=== PATIENT | female | born 1980 | race Caucasian/White ===

== ENCOUNTER 2016-06-30 13:53 | Emergency (ER) | payer OTHER ==
[~2016-06-30] VITALS: Ht 160 cm; Wt 168.9 kg
[~2016-06-30 13:53] MED LIST: ABL15 PO; ALBU0.08 INH; DOXY-300 PO; HYDR-3124 PO; MOME100A INH; OMEP20TA PO; ONDA4TAB46 PO; PRAZ5CAP2 PO; TOPI50TA24 PO; TPRSR/25 PO
[2016-06-30 13:57] VITALS: Ht 160 cm; Wt 168.9 kg
[2016-06-30] MEDS ORDERED: FLUO0.0121 TOP (14:33)
[2016-06-30] MEDS ORDERED: FURO-85 PO (14:33)
[2016-06-30] MEDS ORDERED: POTA10CA28 PO (14:37)
[2016-06-30] MEDS ORDERED: HYDROmorphone INJ 0.5 MG/0.5 ML SYR IV STA (15:26)
[2016-06-30] MEDS ORDERED: ALBUT/IPRATROP 3MG/0.5MG NEB 3 ML VIAL INH STA (15:26)
[2016-06-30] MEDS ORDERED: ACETAMINOPHEN 500 MG TAB PO STA (15:26)
[2016-06-30] MEDS ORDERED: ONDANSETRON INJ 2 MG/ML 2 ML VIAL IV STA (15:26)
[2016-06-30] MEDS ORDERED: ONDA4TAB9 PO (15:43)
[2016-06-30] MEDS ORDERED: KLN5X PO (15:43)
[2016-06-30] MEDS ORDERED: TPM/50 PO (15:43)
[2016-06-30] MEDS ORDERED: ARIP1TAB16 PO (15:43)
[2016-06-30] MEDS ORDERED: ALBINS/ INH (15:47)
[2016-06-30] MEDS ORDERED: TPRSR25 PO (15:47)
[2016-06-30] MEDS ORDERED: ALBU18002 INH (15:47)
--- NOTE | 2016-06-30 15:50 | DIAGNOSTIC IMAGING REPORT ---
CHEST ONE VIEW PORTABLE CLINICAL HISTORY: Chest pain. COMPARISON STUDY: Chest radiograph April 04, 2016. FINDINGS: Lung volumes are normal. No consolidation is identified. There is no pneumothorax or pleural effusion. There is no evidence of pulmonary edema. Cardiomediastinal silhouette is normal. IMPRESSION: No acute cardiopulmonary findings. Electronically signed by: Kody Choudhary M.D. 06/30/2016 3:49 PM Dictated Date/Time: 06/30/2016 3:48 PM
[2016-06-30 15:55] VITALS: TEMP 36.8
[2016-06-30 16:17] LABS: BASO % 0.3 %; BASO ABS # 0.04 K/uL (0-0.2); COMPLETE YES; HEMATOCRIT 37.4 % (37-47); IG% 0.4 %; LYMPH % 20.7 %; LYMPH ABS # 2.61 K/uL (1.2-3.4); MEAN CELL VOLUME 85.2 fL (80-100); MEAN CORPUSCULAR HEMOGLOBIN 28.9 pg (25-34); MEAN PLATELET VOLUME 9.4 fL (7.4-10.4); MONO % 6.3 %; NEUT % 69.3 %; PLATELET COUNT 282 K/uL (130-400); RED BLOOD COUNT 4.39 M/uL (4.2-5.4); WHITE BLOOD COUNT 12.61 K/uL (4.8-10.8)
[2016-06-30 16:39] LABS: ALT/SGPT 24 U/L (12-78); BLOOD UREA NITROGEN 20 mg/dl (7-18); BUN/CREATININE RATIO 22.7 (10-20); CALCIUM 9.3 mg/dl (8.5-10.1); CARBON DIOXIDE 23 mmol/L (21-32); CHLORIDE 105 mmol/L (98-107); GLUCOSE 130 mg/dl (70-99); POTASSIUM 3.7 mmol/L (3.5-5.1); SODIUM 140 mmol/L (136-145)
[2016-06-30 16:41] LABS: PREG INTERNAL NEGATIVE QC NEG CLEAR BACKGROUND; PREG INTERNAL POSITIVE QC POS CONTROL LINE
[2016-06-30 16:44] LABS: ALKALINE PHOSPHATASE 138 U/L (45-117); AST/SGOT 15 U/L (15-37)
--- NOTE | 2016-06-30 17:20 | DIAGNOSTIC IMAGING REPORT ---
CHEST CTA for PULMONARY ARTERIES CT DOSE: 746.53 mGy.cm HISTORY: Chest pain dyspnea TECHNIQUE: Multiaxial CT images of the chest were performed following the intravenous administration of contrast to evaluate the pulmonary arteries. Maximal intensity projection images were also obtained. COMPARISON STUDY: 11/04/2015 FINDINGS: There is a normal caliber thoracic aorta with no evidence for dissection. There is no evidence for pulmonary embolus. No pleural effusions. No pneumothorax. The liver and spleen are unremarkable. No mediastinal or hilar lymphadenopathy. The central airways are patent. The lungs are clear. IMPRESSION: No evidence for pulmonary embolus. The lungs are clear. Electronically signed by: José Luna M.D. 06/30/2016 5:18 PM Dictated Date/Time: 06/30/2016 5:17 PM
[2016-06-30 17:22] VITALS: O2SAT 99
[2016-06-30] MEDS ORDERED: AZITHROMYCIN 250 MG TAB PO STA (17:40)
[2016-06-30] MEDS ORDERED: PRED20TA PO (17:52)
[2016-06-30] MEDS ORDERED: AZIT250T5 PO (17:52)
[2016-06-30 18:08] VITALS: BP 134/75; PULSE 86; O2SAT 96
--- NOTE | 2016-06-30 18:34 | EMERGENCY ROOM VISIT NOTE ---
History Report prepared by Aimee: Tabatha Herrera Under the Supervision of: Dr. Sathya Niño M.D. First contact with patient: 15:16 Chief Complaint: CHEST PAIN Stated Complaint: PAIN FROM CHEST TO RIB, NECK PAIN ON THE RT SIDE Nursing Triage Summary: Patient reports left rib/chest pain for two weeks. Patient just finished prescription for bronchitis states she was on Bactrim History of Present Illness The patient is a 35 year old female who presents to the Emergency Room with complaints of worsening pain in the left side of her rib and chest for the past 2 weeks. She states that the pain is "beyond 10" out of 10 in severity. She reports that she saw her doctor for this, but says that he "didn't do anything" . She states that the pain is made worse by breathing, walking, eating, and coughing. She is also experiencing some nausea and a fever. She is having difficulty breathing. She reports she has a history of asthma for which she has been using an inhaler. She also mentions that she has been urinating more often. Upon arrival to the emergency room, the patient had a fever but was unaware of the fever RN OR LVN. Pt denies LOC, headache, chills, diaphoresis, visual changes, neck pain, chest pain, vomiting, abdominal pain, back pain, melena, hematochezia, numbness, weakness, lymphadenopathy, rash, or other complaints. Source of History: patient Onset: past 2 weeks Position: other (left ribs and chest) Symptom Intensity: beyond 10/10 Timing: worsening Modifying Factors (Worsening): eating, breathing, other (coughing, walking) Associated Symptoms: + fevers, + nausea, + urinary symptoms (increased frequency) Note: Pt is also having difficulty breathing. Review of Systems See HPI for pertinent positives and negatives. A total of ten systems were reviewed and were otherwise negative. Past Medical & Surgical Medical Problems: (1) Anxiety (2) Asthma (3) Bipolar II disorder with severity, psychotic, or remission specifiers (4) Gastroesophageal reflux disease (5) Gastroparesis (6) History of palpitations (7) Psoriasis (8) Type II diabetes mellitus, uncontrolled Family History FH: gallbladder disease FH: heart disease FHx: lung disease Hypertension Kidney disease Kidney stones Social History Smoking Status: Never Smoker Alcohol Use: none Drug Use: none Marital Status: in relationship Housing Status: lives with friends Occupation Status: unemployed Current/Historical Medications Scheduled Aripiprazole (Aripiprazole), 15 MG PO HS Atorvastatin (Atorvastatin Calcium), 20 MG PO HS Azithromycin (Zithromax), 250 MG PO DAILY Clonazepam (Clonazepam), 0.5 MG PO UD Fluocinolone Acetonide ([place]/Fs Scalp), 1 APPL TOP UD Furosemide (Lasix), 20 MG PO QAM Metoprolol Succinate (Metoprolol Succinate ER), 25 MG PO QAM Mometasone Furoate-Formoterol (Dulera 100/5 Mcg), 2 PUFFS INH BID Omeprazole (Omeprazole), 20 MG PO BID Potassium Chloride (Micro-K Ext Rel), 10 MEQ PO DAILY Prazosin Hcl (Prazosin), 5 MG PO HS Prednisone (Prednisone), 20 MG PO DAILY Topiramate (Topamax), 50 MG PO BID Scheduled PRN Albuterol Sulf (Proventil 0.083% 2.5MG/3ML), 2.5 MG INH QID PRN for Wheezing Albuterol Sulfate (Proair Respiclick), 2 PUFFS INH UD PRN for SOB/Wheezing Ondansetron (Ondansetron HCl), 4 MG PO Q8 PRN for Nausea Allergies Coded Allergies: Aspirin (Verified Allergy, Intermediate, hives, 04/04/16) Penicillins (Verified Allergy, Intermediate, hives, 04/04/16) Nickel (Verified Allergy, Mild, RASH, 04/04/16) Clindamycin (Unverified Allergy, Unknown, RASH, 04/04/16) Diazepam (Verified Allergy, Unknown, PALPITATIONS, VOMITING, 04/04/16) Fluconazole (Verified Allergy, Unknown, HIVES, 04/04/16) Metoclopramide (Unverified Allergy, Unknown, UNKNOWN, 04/04/16) Metronidazole (Verified Allergy, Unknown, ., 04/04/16) Sumatriptan (Verified Allergy, Unknown, "swelling up", 04/04/16) Tramadol (Verified Allergy, Unknown, HIVES, 04/04/16) Yeast (Verified Allergy, Unknown, unknown, 04/04/16) Doxycycline (Unverified Adverse Reaction, Severe, VOMITING, 04/04/16) Prednisone (Unverified Adverse Reaction, Severe, SUICIDAL, 04/04/16) Oxycodone (Unverified Adverse Reaction, Unknown, GI SYMPTOMS, 04/04/16) Physical Exam Vital Signs Date Time Temp Pulse Resp B/P Pulse Ox O2 Delivery O2 Flow Rate FiO2 06/30/16 18:08 86 18 134/75 96 Room Air 06/30/16 17:22 99 Nasal Cannula 1.0 06/30/16 17:21 89 16 153/73 99 Nasal Cannula 1.0 06/30/16 16:18 92 06/30/16 15:55 36.8 92 18 132/75 96 Room Air 06/30/16 15:50 94 Room Air 06/30/16 13:57 38.1 97 28 185/103 97 Room Air Physical Exam GENERAL: Awake, alert, uncomfortable-appearing, in no acute distress HENT: Normocephalic, atraumatic. Oropharynx unremarkable. EYES: Normal conjunctiva. Sclera non-icteric. NECK: Supple. No nuchal rigidity. FROM. No JVD. RESPIRATORY: Expiratory wheezing on left side to auscultation. Breath sounds equal. CARDIAC: Regular rate, normal rhythm. Extremities warm and well perfused. Pulses equal. ABDOMEN: Soft, non-distended. No tenderness to palpation. No rebound or guarding. No masses. RECTAL: Deferred. MUSCULOSKELETAL: Left posterior, lateral, and anterior rib tenderness. The back is symmetrical on inspection without obvious abnormality. There is no CVA tenderness to palpation. No joint edema. LOWER EXTREMITIES: Calves are equal size bilaterally and non-tender. No edema. No discoloration. NEURO: Normal sensorium. No sensory or motor deficits noted. SKIN: No rash or jaundice noted. Medical Decision & Procedures ER Provider Diagnostic Interpretation: Radiology results as stated below per my review and radiologist interpretation. CHEST ONE VIEW PORTABLE CLINICAL HISTORY: Chest pain. COMPARISON STUDY: Chest radiograph April 04, 2016. FINDINGS: Lung volumes are normal. No consolidation is identified. There is no pneumothorax or pleural effusion. There is no evidence of pulmonary edema. Cardiomediastinal silhouette is normal. IMPRESSION: No acute cardiopulmonary findings. Electronically signed by: Kody Choudhayr M.D. 06/30/2016 3:49 PM CHEST CTA for PULMONARY ARTERIES CT DOSE: 746.53 mGy.cm HISTORY: Chest pain dyspnea TECHNIQUE: Multiaxial CT images of the chest were performed following the intravenous administration of contrast to evaluate the pulmonary arteries. Maximal intensity projection images were also obtained. COMPARISON STUDY: 11/04/2015 FINDINGS: There is a normal caliber thoracic aorta with no evidence for dissection. There is no evidence for pulmonary embolus. No pleural effusions. No pneumothorax. The liver and spleen are unremarkable. No mediastinal or hilar lymphadenopathy. The central airways are patent. The lungs are clear. IMPRESSION: No evidence for pulmonary embolus. The lungs are clear. Electronically signed by: José Luna M.D. 06/30/2016 5:18 PM Laboratory Results 06/30/16 15:54 Red Blood Count 4.39, Mean Corpuscular Volume 85.2, Mean Corpuscular Hemoglobin 28.9, Mean Corpuscular Hemoglobin Concent 34.0, Mean Platelet Volume 9.4, Neutrophils (%) (Auto) 69.3, Lymphocytes (%) (Auto) 20.7, Monocytes (%) (Auto) 6.3, Eosinophils (%) (Auto) 3.0, Basophils (%) (Auto) 0.3, Neutrophils # (Auto) 8.73, Lymphocytes # (Auto) 2.61, Monocytes # (Auto) 0.80, Eosinophils # (Auto) 0.38, Basophils # (Auto) 0.04 06/30/16 15:54 Test 06/30/16 15:50 06/30/16 15:54 06/30/16 15:55 Influenza Type A Antigen Neg for Influ A (NEG) Influenza Type B Antigen Neg for Influ B (NEG) White Blood Count 12.61 K/uL (4.8-10.8) Red Blood Count 4.39 M/uL (4.2-5.4) Hemoglobin 12.7 g/dL (12.0-16.0) Hematocrit 37.4 % (37-47) Mean Corpuscular Volume 85.2 fL (80-100) Mean Corpuscular Hemoglobin 28.9 pg (25-34) Mean Corpuscular Hemoglobin Concent 34.0 g/dl (32-36) Platelet Count 282 K/uL (130-400) Mean Platelet Volume 9.4 fL (7.4-10.4) Neutrophils (%) (Auto) 69.3 % Lymphocytes (%) (Auto) 20.7 % Monocytes (%) (Auto) 6.3 % Eosinophils (%) (Auto) 3.0 % Basophils (%) (Auto) 0.3 % Neutrophils # (Auto) 8.73 K/uL (1.4-6.5) Lymphocytes # (Auto) 2.61 K/uL (1.2-3.4) Monocytes # (Auto) 0.80 K/uL (0.11-0.59) Eosinophils # (Auto) 0.38 K/uL (0-0.5) Basophils # (Auto) 0.04 K/uL (0-0.2) RDW Standard Deviation 43.8 fL (36.4-46.3) RDW Coefficient of Variation 14.0 % (11.5-14.5) Immature Granulocyte % (Auto) 0.4 % Immature Granulocyte # (Auto) 0.05 K/uL (0.00-0.02) Anion Gap 12.0 mmol/L (3-11) Est Creatinine Clear Calc Drug Dose 138.9 ml/min Estimated GFR () 97.4 Estimated GFR (Non- 84.0 BUN/Creatinine Ratio 22.7 (10-20) Calcium Level 9.3 mg/dl (8.5-10.1) Total Bilirubin 0.2 mg/dl (0.2-1) Direct Bilirubin < 0.1 mg/dl (0-0.2) Aspartate Amino Transf (AST/SGOT) 15 U/L (15-37) Alanine Aminotransferase (ALT/SGPT) 24 U/L (12-78) Alkaline Phosphatase 138 U/L (45-117) Total Creatine Kinase 49 U/L (26-192) Creatine Kinase MB < 0.5 ng/ml (0.5-3.6) Creatine Kinase MB Ratio (0-3.0) Total Protein 8.4 gm/dl (6.4-8.2) Albumin 3.5 gm/dl (3.4-5.0) Lipase 306 U/L (73-393) Human Chorionic Gonadotropin, Qual NEG (NEG) Bedside D-Dimer > 450 ng/mlFEU (0-450) Bedside Troponin I 0.000 ng/ml (0-0.045) Laboratory results reviewed by me Medications Administered Medications (Trade) Dose Ordered Sig/[place] Route Start Time Stop Time Status Last Admin Dose Admin Acetaminophen (Tylenol Tab) 1,000 mg NOW STAT PO 06/30/16 15:26 06/30/16 15:28 DC 06/30/16 15:43 1,000 MG Albuterol/ Ipratropium (Duoneb) 3 ml NOW STAT INH 06/30/16 15:26 06/30/16 15:28 DC 06/30/16 15:43 3 ML Hydromorphone HCl (Dilaudid Inj) 0.5 mg NOW STAT IV 06/30/16 15:26 06/30/16 15:28 DC 06/30/16 15:52 0.5 MG Ondansetron HCl (Zofran Inj) 4 mg NOW STAT IV 06/30/16 15:26 06/30/16 15:28 DC 06/30/16 15:51 4 MG Azithromycin (Zithromax Tab) 500 mg NOW STAT PO 06/30/16 17:40 06/30/16 17:46 DC 06/30/16 17:40 500 MG ECG Indication: chest pain Rate (beats per minute): 87 Rhythm: normal sinus Findings: no acute ischemic change, no ectopy ED Course 1525: The patient was evaluated in room B10. A complete history and physical exam was performed. 1526: Zofran Inj 4 mg IV, Dilaudid Inj 0.5 mg IV, DuoNeb 3 ml INH, acetaminophen 1000 mg PO. 1638: I reevaluated the patient. She is feeling better. 1728: I reevaluated the patient. Discussed results and discharge instructions: She verbalized understanding and agreement. The patient is ready for discharge. 1740: Ordered Azithromycin 500 mg PO. 1748: I reassessed the patient. She is feeling better. She says that she can take ibuprofen without problems and low doses of prednisone. Discussed results and discharge instructions: She verbalized understanding and agreement. The patient is ready for discharge. Medical Decision Triage Nursing notes reviewed. The patient's presentation and history were concerning for chest pain and respirations. Etiologies such as pneumonia, COPD, reactive airway disease, CHF, cardiac ischemia, pulmonary embolism, pneumothorax, musculoskeletal, infections, gastrointestinal, as well as others were entertained. The patient was evaluated. Blood work was obtained. She had a slight leukocytosis. She is febrile. She was treated with Tylenol, Zofran, and a small dose of IV Dilaudid. She did feel much better with this. The patient underwent imaging as above. This was negative. The patient has had chest pain for 2 weeks. Her chemistry panel, cardiac markers and test are negative. I suspect That she has a component of costochondritis but she was wheezing and has asthma. The patient was treated with a low dose prednisone which she states she can't tolerate just fine and Zithromax. She will use ibuprofen which she can take at home despite having a sensitivity to aspirin and also will use Tylenol. I asked for the patient follow-up closely as an outpatient. She will use her inhaler and nebulizer that she has at home. Incidentally flu testing was negative. If the patient worsens in any way she will come back to the Emergency Room for reevaluation. I gave my usual and customary discussion regarding this issue. By the evaluation outlined above other emergent etiologies such as those listed in the differential, as well as others, were deemed relatively unlikely. The patient and significant other were informed about the findings as listed above. All questions were answered and they were pleased with the treatment. Return instructions were outlined and the patient was discharged in stable condition. The patient was referred to her PCP for follow-up for a recheck of the current condition. The chart was completed utilizing [email or web address] Speech voice recognition software. Grammatical errors, random word insertions, pronoun errors, and incomplete sentences are an occasional consequence of this system due to software limitations, ambient noise, and hardware issues. Any formal questions or concerns about the content, text, or information contained within the body of this dictation should be directly addressed to the physician for clarification. Impression Primary Impression: Left sided chest pain Additional Impressions: Cough Wheezing Scribe Attestation The scribe's documentation has been prepared under my direction and personally reviewed by me in its entirety. I confirm that the note above accurately reflects all work, treatment, procedures, and medical decision making performed by me. Departure Information Dispostion Home / Self-Care Prescriptions Azithromycin (ZITHROMAX) 250 Mg Tab 250 MG PO DAILY, #4 TAB Prov: Sathya Niño MD 06/30/16 Prednisone (Prednisone) 20 Mg Tab 20 MG PO DAILY for 4 Days, #4 TAB Prov: Sathya Niño MD 06/30/16 Referrals Jude Crouch D.O. (PCP) Patient Instructions My [facility] Additional Instructions Albuterol Inhaler: Take 2 puffs four times daily for five days, then as needed. Prednisone 50mg: Once daily until the prescription is finished. It is best to take this earlier in the day as some patients note occasional difficulty falling asleep when taken in the late evening. Azithromycin(Zithromax) 250mg: Take one a day for 4 additional days. All antibiotics can cause diarrhea. If this occurs and you feel worse or it does not resolve in 1-2 days follow up with your doctor or return to the Emergency Department as this could be signs of serious underlying problems. Any medication can cause an allergic reaction, stop the pills immediately and return to the ER for rash, hives, breathing difficulties, or swelling. Acetaminophen(Tylenol) may be used for fever or pain. Use 1000mg every six hours as needed. Avoid using more than 4000mg in a 24 hour period. (AND/OR) Ibuprofen(Motrin, Advil) may be used for fever or pain. Use 600mg every six hours as needed. Take with food. Avoid using more than 2400mg in a 24 hour period. Do not use 2400mg per day for more than three consecutive days without physician direction. Prolonged inappropriate use can lead to stomach upset or ulcers. Rest and drink plenty of fluids. Avoid smoke/smoking, fumes, dust, or any triggers in the past that may have affected your breathing. Warm compresses for 20 minutes at a time four times daily for 2-3 days to help with the sore chest. Continue current medications. Return to the ER for chest pain, difficulty breathing, fevers, vomiting, worsening of your condition, or as needed. Follow up with your primary physician this week for a recheck of your current condition. Problem Qualifiers
[2016-06-30] MEDS ORDERED: LPT/20 PO (19:47)
== END 2016-06-30 18:11 | disposition home or self-care (01) ==
LOC: C.EDB 13:54
DX: R07.9 Chest pain, unspecified (principal); R05 Cough; R06.2 Wheezing; F41.9 Anxiety disorder, unspecified; J45.909 Unspecified asthma, uncomplicated; K21.9 Gastro-esophageal reflux disease without esophagitis; K31.84 Gastroparesis; E11.9 Type 2 diabetes mellitus without complications; L40.9 Psoriasis, unspecified; F31.9 Bipolar disorder, unspecified; Z82.49 Family history of ischemic heart disease and other diseases of the circulatory system; Z84.1 Family history of disorders of kidney and ureter; Z83.79 Family history of other diseases of the digestive system; Z79.899 Other long term (current) drug therapy

== ENCOUNTER 2016-09-09 01:00 | Emergency (ER) | payer OTHER ==
[~2016-09-09] VITALS: Ht 160 cm; Wt 161.0 kg
[~2016-09-09 01:00] MED LIST changes: -ABL15 PO; +ALBINS/ INH; -ALBU0.08 INH; +ALBU18002 INH; +ARIP1TAB16 PO; -DOXY-300 PO; +FLUO0.0121 TOP; +FURO-85 PO; -HYDR-3124 PO; +KLN5X PO; +LPT/20 PO; -ONDA4TAB46 PO; +ONDA4TAB9 PO; +POTA10CA28 PO; -TOPI50TA24 PO; +TPM/50 PO; -TPRSR/25 PO; +TPRSR25 PO
[2016-09-09 01:03] VITALS: TEMP 37; Ht 160 cm; Wt 161.0 kg
[2016-09-09] MEDS ORDERED: KETOROLAC TROMETHAMINE 60 MG/2 ML VIAL IM STA (01:37)
[2016-09-09] MEDS ORDERED: HYDROmorphone INJ 1 MG/ML SYR IM STA (01:37)
[2016-09-09] MEDS ORDERED: ABL/15 PO (01:47)
[2016-09-09] MEDS ORDERED: PREG1CAP36 PO (01:51)
[2016-09-09] MEDS ORDERED: PRLSR20 PO (01:51)
[2016-09-09] MEDS ORDERED: DICL-201 PO (01:54)
[2016-09-09] MEDS ORDERED: PROM25TA9 PO (01:56)
--- NOTE | 2016-09-09 02:29 | EMERGENCY ROOM VISIT NOTE ---
ED Visit Note First contact with patient: 01:06 CHIEF COMPLAINT: Low back pain HISTORY OF PRESENT ILLNESS: This 36-year-old female patient presents to the emergency department ambulatory complaining of pain in the low back which began over one month ago. The pain has been gradually been worsening. She has seen her primary care provider and had x-rays which were negative. She has been taking Voltaren and Lyrica prescribed by her primary care provider. She states that she was seen in the [place] emergency department yesterday and given Dilaudid and Toradol with some relief. She saw her primary care provider today and was given a prescription for physical therapy for the next 6 weeks. She states that she is having difficulty sleeping due to the pain. It radiates down her left leg. She rates the discomfort a 10/10. The patient denies any loss of control of their bowel or bladder functions. There has been no leg numbness or weakness, and no change in sensation. No nausea or vomiting or abdominal pain. No chest pain or shortness of breath. No dysuria or increased urinary frequency. REVIEW OF SYSTEMS: A review of systems was performed with positives and pertinent negatives listed in the history of present illness. All other systems were reviewed and are negative. ALLERGIES: See EMR MEDICATIONS: See med list PMH: See problem list SOCIAL HISTORY: The patient lives locally with family. PHYSICAL EXAM: VITALS: Vitals are noted on the nurse's note and reviewed by myself. Vital signs stable. GENERAL: This is a 36-year-old female, in no acute distress, nondiaphoretic, well-developed well-nourished. SKIN: The skin was without rashes, erythema, edema, or bruising. Capillary refill less than 2 seconds. NECK: Supple without nuchal rigidity. No cervical spine tenderness. No paraspinous muscle tenderness. HEART: Regular rate and rhythm without murmurs gallops or rubs. LUNGS: Clear to auscultation bilaterally without wheezes, rales or rhonchi. ABDOMEN: Positive bowel sounds x 4. Soft, nontender, without masses or organomegaly. Munoz sign negative. MUSCULOSKELETAL: No muscle atrophy, erythema, or edema noted of the back. There is no tenderness over the lumbar spinous processes. There is vague tenderness over the paraspinous muscles bilaterally. There is no tenderness over the thoracic spine or paraspinous muscles. There are no muscle spasms present. The patient is slow to move around with maximum tenderness with flexion. Negative straight leg raise test. NEURO: Patient was alert and oriented to person place and time. Normal sensation to light and sharp touch. Deep tendon reflexes 2+ in the lower extremities. Dorsalis pedis pulse 2+ bilaterally. Strength 5/5 and equal in the bilateral lower extremities. EMERGENCY DEPARTMENT COURSE: The patient was evaluated as above. She has already been evaluated by her primary care provider for this back pain. There are no signs or symptoms concerning for epidural abscess or cauda equina syndrome. She was given 1 mg Dilaudid IM and 60 mg Toradol IM with relief of her pain. She was instructed to follow-up with her primary care provider this morning for further evaluation of her ongoing back pain. She verbalized understanding of my assessment and treatment plan and was discharged home in good condition. DIAGNOSIS: Lumbar radiculopathy Problem List Medical Problems: (1) Anxiety Status: Chronic (2) Asthma Status: Chronic (3) Bipolar II disorder with severity, psychotic, or remission specifiers Status: Chronic (4) Gastroesophageal reflux disease Status: Chronic (5) Gastroparesis Status: Chronic (6) History of palpitations Status: Chronic (7) Psoriasis Status: Chronic (8) Type II diabetes mellitus, uncontrolled Status: Chronic Current/Historical Medications Scheduled Aripiprazole (Abilify), 15 MG PO DAILY Atorvastatin (Atorvastatin Calcium), 20 MG PO HS Clonazepam (Clonazepam), 0.5 MG PO UD Diclofenac (Voltaren), 75 MG PO DIRECTED Furosemide (Lasix), 20 MG PO QAM Metoprolol Succinate (Metoprolol Succinate ER), 25 MG PO QAM Mometasone Furoate-Formoterol (Dulera 100/5 Mcg), 2 PUFFS INH BID Omeprazole (Omeprazole), 20 MG PO BID Potassium Chloride (Micro-K Ext Rel), 10 MEQ PO DAILY Prazosin Hcl (Prazosin), 5 MG PO HS Pregabalin (Lyrica), Unknown Dose PO DIRECTED Topiramate (Topamax), 50 MG PO BID Scheduled PRN Albuterol Sulf (Proventil 0.083% 2.5MG/3ML), 2.5 MG INH QID PRN for Wheezing Albuterol Sulfate (Proair Respiclick), 2 PUFFS INH UD PRN for SOB/Wheezing Ondansetron (Ondansetron HCl), 4 MG PO Q8 PRN for Nausea Promethazine Hcl (Phenergan), 12.5-25 MG PO Q6H PRN for Nausea Allergies Coded Allergies: Aspirin (Verified Allergy, Intermediate, hives, 09/09/16) Penicillins (Verified Allergy, Intermediate, hives, 09/09/16) Nickel (Verified Allergy, Mild, RASH, 09/09/16) Clindamycin (Unverified Allergy, Unknown, RASH, 09/09/16) Diazepam (Verified Allergy, Unknown, PALPITATIONS, VOMITING, 09/09/16) Fluconazole (Verified Allergy, Unknown, HIVES, 09/09/16) Metoclopramide (Unverified Allergy, Unknown, UNKNOWN, 09/09/16) Metronidazole (Verified Allergy, Unknown, ., 09/09/16) Sumatriptan (Verified Allergy, Unknown, "swelling up", 09/09/16) Tramadol (Verified Allergy, Unknown, HIVES, 09/09/16) Yeast (Verified Allergy, Unknown, unknown, 09/09/16) Doxycycline (Unverified Adverse Reaction, Severe, VOMITING, 09/09/16) Prednisone (Unverified Adverse Reaction, Severe, SUICIDAL, 09/09/16) Oxycodone (Unverified Adverse Reaction, Unknown, GI SYMPTOMS, 09/09/16) Vital Signs Date Time Temp Pulse Resp B/P Pulse Ox O2 Delivery O2 Flow Rate FiO2 09/09/16 02:35 62 18 119/67 96 09/09/16 01:03 37.0 75 20 147/94 97 Room Air Medications Administered Medications (Trade) Dose Ordered Sig/[place] Route Start Time Stop Time Status Last Admin Dose Admin Hydromorphone HCl (Dilaudid Inj) 1 mg NOW STAT IM 09/09/16 01:37 09/09/16 01:38 DC 09/09/16 01:45 1 MG Ketorolac Tromethamine (Toradol Inj) 60 mg NOW STAT IM 09/09/16 01:37 09/09/16 01:38 DC 09/09/16 01:45 60 MG Departure Information Impression Primary Impression: Lumbar radiculopathy Dispostion Home / Self-Care Condition GOOD Referrals Jude Crouch D.O. (PCP) Patient Instructions My [facility] Additional Instructions You have been treated in the Emergency Department for Back Pain. You have received pain medicine in the emergency department which impairs your ability to operate a vehicle. It is illegal for you to drive after receiving these medicines. For pain control, you can use the following [id number] medicines (if >12 yo): - Regular strength (325mg/tab) Tylenol (acetaminophen) 2 tabs every 4-6 hours as needed. Do not exceed 12 tablets in a 24 hour period. Avoid taking more than 4 grams (4000 mg) of Tylenol per day. This includes any other sources of acetaminophen you may take on a regular basis. - Regular strength (200 mg/tab) Advil (ibuprofen) 1-2 tabs every 4-6 hours as needed. Do not exceed a dose of 3200 mg per day. Follow-up with your primary care provider tomorrow. Return to the Emergency Department if your current symptoms worsen despite treatment course outlined above, or if you develop any of the following symptoms : intractable pain despite aforementioned treatment course, loss of control of your bowel or bladder, numbness or tingling in your groin, or development of a fever.
[2016-09-09 02:35] VITALS: BP 119/67; PULSE 62; O2SAT 96
[2017-03-18] MEDS ORDERED: ASCO1CAP3 PO (13:33)
== END 2016-09-09 02:37 | disposition home or self-care (01) ==
LOC: C.EDB 01:02 → C.EDA 02:37
DX: M54.16 Radiculopathy, lumbar region (principal); E11.9 Type 2 diabetes mellitus without complications; K21.9 Gastro-esophageal reflux disease without esophagitis; F41.9 Anxiety disorder, unspecified; F31.81 Bipolar II disorder; J45.909 Unspecified asthma, uncomplicated; Z79.899 Other long term (current) drug therapy

== ENCOUNTER 2017-02-03 17:55 | Emergency (ER) | payer OTHER ==
[~2017-02-03] VITALS: Ht 162.6 cm; Wt 160.0 kg
[~2017-02-03 17:55] MED LIST changes: +ABL/15 PO; -ARIP1TAB16 PO; +DICL-201 PO; -FLUO0.0121 TOP; +PREG1CAP36 PO; +PROM25TA9 PO
[2017-02-03 18:14] VITALS: TEMP 37.5; O2SAT 98; Ht 162.6 cm; Wt 160.0 kg
--- NOTE | 2017-02-03 18:19 | EMERGENCY ROOM VISIT NOTE ---
History Report prepared by Aimee: Peggy Burns Under the Supervision of: Dr. Gagan Luna M.D. First contact with patient: 17:58 Chief Complaint: VAGINAL BLEEDING Stated Complaint: DIZZY History of Present Illness The patient is a 36 year old female with a past medical history of anemia and diabetic who presents to the ED with a cc of an episodes of vaginal bleeding beginning six months ago. She notes her last episode was from beginning of December to mid January. The patient states that she had a pelvic exam done at [facility] yesterday. She reports that she had an ultra sound and blood work done today. She notes she has had these symptoms since then. She describes her pain as a cramping. Positive shaking, dizziness, chills, and lightheadedness. Negative use of blood thinners, tobacco products, alcohol, drugs, and any recent trauma. Source of History: patient Onset: six months ago Position: other (vagina) Quality: cramping Timing: other (episode) Associated Symptoms: + chills Note: The patient complains of shaking, dizziness, and lightheadedness. The patient denies the use of blood thinners, tobacco products, alcohol, drugs, and recent trauma. Review of Systems See HPI for pertinent positives and negatives. A total of ten systems were reviewed and were otherwise negative. Past Medical & Surgical Medical Problems: (1) Anxiety (2) Asthma (3) Bipolar II disorder with severity, psychotic, or remission specifiers (4) Gastroesophageal reflux disease (5) Gastroparesis (6) History of palpitations (7) Hx of migraines (8) Psoriasis (9) Type II diabetes mellitus, uncontrolled Family History FH: gallbladder disease FH: heart disease FHx: lung disease Hypertension Kidney disease Kidney stones Social History Smoking Status: Current Every Day Smoker Alcohol Use: none Drug Use: none Marital Status: in relationship Housing Status: lives with friends Occupation Status: unemployed Current/Historical Medications Scheduled Aripiprazole (Abilify), 15 MG PO DAILY Atorvastatin (Atorvastatin Calcium), 20 MG PO HS Cephalexin Monohydrate (Keflex), 500 MG PO BID Cholecalciferol (Vitamin D3), 5,000 TAB PO DIRECTED Clonazepam (Clonazepam), 0.5 MG PO UD Ferrous Sulfate (Kp Ferrous Sulfate), 325 MG PO TID Furosemide (Lasix), 20 MG PO QAM Melatonin (Melatonin Maximum Strengt), 5 MG PO HS Metoprolol Succinate (Metoprolol Succinate ER), 25 MG PO QAM Mometasone Furoate-Formoterol (Dulera 100/5 Mcg), 2 PUFFS INH BID Omeprazole (Omeprazole), 20 MG PO BID Prazosin Hcl (Prazosin), 5 MG PO HS Topiramate (Topamax), 50 MG PO BID Scheduled PRN Albuterol Sulf (Proventil 0.083% 2.5MG/3ML), 2.5 MG INH QID PRN for Wheezing Albuterol Sulfate (Proair Respiclick), 2 PUFFS INH UD PRN for SOB/Wheezing Ondansetron (Ondansetron HCl), 4 MG PO Q8 PRN for Nausea Allergies Coded Allergies: Aspirin (Verified Allergy, Intermediate, hives, 02/03/17) Penicillins (Verified Allergy, Intermediate, hives, 02/03/17) Nickel (Verified Allergy, Mild, RASH, 02/03/17) Clindamycin (Unverified Allergy, Unknown, RASH, 02/03/17) Diazepam (Verified Allergy, Unknown, PALPITATIONS, VOMITING, 02/03/17) Fluconazole (Verified Allergy, Unknown, HIVES, 02/03/17) Metoclopramide (Unverified Allergy, Unknown, UNKNOWN, 02/03/17) Metronidazole (Verified Allergy, Unknown, ., 02/03/17) Sumatriptan (Verified Allergy, Unknown, "swelling up", 02/03/17) Tramadol (Verified Allergy, Unknown, HIVES, 02/03/17) Yeast (Verified Allergy, Unknown, unknown, 02/03/17) Doxycycline (Unverified Adverse Reaction, Severe, VOMITING, 02/03/17) Prednisone (Unverified Adverse Reaction, Severe, SUICIDAL, 02/03/17) Oxycodone (Unverified Adverse Reaction, Unknown, GI SYMPTOMS, 02/03/17) Physical Exam Vital Signs Date Time Temp Pulse Resp B/P (MAP) Pulse Ox O2 Delivery O2 Flow Rate FiO2 02/03/17 19:29 80 02/03/17 18:14 37.5 61 20 153/98 98 Room Air 02/03/17 18:14 98 T-piece Physical Exam GENERAL: Awake, alert, well-appearing, NAD HENT: Normocephalic, atraumatic. Scaliness to scalp. EYES: Normal conjunctiva. Sclera non-icteric. NECK: Supple. No nuchal rigidity. FROM. RESPIRATORY: CTAB, no rhonchi, wheezing, crackles, distant lung sounds secondary to body habitus. CARDIAC: RRR, no MRG, distant heart sounds secondary to body habitus. ABDOMEN: Soft, NTND, BS+ MSK: No chest wall TTP, no LE edema NEURO: GCS 15, CN 2-12 intact, moves all 4s on command SKIN: No rash or jaundice noted. Medical Decision & Procedures Laboratory Results 02/03/17 18:29 Red Blood Count 3.69, Mean Corpuscular Volume 80.8, Mean Corpuscular Hemoglobin 24.9, Mean Corpuscular Hemoglobin Concent 30.9, Mean Platelet Volume 8.7, Neutrophils (%) (Auto) 67.6, Lymphocytes (%) (Auto) 24.0, Monocytes (%) (Auto) 6.0, Eosinophils (%) (Auto) 2.1, Basophils (%) (Auto) 0.1, Neutrophils # (Auto) 7.04, Lymphocytes # (Auto) 2.50, Monocytes # (Auto) 0.62, Eosinophils # (Auto) 0.22, Basophils # (Auto) 0.01 02/03/17 18:29 Test 02/03/17 18:29 02/03/17 18:55 White Blood Count 10.41 K/uL (4.8-10.8) Red Blood Count 3.69 M/uL (4.2-5.4) Hemoglobin 9.2 g/dL (12.0-16.0) Hematocrit 29.8 % (37-47) Mean Corpuscular Volume 80.8 fL (80-100) Mean Corpuscular Hemoglobin 24.9 pg (25-34) Mean Corpuscular Hemoglobin Concent 30.9 g/dl (32-36) Platelet Count 341 K/uL (130-400) Mean Platelet Volume 8.7 fL (7.4-10.4) Neutrophils (%) (Auto) 67.6 % Lymphocytes (%) (Auto) 24.0 % Monocytes (%) (Auto) 6.0 % Eosinophils (%) (Auto) 2.1 % Basophils (%) (Auto) 0.1 % Neutrophils # (Auto) 7.04 K/uL (1.4-6.5) Lymphocytes # (Auto) 2.50 K/uL (1.2-3.4) Monocytes # (Auto) 0.62 K/uL (0.11-0.59) Eosinophils # (Auto) 0.22 K/uL (0-0.5) Basophils # (Auto) 0.01 K/uL (0-0.2) RDW Standard Deviation 46.1 fL (36.4-46.3) RDW Coefficient of Variation 15.5 % (11.5-14.5) Immature Granulocyte % (Auto) 0.2 % Immature Granulocyte # (Auto) 0.02 K/uL (0.00-0.02) Prothrombin Time 11.2 SECONDS (9.0-12.0) Prothromb Time International Ratio 1.0 (0.9-1.1) Activated Partial Thromboplast Time 27.7 SECONDS (21.0-31.0) Partial Thromboplastin Ratio 1.1 Anion Gap 10.0 mmol/L (3-11) Est Creatinine Clear Calc Drug Dose 128.9 ml/min Estimated GFR () 91.7 Estimated GFR (Non- 79.2 BUN/Creatinine Ratio 11.4 (10-20) Calcium Level 9.4 mg/dl (8.5-10.1) Total Bilirubin 0.4 mg/dl (0.2-1) Aspartate Amino Transf (AST/SGOT) 26 U/L (15-37) Alanine Aminotransferase (ALT/SGPT) 37 U/L (12-78) Alkaline Phosphatase 135 U/L (45-117) Total Protein 8.2 gm/dl (6.4-8.2) Albumin 3.3 gm/dl (3.4-5.0) Globulin 4.9 gm/dl (2.5-4.0) Albumin/Globulin Ratio 0.7 (0.9-2) Urine Color YELLOW Urine Appearance CLEAR (CLEAR) Urine pH 6.5 (4.5-7.5) Urine Specific [place] 1.004 (1.000-1.030) Urine Protein NEG (NEG) Urine Glucose (UA) NEG (NEG) Urine Ketones NEG (NEG) Urine Occult Blood NEG (NEG) Urine Nitrite NEG (NEG) Urine Bilirubin NEG (NEG) Urine Urobilinogen NEG (NEG) Urine Leukocyte Esterase TRACE (NEG) Urine WBC (Auto) 1-5 /hpf (0-5) Urine RBC (Auto) 0-4 /hpf (0-4) Urine Hyaline Casts (Auto) 0 /lpf (0-5) Urine Epithelial Cells (Auto) 5-10 /lpf (0-5) Urine Bacteria (Auto) NEG (NEG) Urine Test NEG (NEG) Laboratory results reviewed by me Medications Administered Medications (Trade) Dose Ordered Sig/[place] Route Start Time Stop Time Status Last Admin Dose Admin Ondansetron HCl (Zofran Inj) 4 mg NOW STAT IV 02/03/17 18:01 02/03/17 18:02 DC 02/03/17 19:29 4 MG Procedure Vaginal Exam: Slightly retroverted cervix. Physiological mucus, but no blood seen in vaginal vault. No masses. No tenderness to palpation. No CMT. ED Course 1803: The patient was evaluated in room B5. A complete history and physical exam was performed. 1945: I reevaluated the patient. Discussed results and discharge instructions: she verbalized understanding and agreement. The patient is ready for discharge. Medical Decision Differential diagnosis: Etiologies such as ectopic , dysfunction uterine bleeding, bleeding dyscrasia, trauma, infection, as well as others were entertained. Patient was seen and evaluated at the bedside. Per patient she has had prolonged heavy menstrual bleeding. Patient denies any current menstrual bleeding but has having some spotting after she had a pelvic exam yesterday as well as a transvaginal ultrasound was completed today. Patient was told that her hemoglobin was approximately between 9 and 10. Patient states she's been discussing the need for a possible total hysterectomy versus a D&C. Patient does not take any blood thinning medications and denies any trauma. Patient states that her last menstrual period that was prolonged began sometime in December and then ended about a week to 10 days prior. Patient has not been taking anything to help avoid any menstrual bleeding. Patient does state that she was mildly lightheaded but has not had any bleeding in the last several hours. Patient denies any syncope. Patient did check her blood sugar which is 90. Patient is a type II diabetic but does not take any medications. Patient had labs UA and UPT completed. Patient's hemoglobin was greater than 9. Patient's platelet count normal. Coags normal. Patient had a negative UA. UPT negative. Given the patient's recent ultrasound amount obtain at this time. Patient is feeling improved. Patient has a normal blood sugar and normal anion gap. Patient was informed of findings was feeling improved in 20 follow-up with her [employer]. Patient given strict follow-up, discharge, return precautions. Patient care patient was safely discharged home. Impression Primary Impression: Menometrorrhagia Additional Impression: Chronic disease anemia Scribe Attestation The scribe's documentation has been prepared under my direction and personally reviewed by me in its entirety. I confirm that the note above accurately reflects all work, treatment, procedures, and medical decision making performed by me. Departure Information Dispostion Home / Self-Care Referrals Jude Crouch D.O. (PCP) Forms HOME CARE DOCUMENTATION FORM, IMPORTANT VISIT INFORMATION, WORK / SCHOOL INSTRUCTIONS Patient Instructions ED Bleeding Menstrual Heavy, ED Cramping Menstrual, My [facility] Guided Interventions Additional Instructions Please return to the emergency department if you have worsening or recurrent symptoms not amenable to at-home treatment. Please call for a follow-up appointment with her primary care physician. Please take your medications as prescribed. If you have other concerns and/or complaints please feel free to also call your primary care physician's office or return the ED for further evaluation, management, and treatment. You may take 600 mg Ibuprofen every 6 hours as needed for pain with food for no more than 2 consecutive days. You may take tylenol 1000mg every 6 hours as needed for pain. You may take motrin and tylenol separately or at the same time. Please follow up w/ your change control specialist physician. You have been examined and treated today on an emergency basis only. This is not a substitute for, or an effort to provide, complete comprehensive medical care. It is impossible to recognize and treat all injuries or illnesses in a single emergency department visit. It is therefore important that you follow up closely with [facility]. Call as soon as possible for an appointment. Thank you for your time and consideration. I look forward to speaking with you again soon. Please don't hesitate to call us if you have any questions. Problem Qualifiers
[2017-02-03 18:38] LABS: BASO % 0.1 %; BASO ABS # 0.01 K/uL (0-0.2); COMPLETE YES; EOS % 2.1 %; HEMATOCRIT 29.8 % (37-47); IG% 0.2 %; MEAN CELL VOLUME 80.8 fL (80-100); MEAN CORPUSCULAR HEMOGLOBIN 24.9 pg (25-34); MEAN CORPUSCULAR HGB CONC 30.9 g/dl (32-36); MEAN PLATELET VOLUME 8.7 fL (7.4-10.4); NEUT % 67.6 %; PLATELET COUNT 341 K/uL (130-400); RED BLOOD COUNT 3.69 M/uL (4.2-5.4); WHITE BLOOD COUNT 10.41 K/uL (4.8-10.8)
[2017-02-03] MEDS ORDERED: CEPH500C PO (18:42)
[2017-02-03] MEDS ORDERED: FERR1TAB13 PO (18:42)
[2017-02-03] MEDS ORDERED: MELATAB2 PO (18:42)
[2017-02-03] MEDS ORDERED: CHOL1000 PO (18:42)
[2017-02-03 18:57] LABS: BUN/CREATININE RATIO 11.4 (10-20); CALCIUM 9.4 mg/dl (8.5-10.1); CREATININE 0.94 mg/dl (0.60-1.20); POTASSIUM 3.8 mmol/L (3.5-5.1)
[2017-02-03 18:59] LABS: PARTIAL THROMBOPLASTIN RATIO 1.1; PROTHROMBIN TIME (PATIENT) 11.2 SECONDS (9.0-12.0)
[2017-02-03 19:00] LABS: ALB/GLOB RATIO 0.7 (0.9-2)
[2017-02-03 19:07] LABS: URINE APPEARANCE CLEAR (CLEAR); URINE BILIRUBIN NEG (NEG); URINE COLOR YELLOW; URINE NITRITE NEG (NEG); URINE PH 6.5 (4.5-7.5); URINE SPECIFIC GRAVITY 1.004 (1.000-1.030); UROBILINOGEN NEG (NEG)
[2017-02-03 19:09] LABS: MANUAL MICROSCOPIC REQUIRED? NO; REVIEW REQ? NO
[2017-02-03 19:14] LABS: PREG INTERNAL NEGATIVE QC NEG CLEAR BACKGROUND; PREG INTERNAL POSITIVE QC POS CONTROL LINE
[2017-02-03] MEDS: ONDANSETRON INJ 2 MG/ML 2 ML VIAL IV STA (19:29)
[2017-02-03 19:57] VITALS: BP 146/84; PULSE 87; O2SAT 94
== END 2017-02-03 20:12 | disposition home or self-care (01) ==
LOC: EDBD 17:55 → C.EDB 17:56
DX: N92.1 Excessive and frequent menstruation with irregular cycle (principal); D64.9 Anemia, unspecified; E11.9 Type 2 diabetes mellitus without complications; K21.9 Gastro-esophageal reflux disease without esophagitis; F31.9 Bipolar disorder, unspecified; F41.9 Anxiety disorder, unspecified; K31.84 Gastroparesis; J45.909 Unspecified asthma, uncomplicated; F17.200 Nicotine dependence, unspecified, uncomplicated; Z79.899 Other long term (current) drug therapy; Z88.0 Allergy status to penicillin; Z88.3 Allergy status to other anti-infective agents; Z88.5 Allergy status to narcotic agent; Z88.8 Allergy status to other drugs, medicaments and biological substances; Z91.018 Allergy to other foods

== ENCOUNTER 2017-05-28 18:16 | Emergency (ER) | payer OTHER ==
[~2017-05-28] VITALS: Ht 160 cm; Wt 149.0 kg
[~2017-05-28 18:16] MED LIST changes: +ASCO1CAP3 PO; -DICL-201 PO; -LPT/20 PO; +MELATAB2 PO; -POTA10CA28 PO; -PREG1CAP36 PO; -PROM25TA9 PO
[2017-05-28 18:22] VITALS: Ht 160 cm; Wt 149.0 kg
[2017-05-28] MEDS ORDERED: FERR1TAB13 PO (18:42)
[2017-05-28] MEDS ORDERED: CHOL1000 PO (18:42)
[2017-05-28] MEDS ORDERED: LPT20 PO (19:47)
[2017-05-28] MEDS ORDERED: CLON1TAB3 PO (21:09)
[2017-05-28] MEDS ORDERED: DICY10CA55 PO (21:09)
[2017-05-28] MEDS ORDERED: KETOROLAC TROMETHAMINE 30 MG/ML VIAL IV STA (21:12)
[2017-05-28] MEDS ORDERED: ACETAMINOPHEN 500 MG TAB PO STA (21:12)
--- NOTE | 2017-05-28 21:15 | EMERGENCY ROOM VISIT NOTE ---
History Report prepared by Aimee: Kameron Felix Under the Supervision of: Dr. Gagan Luna M.D. First contact with patient: 20:56 Chief Complaint: PAIN (GENERALIZED) Stated Complaint: PAIN ALL OVER BODY History of Present Illness The patent is a 36 year old white female with a past medical history of chronic bronchitis, anxiety, bipolar II disorder, and diabetes who presents to the ED with a cc of persistent generalized body pain beginning 4 months ago. Positive nausea, vomiting, cough with green mucous, left rib pain, left knee pain. Negative rashes, recent trauma. She says that she was at rehab today, and she tried to walk to the bathroom and her left knee almost "gave out". She adds that she has been taking Motrin for her pain. The patient is an ex-smoker. Source of History: patient Onset: 4 months Position: other (global - generalized body pain) Timing: other (persistent) Associated Symptoms: + cough, + nausea, + vomiting, No rash Note: Positive left rib pain. Left knee pain. Negative recent trauma. Review of Systems See HPI for pertinent positives and negatives. A total of ten systems were reviewed and were otherwise negative. Past Medical & Surgical Medical Problems: (1) Anxiety (2) Asthma (3) Bipolar II disorder with severity, psychotic, or remission specifiers (4) Gastroesophageal reflux disease (5) Gastroparesis (6) History of palpitations (7) Hx of migraines (8) Psoriasis (9) Type II diabetes mellitus, uncontrolled Family History FH: gallbladder disease FH: heart disease FHx: lung disease Hypertension Kidney disease Kidney stones Social History Smoking Status: Former Smoker Alcohol Use: none Drug Use: none Marital Status: in relationship Housing Status: lives with friends Occupation Status: unemployed Current/Historical Medications Scheduled Aripiprazole (Abilify), 15 MG PO DAILY Ascorbic Acid (Vitamin C), 500 MG PO DAILY Atorvastatin (Lipitor), 20 MG PO HS Cholecalciferol (Vitamin D3), 5,000 TAB PO DIRECTED Ferrous Sulfate (Kp Ferrous Sulfate), 325 MG PO TID Furosemide (Lasix), 20 MG PO QAM Metoprolol Succinate (Metoprolol Succinate ER), 25 MG PO QAM Mometasone Furoate-Formoterol (Dulera 100/5 Mcg), 2 PUFFS INH BID Omeprazole (Omeprazole), 20 MG PO BID Prazosin Hcl (Prazosin), 5 MG PO HS Scheduled PRN Albuterol Sulf (Proventil 0.083% 2.5MG/3ML), 2.5 MG INH QID PRN for Wheezing Albuterol Sulfate (Proair Respiclick), 2 PUFFS INH UD PRN for SOB/Wheezing Clonazepam (Klonopin), 1 MG PO BID PRN for Anxiety Dicyclomine Hcl (Bentyl), 10 MG PO QID PRN for ABD PAIN Ondansetron (Ondansetron HCl), 4 MG PO Q8 PRN for Nausea Allergies Coded Allergies: Aspirin (Verified Allergy, Intermediate, hives, 03/18/17) Penicillins (Verified Allergy, Intermediate, hives, 03/18/17) Nickel (Verified Allergy, Mild, RASH, 03/18/17) Clindamycin (Unverified Allergy, Unknown, RASH, 03/18/17) Diazepam (Verified Allergy, Unknown, PALPITATIONS, VOMITING, 03/18/17) Fluconazole (Verified Allergy, Unknown, HIVES, 03/18/17) Metoclopramide (Unverified Allergy, Unknown, UNKNOWN, 03/18/17) Metronidazole (Verified Allergy, Unknown, ., 03/18/17) Sumatriptan (Verified Allergy, Unknown, "swelling up", 03/18/17) Tramadol (Verified Allergy, Unknown, HIVES, 03/18/17) Yeast (Verified Allergy, Unknown, unknown, 03/18/17) Doxycycline (Unverified Adverse Reaction, Severe, VOMITING, 03/18/17) Prednisone (Unverified Adverse Reaction, Severe, SUICIDAL, 03/18/17) Oxycodone (Unverified Adverse Reaction, Unknown, GI SYMPTOMS, 03/18/17) Physical Exam Vital Signs Date Time Temp Pulse Resp B/P (MAP) Pulse Ox O2 Delivery O2 Flow Rate FiO2 05/28/17 22:28 37.3 82 18 122/67 95 Room Air 05/28/17 20:34 85 05/28/17 20:28 36.9 87 18 148/94 97 Room Air 05/28/17 18:22 37.0 90 20 138/88 98 Room Air Physical Exam GENERAL: Awake, alert, well-appearing, NAD, obese HENT: Normocephalic, atraumatic. EYES: Normal conjunctiva. Sclera non-icteric. NECK: Supple. No nuchal rigidity. FROM. RESPIRATORY: CTAB, no rhonchi, wheezing, crackles CARDIAC: RRR, no MRG ABDOMEN: Soft, NTND, BS+ MSK: Mild reproducible costal margin pain, no crepitus. Mild left anterior knee pain, no redness or swelling. Compartments are soft distally, NVI. NEURO: GCS 15, CN 2-12 intact, moves all 4s on command SKIN: Scaly rash to face. No jaundice noted. Medical Decision & Procedures ER Provider Diagnostic Interpretation: X-ray: Per my interpretation, radiologist review. LEFT KNEE 3 VIEWS CLINICAL HISTORY: Left knee pain. FINDINGS: AP, crosstable lateral, and sunrise views of the left knee are obtained. No prior studies are available for comparison at the time of dictation. The skeletal structures are well mineralized. No fracture is seen. There are tiny patellar enthesophytes. The joint spaces are preserved. There is no joint effusion. The overlying soft tissues are within normal limits. IMPRESSION: Unremarkable radiographic assessment of the left knee. Electronically signed by: Jose Luis Rollins M.D. 05/28/2017 9:52 PM Dictated Date/Time: 05/28/2017 9:51 PM SINGLE VIEW CHEST CLINICAL HISTORY: Generalized abdominal pain. FINDINGS: An AP, portable, upright chest radiograph is compared to chest x-ray and chest CT dated to. The examination is degraded by portable technique, large body habitus, and patient rotation. The cardiomediastinal silhouette is unremarkable. The lungs and pleural spaces are clear. No pneumothorax is seen. The bony thorax is grossly intact. IMPRESSION: No active disease in the chest. Electronically signed by: Jose Luis Rollins M.D. 05/28/2017 9:51 PM Dictated Date/Time: 05/28/2017 9:50 PM Laboratory Results 05/28/17 21:30 Red Blood Count 4.07, Mean Corpuscular Volume 78.1, Mean Corpuscular Hemoglobin 24.3, Mean Corpuscular Hemoglobin Concent 31.1, Mean Platelet Volume 8.9, Neutrophils (%) (Auto) 68.4, Lymphocytes (%) (Auto) 23.9, Monocytes (%) (Auto) 6.0, Eosinophils (%) (Auto) 1.3, Basophils (%) (Auto) 0.1, Neutrophils # (Auto) 8.20, Lymphocytes # (Auto) 2.87, Monocytes # (Auto) 0.72, Eosinophils # (Auto) 0.16, Basophils # (Auto) 0.01 05/28/17 21:30 Test 05/28/17 21:30 White Blood Count 12.00 K/uL (4.8-10.8) Red Blood Count 4.07 M/uL (4.2-5.4) Hemoglobin 9.9 g/dL (12.0-16.0) Hematocrit 31.8 % (37-47) Mean Corpuscular Volume 78.1 fL (80-100) Mean Corpuscular Hemoglobin 24.3 pg (25-34) Mean Corpuscular Hemoglobin Concent 31.1 g/dl (32-36) Platelet Count 384 K/uL (130-400) Mean Platelet Volume 8.9 fL (7.4-10.4) Neutrophils (%) (Auto) 68.4 % Lymphocytes (%) (Auto) 23.9 % Monocytes (%) (Auto) 6.0 % Eosinophils (%) (Auto) 1.3 % Basophils (%) (Auto) 0.1 % Neutrophils # (Auto) 8.20 K/uL (1.4-6.5) Lymphocytes # (Auto) 2.87 K/uL (1.2-3.4) Monocytes # (Auto) 0.72 K/uL (0.11-0.59) Eosinophils # (Auto) 0.16 K/uL (0-0.5) Basophils # (Auto) 0.01 K/uL (0-0.2) RDW Standard Deviation 45.0 fL (36.4-46.3) RDW Coefficient of Variation 15.6 % (11.5-14.5) Immature Granulocyte % (Auto) 0.3 % Immature Granulocyte # (Auto) 0.04 K/uL (0.00-0.02) Anion Gap 9.0 mmol/L (3-11) Est Creatinine Clear Calc Drug Dose 207.1 ml/min Estimated GFR () 141.8 Estimated GFR (Non- 122.4 BUN/Creatinine Ratio 27.5 (10-20) Calcium Level 9.5 mg/dl (8.5-10.1) Laboratory results reviewed by me Medications Administered Medications (Trade) Dose Ordered Sig/[place] Route Start Time Stop Time Status Last Admin Dose Admin Acetaminophen (Tylenol Tab) 1,000 mg NOW STAT PO 05/28/17 21:12 05/28/17 21:14 DC 05/28/17 21:48 1,000 MG Ketorolac Tromethamine (Toradol Inj) 30 mg NOW STAT IV 05/28/17 21:12 05/28/17 21:14 DC 05/28/17 21:48 30 MG ED Course 2107: The patient was evaluated in room A4B. A complete history and physical exam was performed. 2230: I reevaluated the patient and she is resting. Discussed results and discharge instructions: she verbalized understanding and agreement. The patient is ready for discharge. Medical Decision The patent is a 36 year old white female with a past medical history of chronic bronchitis, anxiety, bipolar II disorder, and diabetes who presents to the ED with a cc of persistent generalized body pain beginning 4 months ago. Positive nausea, vomiting, cough with green mucous, left rib pain, left knee pain. Negative rashes, recent trauma. Differential diagnosis: Etiologies such as fracture, dislocation, neurovascular compromise, compartment syndrome, soft tissue injury, as well as others were entertained. Patient was seen and evaluated at the bedside. Patient triage complaint was all over body pain however the patient more localizes to the left ribs as well as the left knee. Patient states that she recently had some issue with her right foot mouth have been favoring her left leg. Patient does have some nonreproducible left chest wall pain as well as some left knee pain. There is no noted effusion or erythema. I do not believe that she has any sort of septic arthritis or hemarthrosis. Patient is able to move the extremity without much issue although does have some mild pain. Patient did have blood work completed along with a chest x-ray and left knee film. Patient did have mild white blood cell count of 12,000 however in the past she has been 10 and 12 ,000 during her prior two visits. Patient denies any fevers or chills and does not have any other infectious symptoms. Patient had a negative chest x-ray and left knee film. Patient was advised to continue [id number] treatment of her reproducible pains. I do not believe that the patient has a PE or ACS given the patient's history and physical exam. This and the fact the patient's EKG does not show any acute ischemia. Patient was deemed suitable for outpatient follow-up and treatment at this time.Patient was given strict follow- up, discharge, and return precautions. All questions were answered. Patient was deemed suitable for outpatient follow-up at this time. Patient agreed with the plan of care and was safely discharged home. The chart was completed utilizing [employer] Speech voice recognition software. Grammatical errors, random word insertions, pronoun errors, and incomplete sentences are an occasional consequence of this system due to software limitations, ambient noise, and hardware issues. Any formal questions or concerns about the content, text, or information contained within the body of this dictation should be directly addressed to the physician for clarification. Medication Reconcilliation Current Medication List: was personally reviewed by me Blood Pressure Screening Patient's blood pressure: Elevated blood pressure Blood pressure disposition: Elevated BP felt to be situational Impression Primary Impression: Knee pain, left Additional Impression: Rib pain on left side Scribe Attestation The scribe's documentation has been prepared under my direction and personally reviewed by me in its entirety. I confirm that the note above accurately reflects all work, treatment, procedures, and medical decision making performed by me. Departure Information Dispostion Home / Self-Care Referrals Severiano Watkins M.D. (PCP) Patient Instructions ED Flory PR[facility] Additional Instructions Please return to the emergency department if you have worsening or recurrent symptoms not amenable to at-home treatment. Please call for a follow-up appointment with her primary care physician. Please take your medications as prescribed. If you have other concerns and/or complaints please feel free to also call your primary care physician's office or return the ED for further evaluation, management, and treatment. You may take 600 mg Ibuprofen every 6 hours as needed for pain with food for no more than 2 consecutive days. You may take tylenol 1000 mg every 6 hours as needed for pain. You may take motrin and tylenol separately or at the same time. Take your medications as prescribed. You have been examined and treated today on an emergency basis only. This is not a substitute for, or an effort to provide, complete comprehensive medical care. It is impossible to recognize and treat all injuries or illnesses in a single emergency department visit. It is therefore important that you follow up closely with [facility], your PCP, and/or your specialist(s). Call as soon as possible for an appointment. Thank you for your time and consideration. I look forward to speaking with you again soon. Please don't hesitate to call us if you have any questions. Problem Qualifiers Primary Impression: Knee pain, left Chronicity: acute Qualified Codes: M25.562 - Pain in left knee
[2017-05-28 21:45] LABS: BASO % 0.1 %; BASO ABS # 0.01 K/uL (0-0.2); EOS % 1.3 %; EOS ABS # 0.16 K/uL (0-0.5); HEMATOCRIT 31.8 % (37-47); HEMOGLOBIN 9.9 g/dL (12.0-16.0); IG# 0.04 K/uL (0.00-0.02); LYMPH % 23.9 %; LYMPH ABS # 2.87 K/uL (1.2-3.4); MEAN CELL VOLUME 78.1 fL (80-100); MEAN CORPUSCULAR HEMOGLOBIN 24.3 pg (25-34); MEAN CORPUSCULAR HGB CONC 31.1 g/dl (32-36); MEAN PLATELET VOLUME 8.9 fL (7.4-10.4); MONO ABS # 0.72 K/uL (0.11-0.59); NEUT % 68.4 %; PLATELET COUNT 384 K/uL (130-400); RED CELL DISTRIBUTION WIDTH CV 15.6 % (11.5-14.5)
--- NOTE | 2017-05-28 21:52 | DIAGNOSTIC IMAGING REPORT ---
SINGLE VIEW CHEST CLINICAL HISTORY: Generalized abdominal pain. FINDINGS: An AP, portable, upright chest radiograph is compared to chest x-ray and chest CT dated to. The examination is degraded by portable technique, large body habitus, and patient rotation. The cardiomediastinal silhouette is unremarkable. The lungs and pleural spaces are clear. No pneumothorax is seen. The bony thorax is grossly intact. IMPRESSION: No active disease in the chest. Electronically signed by: Jose Luis Rollins M.D. 05/28/2017 9:51 PM Dictated Date/Time: 05/28/2017 9:50 PM
--- NOTE | 2017-05-28 21:53 | DIAGNOSTIC IMAGING REPORT ---
LEFT KNEE 3 VIEWS CLINICAL HISTORY: Left knee pain. FINDINGS: AP, crosstable lateral, and sunrise views of the left knee are obtained. No prior studies are available for comparison at the time of dictation. The skeletal structures are well mineralized. No fracture is seen. There are tiny patellar enthesophytes. The joint spaces are preserved. There is no joint effusion. The overlying soft tissues are within normal limits. IMPRESSION: Unremarkable radiographic assessment of the left knee. Electronically signed by: Jose Luis Rollins M.D. 05/28/2017 9:52 PM Dictated Date/Time: 05/28/2017 9:51 PM
[2017-05-28 22:04] LABS: CALCIUM 9.5 mg/dl (8.5-10.1); CREATININE 0.55 mg/dl (0.60-1.20); POTASSIUM 3.6 mmol/L (3.5-5.1)
[2017-05-28 22:28] VITALS: BP 122/67; PULSE 82; TEMP 37.3; O2SAT 95
== END 2017-05-28 22:48 | disposition home or self-care (01) ==
LOC: C.EDB 18:18 → C.EDA 22:48
DX: M25.562 Pain in left knee (principal); R07.81 Pleurodynia; F41.9 Anxiety disorder, unspecified; F31.81 Bipolar II disorder; E11.9 Type 2 diabetes mellitus without complications; E66.9 Obesity, unspecified; Z68.43 Body mass index [BMI] 50.0-59.9, adult; Z87.891 Personal history of nicotine dependence; K21.9 Gastro-esophageal reflux disease without esophagitis; E11.43 Type 2 diabetes mellitus with diabetic autonomic (poly)neuropathy; Z79.899 Other long term (current) drug therapy; Z82.49 Family history of ischemic heart disease and other diseases of the circulatory system; Z84.1 Family history of disorders of kidney and ureter

== ENCOUNTER 2017-08-28 15:57 | Emergency (ER) | payer OTHER ==
[~2017-08-28] VITALS: Ht 162.6 cm; Wt 142.0 kg
[~2017-08-28 15:57] MED LIST changes: +CHOL1000 PO; +CLON1TAB3 PO; +DICY10CA55 PO; +FERR1TAB13 PO; -KLN5X PO; +LPT20 PO; -MELATAB2 PO; -TPM/50 PO
[2017-08-28 16:07] VITALS: TEMP 36.7; Ht 162.6 cm; Wt 142.0 kg
[2017-08-28] MEDS ORDERED: METF-384 PO (16:47)
[2017-08-28] MEDS ORDERED: ACET-1256 PO (16:47)
[2017-08-28] MEDS ORDERED: IBUP-1050 PO (16:47)
[2017-08-28] MEDS ORDERED: PRAZ2CAP3 PO (16:47)
--- NOTE | 2017-08-28 17:05 | DIAGNOSTIC IMAGING REPORT ---
L KNEE 3 VIEWS HISTORY: 37 years-old Female left knee pain, left ankle pain acute left knee pain without reported trauma COMPARISON: Left knee radiographs 05/28/2017 TECHNIQUE: 3 views of the left knee FINDINGS: Minimal tricompartmental marginal spurring without significant joint space narrowing. There is no acute fracture or dislocation. Soft tissue prominence about the left lower extremity. No large joint effusion. IMPRESSION: No acute fracture or subluxation. The above report was generated using voice recognition software. It may contain grammatical, syntax or spelling errors. Electronically signed by: Cisco Garcia M.D. 08/28/2017 5:04 PM Dictated Date/Time: 08/28/2017 5:03 PM
--- NOTE | 2017-08-28 17:07 | DIAGNOSTIC IMAGING REPORT ---
L ANKLE MIN 3 VIEWS ROUTINE CLINICAL HISTORY: left knee pain, left ankle pain COMPARISON: None. DISCUSSION: Nondisplaced incomplete cortical fracture lateral margin lateral malleolus. All remaining osseous structures are unremarkable. Generalized soft tissue edematous change. Subtalar joint is intact. Small heel spur. Potential partial subtalar coalition IMPRESSION: 1. Small incomplete cortical fracture lateral malleolus.. 2. Generalized soft tissue edema. 3. Partial subtalar coalition 4. Small heel spur. The above report was generated using voice recognition software. It may contain grammatical, syntax or spelling errors. Electronically signed by: José Luna M.D. 08/28/2017 5:06 PM Dictated Date/Time: 08/28/2017 5:03 PM
--- NOTE | 2017-08-28 18:00 | DIAGNOSTIC IMAGING REPORT ---
L VENOUS DOPP LOWER EXT UNILAT CLINICAL HISTORY: left leg pain, swelling pain. Edema. TECHNIQUE: Venous Doppler COMPARISON STUDY: 11/05/2015 FINDINGS: Normal study IMPRESSION: Normal study The above report was generated using voice recognition software. It may contain grammatical, syntax or spelling errors. Electronically signed by: José Luna M.D. 08/28/2017 5:59 PM Dictated Date/Time: 08/28/2017 5:58 PM
--- NOTE | 2017-08-28 18:44 | EMERGENCY ROOM VISIT NOTE ---
History First contact with patient: 16:14 Chief Complaint: LEG PAIN,LEG INJURY Stated Complaint: L LEG PAIN History of Present Illness The patient is a 37 year old female who presents to the Emergency Room with complaints of pain in her left leg. The patient reports that she has had left leg pain and swelling for the past 2 months. The patient has been seeing Dr. Hopkins for tendon injuries in her right ankle. She states that she has been favoring her left leg and feels this has caused injury to her left leg. She reports pain in her kneecap which is worse when she is bending or straightening her leg. The pain has been ongoing for the past 2 months. She was seen at [place] emergency department last week and was told that nothing was wrong. She states she had an ultrasound of x-ray at that time. Her primary care provider recommended physical therapy, although the patient is not sure she will be able to perform this. She states she does have home nursing coming next week to help perform physical therapy. She rates her discomfort a 9/10. Review of Systems A complete 10 point review of systems was reviewed with the patient with pertinent positives and negatives as per history of present illness. All else were negative. Past Medical/Surgical History Medical Problems: (1) Anxiety (2) Asthma (3) Bipolar II disorder with severity, psychotic, or remission specifiers (4) Gastroesophageal reflux disease (5) Gastroparesis (6) History of palpitations (7) Hx of migraines (8) Psoriasis (9) Type II diabetes mellitus, uncontrolled Family History FH: gallbladder disease FH: heart disease FHx: lung disease Hypertension Kidney disease Kidney stones Social History Smoking Status: Former Smoker Alcohol Use: none Drug Use: none Marital Status: in relationship Housing Status: lives with friends Occupation Status: unemployed Current/Historical Medications Scheduled Acetaminophen (Tylenol), 1,000 MG PO UD Ascorbic Acid (Vitamin C), 500 MG PO QAM Atorvastatin (Lipitor), 20 MG PO HS Cholecalciferol (Vitamin D3), 5,000 TAB PO QAM Ferrous Sulfate (Kp Ferrous Sulfate), 325 MG PO TID Furosemide (Lasix), 20 MG PO QAM Ibuprofen (Advil), 400 MG PO UD Metformin Hcl (Glucophage), 1,000 MG PO BID Metoprolol Succinate (Metoprolol Succinate ER), 25 MG PO QAM Mometasone Furoate-Formoterol (Dulera 100/5 Mcg), 2 PUFFS INH BID Omeprazole (Omeprazole), 20 MG PO BID Prazosin Hcl (Prazosin), 2 MG PO HS Scheduled PRN Albuterol Sulf (Proventil 0.083% 2.5MG/3ML), 2.5 MG INH QID PRN for Wheezing Albuterol Sulfate (Proair Respiclick), 2 PUFFS INH UD PRN for SOB/Wheezing Clonazepam (Klonopin), 1 MG PO BID PRN for Anxiety Dicyclomine Hcl (Bentyl), 10 MG PO QID PRN for ABD PAIN Ondansetron (Ondansetron HCl), 4 MG PO Q8 PRN for Nausea Physical Exam Vital Signs Date Time Temp Pulse Resp B/P (MAP) Pulse Ox O2 Delivery O2 Flow Rate FiO2 08/28/17 19:14 66 18 157/77 99 Room Air 08/28/17 16:07 36.7 78 22 152/80 98 Room Air Physical Exam VITALS: Vitals are noted on the nurse's note and reviewed by myself. Vital signs stable. GENERAL: This is a 37-year-old female, in no acute distress, sitting up in bed, well-developed well-nourished. SKIN: Generalized eczema noted. HEART: Regular rate and rhythm without murmurs gallops or rubs. LUNGS: Clear to auscultation bilaterally without wheezes, rales or rhonchi. MUSCULOSKELETAL: There is a postoperative shoe in place on the left foot. There is no deformity noted of the left lower extremity. There is tenderness to palpation to the medial aspect of the left knee as well as the lateral aspect of the left ankle. Full range of motion of all joints. Patellar reflexes 2+ bilaterally. NEURO: Patient was alert and oriented to person place and time. Normal sensation of her bilateral lower extremities. Medical Decision & Procedures ER Provider Diagnostic Interpretation: L VENOUS DOPP LOWER EXT UNILAT FINDINGS: Normal study IMPRESSION: Normal study L KNEE 3 VIEWS FINDINGS: Minimal tricompartmental marginal spurring without significant joint space narrowing. There is no acute fracture or dislocation. Soft tissue prominence about the left lower extremity. No large joint effusion. IMPRESSION: No acute fracture or subluxation. L ANKLE MIN 3 VIEWS ROUTINE DISCUSSION: Nondisplaced incomplete cortical fracture lateral margin lateral malleolus. All remaining osseous structures are unremarkable. Generalized soft tissue edematous change. Subtalar joint is intact. Small heel spur. Potential partial subtalar coalition IMPRESSION: 1. Small incomplete cortical fracture lateral malleolus.. 2. Generalized soft tissue edema. 3. Partial subtalar coalition 4. Small heel spur. Medical Decision Differential diagnosis includes fracture, dislocation, sprain, DVT, superficial thrombosis, among others. The patient is a 37-year-old female who presents today complaining of persistent left leg pain. Patient has had leg pain ongoing for 2 months. She mostly complains of pain in the knee, however on exam does have some tenderness in the ankle. Ultrasound was negative for DVT. X-rays were obtained and patient does have a very small fracture of the distal fibula. Patient was placed in a fracture boot. She is already seeing Dr. Hopkins of orthopedics. She was advised to follow-up closely with him for further evaluation of this pain. Based on the patient's presentation and work up, I feel the patient is stable for outpatient treatment. The patient was educated to return to the emergency department for any worsening of their current condition or new/concerning symptoms. She will follow up with orthopedics. Medication Reconcilliation Current Medication List: was personally reviewed by me Blood Pressure Screening Patient's blood pressure: Elevated blood pressure Blood pressure disposition: Elevated BP felt to be situational Impression Primary Impression: Fracture of distal fibula Additional Impression: Leg pain, left Departure Information Dispostion Home / Self-Care Condition GOOD Referrals Severiano Watkins M.D. (PCP) Patient Instructions My [facility] [employer] Additional Instructions Where the fracture boot and use the walker to terrazzo helper with walking. Follow-up with your orthopedist as soon as possible for further evaluation. Return to the emergency department with worsening pain/swelling, numbness, weakness, or any other new/concerning symptoms. Problem Qualifiers Primary Impression: Fracture of distal fibula Encounter type: initial encounter Fracture type: closed Fracture morphology : other fracture Laterality: left Qualified Codes: S82.832A - Other fracture of upper and lower end of left fibula, initial encounter for closed fracture
[2017-08-28 19:14] VITALS: BP 157/77; PULSE 66; O2SAT 99
[2017-08-31] MEDS ORDERED: ZIPR20CA PO (11:12)
== END 2017-08-28 19:24 | disposition home or self-care (01) ==
LOC: EDBD 15:57 → C.EDB 15:58
DX: S82.832A Other fracture of upper and lower end of left fibula, initial encounter for closed fracture (principal); M79.605 Pain in left leg; X58.XXXA Exposure to other specified factors, initial encounter; J45.909 Unspecified asthma, uncomplicated; F31.9 Bipolar disorder, unspecified; K21.9 Gastro-esophageal reflux disease without esophagitis; E11.9 Type 2 diabetes mellitus without complications; Z87.891 Personal history of nicotine dependence; Z79.899 Other long term (current) drug therapy

== ENCOUNTER 2019-09-24 07:01 | Observation (INO) ==
[2019-09-24] MEDS ORDERED: ONDANSETRON INJ 2 MG/ML 2 ML VIAL IV STA (07:41)
[2019-09-24] MEDS ORDERED: MoRPHine SULFATE 4 MG/ML 1 ML CARP\\VIAL IV STA (07:41)
[2019-09-24 07:55] LABS: Basophils # (auto) 0.01 K/uL (0-0.2); Basophils % (auto) 0.1 %; Eosinophils # (auto) 0.18 K/uL (0-0.5); Eosinophils % (auto) 1.8 %; Hematocrit (blood only) 36.9 % (37-47); Hemoglobin 11.4 g/dL (12.0-16.0); Immature Granulocytes # (auto) 0.02 K/uL (0.00-0.02); Immature Granulocytes % (auto) 0.2 %; Lymphocytes # (auto) 2.15 K/uL (1.2-3.4); Mean Corpuscular Hemoglobin 26.3 pg (25-34); Mean Corpuscular Hgb Conc 30.9 g/dL (32-36); Mean Corpuscular Volume 85.2 fL (80-100); Mean Platelet Volume 9.6 fL (7.4-10.4); Monocytes % (auto) 10.2 %; Neutrophils # (auto) 6.43 K/uL (1.4-6.5); Neutrophils % (auto) 65.7 %; Platelet Count 297 K/uL (130-400); RDW Coefficient of Variation 15.9 % (11.5-14.5); RDW Standard Deviation 49.6 fL (36.4-46.3); Red Blood Count 4.33 M/uL (4.2-5.4); White Blood Count 9.79 K/uL (4.8-10.8)
--- NOTE | 2019-09-24 08:00 | Emergency Department Note ---
History of Present Illness General Chief complaint: Flank Pain Time Seen by Provider: 09/24/19 07:19 History of Present Illness Maximum Pain Intensity: 3 Patient is a 39-year-old female with extensive past medical history including psoriatic arthritis, sleep apnea, depression/anxiety/bipolar disorder/PTSD, morbid obesity, dyslipidemia, asthma, diabetes, among other chronic medical problems who presents to the emergency department for evaluation of bilateral flank pain x2 days. She notes that she was diagnosed with a kidney stone on the right side here in the emergency department several months ago. She does also report a history of frequent urinary tract infections, however she she states that she has not been on any antibiotics recently. She notes bilateral flank pain that started 2 days ago with associated nausea, decreased urinary output with dark, foul-smelling urine. She did vomit prior to ambulance arrival this morning. She denies dysuria or gross hematuria. She tried taking Naprosyn and Phenergan for her flank pain. She currently rates her discomfort a 5/10. She notes chronic diarrhea and is on medications for this. She denies any vaginal discharge. Secondly, patient notes that she has had pain and swelling in the right lower leg for the last 2 days as well. She states that she has chronic lower extremity swelling and takes Lasix for this. She notes however that due to a social situation she was without her Lasix for over 10 days. She states that her right foot is swollen, painful, numb and tingly. She reports that she is primarily wheelchair-bound, she can transfer with a walker. She notes that due to her social situation she was in [facility] for about a week. She notes that she had a fall while she was out of town, she does not know if she may have injured the leg at that time. She states that she will often wrap her leg with David wraps but has not been doing this. She has been without her home physical therapy services for over a week as well. She has been evaluated for a DVT in the past but has never had one. Patient has a very sedentary lifestyle, and did travel to and from [facility] in the last 10 days. Patient also has a history of psoriatic arthritis. She was recently started on Humira in mid August, but has only had 1 dose, she is supposed to be taking this every 2 weeks. She denies any chest pain, palpitations or shortness of breath. She has no symptoms in the left leg. Home Medications Home Medications Medication Instructions Recorded Confirmed Type albuterol sulfate 2.5 mg INHALATION QID PRN 01/31/18 09/24/19 History ascorbic acid (vitamin C) [Vitamin 500 mg PO BID 01/31/18 09/24/19 History C] atorvastatin [Lipitor] 20 mg PO HS 01/31/18 09/24/19 History dicyclomine 10 mg PO QID PRN 01/31/18 09/24/19 History ferrous sulfate 325 mg PO BID 01/31/18 09/24/19 History furosemide 20 mg PO BID 01/31/18 09/24/19 History metformin 1,000 mg PO BIDM 01/31/18 09/24/19 History omeprazole 20 mg PO BID 01/31/18 09/24/19 History prazosin 2 mg PO HS 01/31/18 09/24/19 History buspirone 10 mg PO TID 12/26/18 09/24/19 History duloxetine [Cymbalta] 20 mg PO QAM 12/26/18 09/24/19 History naproxen 500 mg PO BID PRN 12/26/18 09/24/19 History albuterol sulfate [ProAir HFA] 2 puff INHALATION Q4H PRN 01/19/19 09/24/19 History clobetasol 1 applic TOPICAL DIRECTED PRN 01/19/19 09/24/19 History cyclobenzaprine 10 mg PO TID PRN 01/19/19 09/24/19 History docusate sodium 100 mg PO BID 01/19/19 09/24/19 History metoprolol succinate 50 mg PO QAM 01/19/19 09/24/19 History mupirocin 1 applic TOPICAL DAILY PRN 01/19/19 09/24/19 History potassium chloride 10 meq PO QAM 01/19/19 09/24/19 History triamcinolone acetonide 1 applic TOPICAL BID PRN 01/19/19 09/24/19 History aripiprazole [Abilify] 15 mg PO QAM 03/04/19 09/24/19 History fluticasone propion-salmeterol 1 inh INHALATION Q12H 03/04/19 09/24/19 History [Advair Diskus] ondansetron HCl [Zofran] 8 mg PO Q8 PRN 03/04/19 09/24/19 History adalimumab [Humira Pen] 0 mg SUBCUT UD 09/24/19 09/24/19 History doxepin 50 mg PO HS 09/24/19 09/24/19 History hydroxyzine pamoate [Vistaril] 25 mg PO TID PRN 09/24/19 09/24/19 History Allergies Allergy/AdvReac Type Severity Reaction Status Date / Time aspirin Allergy Intermediate hives Verified 09/24/19 10:34 diazepam Allergy Intermediate PALPITATIONS, Verified 09/24/19 10:34 VOMITING fluconazole Allergy Intermediate HIVES Verified 09/24/19 10:34 Penicillins Allergy Intermediate hives Verified 09/24/19 10:34 sumatriptan Allergy Intermediate "swelling Verified 09/24/19 10:34 up" tramadol Allergy Intermediate HIVES Verified 09/24/19 10:34 Yeast Allergy Intermediate Hives Verified 09/24/19 10:34 clindamycin Allergy Mild RASH Verified 09/24/19 10:34 metoclopramide Allergy Mild suicidal Verified 09/24/19 10:34 thoughts metronidazole Allergy Mild Rash Verified 09/24/19 10:34 nickel Allergy Mild RASH Verified 09/24/19 10:34 doxycycline AdvReac Severe VOMITING Verified 09/24/19 10:34 prednisone AdvReac Severe SUICIDAL Verified 09/24/19 10:34 oxycodone AdvReac Intermediate GI SYMPTOMS Verified 09/24/19 10:34 Past Med/Surg History Medical History Anemia (Chronic) Anxiety (Chronic) Asthma (Chronic) inhaler daily/prn and nebulizer prn Bipolar disorder (Chronic) Degenerative disc disease (Chronic) Depression (Chronic) Fracture of distal fibula (Resolved) per pt did not heal correctly and uses a walker or wheelchair History of palpitations (Chronic) reason for metoprolol Hyperlipidemia (Chronic) Kidney stone (Chronic) Lumbar radiculopathy (Resolved) Migraine Morbid obesity with BMI of 50.0-59.9, adult (Chronic) Nausea and vomiting after administration of anesthetic agent Osteoarthritis (Chronic) Post traumatic stress disorder (Chronic) Precancerous changes of the cervix (Chronic) scheduled for a D&C 03/18/19 Psoriatic arthritis (Chronic) Sleep apnea (Chronic) cpap Type II diabetes mellitus, uncontrolled (Chronic) Surgical History History of bilateral tubal ligation History of cholecystectomy History of dilatation and curettage x2 History of endoscopic sinus surgery x2 History of esophagogastroduodenoscopy (EGD) History of surgical removal of ganglion cyst x3 on right hand History of tonsillectomy and adenoidectomy Hx of meniscectomy of right knee Status post myringotomy with tube placement of both ears multiple Social History Preferred Language: Malaysian Communication Ability: Effective Floor Cashier Required: No Beliefs That Will Affect Care: None Current Living Situation: Significant Other Current Living Situation Comment: Lives with Sathya bull Feels Safe at Home: Yes Smoking Status: Never smoker Second Hand Exposure: Yes (jorgito smokes) ; Hx Alcohol Use: No Hx Substance Use: No Review of Systems A total of 10 systems reviewed and were otherwise negative Physical Exam Vital Signs Vital Signs - 24 hr 09/24/19 07:09 09/24/19 07:12 09/24/19 07:13 Temperature 37 C Temperature Source Oral Pulse Rate 101 H 107 H 99 H Pulse Rate [Left] Pulse Rate from SpO2 Sensor 104 H 103 H Pulse Rhythm Regular Pulse Strength Normal Respiratory Rate 26 H 20 Respiratory Effort / Characteristics Non-Labored Spontaneous Respiratory Depth Normal Blood Pressure 148/112 H 148/112 H Blood Pressure [Left Arm] Blood Pressure Mean 115 124 Blood Pressure Mean [Left Arm] Blood Pressure Position [Left Arm] Pulse Oximetry 95 97 98 Oxygen Delivery Method Room Air Room Air Room Air Sepsis Recent Fever Within 48 Hours No Sepsis Action Taken by Nursing No Action Required 09/24/19 07:30 09/24/19 08:00 09/24/19 08:09 Temperature Temperature Source Pulse Rate 115 H 87 95 H Pulse Rate [Left] Pulse Rate from SpO2 Sensor 114 H 89 93 H Pulse Rhythm Pulse Strength Respiratory Rate 20 24 22 Respiratory Effort / Characteristics Respiratory Depth Blood Pressure 124/87 Blood Pressure [Left Arm] Blood Pressure Mean 92 Blood Pressure Mean [Left Arm] Blood Pressure Position [Left Arm] Pulse Oximetry 93 95 Oxygen Delivery Method Room Air Room Air Room Air Sepsis Recent Fever Within 48 Hours Sepsis Action Taken by Nursing 09/24/19 08:30 09/24/19 09:34 09/24/19 09:35 Temperature Temperature Source Pulse Rate 100 H 98 H Pulse Rate [Left] 100 H Pulse Rate from SpO2 Sensor 100 H 110 H 99 H Pulse Rhythm Pulse Strength Respiratory Rate 19 Respiratory Effort / Characteristics Non-Labored Spontaneous Respiratory Depth Blood Pressure 117/87 126/74 Blood Pressure [Left Arm] 126/74 Blood Pressure Mean 91 88 Blood Pressure Mean [Left Arm] 91 Blood Pressure Position [Left Arm] Lying Pulse Oximetry 96 96 93 Oxygen Delivery Method Room Air Room Air Room Air Sepsis Recent Fever Within 48 Hours Sepsis Action Taken by Nursing 09/24/19 10:00 09/24/19 10:30 09/24/19 11:00 Temperature Temperature Source Pulse Rate 103 H 85 97 H Pulse Rate [Left] Pulse Rate from SpO2 Sensor 106 H 85 96 H Pulse Rhythm Pulse Strength Respiratory Rate 24 14 18 Respiratory Effort / Characteristics Respiratory Depth Blood Pressure 138/79 126/75 122/75 Blood Pressure [Left Arm] Blood Pressure Mean 98 92 85 Blood Pressure Mean [Left Arm] Blood Pressure Position [Left Arm] Pulse Oximetry 97 95 94 Oxygen Delivery Method Room Air Sepsis Recent Fever Within 48 Hours Sepsis Action Taken by Nursing 09/24/19 11:30 Temperature Temperature Source Pulse Rate 115 H Pulse Rate [Left] Pulse Rate from SpO2 Sensor 114 H Pulse Rhythm Pulse Strength Respiratory Rate 17 Respiratory Effort / Characteristics Respiratory Depth Blood Pressure 124/83 Blood Pressure [Left Arm] Blood Pressure Mean 97 Blood Pressure Mean [Left Arm] Blood Pressure Position [Left Arm] Pulse Oximetry 97 Oxygen Delivery Method Sepsis Recent Fever Within 48 Hours Sepsis Action Taken by Nursing CONSTITUTIONAL: Patient is an obese 39-year-old female who is awake and alert and sitting upright on the gurney in no acute distress. Vital signs are stable. EYES: Pupils equal, round, reactive to light and accommodation. EOMs intact without nystagmus. Sclera are anicteric. ENT: Tympanic membranes intact, with normal landmarks. External canals are cl ear. Oral and nasopharynx are clear. Mucous membranes are moist, no lesions, tongue and gums appear normal. CARDIOVASCULAR: Regular rate and rhythm, with normal S1 and S2, no murmur or gallop or rub is heard. No carotid bruits auscultated. No JVD. Peripheral pulses easy to palpable. RESPIRATORY: Breath sounds equal and clear to auscultation without wheezes, rales, or rhonchi heard. Full and equal chest expansion without accessory muscle use or retractions. GI: Bowel sounds are present. Abdomen is soft, obese, nondistended, diffusely tender to palpation, primarily in the right mid and left mid abdomen, no guarding or rebound. MUSCULOSKELETAL: Examination of the right lower leg note superficial excoriations over the anterior [place] region patient reports he is "razor burn." There is mild soft tissue swelling noted. Trace pitting edema in the pretibial region. The entire right foot and ankle are tender to palpation, she has tenderness over the dorsum of the foot in the metatarsal distribution and over the medial on the lateral malleolus. She does have a petechial rash noted over the right lateral malleolus. No ankle joint effusion is palpable. She has some soreness in the right posterior calf. There is no erythema, increased warmth or induration. No cellulitic changes. No palpable cords. No lymphangitic streaking. Left calf is soft and nontender. INTEGUMENTARY: Petechial rash noted on the right lateral malleolus. Razor burn on the right anterior lower leg. NEUROLOGICAL: Alert, oriented, and cooperative. Cranial nerves, sensation and strength grossly intact. Pupils round, equal, and react to light, EOMs are full. LYMPH: No lymphadenopathy. Course Course The patient was seen and assessed as above. Old records were reviewed. She presents to the emergency department for evaluation of 2 complaints, first is bilateral flank pain with associated nausea, vomiting and urinary symptoms x2 days, second is right lower leg pain and swelling x2 days. IV lock was initiated and laboratory studies were collected. Patient was placed on a cloth edge singer and EKG was performed. Laboratory studies were collected. The patient was medicated with morphine and Zofran IV for pain and nausea. X-rays of the right lower leg and a Doppler of the right lower extremity were performed. Retroperitoneal ultrasound was also obtained. The patient was straight cathed for a urine. Laboratory studies noted a normal white count at 9700, no left shift or bandemia. Patient electrolytes noted patient to be hypokalemic with a potassium of 2.5, remainder of her electrolytes are within normal limits. Renal functions are normal. Transaminases are not elevated. Lipase is normal. Urine microscopy is positive for nitrates, leukocyte esterase, WBCs, RBCs, and plus bacteria. test is negative. Urine culture is pending. Ultrasound of the right lower extremity is negative for DVT. X-rays of the right foot and right tibia/fibula note degenerative changes, but no acute fractu re. Renal ultrasound noted a nonobstructing right renal stone, no hydronephrosis. The patient was reassessed when she returned from her imaging studies. All laboratory and diagnostic imaging studies were reviewed with her. She did report that her pain was improved with the IV medications. The patient was ordered 10 mEq potassium chloride IV. She has been vomiting and is not able to tolerate oral potassium at this time. She was given 2 g ceftriaxone IV for UTI, possible early pyelonephritis. CT of the abdomen pelvis was ordered. Patient reports that the last time she had a CT with IV contrast, she had trouble with shortness of breath afterwards, and preferred to do the CT scan without contrast today. All laboratory and diagnostic imaging studies were reviewed with attending physician who concurred with the ED work-up. CT scan of the abdomen and pelvis without contrast noted multiple nonobstructing right renal calculi the largest measuring 8 mm. No left nephrolithiasis. No hyd ronephrosis. Ureters nondistended. No CT evidence of obstructive uropathy or suspicious findings of upper tract infection allowing for noncontrast technique. Other chronic findings also noted. Given the patient's suspected UTI/possible early pyelonephrosis in addition to the hypokalemia, and nausea and vomiting with inability to replete potassium orally, further care as an inpatient was discussed. Patient was reviewed with the loss prevention and safety manager, and discussed with the [facility] Hospitalist for further care and management. Dr. Lundberg did request that I give the patient 40 mEq of potassium chloride, which she was able to tolerate. Please refer to admission orders for further information. Cardiac monitoring: An order was placed for continuous cardiac monitoring. The monitor shows a rate of 90s-100s with normal sinus rhythm. Administered Medications Discontinued Medications Potassium Chloride ([place] / Wtr) 10 meq in 100 mls @ 100 mls/hr IV ONE ONE Stop: 09/24/19 09:36 Last Infusion: 09/24/19 10:11 Dose: 0 mls/hr Documented by: [id number] Admin: 09/24/19 08:49 Dose: 100 mls/hr Documented by: [id number] Ceftriaxone Sodium (Rocephin) 2,000 mg in 70 mls @ 140 mls/hr IV NOW STA Stop: 09/24/19 10:07 Last Infusion: 09/24/19 12:10 Dose: 0 mls/hr Documented by: [id number] Admin: 09/24/19 10:03 Dose: 140 mls/hr Documented by: [id number] Morphine Sulfate (Morphine Sulfate) 4 mg IV NOW STA Stop: 09/24/19 07:42 Last Admin: 09/24/19 08:06 Dose: 4 mg Documented by: [id number] Ondansetron HCl (Zofran) 4 mg IV NOW STA Stop: 09/24/19 07:42 Last Admin: 09/24/19 08:06 Dose: 4 mg Documented by: [id number] Potassium Chloride (Klor-Con M20) 40 meq PO NOW STA Stop: 09/24/19 10:39 Last Admin: 09/24/19 11:18 Dose: 40 meq Documented by: [id number] Medical Decision Making Differential Diagnosis Differential diagnoses entertained included UTI, pyelonephritis, renal colic, shingles, musculoskeletal pain, bowel obstruction, perforation, abscess, mass or malignancy, DVT, cellulitis, superficial thrombophlebitis, psoriatic arthritis exacerbation among others. Medical Records Attestation: I reviewed the patient's medical records. Home Medications Current Medication List: was personally reviewed by me Laboratory Data Attestation: I reviewed the patient's lab results. Result diagrams: 09/24/19 07:28 09/24/19 13:06 Lab Results 09/24/19 09/24/19 09/24/19 Range/Units 07:28 07:28 08:33 WBC 9.79 (4.8-10.8) K/uL RBC 4.33 (4.2-5.4) M/uL Hgb 11.4 L (12.0-16.0) g/dL Hct 36.9 L (37-47) % MCV 85.2 (80-100) fL MCH 26.3 (25-34) pg MCHC 30.9 L (32-36) g/dL RDW Std Deviation 49.6 H (36.4-46.3) fL RDW Coeff of [place] 15.9 H (11.5-14.5) % Plt Count 297 (130-400) K/uL MPV 9.6 (7.4-10.4) fL Immature Gran % (Auto) 0.2 % Neut % (Auto) 65.7 % Lymph % (Auto) 22.0 % [place] % (Auto) 10.2 % Eos % (Auto) 1.8 % Baso % (Auto) 0.1 % Immature Gran # (Auto) 0.02 (0.00-0.02) K/uL Neut # (Auto) 6.43 (1.4-6.5) K/uL Lymph # (Auto) 2.15 (1.2-3.4) K/uL [place] # (Auto) 1.00 H (0.11-0.59) K/uL Eos # (Auto) 0.18 (0-0.5) K/uL Baso # (Auto) 0.01 (0-0.2) K/uL Sodium 138 (136-145) mmol/L Potassium 2.5 L* (3.5-5.1) mmol/L Chloride 99 (98-107) mmol/L Carbon Dioxide 29 (21-32) mmol/L Anion Gap 9.0 (3-11) BUN 11 (7-18) mg/dl Creatinine 0.82 (0.6-1.2) mg/dl Est Cr Clr Drug Dosing 137.8 ml/min Est GFR ( Amer) 106.0 Est GFR (Non-Af Amer) 91.4 BUN/Creatinine Ratio 12.8 (10-20) Glucose 140 H (70-99) mg/dl Calcium 7.1 L (8.5-10.1) mg/dl Total Bilirubin 0.6 (0.2-1) mg/dl AST 22 (15-37) U/L ALT 29 (12-78) U/L Alkaline Phosphatase 137 H (45-117) U/L Total Protein 8.0 (6.4-8.2) gm/dl Albumin 3.0 L (3.4-5.0) gm/dl Globulin 5.0 H (2.5-4.0) gm/dl Albumin/Globulin Ratio 0.6 L (0.9-2) Lipase 270 (73-393) U/L Urine Color Dark Yellow Urine Appearance Turbid A (Clear) Urine pH 5.5 (4.5-7.5) Ur Specific [place] 1.027 (1.000-1.030) Urine Protein 2+ H (Negative) Urine Glucose (UA) Trace H (Negative) Urine Ketones Trace H (Negative) Urine Blood Negative (Negative) Urine Nitrite Positive A (Negative) Urine Bilirubin Negative (Negative) Urine Urobilinogen Positive H (Negative) Ur Leukocyte Esterase Trace H (Negative) Urine WBC (Auto) 5-10 H (0-5) /hpf Urine RBC (Auto) 5-10 H (0-4) /hpf U Hyaline Cast (Auto) 1-5 (0-5) /lpf U Epithel Cells (Auto) 5-10 H (0-5) /lpf Urine Bacteria (Auto) 1+ H (Negative) Ur Renal Epithelial Cell Not Reportable Urine Crystals Not Reportable Urine Test (Negative) 09/24/19 Range/Units 08:33 WBC (4.8-10.8) K/uL RBC (4.2-5.4) M/uL Hgb (12.0-16.0) g/dL Hct (37-47) % MCV (80-100) fL MCH (25-34) pg MCHC (32-36) g/dL RDW Std Deviation (36.4-46.3) fL RDW Coeff of [place] (11.5-14.5) % Plt Count (130-400) K/uL MPV (7.4-10.4) fL Immature Gran % (Auto) % Neut % (Auto) % Lymph % (Auto) % [place] % (Auto) % Eos % (Auto) % Baso % (Auto) % Immature Gran # (Auto) (0.00-0.02) K/uL Neut # (Auto) (1.4-6.5) K/uL Lymph # (Auto) (1.2-3.4) K/uL [place] # (Auto) (0.11-0.59) K/uL Eos # (Auto) (0-0.5) K/uL Baso # (Auto) (0-0.2) K/uL Sodium (136-145) mmol/L Potassium (3.5-5.1) mmol/L Chloride (98-107) mmol/L Carbon Dioxide (21-32) mmol/L Anion Gap (3-11) BUN (7-18) mg/dl Creatinine (0.6-1.2) mg/dl Est Cr Clr Drug Dosing ml/min Est GFR ( Amer) Est GFR (Non-Af Amer) BUN/Creatinine Ratio (10-20) Glucose (70-99) mg/dl Calcium (8.5-10.1) mg/dl Total Bilirubin (0.2-1) mg/dl AST (15-37) U/L ALT (12-78) U/L Alkaline Phosphatase (45-117) U/L Total Protein (6.4-8.2) gm/dl Albumin (3.4-5.0) gm/dl Globulin (2.5-4.0) gm/dl Albumin/Globulin Ratio (0.9-2) Lipase (73-393) U/L Urine Color Urine Appearance (Clear) Urine pH (4.5-7.5) Ur Specific [place] (1.000-1.030) Urine Protein (Negative) Urine Glucose (UA) (Negative) Urine Ketones (Negative) Urine Blood (Negative) Urine Nitrite (Negative) Urine Bilirubin (Negative) Urine Urobilinogen (Negative) Ur Leukocyte Esterase (Negative) Urine WBC (Auto) (0-5) /hpf Urine RBC (Auto) (0-4) /hpf U Hyaline Cast (Auto) (0-5) /lpf U Epithel Cells (Auto) (0-5) /lpf Urine Bacteria (Auto) (Negative) Ur Renal Epithelial Cell Urine Crystals Urine Test Negative (Negative) Imaging Data Attestation: I personally reviewed and interpreted this imaging study as follows: Radiologist's Impression: XR tibia fibula RT 2V CLINICAL HISTORY: 39 years-old Female presenting with EVAL FX. TECHNIQUE: Frontal and lateral views of the right leg were obtained. COMPARISON: None. FINDINGS: Right knee joint and ankle mortise congruent. Subtle cortical defect of the fibular head may be present. No malalignment. Degenerative changes of the ankle mortise. No radiographic soft tissue abnormality. IMPRESSION: 1. Subtle cortical defect at the fibular head. Correlate for point tenderness in this region as a nondisplaced fracture is difficult to exclude. Alternatively, this may represent a physeal scar. Dedicated knee radiographs may better characterize this region. No additional evidence of fracture. 2. Degenerative changes of the ankle mortise. XR foot RT min 3V routine CLINICAL HISTORY: 39 years-old Female presenting with fall on 09/14/2019, right lower extremity pain, limited range of motion. TECHNIQUE: Frontal, oblique, and lateral views of the right foot were obtained. COMPARISON: 08/05/2015. FINDINGS: Osteopenia suspected. Accessory navicular noted. Os peroneum noted. No acute fracture or malalignment. Mild degenerative changes at the first metatarsophalangeal joint and interphalangeal joint of the first toe. Bony spurring also noted at the talonavicular articulation. Diffuse soft tissue swelling may in part be due to adipose tissue. IMPRESSION: No acute osseous injury. US renal/blad retro comp CLINICAL HISTORY: 39 years-old Female presenting with BILAT FLANK PAIN, UTI SYMPTOMS. TECHNIQUE: Real-time grayscale and limited color Doppler ultrasound imaging of the kidneys and bladder was performed. COMPARISON: CT from 02/16/2019. FINDINGS: Right kidney: Normal echogenicity with preserved corticomedullary differentiation. Normal cortical thickness. Right kidney measures 13.4 cm. No hydronephrosis. 7 mm hyperechogenic interpolar region focus with twinkling artifact and posterior shadowing consistent with calculus, which correlates with the calculus on CT in this region. Left kidney: Normal echogenicity with preserved corticomedullary dif ferentiation. Normal cortical thickness. Left kidney measures 12.8 cm. No hydronephrosis. No convincing evidence of calculus or mass. Bladder: Completely decompressed due to recent voiding preventing evaluation. Bilateral ureteral jets not visualized. Other: Increased echogenicity of hepatic parenchyma. IMPRESSION: 1. No hydronephrosis. 2. Nonobstructing right nephrolithiasis. 3. Limited evaluation of the bladder. 4. Hepatic steatosis. US venous doppler LE RT CLINICAL HISTORY: 39 years-old Female presenting with RIGHT LOWER LEG PAIN AND SWELLING. TECHNIQUE: Real-time grayscale and color and spectral Doppler ultrasound imaging of the veins of the right lower extremity was performed. Compression and augmentation were also utilized. COMPARISON: 07/10/2019. FINDINGS: RIGHT: Common femoral vein: Patent. Greater saphenous vein (superficial): Patent. Deep femoral vein: Patent. Femoral vein: Patent. Popliteal vein: Patent. Calf veins: Patent. Other: None. IMPRESSION: No evidence of deep venous thrombosis. CT abd pelvis wo con CLINICAL HISTORY: 39 years-old Female presenting with BILAT FLANK PAIN, UTI. TECHNIQUE: Multidetector CT of the abdomen and pelvis was performed without the use of intravenous contrast. IV contrast: None. One or more dose lowering techniques were used consistent with the principles of ALARA (as low as reasonably achievable), including automatic exposure control, mA or kV adjustment to individual patient size, and/or use of iterative reconstruction. COMPARISON: 02/16/2019. CT DOSE (mGy.cm): The estimated cumulative dose is 1941.10 mGy.cm. FINDINGS: [employer] topogram: Cholecystectomy clips. Lung bases: Normal heart size. No pericardial or pleural effusion. No focal infiltrate or nodule at the lung bases. Liver: Mildly enlarged measuring 19.3 cm in maximal sagittal dimension. Density consistent with hepatic steatosis. Biliary: Mild biliary ductal prominence likely a reservoir effect in the post cholecystectomy state. Gallbladder surgically absent. Pancreas: Normal noncontrast appearance. Spleen: Normal noncontrast appearance. Adrenal glands: Normal noncontrast appearance. Kidneys and ureters: Multiple nonobstructing right renal calculi the largest measuring 8 mm. No left nephrolithiasis. No hydronephrosis. Ureters nondistended. Bladder: Incompletely evaluated secondary to underdistention. Pelvic organs: Intrauterine device within the uterus in expected position. Normal noncontrast appearance of the ovaries. Bowel: Normal appendix. No bowel obstruction. Peritoneal cavity: No free fluid or intraperitoneal gas. Lymph nodes: No gross lymphadenopathy allowing for noncontrast technique. Vasculature: Normal noncontrast appearance. Abdominal wall: Diastasis of the rectus abdominis. Musculoskeletal: Degenerative changes of the spine. IMPRESSION: 1. No CT evidence of obstructive uropathy or suspicious findings of upper tract infection allowing for noncontrast technique. 2. Nonobstructing right nephrolithiasis. 3. IUD in place. 4. Hepatic steatosis and mild hepatomegaly. 5. Status post cholecystectomy. ECG Data Attestation: I personally reviewed and interpreted this ECG as follows: Indication: + back/shoulder pain and + other (electrolyte imbalance) Rate (beats per minute): 104 Rhythm: + sinus tachycardia ECG Rover: + Left axis deviation ECG ST segments: + Normal ST segments and + T-wave inversions (v2 and v3, new fr om prior); no ST elevation ECG Findings: no Peaked T waves Comparison ECG Date: from (06/30/2016) Change: the following changes noted (see above) Blood Pressure Blood Pressure Findings: Elevated blood pressure Blood Pressure Disposition: elevated BP felt to be situational MDM Narrative See ED Course. Impression & Plan Hypokalemia, Vomiting, UTI (urinary tract infection), Bilateral flank pain, Right leg pain Discharge Plan Visit Data *Final* Discharge Date/Time: 09/24/19 13:14 Chief Complaint: Flank Pain ED Provider: Gagan Luna ED Midlevel Provider: Fabby Valadez Discharge Problem: Hypokalemia, Vomiting, UTI (urinary tract infection), Bilateral flank pain, Right leg pain Patient Disposition: Admitted As Inpatient Discharge Instructions Interventions: ED Discharge Assessment Last Done: 09/24/19 13:14 Discharge Problem: Vomiting Qualifiers: Vomiting type: unspecified Vomiting Intractability: non-intractable Nausea presence: with nausea Qualified Code(s): R11.2 - Nausea with vomiting, unspecified
[2019-09-24 08:10] LABS: Albumin Globulin Ratio 0.6 (0.9-2); BUN Creatinine Ratio 12.8 (10-20); Bilirubin,Total 0.6 mg/dl (0.2-1); Calcium 7.1 mg/dl (8.5-10.1); Creatinine Clr Calc Pharmacy 137.8 ml/min; Est GFR (Non-African American) 91.4; Potassium 2.5 mmol/L (3.5-5.1)
--- NOTE | 2019-09-24 08:20 | XRay Report ---
XR foot RT min 3V routine CLINICAL HISTORY: 39 years-old Female presenting with fall on 09/14/2019, right lower extremity pain, l imited range of motion. TECHNIQUE: Frontal, oblique, and lateral views of the right foot were obtained. COMPARISON: 08/05/2015. FINDINGS: Osteopenia suspected. Accessory navicular noted. Os peroneum noted. No acute fracture or malalignment . Mild degenerative changes at the first metatarsophalangeal joint and interphalangeal joint of the f irst toe. Bony spurring also noted at the talonavicular articulation. Diffuse soft tissue swelling ma y in part be due to adipose tissue. IMPRESSION: No acute osseous injury. ACT 112: Negative or not required by law. Electronically signed by: Severiano Cuenca M.D. 09/24/2019 8:18 AM
--- NOTE | 2019-09-24 08:25 | XRay Report ---
XR tibia fibula RT 2V CLINICAL HISTORY: 39 years-old Female presenting with EVAL FX. TECHNIQUE: Frontal and lateral views of the right leg were obtained. COMPARISON: None. FINDINGS: Right knee joint and ankle mortise congruent. Subtle cortical defect of the fibular head may be prese nt. No malalignment. Degenerative changes of the ankle mortise. No radiographic soft tissue abnormali ty. IMPRESSION: 1. Subtle cortical defect at the fibular head. Correlate for point tenderness in this region as a no ndisplaced fracture is difficult to exclude. Alternatively, this may represent a physeal scar. Dedica leonidas knee radiographs may better characterize this region. No additional evidence of fracture. 2. Degenerative changes of the ankle mortise. ACT 112: Negative or not required by law. Electronically signed by: Severiano Cuenca M.D. 09/24/2019 8:24 AM
[2019-09-24] MEDS ORDERED: POTASSIUM CHLORIDE / WTR 10 MEQ/100 ML PLCT IV ONE ×2 (08:37→19:15)
[2019-09-24 08:57] LABS: Appearance Urine Turbid (Clear); Blood Urine Negative (Negative); Color Urine Dark Yellow; Glucose Urine UA Trace (Negative); Ketones Urine Trace (Negative); Leukocyte Esterase Urine Trace (Negative); Nitrite Urine Positive (Negative); Protein Urine 2+ (Negative); Specific Gravity Urine 1.027 (1.000-1.030); Urobilinogen Urine Positive (Negative); pH Urine 5.5 (4.5-7.5)
[2019-09-24 09:14] LABS: Bilirubin Urine Negative (Negative); Ictotest Urine Negative (Negative)
[2019-09-24 09:17] LABS: Pregnancy Test, Urine Negative (Negative)
--- NOTE | 2019-09-24 09:30 | Ultrasound Report ---
US venous doppler LE RT CLINICAL HISTORY: 39 years-old Female presenting with RIGHT LOWER LEG PAIN AND SWELLING. TECHNIQUE: Real-time grayscale and color and spectral Doppler ultrasound imaging of the veins of the right lower extremity was performed. Compression and augmentation were also utilized. COMPARISON: 07/10/2019. FINDINGS: RIGHT: Common femoral vein: Patent. Greater saphenous vein (superficial): Patent. Deep femoral vein: Patent. Femoral vein: Patent. Popliteal vein: Patent. Calf veins: Patent. Other: None. IMPRESSION: No evidence of deep venous thrombosis. ACT 112: Negative or not required by law. Electronically signed by: Severiano Cuenca M.D. 09/24/2019 9:29 AM
--- NOTE | 2019-09-24 09:32 | Ultrasound Report ---
US renal/blad retro comp CLINICAL HISTORY: 39 years-old Female presenting with BILAT FLANK PAIN, UTI SYMPTOMS. TECHNIQUE: Real-time grayscale and limited color Doppler ultrasound imaging of the kidneys and bladde r was performed. COMPARISON: CT from 02/16/2019. FINDINGS: Right kidney: Normal echogenicity with preserved corticomedullary differentiation. Normal cortical th ickness. Right kidney measures 13.4 cm. No hydronephrosis. 7 mm hyperechogenic interpolar region focu s with twinkling artifact and posterior shadowing consistent with calculus, which correlates with the calculus on CT in this region. Left kidney: Normal echogenicity with preserved corticomedullary differentiation. Normal cortical thi ckness. Left kidney measures 12.8 cm. No hydronephrosis. No convincing evidence of calculus or mass. Bladder: Completely decompressed due to recent voiding preventing evaluation. Bilateral ureteral jets not visualized. Other: Increased echogenicity of hepatic parenchyma. IMPRESSION: 1. No hydronephrosis. 2. Nonobstructing right nephrolithiasis. 3. Limited evaluation of the bladder. 4. Hepatic steatosis. ACT 112: Negative or not required by law. Electronically signed by: Severiano Cuenca M.D. 09/24/2019 9:31 AM
[2019-09-24 09:33] LABS: Bacteria Urine Automated 1+ (Negative)
[2019-09-24] MEDS ORDERED: cefTRIAXone SODIUM 2,000 MG/70 ML BAG IV STA (09:38)
[2019-09-24] MEDS ORDERED: POTASSIUM CHLORIDE 20 MEQ TABCR PO STA ×2 (10:38→14:15)
--- NOTE | 2019-09-24 10:52 | Electrocardiogram Report ---
Test Reason : Blood Pressure : / mmHG Vent. Rate : 104 BPM Atrial Rate : 104 BPM P-R Int : 158 ms QRS Dur : 088 ms QT Int : 364 ms P-R-T Axes : 061 -21 -20 degrees QTc Int : 478 ms Sinus tachycardia Minimal voltage criteria for LVH, may be normal variant Abnormal ECG When compared with ECG of 30-JUN-2016 13:58, T wave inversion now evident in Inferior leads T wave inversion now evident in Anterior leads QT has lengthened Confirmed by Rajendra Dunbar ([id number]) on 09/24/2019 10:52:52 AM Referred By: REFERRED SELF Confirmed By:Pancho Dunbar
--- NOTE | 2019-09-24 10:54 | CT Scan Report ---
CT abd pelvis wo con CLINICAL HISTORY: 39 years-old Female presenting with BILAT FLANK PAIN, UTI. TECHNIQUE: Multidetector CT of the abdomen and pelvis was performed without the use of intravenous co ntrast. IV contrast: None. One or more dose lowering techniques were used consistent with the princip les of ALA (as low as reasonably achievable), including automatic exposure control, mA or kV adjust ment to individual patient size, and/or use of iterative reconstruction. COMPARISON: 02/16/2019. CT DOSE (mGy.cm): The estimated cumulative dose is 1941.10 mGy.cm. FINDINGS: Development Analyst topogram: Cholecystectomy clips. Lung bases: Normal heart size. No pericardial or pleural effusion. No focal infiltrate or nodule at t he lung bases. Liver: Mildly enlarged measuring 19.3 cm in maximal sagittal dimension. Density consistent with hepat ic steatosis. Biliary: Mild biliary ductal prominence likely a reservoir effect in the post cholecystectomy state. Gallbladder surgically absent. Pancreas: Normal noncontrast appearance. Spleen: Normal noncontrast appearance. Adrenal glands: Normal noncontrast appearance. Kidneys and ureters: Multiple nonobstructing right renal calculi the largest measuring 8 mm. No left nephrolithiasis. No hydronephrosis. Ureters nondistended. Bladder: Incompletely evaluated secondary to underdistention. Pelvic organs: Intrauterine device within the uterus in expected position. Normal noncontrast appeara nce of the ovaries. Bowel: Normal appendix. No bowel obstruction. Peritoneal cavity: No free fluid or intraperitoneal gas. Lymph nodes: No gross lymphadenopathy allowing for noncontrast technique. Vasculature: Normal noncontrast appearance. Abdominal wall: Diastasis of the rectus abdominis. Musculoskeletal: Degenerative changes of the spine. IMPRESSION: 1. No CT evidence of obstructive uropathy or suspicious findings of upper tract infection allowing f or noncontrast technique. 2. Nonobstructing right nephrolithiasis. 3. IUD in place. 4. Hepatic steatosis and mild hepatomegaly. 5. Status post cholecystectomy. ACT 112: Negative or not required by law. Electronically signed by: Severiano Cuenca M.D. 09/24/2019 10:53 AM
[2019-09-24] MEDS ORDERED: GLUCOSE 10 TABS/TUBE PO PRN (11:27)
[2019-09-24] MEDS ORDERED: GLUCOSE 40% GEL 15 GM TUBE PO PRN (11:27)
[2019-09-24] MEDS ORDERED: GLUCAGON FOR INJ 1 MG VIAL SQ PRN (11:27)
[2019-09-24] MEDS ORDERED: DEXTROSE 50% 50 ML SYRINGE IV PRN (11:27)
[2019-09-24] MEDS ORDERED: CARBOHYDRATES FOR HYPOGLYCEMIA PO PRN (11:27)
[2019-09-24] MEDS ORDERED: ACETAMINOPHEN 325 MG TAB PO PRN (11:28)
--- NOTE | 2019-09-24 11:29 | History & Physical Report ---
Date of Service September 24, 2019 Assessment & Plan (1) Vomiting: -reports vomiting x 2 days -give IV fluids and prn anti-emetics (2) Kidney stone: Right Kidney stones with Bilateral Flank -CT abdomen: No CT evidence of obstructive uropathy or suspicious findings of upper tract infection allowing for noncontrast technique. Nonobstructing right nephrolithiasis. IUD in place. Hepatic steatosis and mild hepatomegaly. Status post cholecystectomy. -Give IV fluids but without excessive fluid overload because patient takes Lasix at home for venous stasis -discussed with [facility] Dr. Burkett about further asssessment of kidney stones, keep NPO after midnight for now (3) UTI (urinary tract infection): -positive bacteria in urine -no dysuria with urination -empirically given ceftriaxone 2 grams IV in the ED, continue this dosing as daily due to large body size to treat possible urinary tract infection -straight cath as needed, bladder scan q shift to rule out urinary retention (4) Hypokalemia: -serum potassium 2.5 on admission -likely from recent vomiting and use of furosemide at home -hold Lasix for now -give potassium supplements and target serum potassium of 3.5 to 4, check serum magnesium history of Vitamin D deficiency - check Vitamin D -serum calcium 7.1, check ionized calcium and trend the labs Type 2 diabetes mellitus without assistant terminal manager current use of insulin -hold home dose metformin -give diabetic diet, give sliding scale insulin based on glucose levels -check Hba1c (5) Depression: Anxiety -mood stable currently -multiple mood medications as outpatient -prazosin 2 mg daily is for mood and not for urination reasons as per patient, continue this medication -continue aripiprazole (Abilify) 15 mg qhs, Buspirone (Buspar) 10 mg BID, Duloxetine (Cymbalta) 20 mg daily (6) Sleep apnea: Obstructive Sleep Apnea, on CPAP -uses CPAP qhs with pressure around 11 as per patient, continue CPAP qhs -continue home dose Advair (7) Morbid obesity with BMI of 50.0-59.9, adult: Right Foot pain -continue home dose statin -reports she uses walker indoors and wheelchair outdoors -recent 09/23/2019 outpatient telemedicine visit of right lower leg pain from knee to pedal right foot -right foot pedal tenderness on palpation in the ED -no fractures on X ray, there is presence of osteopenia. -right lower extremity ultrasound with no DVT -PT/OT evaluations History of psoriatic arthritis as per records Pruritus -takes triamcinolone 0.1% ointment every 12 hours to under the skin fold of the belly, continue DVT prophylaxis: Lovenox subcut daily Full Code sister Lizzy [phone] Case management consult: patient currently living in a hotel My colleague Dr. Nunez will be taking care of patient as hosputalist starting on 09/25/2019 History of Present Illness This is a patient with 2 days of vomiting, and bilateral flank pain, and was found to on CT imaging to have nonobstructing right kidney stones, possible urinary tract infection by urine analysis but denies dysuria, and also hypokalemia with serum potassium of 2.5. Patient denies shortness of breath. No chest pain. No abdomen pain. denies fevers at home. denies changes to urination or with bowel movements. Family History of mother with CHF and liver disease Primary Care Provider: Severiano Watkins MD Allergies Allergy/AdvReac Type Severity Reaction Status Date / Time aspirin Allergy Intermediate hives Verified 09/24/19 10:34 diazepam Allergy Intermediate PALPITATIONS, Verified 09/24/19 10:34 VOMITING fluconazole Allergy Intermediate HIVES Verified 09/24/19 10:34 Penicillins Allergy Intermediate hives Verified 09/24/19 10:34 sumatriptan Allergy Intermediate "swelling Verified 09/24/19 10:34 up" tramadol Allergy Intermediate HIVES Verified 09/24/19 10:34 Yeast Allergy Intermediate Hives Verified 09/24/19 10:34 clindamycin Allergy Mild RASH Verified 09/24/19 10:34 metoclopramide Allergy Mild suicidal Verified 09/24/19 10:34 thoughts metronidazole Allergy Mild Rash Verified 09/24/19 10:34 nickel Allergy Mild RASH Verified 09/24/19 10:34 doxycycline AdvReac Severe VOMITING Verified 09/24/19 10:34 prednisone AdvReac Severe SUICIDAL Verified 09/24/19 10:34 oxycodone AdvReac Intermediate GI SYMPTOMS Verified 09/24/19 10:34 Home Medications Home Medications Medication Instructions Recorded Confirmed Type albuterol sulfate 2.5 mg INHALATION QID PRN 01/31/18 09/24/19 History ascorbic acid (vitamin C) [Vitamin 500 mg PO BID 01/31/18 09/24/19 History C] atorvastatin [Lipitor] 20 mg PO HS 01/31/18 09/24/19 History dicyclomine 10 mg PO QID PRN 01/31/18 09/24/19 History ferrous sulfate 325 mg PO BID 01/31/18 09/24/19 History furosemide 20 mg PO BID 01/31/18 09/24/19 History metformin 1,000 mg PO BIDM 01/31/18 09/24/19 History omeprazole 20 mg PO BID 01/31/18 09/24/19 History prazosin 2 mg PO HS 01/31/18 09/24/19 History buspirone 10 mg PO TID 12/26/18 09/24/19 History duloxetine [Cymbalta] 20 mg PO QAM 12/26/18 09/24/19 History naproxen 500 mg PO BID PRN 12/26/18 09/24/19 History albuterol sulfate [ProAir HFA] 2 puff INHALATION Q4H PRN 01/19/19 09/24/19 History clobetasol 1 applic TOPICAL DIRECTED PRN 01/19/19 09/24/19 History cyclobenzaprine 10 mg PO TID PRN 01/19/19 09/24/19 History docusate sodium 100 mg PO BID 01/19/19 09/24/19 History metoprolol succinate 50 mg PO QAM 01/19/19 09/24/19 History mupirocin 1 applic TOPICAL DAILY PRN 01/19/19 09/24/19 History potassium chloride 10 meq PO QAM 01/19/19 09/24/19 History triamcinolone acetonide 1 applic TOPICAL BID PRN 01/19/19 09/24/19 History aripiprazole [Abilify] 15 mg PO QAM 03/04/19 09/24/19 History fluticasone propion-salmeterol 1 inh INHALATION Q12H 03/04/19 09/24/19 History [Advair Diskus] ondansetron HCl [Zofran] 8 mg PO Q8 PRN 03/04/19 09/24/19 History adalimumab [Humira Pen] 0 mg SUBCUT UD 09/24/19 09/24/19 History doxepin 50 mg PO HS 09/24/19 09/24/19 History hydroxyzine pamoate [Vistaril] 25 mg PO TID PRN 09/24/19 09/24/19 History Past Med/Surg History Medical History Anemia (Chronic) Anxiety (Chronic) Asthma (Chronic) inhaler daily/prn and nebulizer prn Bipolar disorder (Chronic) Degenerative disc disease (Chronic) Depression (Chronic) Fracture of distal fibula (Resolved) per pt did not heal correctly and uses a walker or wheelchair History of palpitations (Chronic) reason for metoprolol Hyperlipidemia (Chronic) Kidney stone (Chronic) Lumbar radiculopathy (Resolved) Migraine Morbid obesity with BMI of 50.0-59.9, adult (Chronic) Nausea and vomiting after administration of anesthetic agent Osteoarthritis (Chronic) Post traumatic stress disorder (Chronic) Precancerous changes of the cervix (Chronic) scheduled for a D&C 03/18/19 Psoriatic arthritis (Chronic) Sleep apnea (Chronic) cpap Type II diabetes mellitus, uncontrolled (Chronic) Surgical History History of bilateral tubal ligation History of cholecystectomy History of dilatation and curettage x2 History of endoscopic sinus surgery x2 History of esophagogastroduodenoscopy (EGD) History of surgical removal of ganglion cyst x3 on right hand History of tonsillectomy and adenoidectomy Hx of meniscectomy of right knee Status post myringotomy with tube placement of both ears multiple Social History Preferred Language: Kiswahili Communication Ability: Effective Civil Preparedness Training Officer Required: No Beliefs That Will Affect Care: None Current Living Situation: Significant Other Current Living Situation Comment: Lives with Sathya bull Feels Safe at Home: Yes Smoking Status: Never smoker Second Hand Exposure: Yes (jorgito smokes) ; Hx Alcohol Use: No Hx Substance Use: No Review of Systems Review of Systems: All systems reviewed & are unremarkable except as noted in HPI & below Physical Exam Constitutional: + obese Eyes: PERRL, conjunctivae normal, anicteric sclerae EOM intact bilaterally ENMT: external ear and nose normal, oropharynx normal Neck: normal visual inspection Respiratory: normal respiratory effort, lungs clear to auscultation Cardiovascular: Rate/Rhythm: regular rhythm Gastrointestinal (Abdomen): normal bowel sounds, soft, nontender, no hepatosplenomegaly (some excoriations under belly fold of lower abdomen) Musculoskeletal: Head/Neck/Chest: normocephalic and head atraumatic right foot pedal tenderness to palpation Neurologic: PERRL, EOMI, accommodation nl, no face palsy, no dysarthria Psychiatric: A+Ox3, euthymic affect Results & Data Results & Data ([facility]) Vital Signs (Past 12 Hours) Vital Signs Temp Pulse Pulse Resp BP BP Pulse Ox 09/24/19 10:00 103 H 24 138/79 97 09/24/19 09:35 98 H 100 H 19 126/74 126/74 93 09/24/19 09:34 96 09/24/19 08:30 100 H 117/87 96 09/24/19 08:09 95 H 22 124/87 09/24/19 08:00 87 24 95 09/24/19 07:30 115 H 20 93 09/24/19 07:13 37 C 99 H 20 148/112 H 98 09/24/19 07:12 107 H 26 H 97 09/24/19 07:09 101 H 148/112 H 95 (1) Vomiting Nausea presence: with nausea Vomiting Intractability: non-intractable Vomiting type: unspecified Qualified Code(s): R11.2 - Nausea with vomiting, unspecified
[2019-09-24] MEDS ORDERED: ONDANSETRON INJ 2 MG/ML 2 ML VIAL IV PRN (11:40)
[2019-09-24] MEDS ORDERED: DiphenhydrAMINE HCL 50 MG/ML VIAL IV PRN (11:41)
[2019-09-24] MEDS ORDERED: SODIUM CHLORIDE 0.9% 1000ML 1,000 ML IV SCH (11:45)
[2019-09-24] MEDS ORDERED: CYCLOBENZAPRINE HCL 10 MG TAB PO PRN (11:53)
[2019-09-24] MEDS ORDERED: TRIAMCINOLONE ACET 0.1% OINT 454 GM EXT SCH (12:00)
[2019-09-24 13:42] LABS: Albumin Globulin Ratio 0.6 (0.9-2); Albumin Level 2.8 gm/dl (3.4-5.0); Bilirubin,Total 0.5 mg/dl (0.2-1); Calcium 7.1 mg/dl (8.5-10.1); Creatinine Clr Calc Pharmacy 182.3 ml/min; Est GFR (African American) 133.5; Est GFR (Non-African American) 115.2; Globulin 4.8 gm/dl (2.5-4.0); Potassium 2.6 mmol/L (3.5-5.1); Total Protein 7.6 gm/dl (6.4-8.2)
[2019-09-24] MEDS ORDERED: MAGNESIUM OXIDE 400 MG TAB PO STA (14:02)
[2019-09-24] MEDS ORDERED: CALCIUM GLUCONATE 10% 1,000 MG in SODIUM CHLORIDE 0.9% 50 ML IV STA ×2 (14:16→23:38)
[2019-09-24] MEDS: INSULIN ASPART 100 UNITS/ML 3 ML PEN SC SCH ×3 (14:34→20:55)
[2019-09-24 14:41] LABS: Phosphorus 3.2 mg/dl (2.5-4.9)
[2019-09-24] MEDS: FLUTICASONE/VILANTEROL 200/25MCG 14 PUFFS/INHALER INH SCH (14:43)
[2019-09-24] MEDS: TRIAMCINOLONE ACET 0.1% OINT 80 GM TUBE EXT SCH ×2 (14:43→20:36)
[2019-09-24] MEDS: MAGNESIUM SULFATE / D5W 1 GM/100 ML BAG IV SCH ×3 (14:43→18:35)
[2019-09-24] MEDS: ENOXAPARIN INJ 40 MG/0.4 ML SYR SQ SCH (14:59)
[2019-09-24] MEDS ORDERED: NSS + 20MEQ KCL 20 MEQ/1,000 ML BAG IV SCH (15:00)
--- NOTE | 2019-09-24 16:57 | Electrocardiogram Report ---
Test Reason : Blood Pressure : / mmHG Vent. Rate : 083 BPM Atrial Rate : 083 BPM P-R Int : 166 ms QRS Dur : 092 ms QT Int : 392 ms P-R-T Axes : 064 -18 -08 degrees QTc Int : 460 ms Normal sinus rhythm Incomplete right bundle branch block Nonspecific T wave abnormality Abnormal ECG When compared with ECG of 24-SEP-2019 07:08, No significant change was found Confirmed by Rajendra Dunbar ([id number]) on 09/24/2019 4:56:55 PM Referred By: REFERRED SELF Confirmed By:Pancho Dunbar
[2019-09-24 17:27] LABS: Albumin Level 2.7 gm/dl (3.4-5.0); BUN Creatinine Ratio 14.5 (10-20); Creatinine Clr Calc Pharmacy 182.7 ml/min; Est GFR (African American) 136.5; Est GFR (Non-African American) 117.8; Magnesium 1.3 mg/dl (1.8-2.4); Potassium 2.8 mmol/L (3.5-5.1)
[2019-09-24 17:30] LABS: Albumin Globulin Ratio 0.6 (0.9-2); Bilirubin,Total 0.5 mg/dl (0.2-1); Globulin 4.5 gm/dl (2.5-4.0); Total Protein 7.2 gm/dl (6.4-8.2)
[2019-09-24] MEDS ORDERED: ERGOCALCIFEROL 50,000 UNITS CAP PO STA (18:50)
[2019-09-24] MEDS ORDERED: CALCIUM GLUCONATE 10% 1,000 MG in SODIUM CHLORIDE 0.9% 50 ML IV ONE (19:00)
[2019-09-24] MEDS: CALCIUM 600MG + VIT D 400 IU TAB PO SCH (20:29)
[2019-09-24] MEDS: ASCORBIC ACID 500 MG TAB PO SCH (20:31)
[2019-09-24] MEDS: DOXEPIN HCL 50 MG CAPSULE PO SCH (20:33)
[2019-09-24] MEDS: PRAZOSIN HCL 1 MG CAP PO SCH (20:33)
[2019-09-24] MEDS: ATORVASTATIN 20 MG TAB PO SCH (20:34)
[2019-09-24] MEDS: MAGNESIUM OXIDE 400 MG TAB PO SCH (20:35)
[2019-09-24] MEDS: DOCUSATE SODIUM 100 MG CAP PO SCH (20:45)
[2019-09-24] MEDS: OXYCODONE HCL IR 5 MG TAB (IMMEDIATE RELEASE) PO PRN (20:59)
[2019-09-24 22:18] LABS: Albumin Level 2.5 gm/dl (3.4-5.0); BUN Creatinine Ratio 11.7 (10-20); Calcium 7.1 mg/dl (8.5-10.1); Creatinine Clr Calc Pharmacy 165.6 ml/min; Est GFR (African American) 132.1; Magnesium 1.7 mg/dl (1.8-2.4); Potassium 2.9 mmol/L (3.5-5.1)
[2019-09-24 22:23] LABS: Albumin Globulin Ratio 0.6 (0.9-2); Bilirubin,Total 0.4 mg/dl (0.2-1); Globulin 4.4 gm/dl (2.5-4.0); Phosphorus 2.6 mg/dl (2.5-4.9); Total Protein 6.9 gm/dl (6.4-8.2)
[2019-09-24] MEDS ORDERED: MAGNESIUM SULFATE / D5W 1 GM/100 ML BAG IV ONE (23:38)
[2019-09-25] MEDS: POTASSIUM CHLORIDE / WTR 10 MEQ/100 ML PLCT IV SCH ×5 (00:51→12:45)
[2019-09-25] MEDS: POTASSIUM CHLORIDE 20 MEQ/15 ML UDC PO STA ×2 (01:03→02:01)
[2019-09-25 06:48] LABS: Basophils # (auto) 0.01 K/uL (0-0.2); Basophils % (auto) 0.2 %; Eosinophils # (auto) 0.17 K/uL (0-0.5); Eosinophils % (auto) 2.9 %; Hematocrit (blood only) 34.7 % (37-47); Hemoglobin 10.8 g/dL (12.0-16.0); Immature Granulocytes # (auto) 0.02 K/uL (0.00-0.02); Immature Granulocytes % (auto) 0.3 %; Lymphocytes # (auto) 1.94 K/uL (1.2-3.4); Lymphocytes % (auto) 32.9 %; Mean Corpuscular Hemoglobin 26.9 pg (25-34); Mean Corpuscular Hgb Conc 31.1 g/dL (32-36); Mean Corpuscular Volume 86.5 fL (80-100); Mean Platelet Volume 9.2 fL (7.4-10.4); Monocytes # (auto) 0.57 K/uL (0.11-0.59); Monocytes % (auto) 9.7 %; Neutrophils # (auto) 3.18 K/uL (1.4-6.5); Platelet Count 233 K/uL (130-400); RDW Coefficient of Variation 15.8 % (11.5-14.5); RDW Standard Deviation 50.7 fL (36.4-46.3); Red Blood Count 4.01 M/uL (4.2-5.4); White Blood Count 5.89 K/uL (4.8-10.8)
[2019-09-25 07:08] LABS: Albumin Level 2.5 gm/dl (3.4-5.0); BUN Creatinine Ratio 11.7 (10-20); Calcium 7.9 mg/dl (8.5-10.1); Creatinine Clr Calc Pharmacy 204.7 ml/min; Est GFR (African American) 142.4; Est GFR (Non-African American) 122.8; Magnesium 2.1 mg/dl (1.8-2.4)
[2019-09-25 07:19] LABS: Albumin Globulin Ratio 0.5 (0.9-2); Bilirubin,Total 0.6 mg/dl (0.2-1); Globulin 4.7 gm/dl (2.5-4.0); Phosphorus 3.4 mg/dl (2.5-4.9); Total Protein 7.2 gm/dl (6.4-8.2)
[2019-09-25] MEDS ORDERED: POTASSIUM CHLORIDE 20 MEQ TABCR PO STA (07:25)
[2019-09-25] MEDS ORDERED: CALCIUM GLUCONATE 10% 1,000 MG in SODIUM CHLORIDE 0.9% 50 ML IV ONE (07:45)
[2019-09-25] MEDS ORDERED: POTASSIUM CHLORIDE / WTR 10 MEQ/100 ML PLCT IV SCH (08:00)
[2019-09-25] MEDS: INSULIN ASPART 100 UNITS/ML 3 ML PEN SC SCH ×4 (08:44→20:47)
[2019-09-25] MEDS: ASCORBIC ACID 500 MG TAB PO SCH ×2 (09:00→20:24)
[2019-09-25] MEDS: ARIPiprazole 15 MG TAB PO SCH (09:00)
[2019-09-25] MEDS: METOPROLOL SUCC 50MG EXT REL TAB PO SCH (09:00)
[2019-09-25] MEDS: CALCIUM 600MG + VIT D 400 IU TAB PO SCH (09:00)
[2019-09-25] MEDS: MAGNESIUM OXIDE 400 MG TAB PO SCH ×2 (09:01→20:28)
[2019-09-25] MEDS: FLUTICASONE/VILANTEROL 200/25MCG 14 PUFFS/INHALER INH SCH (09:01)
[2019-09-25] MEDS: DULOXETINE HCL 20 MG CAP PO SCH (09:01)
[2019-09-25] MEDS: DOCUSATE SODIUM 100 MG CAP PO SCH ×2 (09:01→20:27)
[2019-09-25] MEDS: TRIAMCINOLONE ACET 0.1% OINT 80 GM TUBE EXT SCH ×2 (09:02→20:30)
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
[2019-09-25] MEDS: cefTRIAXone SODIUM 2,000 MG in DEXTROSE 5% 50 ML IV SCH (10:12)
[2019-09-25] MEDS: ENOXAPARIN INJ 40 MG/0.4 ML SYR SQ SCH (13:21)
[2019-09-25] MEDS: OXYCODONE HCL IR 5 MG TAB (IMMEDIATE RELEASE) PO PRN ×2 (13:29→20:36)
--- NOTE | 2019-09-25 15:30 | Urology Consultation ---
Date of Consultation September 25, 2019 Assessment & Plan (1) Vomiting: Agree with supportive care and hydration with antibiotics for presumed UTI. Patient has small renal stones without obstruction. No indication for stent or other drainage. Discomfort possibly from UTI issues. Discussed liliana tor and observation with hydration and supportive care. Patient will need monitored and follow up in office in few months to reassess. Patients history was reviewed. All imaging reviewed and interpreted by myself. Patient may have passed small stone which started event or developed UTI that lead to further issues and flank pain. (2) UTI (urinary tract infection): (3) Bilateral flank pain: History of Present Illness Attending Physician: Christiane Nunez MD History of Present Illness New consultation for patient with flank and abdominal pain and likely UTI. Patient has history of stones and small stones in kidney on CT. No obstruction. Does have issues with abdominal pain, discomfort, and ill feelings. Patient developed sudden onset of pain into flank going down and radiating into groin and back in waves comes and goes. Can be severe at times. Discussed and reviewed patient's family history for any history of stone disease. Also, discussed patient's medical surgery history especially related to any history of urinary issues or stone disease. Patient was admitted and is undergoing observation with antibiotics for UTI Allergies Allergy/AdvReac Type Severity Reaction Status Date / Time aspirin Allergy Intermediate hives Verified 09/24/19 10:34 diazepam Allergy Intermediate PALPITATIONS, Verified 09/24/19 10:34 VOMITING fluconazole Allergy Intermediate HIVES Verified 09/24/19 10:34 Penicillins Allergy Intermediate hives Verified 09/24/19 10:34 sumatriptan Allergy Intermediate "swelling Verified 09/24/19 10:34 up" tramadol Allergy Intermediate HIVES Verified 09/24/19 10:34 Yeast Allergy Intermediate Hives Verified 09/24/19 10:34 clindamycin Allergy Mild RASH Verified 09/24/19 10:34 metoclopramide Allergy Mild suicidal Verified 09/24/19 10:34 thoughts metronidazole Allergy Mild Rash Verified 09/24/19 10:34 nickel Allergy Mild RASH Verified 09/24/19 10:34 doxycycline AdvReac Severe VOMITING Verified 09/24/19 10:34 prednisone AdvReac Severe SUICIDAL Verified 09/24/19 10:34 oxycodone AdvReac Intermediate GI SYMPTOMS Verified 09/24/19 10:34 Home Medications Home Medications Medication Instructions Recorded Confirmed Type albuterol sulfate 2.5 mg INHALATION QID PRN 01/31/18 09/24/19 History ascorbic acid (vitamin C) [Vitamin 500 mg PO BID 01/31/18 09/24/19 History C] atorvastatin [Lipitor] 20 mg PO HS 01/31/18 09/24/19 History dicyclomine 10 mg PO QID PRN 01/31/18 09/24/19 History ferrous sulfate 325 mg PO BID 01/31/18 09/24/19 History furosemide 20 mg PO BID 01/31/18 09/24/19 History metformin 1,000 mg PO BIDM 01/31/18 09/24/19 History omeprazole 20 mg PO BID 01/31/18 09/24/19 History prazosin 2 mg PO HS 01/31/18 09/24/19 History buspirone 10 mg PO TID 12/26/18 09/24/19 History duloxetine [Cymbalta] 20 mg PO QAM 12/26/18 09/24/19 History naproxen 500 mg PO BID PRN 12/26/18 09/24/19 History albuterol sulfate [ProAir HFA] 2 puff INHALATION Q4H PRN 01/19/19 09/24/19 History clobetasol 1 applic TOPICAL DIRECTED PRN 01/19/19 09/24/19 History cyclobenzaprine 10 mg PO TID PRN 01/19/19 09/24/19 History docusate sodium 100 mg PO BID 01/19/19 09/24/19 History metoprolol succinate 50 mg PO QAM 01/19/19 09/24/19 History mupirocin 1 applic TOPICAL DAILY PRN 01/19/19 09/24/19 History potassium chloride 10 meq PO QAM 01/19/19 09/24/19 History triamcinolone acetonide 1 applic TOPICAL BID PRN 01/19/19 09/24/19 History aripiprazole [Abilify] 15 mg PO QAM 03/04/19 09/24/19 History fluticasone propion-salmeterol 1 inh INHALATION Q12H 03/04/19 09/24/19 History [Advair Diskus] ondansetron HCl [Zofran] 8 mg PO Q8 PRN 03/04/19 09/24/19 History adalimumab [Humira Pen] 0 mg SUBCUT UD 09/24/19 09/24/19 History doxepin 50 mg PO HS 09/24/19 09/24/19 History hydroxyzine pamoate [Vistaril] 25 mg PO TID PRN 09/24/19 09/24/19 History Patient History Medical History Anemia (Chronic) Anxiety (Chronic) Asthma (Chronic) inhaler daily/prn and nebulizer prn Bipolar disorder (Chronic) Degenerative disc disease (Chronic) Depression (Chronic) Fracture of distal fibula (Resolved) per pt did not heal correctly and uses a walker or wheelchair History of palpitations (Chronic) reason for metoprolol Hyperlipidemia (Chronic) Kidney stone (Chronic) Lumbar radiculopathy (Resolved) Migraine Morbid obesity with BMI of 50.0-59.9, adult (Chronic) Nausea and vomiting after administration of anesthetic agent Osteoarthritis (Chronic) Post traumatic stress disorder (Chronic) Precancerous changes of the cervix (Chronic) scheduled for a D&C 03/18/19 Psoriatic arthritis (Chronic) Sleep apnea (Chronic) cpap Type II diabetes mellitus, uncontrolled (Chronic) Surgical History History of bilateral tubal ligation History of cholecystectomy History of dilatation and curettage x2 History of endoscopic sinus surgery x2 History of esophagogastroduodenoscopy (EGD) History of surgical removal of ganglion cyst x3 on right hand History of tonsillectomy and adenoidectomy Hx of meniscectomy of right knee Status post myringotomy with tube placement of both ears multiple Family History Other Cancer Heart disease Hypertension No family history of adverse response to anesthesia Social History Preferred Language: Spanish Communication Ability: Effective Assistant Financial Accountant Required: No Beliefs That Will Affect Care: None Current Living Situation: Significant Other, Homeless and Other Current Living Situation Comment: Hotel room with significant other Other Information That Helps Us Care for You: No Feels Safe at Home: Yes Safety Concerns: Feels Safe At This Time Smoking Status: Never smoker Second Hand Exposure: Yes (fiance smokes) ; Hx Alcohol Use: No Hx Substance Use: No Review of Systems Review of Systems: All systems reviewed & are unremarkable except as noted in HPI & below Physical Exam Physical Exam: General: Alert and oriented x 3 in no acute distress. Patient is well nourished and well kept. Obese. HEENT: Normocephalic Atraumatic. Inspection normal. Cranial Nerves 2-12 Grossly intact. Nares are clear. Neck is supple. Normal inspection of face. Normal inspection of neck. Neurologic: No deficits on inspection. Baseline for motor function and sensory. Psychologic: Normal affect. Respiratory: Nonlabored. No use of accessory muscles. No tachypnea or dyspnea. Cardiovascular: No tachycardia Skin: Nixa and Dry. No rashes or visible lesions. Extremities: Moving without issues. No motor deficits on inspection Lymphatics: Moderate chronic LE edema Abdomen: Soft Non-distended. No acites. No rebound or guarding. Morbid Obesity Results & Data Vital Signs (Past 12 Hours) Vital Signs Temp Pulse Pulse Resp BP Pulse Ox 09/25/19 14:59 36.7 C 67 18 130/81 94 09/25/19 11:02 36.6 C 73 18 159/82 H 95 09/25/19 07:21 36.5 C 18 155/91 H 96 09/25/19 04:03 36.6 C 74 18 118/73 93 09/25/19 03:57 98 H 18 94 PG Care Time/CCT Total # of Minutes Spent Total Time Spent with Patient: Total time spent is greater than 50% in coordination of care (as documented) at patient's floor/unit and/or counseling patient: Coding Level of Care Code 08187 Inpt Consult Level 5 Diagnoses Vomiting R11.2 Nausea presence: with nausea Vomiting Intractability: non-intractable Vomiting type: unspecified UTI (urinary tract infection) N39.0 Bilateral flank pain R10.9 (1) Vomiting Nausea presence: with nausea Vomiting Intractability: non-intractable Vomiting type: unspecified Qualified Code(s): R11.2 - Nausea with vomiting, unspecified
[2019-09-25 18:29] LABS: BUN Creatinine Ratio 8.5 (10-20); Calcium 8.5 mg/dl (8.5-10.1); Creatinine Clr Calc Pharmacy 186.4 ml/min; Est GFR (African American) 138.1; Est GFR (Non-African American) 119.1
[2019-09-25] MEDS: DOXEPIN HCL 50 MG CAPSULE PO SCH (20:25)
[2019-09-25] MEDS: ATORVASTATIN 20 MG TAB PO SCH (20:29)
[2019-09-25] MEDS: PRAZOSIN HCL 1 MG CAP PO SCH (20:29)
[2019-09-26 07:33] LABS: Hemoglobin 10.4 g/dL (12.0-16.0); Mean Corpuscular Hemoglobin 26.5 pg (25-34); Mean Corpuscular Hgb Conc 30.6 g/dL (32-36); Mean Corpuscular Volume 86.5 fL (80-100); Mean Platelet Volume 9.1 fL (7.4-10.4); Platelet Count 245 K/uL (130-400); RDW Coefficient of Variation 15.7 % (11.5-14.5); RDW Standard Deviation 50.9 fL (36.4-46.3); Red Blood Count 3.93 M/uL (4.2-5.4); White Blood Count 5.66 K/uL (4.8-10.8)
[2019-09-26 07:56] LABS: BUN Creatinine Ratio 13.5 (10-20); Calcium 8.4 mg/dl (8.5-10.1); Creatinine Clr Calc Pharmacy 208.8 ml/min; Est GFR (African American) 143.3; Est GFR (Non-African American) 123.6; Magnesium 2.1 mg/dl (1.8-2.4); Phosphorus 3.4 mg/dl (2.5-4.9); Potassium 3.5 mmol/L (3.5-5.1)
[2019-09-26] MEDS: FLUTICASONE/VILANTEROL 200/25MCG 14 PUFFS/INHALER INH SCH (07:56)
[2019-09-26] MEDS: MAGNESIUM OXIDE 400 MG TAB PO SCH (07:57)
[2019-09-26] MEDS: DOCUSATE SODIUM 100 MG CAP PO SCH (07:57)
[2019-09-26] MEDS: METOPROLOL SUCC 50MG EXT REL TAB PO SCH (07:58)
[2019-09-26] MEDS: DULOXETINE HCL 20 MG CAP PO SCH (07:58)
[2019-09-26] MEDS: ARIPiprazole 15 MG TAB PO SCH (07:58)
[2019-09-26] MEDS: ASCORBIC ACID 500 MG TAB PO SCH (07:58)
[2019-09-26] MEDS: CALCIUM 600MG + VIT D 400 IU TAB PO SCH (07:58)
[2019-09-26] MEDS: TRIAMCINOLONE ACET 0.1% OINT 80 GM TUBE EXT SCH (07:59)
[2019-09-26] MEDS: INSULIN ASPART 100 UNITS/ML 3 ML PEN SC SCH ×3 (08:00→19:01)
[2019-09-26 08:01] LABS: Estimated Average Glucose 151 mg/dl; Hemoglobin A1C 6.9 % (4.5-5.6)
[2019-09-26] MEDS ORDERED: POTASSIUM CHLORIDE 20 MEQ TABCR PO SCH (09:00)
[2019-09-26] MEDS ORDERED: MAGNESIUM OXIDE 400 MG TAB PO SCH (09:00)
[2019-09-26] MEDS: cefTRIAXone SODIUM 2,000 MG in DEXTROSE 5% 50 ML IV SCH (09:41)
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
[2019-09-26] MEDS: OXYCODONE HCL IR 5 MG TAB (IMMEDIATE RELEASE) PO PRN ×2 (10:50→17:10)
[2019-09-26] MEDS: ENOXAPARIN INJ 40 MG/0.4 ML SYR SQ SCH (14:23)
[2019-10-02] MEDS ORDERED: ERGOCALCIFEROL 50,000 UNITS CAP PO SCH (09:00)
== END 2019-09-26 19:01 | disposition home or self-care (01) ==
LOC: ED 07:01 → INTOOBSV 11:44 → 2W 11:44 → SUATTDRO 11:44 → 2W 13:14

== ENCOUNTER 2019-11-04 14:47 | Observation (INO) ==
[2019-11-04] MEDS ORDERED: KETOROLAC 30 MG/ML VIAL IV STA (15:09)
[2019-11-04] MEDS ORDERED: SODIUM CHLORIDE 0.9% 500 ML IV SCH (15:15)
--- NOTE | 2019-11-04 15:25 | Emergency Department Note ---
History of Present Illness General Chief complaint: Leg Injury/Pain Stated complaint: Ref by [facility] Time Seen by Provider: 11/04/19 14:55 Source: patient Mode of arrival: EMS Limitations: physical limitation History of Present Illness Provider complaint: Right foot pain Maximum Pain Intensity: 6 This is a 39-year-old female who presents to the ED with a chief complaint of right foot pain and difficulty getting around. The patient states that she has home physical therapy, occupational therapy and home nursing. The patient states that she was seen by the home nurse and physical therapist today and was referred here as they feel the patient needs to get referred to [facility] for inpatient rehab. The patient states that she fell 2 months ago and she has had right leg pain since. She states that the pain is primarily in her right foot but sometimes radiates into her right hip area from her foot. The patient states that she has had trouble getting around. She was at [facility] emergency department 9 days ago and was placed on Bactrim for a right leg infec tion. The patient has no other complaints at this time. She states that she is too weak to get around at home on her own. Home Medications Home Medications Medication Instructions Recorded Confirmed Type albuterol sulfate 2.5 mg INHALATION QID PRN 01/31/18 11/04/19 History ascorbic acid (vitamin C) [Vitamin 500 mg PO BID 01/31/18 11/04/19 History C] atorvastatin [Lipitor] 20 mg PO HS 01/31/18 11/04/19 History dicyclomine 10 mg PO QID PRN 01/31/18 11/04/19 History metformin 1,000 mg PO BIDM 01/31/18 11/04/19 History omeprazole 20 mg PO BID 01/31/18 11/04/19 History prazosin 2 mg PO HS 01/31/18 11/04/19 History buspirone 10 mg PO TID 12/26/18 11/04/19 History duloxetine [Cymbalta] 20 mg PO QAM 12/26/18 11/04/19 History albuterol sulfate [ProAir HFA] 2 puff INHALATION Q4H PRN 01/19/19 11/04/19 History clobetasol 1 applic TOPICAL DIRECTED PRN 01/19/19 11/04/19 History docusate sodium 100 mg PO BID 01/19/19 11/04/19 History metoprolol succinate 50 mg PO QAM 01/19/19 11/04/19 History triamcinolone acetonide 1 applic TOPICAL BID PRN 01/19/19 11/04/19 History aripiprazole [Abilify] 15 mg PO QAM 03/04/19 11/04/19 History fluticasone propion-salmeterol 1 inh INHALATION Q12H 03/04/19 11/04/19 History [Advair Diskus] doxepin 50 mg PO HS 09/24/19 11/04/19 History hydroxyzine pamoate [Vistaril] 25 mg PO TID PRN 09/24/19 11/04/19 History potassium chloride 20 meq PO QAM 30 Days #60 cap 09/26/19 11/04/19 Rx furosemide 20 mg PO BID PRN 11/04/19 11/04/19 History gabapentin 300 mg PO TID 11/04/19 11/04/19 History magnesium oxide 400 mg PO QAM 11/04/19 11/04/19 History naproxen 500 mg PO BID 11/04/19 11/04/19 History ondansetron HCl 4 mg PO Q8H PRN 11/04/19 11/04/19 History oxycodone 5 mg PO Q6H PRN 11/04/19 11/04/19 History Allergies Allergy/AdvReac Type Severity Reaction Status Date / Time aspirin Allergy Intermediate hives Verified 11/04/19 16:34 diazepam Allergy Intermediate PALPITATIONS, Verified 11/04/19 16:34 VOMITING fluconazole Allergy Intermediate HIVES Verified 11/04/19 16:34 Penicillins Allergy Intermediate hives Verified 11/04/19 16:34 sumatriptan Allergy Intermediate "swelling Verified 11/04/19 16:34 up" tramadol Allergy Intermediate HIVES Verified 11/04/19 16:34 Yeast Allergy Intermediate Hives Verified 11/04/19 16:34 clindamycin Allergy Mild RASH Verified 11/04/19 16:34 metoclopramide Allergy Mild suicidal Verified 11/04/19 16:34 thoughts metronidazole Allergy Mild Rash Verified 11/04/19 16:34 nickel Allergy Mild RASH Verified 11/04/19 16:34 doxycycline AdvReac Severe VOMITING Verified 11/04/19 16:34 prednisone AdvReac Severe SUICIDAL Verified 11/04/19 16:34 oxycodone AdvReac Intermediate GI SYMPTOMS Verified 11/04/19 16:34 Past Med/Surg History Medical History Anemia (Chronic) Anxiety (Chronic) Asthma (Chronic) inhaler daily/prn and nebulizer prn Bipolar disorder (Chronic) Degenerative disc disease (Chronic) Depression (Chronic) Fracture of distal fibula (Resolved) per pt did not heal correctly and uses a walker or wheelchair History of palpitations (Chronic) reason for metoprolol Hyperlipidemia (Chronic) Kidney stone (Chronic) Lumbar radiculopathy (Resolved) Migraine Morbid obesity with BMI of 50.0-59.9, adult (Chronic) Nausea and vomiting after administration of anesthetic agent Osteoarthritis (Chronic) Post traumatic stress disorder (Chronic) Precancerous changes of the cervix (Chronic) scheduled for a D&C 03/18/19 Psoriatic arthritis (Chronic) Sleep apnea (Chronic) cpap Type II diabetes mellitus, uncontrolled (Chronic) Surgical History History of bilateral tubal ligation History of cholecystectomy History of dilatation and curettage x2 History of endoscopic sinus surgery x2 History of esophagogastroduodenoscopy (EGD) History of surgical removal of ganglion cyst x3 on right hand History of tonsillectomy and adenoidectomy Hx of meniscectomy of right knee Status post myringotomy with tube placement of both ears multiple Family History Other Cancer Heart disease Hypertension No family history of adverse response to anesthesia Social History Preferred Language: [place] Communication Ability: Effective Sinker Puller Required: No Beliefs That Will Affect Care: None Current Living Situation: Significant Other, Homeless and Other Current Living Situation Comment: Hotel room with significant other Feels Safe at Home: Yes Smoking Status: Former smoker Second Hand Exposure: Yes (fiance smokes) ; Hx Alcohol Use: No Hx Substance Use: No Review of Systems A total of 10 systems reviewed and were otherwise negative Physical Exam Vital Signs Vital Signs - 24 hr 11/04/19 15:01 11/04/19 15:02 11/04/19 15:08 Temperature 37 C Temperature Source Oral Pulse Rate 120 H 119 H 120 H Pulse Rate [Apical] 120 H Pulse Rate from SpO2 Sensor 120 H 119 H Respiratory Rate 21 20 22 Respiratory Effort / Characteristics Non-Labored Spontaneous Respiratory Depth Normal Respiratory Pattern Regular Blood Pressure 143/111 H 150/109 H Blood Pressure [Right Arm] 150/109 H Blood Pressure Mean 114 122 Blood Pressure Mean [Right Arm] 122 Pulse Oximetry 95 95 95 Oxygen Delivery Method Room Air Sepsis Recent Fever Within 48 Hours No Sepsis New/Unexplained Change in Mental Status No Sepsis Action Taken by Nursing No Action Required 11/04/19 15:16 11/04/19 15:30 11/04/19 16:00 Temperature Temperature Source Pulse Rate 120 H 107 H Pulse Rate [Apical] Pulse Rate from SpO2 Sensor 107 H 106 H Respiratory Rate 22 24 Respiratory Effort / Characteristics Respiratory Depth Respiratory Pattern Blood Pressure 153/99 H 157/109 H Blood Pressure [Right Arm] Blood Pressure Mean 112 122 Blood Pressure Mean [Right Arm] Pulse Oximetry 95 95 95 Oxygen Delivery Method Room Air Sepsis Recent Fever Within 48 Hours Sepsis New/Unexplained Change in Mental Status Sepsis Action Taken by Nursing 11/04/19 16:30 11/04/19 17:00 11/04/19 17:01 Temperature Temperature Source Pulse Rate 100 H 98 H 100 H Pulse Rate [Apical] Pulse Rate from SpO2 Sensor 97 H 108 H 101 H Respiratory Rate 19 23 21 Respiratory Effort / Characteristics Respiratory Depth Respiratory Pattern Blood Pressure 148/101 H 153/114 H Blood Pressure [Right Arm] Blood Pressure Mean 111 120 Blood Pressure Mean [Right Arm] Pulse Oximetry 95 91 96 Oxygen Delivery Method Sepsis Recent Fever Within 48 Hours Sepsis New/Unexplained Change in Mental Status Sepsis Action Taken by Nursing 11/04/19 17:30 11/04/19 18:00 11/04/19 18:02 Temperature Temperature Source Pulse Rate 100 H 99 H 99 H Pulse Rate [Apical] Pulse Rate from SpO2 Sensor 98 H 98 H 99 H Respiratory Rate 20 19 23 Respiratory Effort / Characteristics Respiratory Depth Respiratory Pattern Blood Pressure 154/86 H 141/96 H Blood Pressure [Right Arm] Blood Pressure Mean 109 112 Blood Pressure Mean [Right Arm] Pulse Oximetry 95 93 97 Oxygen Delivery Method Sepsis Recent Fever Within 48 Hours Sepsis New/Unexplained Change in Mental Status Sepsis Action Taken by Nursing 11/04/19 18:03 11/04/19 18:30 06/26/20 19:00 Temperature Temperature Source Pulse Rate 99 H 101 H 100 H Pulse Rate [Apical] Pulse Rate from SpO2 Sensor 99 H 101 H 98 H Respiratory Rate 28 H 19 20 Respiratory Effort / Characteristics Respiratory Depth Respiratory Pattern Blood Pressure 143/91 H 138/99 Blood Pressure [Right Arm] Blood Pressure Mean 126 111 Blood Pressure Mean [Right Arm] Pulse Oximetry 96 95 92 Oxygen Delivery Method Sepsis Recent Fever Within 48 Hours Sepsis New/Unexplained Change in Mental Status Sepsis Action Taken by Nursing 11/04/19 19:01 11/04/19 19:30 Temperature Temperature Source Pulse Rate 96 H 101 H Pulse Rate [Apical] Pulse Rate from SpO2 Sensor 95 H 100 H Respiratory Rate 20 20 Respiratory Effort / Characteristics Respiratory Depth Respiratory Pattern Blood Pressure 162/91 H Blood Pressure [Right Arm] Blood Pressure Mean 109 Blood Pressure Mean [Right Arm] Pulse Oximetry 93 97 Oxygen Delivery Method Sepsis Recent Fever Within 48 Hours Sepsis New/Unexplained Change in Mental Status Sepsis Action Taken by Nursing CONSTITUTIONAL/VITAL SIGNS: Reviewed / noted above. GENERAL: Non-toxic in appearance. INTEGUMENTARY: Warm, dry, and Arial. HEAD: Normocephalic. EYES: without scleral icterus or trauma. ENT/OROPHARYNX: clear and moist. LYMPHADENOPATHY/NECK: Is supple without lymphadenopathy or meningismus. RESPIRATORY: Lungs clear and equal. CARDIOVASCULAR: Regular rate and rhythm. GI/ABDOMEN: Soft and nontender. No organomegaly or pulsatile mass. No rebound or guarding. Normal bowel sounds. EXTREMITIES: Warm and well perfused. The patient has significant right foot pain with superficial palpation. She also reports pain in her right foot with rotating her leg sideways. No significant pain with flexion of the right knee or movement of the right hip. BACK: No CVA tenderness. NEUROLOGICAL: Intact without focal deficits. PSYCHIATRIC: normal affect. MUSCULOSKELETAL: Normally developed with good muscle tone. TRIAGE NURSING DOCUMENTATION REVIEWED. Course Administered Medications Discontinued Medications Sodium Chloride (Nss) 500 mls @ 999 mls/hr IV .Q31M ARRON Stop: 11/04/19 15:45 Last Infusion: 11/04/19 17:05 Dose: 0 mls/hr Documented by: [id number] Admin: 11/04/19 16:30 Dose: 999 mls/hr Documented by: [id number] Ketorolac Tromethamine (Toradol) 30 mg IV NOW STA Stop: 11/04/19 15:10 Last Admin: 11/04/19 16:31 Dose: 30 mg Documented by: [id number] Medical Decision Making Differential Diagnosis Differential includes acute coronary syndrome, myocardial infarction, CVA, TIA, anemia, infection, pneumonia, UTI, pyelonephritis, poor nutrition, dehydration, electrolyte disturbance,hypoglycemia, right foot strain, contusion Medical Records Attestation: I reviewed the patient's medical records. Home Medications Current Medication List: was personally reviewed by me Laboratory Data Attestation: I reviewed the patient's lab results. Result diagrams: 11/04/19 14:56 11/04/19 14:56 Lab Results 11/04/19 11/04/19 11/04/19 Range/Units 14:56 14:56 16:55 WBC 16.35 H (4.8-10.8) K/uL RBC 4.55 (4.2-5.4) M/uL Hgb 12.1 (12.0-16.0) g/dL Hct 39.3 (37-47) % MCV 86.4 (80-100) fL MCH 26.6 (25-34) pg MCHC 30.8 L (32-36) g/dL RDW Std Deviation 48.4 H (36.4-46.3) fL RDW Coeff of Juan Carlos 15.3 H (11.5-14.5) % Plt Count 533 H (130-400) K/uL MPV 9.3 (7.4-10.4) fL Immature Gran % (Auto) 0.7 % Neut % (Auto) 71.6 % Lymph % (Auto) 21.0 % [place] % (Auto) 5.2 % Eos % (Auto) 1.3 % Baso % (Auto) 0.2 % Neut # (Auto) 11.69 H (1.4-6.5) K/uL Lymph # (Auto) 3.43 H (1.2-3.4) K/uL [place] # (Auto) 0.85 H (0.11-0.59) K/uL Eos # (Auto) 0.22 (0-0.5) K/uL Baso # (Auto) 0.04 (0-0.2) K/uL Immature Gran # (Auto) 0.12 H (0.00-0.02) K/uL Sodium 137 (136-145) mmol/L Potassium 4.2 (3.5-5.1) mmol/L Chloride 104 (98-107) mmol/L Carbon Dioxide 23 (21-32) mmol/L Anion Gap 10.0 (3-11) BUN 15 (7-18) mg/dl Creatinine 0.82 (0.6-1.2) mg/dl Est Cr Clr Drug Dosing 134.3 ml/min Est GFR ( Amer) 106.0 Est GFR (Non-Af Amer) 91.4 BUN/Creatinine Ratio 18.6 (10-20) Glucose 124 H (70-99) mg/dl Calcium 9.8 (8.5-10.1) mg/dl Total Bilirubin 0.3 (0.2-1) mg/dl AST 11 L (15-37) U/L ALT 23 (12-78) U/L Alkaline Phosphatase 168 H (45-117) U/L Total Creatine Kinase 27 (26-192) U/L Total Protein 9.5 H (6.4-8.2) gm/dl Albumin 3.0 L (3.4-5.0) gm/dl Globulin 6.5 H (2.5-4.0) gm/dl Albumin/Globulin Ratio 0.5 L (0.9-2) TSH 2.920 (0.300-4.500) uIu/ml Urine Color Yellow Urine Appearance Clear (Clear) Urine pH 6.0 (4.5-7.5) Ur Specific [place] 1.020 (1.000-1.030) Urine Protein Negative (Negative) Urine Glucose (UA) Negative (Negative) Urine Ketones Negative (Negative) Urine Blood Negative (Negative) Urine Nitrite Negative (Negative) Urine Bilirubin Negative (Negative) Urine Urobilinogen Negative (Negative) Ur Leukocyte Esterase Negative (Negative) Imaging Data Radiologist's Impression: Chest x-ray: No acute disease Tib-fib and right foot x-ray: No fracture dislocation or osteomyelitis. Prescription Drug Monitoring [place] Drug Monitoring Program reviewed and no issues identified Blood Pressure Blood Pressure Findings: Elevated blood pressure MDM Narrative This is a 39-year-old female who presents to the ED with a chief complaint of right foot pain and difficulty getting around. The patient states that she has home physical therapy, occupational therapy and home nursing. The patient state s that she was seen by the home nurse and physical therapist today and was referred here as they feel the patient needs to get referred to [facility] for inpatient rehab. The patient states that she fell 2 months ago and she has had right leg pain since. She states that the pain is primarily in her right foot but sometimes radiates into her right hip area from her foot. The patient states that she has had trouble getting around. She was at [facility] emergency department 9 days ago and was placed on Bactrim for a right leg infection. The patient has no other complaints at this time. She states that she is too weak to get around at home on her own. The patient's exam reveals significant tenderness to palpation of any part of the right foot. The patient CBC reveals white blood cell count of 16. Her hemoglobin is normal. Chemistry panel is normal. Urine is clean. Chest x-ray did not show evidence of pneumonia. The patient had outpatient rehab that is failed. The outpatient physical therapist feels that the patient requires inpatient physical therapy. The patient will be observed in the hospital for PT/OT evaluation and transfer to inpatient rehab tomorrow. Impression & Plan Generalized weakness, Acute pain of right foot Discharge Plan Visit Data Chief Complaint: Leg Injury/Pain Stated Complaint: Ref by [facility] ED Provider: Marshall Bowman Discharge Problem: Generalized weakness, Acute pain of right foot Patient Disposition: Being Evaluated by Hospitalist Forms Stand Alone Forms: [facility], [facility] Emergency Department, Important Visit Information Prescriptions Prescriptions: No Action buspirone 10 mg Tablet 10 mg PO TID RF: 0 duloxetine [Cymbalta] 20 mg Capsule,Delayed Release(Dr/Ec) 20 mg PO QAM RF: 0 fluticasone propion-salmeterol [Advair Diskus] 250-50 mcg/dose Blister With Device 1 inh INHALATION Q12H RF: 0 aripiprazole [Abilify] 15 mg Tablet 15 mg PO QAM RF: 0 doxepin 50 mg capsule 50 mg PO HS RF: 0 hydroxyzine pamoate [Vistaril] 25 mg capsule 25 mg PO TID PRN (Reason: Anxiety) RF: 0 potassium chloride 10 mEq Capsule, Extended Release 20 meq PO QAM 30 Days Qty: 60 RF: 0 atorvastatin [Lipitor] 20 mg Tablet 20 mg PO HS RF: 0 albuterol sulfate 2.5 mg /3 mL (0.083 %) Solution For Nebulization 2.5 mg INHALATION QID PRN (Reason: Shortness Of Breath Or Wheezing) RF: 0 ascorbic acid (vitamin C) [Vitamin C] 500 mg Tablet 500 mg PO BID RF: 0 metformin 1,000 mg Tablet 1,000 mg PO BIDM RF: 0 dicyclomine 10 mg Capsule 10 mg PO QID PRN (Reason: Abdominal Pain) RF: 0 prazosin 2 mg Capsule 2 mg PO HS RF: 0 omeprazole 20 mg Tablet,Delayed Release (Dr/Ec) 20 mg PO BID RF: 0 metoprolol succinate 50 mg Tablet Extended Release 24 Hr 50 mg PO QAM RF: 0 triamcinolone acetonide 0.1 % Cream 1 applic TOPICAL BID PRN (Reason: ITCHY AREA-TRUNK, LEGS, ARMS) RF: 0 docusate sodium 100 mg Capsule 100 mg PO BID RF: 0 albuterol sulfate [ProAir HFA] 90 mcg/actuation Hfa Aerosol Inhaler 2 puff INHALATION Q4H PRN (Reason: Wheezing) RF: 0 clobetasol 0.05 % Solution 1 applic TOPICAL DIRECTED PRN (Reason: Itchy Scalp) RF: 0 ondansetron HCl 4 mg tablet 4 mg PO Q8H PRN (Reason: Nausea And Vomiting) RF: 0 magnesium oxide 400 mg (241.3 mg magnesium) tablet 400 mg PO QAM RF: 0 gabapentin 300 mg capsule 300 mg PO TID RF: 0 naproxen 500 mg tablet 500 mg PO BID RF: 0 oxycodone 5 mg tablet 5 mg PO Q6H PRN (Reason: Pain) RF: 0 furosemide 20 mg tablet 20 mg PO BID PRN (Reason: Fluid Retention) RF: 0 Referrals Referrals: Severiano Watkins MD [Primary Care Provider] -
[2019-11-04 15:28] LABS: BUN Creatinine Ratio 18.6 (10-20); Calcium 9.8 mg/dl (8.5-10.1); Creatinine Clr Calc Pharmacy 134.3 ml/min; Est GFR (Non-African American) 91.4; Potassium 4.2 mmol/L (3.5-5.1)
[2019-11-04 15:38] LABS: Albumin Globulin Ratio 0.5 (0.9-2); Bilirubin,Total 0.3 mg/dl (0.2-1); Globulin 6.5 gm/dl (2.5-4.0); Thyroid Stimulating Hormone 2.92 uIu/ml (0.300-4.500); Total Protein 9.5 gm/dl (6.4-8.2)
[2019-11-04 15:56] LABS: Basophils # (auto) 0.04 K/uL (0-0.2); Basophils % (auto) 0.2 %; Eosinophils # (auto) 0.22 K/uL (0-0.5); Eosinophils % (auto) 1.3 %; Hematocrit (blood only) 39.3 % (37-47); Hemoglobin 12.1 g/dL (12.0-16.0); Immature Granulocytes # (auto) 0.12 K/uL (0.00-0.02); Immature Granulocytes % (auto) 0.7 %; Lymphocytes # (auto) 3.43 K/uL (1.2-3.4); Mean Corpuscular Hemoglobin 26.6 pg (25-34); Mean Corpuscular Hgb Conc 30.8 g/dL (32-36); Mean Corpuscular Volume 86.4 fL (80-100); Mean Platelet Volume 9.3 fL (7.4-10.4); Monocytes # (auto) 0.85 K/uL (0.11-0.59); Monocytes % (auto) 5.2 %; Neutrophils # (auto) 11.69 K/uL (1.4-6.5); Neutrophils % (auto) 71.6 %; Platelet Count 533 K/uL (130-400); RDW Coefficient of Variation 15.3 % (11.5-14.5); RDW Standard Deviation 48.4 fL (36.4-46.3); Red Blood Count 4.55 M/uL (4.2-5.4); White Blood Count 16.35 K/uL (4.8-10.8)
--- NOTE | 2019-11-04 16:14 | XRay Report ---
XR chest 1V portable CLINICAL HISTORY: weakness dyspnea COMPARISON STUDY: 05/28/2017 FINDINGS: The bones soft tissues and hemidiaphragms are normal. The cardiomediastinal silhouette is n ormal. The lungs are clear. The pulmonary vasculature is normal. IMPRESSION: Negative chest. ACT 112: Negative or not required by law. The above report was generated using voice recognition software. It may contain grammatical, syntax or spelling errors. Electronically signed by: José Luna M.D. 11/04/2019 4:12 PM
--- NOTE | 2019-11-04 16:15 | XRay Report ---
XR tibia fibula RT 2V CLINICAL HISTORY: pain pain. Infection. COMPARISON: None. DISCUSSION: Somewhat limited exam due to patient positioning. Moderate degenerative change right ankl e. No acute abnormality of the tibia or fibula. Cortical margins are intact. There is no evidence for so ft tissue swelling. IMPRESSION: No acute process. ACT 112: Negative or not required by law. The above report was generated using voice recognition software. It may contain grammatical, syntax or spelling errors. Electronically signed by: José Luna M.D. 11/04/2019 4:14 PM
--- NOTE | 2019-11-04 16:17 | XRay Report ---
RIGHT FOOT 3 VIEWS HISTORY: Right foot pain, no injury COMPARISON: Right foot 09/24/2019. FINDINGS: There is no fracture or dislocation. Mild soft tissue swelling versus prominent adipose tis sachin. Tiny plantar and posterior calcaneal spurs. No radiopaque foreign bodies. Mild degenerative quesada ges seen within the ankle and foot. The bones are osteopenic. No cortical destruction or erosive quesada ges to suggest osteomyelitis. IMPRESSION: No change compared to prior study. No fractures or evidence for osteomyelitis within the right foot. ACT 112: Negative or not required by law. Electronically signed by: Terry Gibson M.D. 11/04/2019 4:15 PM
[2019-11-04 17:09] LABS: Appearance Urine Clear (Clear); Bilirubin Urine Negative (Negative); Blood Urine Negative (Negative); Color Urine Yellow; Glucose Urine UA Negative (Negative); Ketones Urine Negative (Negative); Leukocyte Esterase Urine Negative (Negative); Nitrite Urine Negative (Negative); Protein Urine Negative (Negative); Urobilinogen Urine Negative (Negative)
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
[2019-11-04] MEDS ORDERED: FUROSEMIDE 20 MG TAB PO PRN (23:48)
[2019-11-04] MEDS ORDERED: POLYETHYLENE (MIRALAX) 17 GM PACK PO PRN (23:48)
[2019-11-04] MEDS ORDERED: TRIAMCINOLONE ACET 0.1% CR 15 GM TUBE TOP PRN (23:48)
[2019-11-04] MEDS ORDERED: NON-FORMULARY MEDICATION (Clobetasol 1 APPLN) TOP PRN (23:48)
[2019-11-04] MEDS ORDERED: ACETAMINOPHEN 325 MG TAB PO PRN (23:48)
[2019-11-04] MEDS ORDERED: ONDANSETRON INJ 2 MG/ML 2 ML VIAL IV PRN (23:48)
[2019-11-04] MEDS ORDERED: ALBUTEROL 0.083% NEBU SOLN 3 ML VIAL INH PRN (23:48)
[2019-11-04] MEDS ORDERED: DICYCLOMINE HCL 10 MG CAP PO PRN (23:48)
[2019-11-05] MEDS ORDERED: ALBUTEROL HFA 8 GM INHALER INH PRN (00:05)
[2019-11-05] MEDS ORDERED: GLUCAGON FOR INJ 1 MG VIAL SQ PRN (00:15)
[2019-11-05] MEDS ORDERED: CARBOHYDRATES FOR HYPOGLYCEMIA PO PRN (00:15)
[2019-11-05] MEDS ORDERED: GLUCOSE 10 TABS/TUBE PO PRN (00:15)
[2019-11-05] MEDS ORDERED: GLUCOSE 40% GEL 15 GM TUBE PO PRN (00:15)
[2019-11-05] MEDS ORDERED: DEXTROSE 50% 50 ML SYRINGE IV PRN (00:15)
[2019-11-05] MEDS: OXYCODONE HCL IR 5 MG TAB (IMMEDIATE RELEASE) PO PRN ×3 (00:22→13:34)
[2019-11-05] MEDS: HEPARIN SOD 5,000 UNIT/0.5 ML VIAL SQ SCH ×4 (01:00→21:47)
[2019-11-05 05:44] LABS: Basophils # (auto) 0.03 K/uL (0-0.2); Basophils % (auto) 0.2 %; Eosinophils # (auto) 0.17 K/uL (0-0.5); Eosinophils % (auto) 1.3 %; Hematocrit (blood only) 32.6 % (37-47); Hemoglobin 9.8 g/dL (12.0-16.0); Immature Granulocytes # (auto) 0.11 K/uL (0.00-0.02); Immature Granulocytes % (auto) 0.8 %; Lymphocytes # (auto) 2.52 K/uL (1.2-3.4); Mean Corpuscular Hemoglobin 25.9 pg (25-34); Mean Corpuscular Hgb Conc 30.1 g/dL (32-36); Mean Corpuscular Volume 86.2 fL (80-100); Mean Platelet Volume 8.8 fL (7.4-10.4); Monocytes # (auto) 1.02 K/uL (0.11-0.59); Monocytes % (auto) 7.7 %; Neutrophils # (auto) 9.44 K/uL (1.4-6.5); Platelet Count 408 K/uL (130-400); RDW Coefficient of Variation 15.5 % (11.5-14.5); RDW Standard Deviation 48.8 fL (36.4-46.3); Red Blood Count 3.78 M/uL (4.2-5.4); White Blood Count 13.29 K/uL (4.8-10.8)
[2019-11-05 06:07] LABS: BUN Creatinine Ratio 34.1 (10-20); Calcium 9.2 mg/dl (8.5-10.1); Creatinine Clr Calc Pharmacy 170.8 ml/min; Est GFR (African American) 133.5; Est GFR (Non-African American) 115.2; Potassium 4.4 mmol/L (3.5-5.1)
[2019-11-05] MEDS ORDERED: MICONAZOLE NITRATE POWDER 43 GM EXT PRN (06:22)
[2019-11-05 07:33] LABS: Estimated Average Glucose 171 mg/dl; Hemoglobin A1C 7.6 % (4.5-5.6)
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
[2019-11-05] MEDS: ASCORBIC ACID 500 MG TAB PO SCH ×2 (08:58→21:43)
[2019-11-05] MEDS: FLUTICASONE/VILANTEROL 100/25MCG 14 PUFFS/INHALER INH SCH (09:00)
[2019-11-05] MEDS: GABAPENTIN 300 MG CAP PO SCH ×3 (09:01→21:42)
[2019-11-05] MEDS: METOPROLOL SUCC 50MG EXT REL TAB PO SCH (09:01)
[2019-11-05] MEDS: POTASSIUM CHLORIDE 20 MEQ TABCR PO SCH (09:02)
[2019-11-05] MEDS: MAGNESIUM OXIDE 400 MG TAB PO SCH (09:02)
[2019-11-05] MEDS: PANTOprazole 40 MG TAB PO SCH ×2 (09:02→21:42)
[2019-11-05] MEDS: DOCUSATE SODIUM 100 MG CAP PO SCH ×2 (09:02→21:42)
[2019-11-05] MEDS: ARIPiprazole 15 MG TAB PO SCH (09:03)
[2019-11-05] MEDS: DULOXETINE HCL 20 MG CAP PO SCH (09:03)
[2019-11-05] MEDS: INSULIN ASPART 100 UNITS/ML 3 ML PEN SC SCH ×4 (09:50→21:40)
--- NOTE | 2019-11-05 10:16 | CT Scan Report ---
CT abd pelvis wo con CT DOSE: 1982.53 mGy.cm HISTORY: Flank pain kidney stones? TECHNIQUE: Multiaxial CT images of the abdomen and pelvis were performed without contrast. A dose lo wering technique was utilized adhering to the principles of ALARA. COMPARISON STUDY: 09/27/2019 FINDINGS: Lung bases are clear. The liver spleen and pancreas are unremarkable. Right kidney demonstrates 2 3 mm nonobstructing calcifications mid aspect of the right kidney. This i s unchanged from the prior study. Left kidney is unremarkable. No evidence for hydroureteronephrosis. Bowel pattern is considered nonobstructive. Bladder is midline. Uterus is anteflexed. There is intrau terine device in position. Nonobstructive bowel pattern. IMPRESSION: 1. Prior cholecystectomy. 2. 2 nonobstructing mid pole right renal calcifications. 3. Study is otherwise negative and unchanged from the prior study. ACT 112: Negative or not required by law. The above report was generated using voice recognition software. It may contain grammatical, syntax or spelling errors. Electronically signed by: José Luna M.D. 11/05/2019 10:15 AM
--- NOTE | 2019-11-05 10:52 | Ultrasound Report ---
US venous doppler LE RT CLINICAL HISTORY: right lower extrmity pain, dvt? PAIN. EDEMA. COMPARISON STUDY: No previous studies for comparison. FINDINGS: Real-time and color flow Doppler imaging were performed. Flow was seen within the femoral, popliteal and calf veins with no intraluminal thrombus demonstrated. The saphenous vein is patent. IMPRESSION: No evidence of deep venous thrombosis. ACT 112: Negative or not required by law. The above report was generated using voice recognition software. It may contain grammatical, syntax or spelling errors. Electronically signed by: José Luna M.D. 11/05/2019 10:50 AM
[2019-11-05] MEDS: DOXEPIN HCL 50 MG CAPSULE PO SCH (21:43)
[2019-11-05] MEDS: ATORVASTATIN 20 MG TAB PO SCH (21:44)
[2019-11-05] MEDS: PRAZOSIN HCL 1 MG CAP PO SCH (21:44)
[2019-11-06] MEDS: OXYCODONE HCL IR 5 MG TAB (IMMEDIATE RELEASE) PO PRN ×5 (01:26→22:34)
[2019-11-06 05:52] LABS: Hemoglobin 10.5 g/dL (12.0-16.0); Mean Corpuscular Hgb Conc 31.8 g/dL (32-36); Mean Corpuscular Volume 84.8 fL (80-100); Mean Platelet Volume 8.8 fL (7.4-10.4); Platelet Count 381 K/uL (130-400); RDW Coefficient of Variation 15.3 % (11.5-14.5); RDW Standard Deviation 47.4 fL (36.4-46.3); Red Blood Count 3.89 M/uL (4.2-5.4); White Blood Count 10.96 K/uL (4.8-10.8)
[2019-11-06] MEDS: HEPARIN SOD 5,000 UNIT/0.5 ML VIAL SQ SCH ×3 (05:59→21:21)
[2019-11-06 06:23] LABS: Calcium 9.6 mg/dl (8.5-10.1); Creatinine Clr Calc Pharmacy 170.8 ml/min; Est GFR (African American) 133.5; Est GFR (Non-African American) 115.2; Potassium 4.1 mmol/L (3.5-5.1)
[2019-11-06] MEDS: FLUTICASONE/VILANTEROL 100/25MCG 14 PUFFS/INHALER INH SCH (08:21)
[2019-11-06] MEDS: MAGNESIUM OXIDE 400 MG TAB PO SCH (08:22)
[2019-11-06] MEDS: DOCUSATE SODIUM 100 MG CAP PO SCH ×2 (08:22→21:21)
[2019-11-06] MEDS: POTASSIUM CHLORIDE 20 MEQ TABCR PO SCH (08:22)
[2019-11-06] MEDS: METOPROLOL SUCC 50MG EXT REL TAB PO SCH (08:22)
[2019-11-06] MEDS: GABAPENTIN 300 MG CAP PO SCH ×3 (08:23→21:21)
[2019-11-06] MEDS: ASCORBIC ACID 500 MG TAB PO SCH ×2 (08:23→21:21)
[2019-11-06] MEDS: PANTOprazole 40 MG TAB PO SCH ×2 (08:24→21:21)
[2019-11-06] MEDS: ARIPiprazole 15 MG TAB PO SCH (08:24)
[2019-11-06] MEDS: DULOXETINE HCL 20 MG CAP PO SCH (08:24)
[2019-11-06] MEDS: INSULIN ASPART 100 UNITS/ML 3 ML PEN SC SCH ×4 (08:30→21:22)
--- NOTE | 2019-11-06 09:06 | Hospitalist Progress Note ---
Date of Service November 06, 2019 Assessment & Plan (1) Generalized weakness: (2) Acute pain of right foot: (3) Bipolar II disorder with severity, psychotic, or remission specifiers: (4) Gastroesophageal reflux disease: (5) Gastroparesis: (6) Psoriasis: (7) Right leg pain: (8) Psoriatic arthritis: (9) Sleep apnea: (10) Precancerous changes of the cervix: (11) Post traumatic stress disorder: (12) Osteoarthritis: (13) Morbid obesity with BMI of 50.0-59.9, adult: (14) Hyperlipidemia: (15) Depression: (16) Degenerative disc disease: (17) Bipolar disorder: (18) Asthma: (19) Anxiety: (20) Anemia: (21) Hx of migraines: (22) Type II diabetes mellitus, uncontrolled: c/o burning legs, add lyrica, denied by [facility], await SNF approval, check daily labs ROS-No Headache, No Visual Changes, No Nausea, No Vomiting, No Fever, No Chills, No Neck Pain or Stiffness, No Chest Pain, No Palpitations, No SOB, No STUBBS, No Cough, No Sputum, No Wheezing, No Abdominal Pain, No Diarrhea, No Hematemesis, No Hemoptysis, No Unexpected Weight Loss, No Flank pain, No Melena, No Hematochezia, No Frequency, No Urgency, No Burning, No Hematuria, No Rashes, No Diaphoresis. Appetite is Normal, C/O leg pain Gen-AAO x 3, NAD, Afebrile, Obese Head-NCAT, EOMI, PERRLA, Anicteric Sclera, No Posterior Pharyngeal Erythema Neck-Supple, No JVD, No Thyromegaly, No Masses, No LAD, No Bruits Lungs-Clear to Auscultation Bilaterally, No Rales, No Rhonchi, No Wheezing, No Crepitus Chest-No S4, +S1, +S2, No S3, No Murmurs, No Rubs, No Gallops, No Ectopy Abdomen-Soft, Bowel Sounds Present, Non Tender, Non Distended, No Hepatomegaly, No Splenomegaly, No Palpable Masses, No Rebound, No Rigidity, No Guarding Musculoskeletal-Full Range of Motion Bilaterally, No CVAT Extremities-Tender c mild swelling Nuero-Cranial Nerves II-XII grossly intact, Motor WNL, DTRs WNL, Strength WNL, Non Focal Psych-Normal Mood Admission and Anticipated Discharge Date Admission Date: November 04, 2019 Anticipated date of discharge: 11/11/19 Results & Data Results & Data ([facility]) Vital Signs (Past 12 Hours) Vital Signs Temp Pulse Resp BP Pulse Ox 11/06/19 06:19 36.4 C L 83 16 131/77 96 11/05/19 22:53 36.6 C 90 18 132/74 93
[2019-11-06] MEDS: PREGABALIN 25 MG CAP PO SCH ×2 (09:58→21:21)
[2019-11-06] MEDS ORDERED: cloNIDine HCL 0.1 MG TAB PO PRN (16:27)
[2019-11-06] MEDS: lisinopriL 10 MG TAB PO SCH (17:54)
[2019-11-06] MEDS: DOXEPIN HCL 50 MG CAPSULE PO SCH (21:21)
[2019-11-06] MEDS: ATORVASTATIN 20 MG TAB PO SCH (21:21)
[2019-11-06] MEDS: PRAZOSIN HCL 1 MG CAP PO SCH (21:21)
[2019-11-07] MEDS: HEPARIN SOD 5,000 UNIT/0.5 ML VIAL SQ SCH ×3 (05:10→21:42)
[2019-11-07 06:08] LABS: Hematocrit (blood only) 36.2 % (37-47); Hemoglobin 11.5 g/dL (12.0-16.0); Mean Corpuscular Hemoglobin 27.2 pg (25-34); Mean Corpuscular Hgb Conc 31.8 g/dL (32-36); Mean Corpuscular Volume 85.6 fL (80-100); Mean Platelet Volume 8.8 fL (7.4-10.4); Platelet Count 387 K/uL (130-400); Red Blood Count 4.23 M/uL (4.2-5.4); White Blood Count 10.77 K/uL (4.8-10.8)
[2019-11-07 06:44] LABS: BUN Creatinine Ratio 25.4 (10-20); Calcium 9.6 mg/dl (8.5-10.1); Creatinine Clr Calc Pharmacy 165.4 ml/min; Est GFR (African American) 132.1; Potassium 4.1 mmol/L (3.5-5.1)
[2019-11-07] MEDS: OXYCODONE HCL IR 5 MG TAB (IMMEDIATE RELEASE) PO PRN ×2 (07:56→21:16)
[2019-11-07] MEDS: POTASSIUM CHLORIDE 20 MEQ TABCR PO SCH (08:39)
[2019-11-07] MEDS: ASCORBIC ACID 500 MG TAB PO SCH ×2 (08:40→21:41)
[2019-11-07] MEDS: GABAPENTIN 300 MG CAP PO SCH ×3 (08:40→21:39)
[2019-11-07] MEDS: FLUTICASONE/VILANTEROL 100/25MCG 14 PUFFS/INHALER INH SCH (08:41)
[2019-11-07] MEDS: DOCUSATE SODIUM 100 MG CAP PO SCH ×2 (08:41→21:41)
[2019-11-07] MEDS: DULOXETINE HCL 20 MG CAP PO SCH (08:41)
[2019-11-07] MEDS: MAGNESIUM OXIDE 400 MG TAB PO SCH (08:41)
[2019-11-07] MEDS: ARIPiprazole 15 MG TAB PO SCH (08:42)
[2019-11-07] MEDS: METOPROLOL SUCC 50MG EXT REL TAB PO SCH (08:42)
[2019-11-07] MEDS: lisinopriL 10 MG TAB PO SCH (08:42)
[2019-11-07] MEDS: PANTOprazole 40 MG TAB PO SCH ×2 (08:43→21:40)
[2019-11-07] MEDS: PREGABALIN 25 MG CAP PO SCH ×2 (08:48→21:42)
[2019-11-07] MEDS: INSULIN ASPART 100 UNITS/ML 3 ML PEN SC SCH ×4 (08:51→21:42)
--- NOTE | 2019-11-07 09:02 | Hospitalist Progress Note ---
Date of Service November 07, 2019 Assessment & Plan (1) Generalized weakness: (2) Acute pain of right foot: (3) Bipolar II disorder with severity, psychotic, or remission specifiers: (4) Gastroesophageal reflux disease: (5) Gastroparesis: (6) Psoriasis: (7) Right leg pain: (8) Psoriatic arthritis: (9) Sleep apnea: (10) Precancerous changes of the cervix: (11) Post traumatic stress disorder: (12) Osteoarthritis: (13) Morbid obesity with BMI of 50.0-59.9, adult: (14) Hyperlipidemia: (15) Depression: (16) Degenerative disc disease: (17) Bipolar disorder: (18) Asthma: (19) Anxiety: (20) Anemia: (21) Hx of migraines: (22) Type II diabetes mellitus, uncontrolled: Still c/o burning legs and pain, lyrica, Increase Oxy to 7.5, Elavil at HS, denied by [facility], await SNF approval, check daily labs ROS-No Headache, No Visual Changes, No Nausea, No Vomiting, No Fever, No Chills, No Neck Pain or Stiffness, No Chest Pain, No Palpitations, No SOB, No STUBBS, No Cough, No Sputum, No Wheezing, No Abdominal Pain, No Diarrhea, No Hematemesis, No Hemoptysis, No Unexpected Weight Loss, No Flank pain, No Melena, No Hematochezia, No Frequency, No Urgency, No Burning, No Hematuria, No Rashes, No Diaphoresis. Appetite is Normal, C/O leg pain Gen-AAO x 3, NAD, Afebrile, Obese Head-NCAT, EOMI, PERRLA, Anicteric Sclera, No Posterior Pharyngeal Erythema Neck-Supple, No JVD, No Thyromegaly, No Masses, No LAD, No Bruits Lungs-Clear to Auscultation Bilaterally, No Rales, No Rhonchi, No Wheezing, No Crepitus Chest-No S4, +S1, +S2, No S3, No Murmurs, No Rubs, No Gallops, No Ectopy Abdomen-Soft, Bowel Sounds Present, Non Tender, Non Distended, No Hepatomegaly, No Splenomegaly, No Palpable Masses, No Rebound, No Rigidity, No Guarding Musculoskeletal-Full Range of Motion Bilaterally, No CVAT Extremities-Tender c mild swelling Nuero-Cranial Nerves II-XII grossly intact, Motor WNL, DTRs WNL, Strength WNL, Non Focal Psych-Normal Mood Admission and Anticipated Discharge Date Admission Date: November 04, 2019 Anticipated date of discharge: 11/11/19 Results & Data Results & Data ([facility]) Vital Signs (Past 12 Hours) Vital Signs Temp Pulse Resp BP BP Pulse Ox 11/07/19 07:50 36.7 C 92 H 18 124/76 97 11/06/19 23:34 36.8 C 78 16 133/77 92
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
[2019-11-07] MEDS: ATORVASTATIN 20 MG TAB PO SCH (21:39)
[2019-11-07] MEDS: AMITRIPTYLINE HCL 25 MG TAB PO SCH (21:40)
[2019-11-07] MEDS: DOXEPIN HCL 50 MG CAPSULE PO SCH (21:40)
[2019-11-07] MEDS: PRAZOSIN HCL 1 MG CAP PO SCH (21:41)
[2019-11-08] MEDS: HEPARIN SOD 5,000 UNIT/0.5 ML VIAL SQ SCH ×3 (06:10→21:36)
[2019-11-08] MEDS: OXYCODONE HCL IR 5 MG TAB (IMMEDIATE RELEASE) PO PRN ×2 (07:50→18:11)
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
[2019-11-08] MEDS: ASCORBIC ACID 500 MG TAB PO SCH ×2 (09:01→21:36)
[2019-11-08] MEDS: DOCUSATE SODIUM 100 MG CAP PO SCH ×2 (09:02→21:34)
[2019-11-08] MEDS: PREGABALIN 25 MG CAP PO SCH ×2 (09:02→21:34)
[2019-11-08] MEDS: PANTOprazole 40 MG TAB PO SCH ×2 (09:03→21:35)
[2019-11-08] MEDS: GABAPENTIN 300 MG CAP PO SCH ×3 (09:03→21:36)
[2019-11-08] MEDS: DULOXETINE HCL 20 MG CAP PO SCH (09:04)
[2019-11-08] MEDS: POTASSIUM CHLORIDE 20 MEQ TABCR PO SCH (09:04)
[2019-11-08] MEDS: MAGNESIUM OXIDE 400 MG TAB PO SCH (09:05)
[2019-11-08] MEDS: ARIPiprazole 15 MG TAB PO SCH (09:05)
[2019-11-08] MEDS: FLUTICASONE/VILANTEROL 100/25MCG 14 PUFFS/INHALER INH SCH (09:05)
[2019-11-08] MEDS: METOPROLOL SUCC 50MG EXT REL TAB PO SCH (09:09)
[2019-11-08] MEDS: lisinopriL 10 MG TAB PO SCH (09:09)
[2019-11-08] MEDS: INSULIN ASPART 100 UNITS/ML 3 ML PEN SC SCH ×4 (09:11→21:37)
--- NOTE | 2019-11-08 10:16 | Hospitalist Progress Note ---
Date of Service November 08, 2019 Assessment & Plan (1) Generalized weakness: (2) Acute pain of right foot: (3) Bipolar II disorder with severity, psychotic, or remission specifiers: (4) Gastroesophageal reflux disease: (5) Gastroparesis: (6) Psoriasis: (7) Right leg pain: (8) Psoriatic arthritis: (9) Sleep apnea: (10) Precancerous changes of the cervix: (11) Post traumatic stress disorder: (12) Osteoarthritis: (13) Morbid obesity with BMI of 50.0-59.9, adult: (14) Hyperlipidemia: (15) Depression: (16) Degenerative disc disease: (17) Bipolar disorder: (18) Asthma: (19) Anxiety: (20) Anemia: (21) Hx of migraines: (22) Type II diabetes mellitus, uncontrolled: Still c/o burning legs and pain, lyrica, Increased Oxy to 7.5, Elavil at HS is working well, await placement, Neuro note reviewed, Ortho consulted, Psych cleared her fo SNF or ARF ROS-No Headache, No Visual Changes, No Nausea, No Vomiting, No Fever, No Chills, No Neck Pain or Stiffness, No Chest Pain, No Palpitations, No SOB, No STUBBS, No Cough, No Sputum, No Wheezing, No Abdominal Pain, No Diarrhea, No Hematemesis, No Hemoptysis, No Unexpected Weight Loss, No Flank pain, No Melena, No Hematochezia, No Frequency, No Urgency, No Burning, No Hematuria, No Rashes, No Diaphoresis. Appetite is Normal, C/O leg pain Gen-AAO x 3, NAD, Afebrile, Obese Head-NCAT, EOMI, PERRLA, Anicteric Sclera, No Posterior Pharyngeal Erythema Neck-Supple, No JVD, No Thyromegaly, No Masses, No LAD, No Bruits Lungs-Clear to Auscultation Bilaterally, No Rales, No Rhonchi, No Wheezing, No Crepitus Chest-No S4, +S1, +S2, No S3, No Murmurs, No Rubs, No Gallops, No Ectopy Abdomen-Soft, Bowel Sounds Present, Non Tender, Non Distended, No Hepatomegaly, No Splenomegaly, No Palpable Masses, No Rebound, No Rigidity, No Guarding Musculoskeletal-Full Range of Motion Bilaterally, No CVAT Extremities-Tender c mild swelling Nuero-Cranial Nerves II-XII grossly intact, Motor WNL, DTRs WNL, Strength WNL, Non Focal Psych-Normal Mood Admission and Anticipated Discharge Date Admission Date: November 04, 2019 Anticipated date of discharge: 11/11/19 Results & Data Results & Data ([facility]) Vital Signs (Past 12 Hours) Vital Signs Temp Pulse Resp BP BP Pulse Ox 11/08/19 09:07 106 H 108/67 11/08/19 07:31 36.4 C L 88 17 121/76 94 11/07/19 23:29 36.6 C 93 H 16 117/69 95
--- NOTE | 2019-11-08 15:17 | Nuclear Medicine Report ---
NM bone scan limited area HISTORY: Right leg pain. TECHNIQUE: 3 hours following the intravenous administration of 25.8 mCi of technetium 99m MDP, anteri or, posterior, and lateral views of the bilateral lower extremities was performed. COMPARISON STUDY: Right tibia/fibula radiographs 11/04/2019. FINDINGS: Focal area of intense radiotracer uptake seen within the right lateral tibial plateau. Bob tional areas of radiotracer uptake seen within the bilateral knees, ankles, and feet favor degenerati ve change. IMPRESSION: Focal area of intense radiotracer uptake seen within the right lateral tibial plateau. Therefore, thi s raises the possibility of a right lateral tibial plateau fracture. Follow-up MRI or CT is of the ri t knee is recommended for further evaluation. ACT 112: Positive. There are findings on this exam that require communication between the performing entity and the patient following Patient Test Result Information Act ([place] Act 112) guidelines. Electronically signed by: Terry Gibson M.D. 11/08/2019 3:16 PM
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
--- NOTE | 2019-11-08 17:41 | Progress Notes ---
DATE: 11/08/2019 SUBJECTIVE: I am seeing Mrs. Anderson in followup of right foot pain. The patient indicates her pain is better today. They were able to take the catheter out and she is no longer in pain. The patient had a bone scan today, which raises the question of a possible right lateral tibial plateau fracture, and there is evidence of radiotracer uptake in the bilateral knees, ankles and feet favoring degenerative changes. OBJECTIVE: The patient is awake and alert, normal speech and language. Affect appropriate. She is in a [place] bed, which makes examination somewhat difficult, but the right lower extremity is certainly greater than antigravity with no clear focal weakness. It is mildly diffusely weaker than the left lower extremity. Knee and ankle jerks are symmetric. Ankle jerks are absent. Toes are downgoing. There may be decreased light touch in the right medial and lateral calf. IMPRESSION AND PLAN: Right foot pain. I suspect the right foot pain is musculoskeletal given that the right foot is very tender. Fortunately, bone scan shows no evidence of osteomyelitis. Some of her right knee pain may be related to be the tibial plateau fracture. Agree with orthopedic podiatry to see the patient to evaluate for musculoskeletal etiologies of pain in her right foot. If it persists despite adequate treatment, it may be appropriate to do a nerve conduction EMG of the right lower extremity. The patient is somewhat hesitant to do so. 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 We will sign off at present, but please schedule a nerve conduction EMG of the right lower extremity if symptoms persist.
--- NOTE | 2019-11-08 19:40 | CT Scan Report ---
RIGHT KNEE CT CT DOSE: 561.39 mGy.cm HISTORY: Abnormal bone scan. Right knee pain. R/O right lateral Tibal Plateau Fx TECHNIQUE: Multiaxial CT images of the right knee were performed and reformatted in the sagittal and coronal plane without the use of contrast. A dose lowering technique was utilized adhering to the pr inciples of ANALIA. COMPARISON: Bone scan 11/08/2019. FINDINGS: Irregularity and bony proliferation within the lateral aspect of the lateral tibial plateau . This is likely due to combination of an old injury and long-standing degenerative change. No acute fracture or dislocation within the knee. Moderate cartilage space narrowing within the medial compart ment of the knee. There is also mild lateral patellar tilt and mild cartilage space narrowing within the lateral patellar facet. Small knee effusion. No significant soft tissue swelling. . IMPRESSION: 1. No acute fracture or dislocation within the right knee. 2. Irregularity and bony proliferation within the lateral aspect of the lateral tibial plateau. This is likely due to combination of old injury and long-standing degenerative change. This accounts for t he bone scan finding. 3. Small knee effusion. ACT 112: Negative or not required by law. Electronically signed by: Terry Gibson M.D. 11/08/2019 7:38 PM
[2019-11-08] MEDS: PRAZOSIN HCL 1 MG CAP PO SCH (21:34)
[2019-11-08] MEDS: ATORVASTATIN 20 MG TAB PO SCH (21:35)
[2019-11-08] MEDS: AMITRIPTYLINE HCL 25 MG TAB PO SCH (21:35)
[2019-11-08] MEDS: DOXEPIN HCL 50 MG CAPSULE PO SCH (21:36)
[2019-11-09] MEDS: HEPARIN SOD 5,000 UNIT/0.5 ML VIAL SQ SCH ×3 (05:49→21:46)
[2019-11-09] MEDS: OXYCODONE HCL IR 5 MG TAB (IMMEDIATE RELEASE) PO PRN ×3 (07:28→23:26)
[2019-11-09] MEDS: PANTOprazole 40 MG TAB PO SCH ×2 (09:13→21:45)
[2019-11-09] MEDS: FLUTICASONE/VILANTEROL 100/25MCG 14 PUFFS/INHALER INH SCH (09:13)
[2019-11-09] MEDS: ASCORBIC ACID 500 MG TAB PO SCH ×2 (09:13→21:46)
[2019-11-09] MEDS: ARIPiprazole 15 MG TAB PO SCH (09:14)
[2019-11-09] MEDS: GABAPENTIN 300 MG CAP PO SCH ×3 (09:14→21:44)
[2019-11-09] MEDS: DOCUSATE SODIUM 100 MG CAP PO SCH ×2 (09:14→21:43)
[2019-11-09] MEDS: METOPROLOL SUCC 50MG EXT REL TAB PO SCH (09:15)
[2019-11-09] MEDS: DULOXETINE HCL 20 MG CAP PO SCH (09:15)
[2019-11-09] MEDS: POTASSIUM CHLORIDE 20 MEQ TABCR PO SCH (09:15)
[2019-11-09] MEDS: MAGNESIUM OXIDE 400 MG TAB PO SCH (09:15)
[2019-11-09] MEDS: lisinopriL 10 MG TAB PO SCH (09:15)
[2019-11-09] MEDS: INSULIN ASPART 100 UNITS/ML 3 ML PEN SC SCH ×4 (09:24→21:47)
[2019-11-09] MEDS: PREGABALIN 25 MG CAP PO SCH ×2 (09:28→21:45)
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
--- NOTE | 2019-11-09 11:15 | XRay Report ---
LUMBAR SPINE 7 VIEWS CLINICAL HISTORY: Chronic low back pain. Right lower extremity radiculopathy. FINDINGS: AP, lateral, bilateral oblique, flexion, extension, and cone-down views of the lumbar spine are compared to study dated 09/08/[address] of the lumbar spine dated 01/31/2018. Th e skeletal structures are well mineralized. There is no radiographic evidence of fracture or malalign ment. Vertebral body height and alignment are maintained. Anterior and lateral marginal osteophytes a re seen throughout. There is no evidence of bony subluxation on the flexion/extension views. The lew sverse and spinous processes are intact. There is no evidence of spondylolysis. The intervertebral di sc spaces are well-maintained. The visualized bony pelvis appears intact. There is a nonobstructed ab dominal bowel gas pattern. Cholecystectomy clips are seen in the right upper quadrant. An intrauterin e device is noted in the pelvis. IMPRESSION: No osseous abnormality is seen involving the lumbar spine. ACT 112: Negative or not required by law. Electronically signed by: Jose Luis Rollins M.D. 11/09/2019 11:13 AM
--- NOTE | 2019-11-09 12:22 | Orthopedic Progress Note ---
Date of Service November 09, 2019 Assessment & Plan (1) Degenerative disc disease: CT scan from 2018 the lumbar spine is also been reviewed. Treatment is conservative. Would recommend physical therapy. Again may consult pain management if warranted in the future. Will sign off for now. Admission and Anticipated Discharge Date Admission Date: November 04, 2019 Anticipated date of discharge: 11/11/19 Supervising Physician Co-Signing Physician Notes Dr. Chad Younger Subjective This is a follow-up for patient recent lumbar x-rays. Results & Data ([facility]) Vital Signs (Past 12 Hours) Vital Signs Temp Pulse Pulse Resp BP BP Pulse Ox 11/09/19 12:07 131 H 128/80 11/09/19 09:08 98 H 136/76 11/09/19 07:58 36.7 C 100 H 18 134/80 94 Diagnostic Findings [place], [place] [phone] XRay Report Patient: DIANELYS ZARAGOZA Date: 11/04/19 MR#: [id number]: [address] Acct ID:[id number]: Date: 1980[facility] Zip: [place] [address] Age: 39Location: 3E Sex: F Room/Bed: [facility] Att Phy: Minesh Renteria, MDDiagnosis: RIGHT LEG PAIN Olga Phy: Severiano Watkins MDService Date: 11/09/19 Fam Phy:Interpreting Phy: Jose Luis Rollins MD Admit Phy: He Estrada MD Ordering Phy: Josefina Martinez cc: ~ LUMBAR SPINE 7 VIEWS CLINICAL HISTORY: Chronic low back pain. Right lower extremity radiculopathy. FINDINGS: AP, lateral, bilateral oblique, flexion, extension, and cone-down views of the lumbar spine are compared to study dated 09/08/[address] of the lumbar spine dated 01/31/2018. The skeletal structures are well mineralized. There is no radiographic evidence of fracture or malalignment. Vertebral body height and alignment are maintained. Anterior and lateral marginal osteophytes are seen throughout. There is no evidence of bony subluxation on the flexion/extension views. The transverse and spinous processes are intact. There is no evidence of spondylolysis. The intervertebral disc spaces are well-maintained. The visualized bony pelvis appears intact. There is a nonobstructed abdominal bowel gas pattern. Cholecystectomy clips are seen in the right upper quadrant. An intrauterine device is noted in the pelvis. IMPRESSION: No osseous abnormality is seen involving the lumbar spine. ACT 112: Negative or not required by law. Electronically signed by: Jose Luis Rollins M.D. 11/09/2019 11:13 AM Dictated: 11/09/19 1112 Transcribed: 11/09/19 1112
--- NOTE | 2019-11-09 14:37 | Consultation Report ---
DATE OF CONSULTATION: 11/09/2019 HISTORY OF PRESENT ILLNESS: The patient is a 39-year-old white female with complaints of right leg pain, knee pain. She has previously had arthroscopy with partial medial meniscectomy. She presents today. She has no history of traumatic event to her knee. There was a questionable tibial plateau fracture, which I reviewed the CT scan. No evidence of the tibial plateau fracture is noted. There is clearly significant tricompartmental degenerative joint disease. She has medial and lateral joint line pain and tenderness. There has not been an MRI scan done. We will make arrangements for an MRI scan to evaluate the status of her meniscus. This could be done as an outpatient. She could ambulate, weightbearing as tolerated with a knee immobilizer. We will have arrangements for an MRI to be ordered and follow up as an outpatient.
--- NOTE | 2019-11-09 15:03 | Electrocardiogram Report ---
Test Reason : Blood Pressure : / mmHG Vent. Rate : 117 BPM Atrial Rate : 117 BPM P-R Int : 162 ms QRS Dur : 078 ms QT Int : 310 ms P-R-T Axes : 049 -06 017 degrees QTc Int : 432 ms Sinus tachycardia Nonspecific T wave abnormality Anterior leads Abnormal ECG When compared with ECG of 24-SEP-2019 14:48, RSR' pattern in V1 is no longer Present Otherwise no significant change Confirmed by Ender Wilson ([id number]) on 11/09/2019 3:02:46 PM Referred By: REFERRED SELF Confirmed By:Ender Wilson
--- NOTE | 2019-11-09 20:55 | CT Scan Report ---
CT foot RT wo con CT DOSE: 256.77 mGy.cm HISTORY: r/o abscess/injury TECHNIQUE: Multiaxial CT images of the right foot were performed and reformatted in the sagittal and coronal plane without the use of contrast. A dose lowering technique was utilized adhering to the pr inciples of ANALIA. COMPARISON: None. FINDINGS: No evidence for fracture. Mild osteopenia. No evidence for bony destructive process. Mild generalized soft tissue edematous change. No evidence for drainable abscess or collection. IMPRESSION: 1. No acute bony abnormality. 2. Osteopenia. 3. Moderate generalized degenerative change. 4. Soft tissue edema. ACT 112: Negative or not required by law. The above report was generated using voice recognition software. It may contain grammatical, syntax or spelling errors. Electronically signed by: José Luna M.D. 11/09/2019 8:53 PM
--- NOTE | 2019-11-09 20:58 | CT Scan Report ---
CT ankle RT wo con CT DOSE: HISTORY: Pain r/o abscess/injury TECHNIQUE: Multiaxial CT images of the right ankle were performed and reformatted in the sagittal and coronal plane without the use of contrast. A dose lowering technique was utilized adhering to the p rinciples of ALA. COMPARISON: None. FINDINGS: Generalized moderate degenerative change. Osteopenia. No evidence for fracture or dislocation. Generalized prominence soft tissue edematous change. No lytic or blastic process of the bony structur es. No major drainable abscess or collection. IMPRESSION: 1. Generalized degenerative change. 2. Osteopenia. 3. No evidence for fracture or dislocation. 4. Soft tissue edematous change ACT 112: Negative or not required by law. The above report was generated using voice recognition software. It may contain grammatical, syntax or spelling errors. Electronically signed by: José Luna M.D. 11/09/2019 8:57 PM
[2019-11-09] MEDS: PRAZOSIN HCL 1 MG CAP PO SCH (21:44)
[2019-11-09] MEDS: DOXEPIN HCL 50 MG CAPSULE PO SCH (21:44)
[2019-11-09] MEDS: AMITRIPTYLINE HCL 25 MG TAB PO SCH (21:44)
[2019-11-09] MEDS: ATORVASTATIN 20 MG TAB PO SCH (21:44)
--- NOTE | 2019-11-10 00:04 | Hospitalist Progress Note ---
Date of Service November 09, 2019 Assessment & Plan (1) Generalized weakness: (2) Acute pain of right foot: (3) Bipolar II disorder with severity, psychotic, or remission specifiers: (4) Gastroesophageal reflux disease: (5) Gastroparesis: (6) Psoriasis: (7) Right leg pain: (8) Psoriatic arthritis: (9) Sleep apnea: (10) Precancerous changes of the cervix: (11) Post traumatic stress disorder: (12) Osteoarthritis: (13) Morbid obesity with BMI of 50.0-59.9, adult: (14) Hyperlipidemia: (15) Depression: (16) Degenerative disc disease: (17) Bipolar disorder: (18) Asthma: (19) Anxiety: (20) Anemia: (21) Hx of migraines: (22) Type II diabetes mellitus, uncontrolled: This is a 39-year-old female who presents with ongoing right lower extremity pain and ambulatory dysfunction. 1. Right lower extremity pain and ambulatory dysfunction: The patient says has right foot pain for last 2 years, and right lower extremity pain for the last 2 months. Outpatient hospital given her Bactrim for possible infection, but x-ray was done and it looks ok. Additional imaging done while inpatient, orthopedics consulted Doppler to rule out deep venous thrombosis - negative The plan for inpatient rehab,and Social Service to help with discharge planning for possible [facility]/OT Right lower extremity pain Lyrica, Oxy to 7.5, amitriptyline at HS Neuro consulted -recommend EMG study however EMG study cannot be done in house, recommend to do EMG as outpatient Ortho consulted - discussed with orthopedics today, November 09, 2019, that imaging so far unrevealing. Will obtain a CT of her right ankle. Otherwise recommend MRI of her right knee possible right ankle as outpatient. And further follow-up with orthopedics as outpatient. Psych cleared her fo SNF or ARF 2. Questionable urinary retention: Patient has history of urinary incontinence, says question of kidney stones. CT abdomen and pelvis negat. 3. Morbid obesity: Need counseling. Patient determined to lose weight, inquiring about joint damage with increased weight. Recommended dietitian as outpatient as well. 4. Obstructive sleep apnea. On CPAP at bedtime. 5. Diabetes: Hold metformin, place insulin sliding scale. 6. Hyperlipidemia: On statin. 7. Asthma: Continue home inhalers and nebs p.r.n. 8. Gastroesophageal reflux disease: Omeprazole. 9. Major depression, generalized anxiety disorder: Continue on home medications. Also patient was seen by psychiatry during this hospital stay to clear her for further placement 10. Deep venous thrombosis prophylaxis. Heparin subQ. Admission and Anticipated Discharge Date Admission Date: November 04, 2019 Anticipated date of discharge: 11/11/19 Subjective Patient is sitting up in bed, in no acute distress. She does have a right lower extremity pain on palpation. She was also little dizzy this morning, blood pressure decrease and heart rate increased when patient got up from bed. EKG ordered, showed sinus tachycardia. Patient quickly recovered and vital signs normalized. Patient otherwise currently denies any chest pain, shortness of breath, nausea, vomiting, dizziness, abdominal pain. Discussed with orthopedics, so far images unrevealing. Will obtain CT of her right foot. Otherwise recommend MRI however MRI cannot be done in this hospital due to patient's body habitus, also recommend to be done as outpatient. EMG al so recommended however only can be done as outpatient. Review of Systems Review of Systems: All systems reviewed & are unremarkable except as noted in HPI & below Constitutional: no fever and no chills Respiratory: no cough and no dyspnea Cardiovascular: no chest pain and no palpitations Gastrointestinal: no abdominal pain, no nausea and no vomiting Physical Exam Physical Exam: Gen- young morbidly obese female, sitting up in bed, in no acute distress, AAO x 3 Head- NCAT, EOMI, PERRL, Anicteric Sclera Neck- Supple, No JVD,No Masses Lungs- Clear to Auscultation Bilaterally, No Rales, No Rhonchi, No Wheezing Chest- RRR No Murmurs Abdomen- Soft, Bowel Sounds Present, Non Tender, Non Distended, obese, No Rigidity, No Guarding Musculoskeletal- Full Range of Motion Bilaterally, some pain in the right lower extremity with movement Extremities- some tenderness to palpation of right lower extremity Neuro-alert and oriented, answers questions appropriately, no facial asymmetry, speech fluent, moves extremities spontaneously Psych- euthymic mood Results & Data Results & Data ([facility]) Vital Signs (Past 12 Hours) Vital Signs Temp Pulse Resp BP BP Pulse Ox 11/09/19 16:15 36.7 C 102 H 16 119/69 94 11/09/19 13:50 104 H 07/01/20 12:07 131 H 128/80 Laboratory Results 11/09/19 11/09/19 11/09/19 Range/Units 21:10 17:20 12:13 POC Glucose 186 H 133 H 136 H (70-99) mg/dl 11/09/19 11/09/19 Range/Units 11:52 08:18 POC Glucose 132 H 146 H (70-99) mg/dl Medications Administered Current Inpatient Medications Acetaminophen (Tylenol) 650 mg PO Q4H PRN PRN Reason: pain/fever Stop: 12/04/19 23:47 Albuterol (Ventolin 0.083% 2.5mg/3ml) 2.5 mg INH QID PRN PRN Reason: Shortness Of Breath Or Wheezing Stop: 12/04/19 23:47 Albuterol (Ventolin Hfa) 2 puffs INH Q4H PRN PRN Reason: Wheezing Stop: 12/05/19 00:04 Amitriptyline HCl (Elavil) 25 mg PO [facility] Stop: 12/07/19 20:59 Last Admin: 11/09/19 21:44 Dose: 25 mg Documented by: Aripiprazole (Abilify) 15 mg PO QAM [facility] Stop: 12/05/19 08:59 Last Admin: 11/09/19 09:14 Dose: 15 mg Documented by: Ascorbic Acid (Vitamin C) 500 mg PO BID [facility] Stop: 12/05/19 08:59 Last Admin: 11/09/19 21:46 Dose: Not Given Documented by: Atorvastatin Calcium (Lipitor) 20 mg PO [facility] Stop: 12/05/19 20:59 Last Admin: 11/09/19 21:44 Dose: 20 mg Documented by: Buspirone HCl (Buspar) 10 mg PO TID [facility] Stop: 12/05/19 08:59 Last Admin: 11/09/19 21:45 Dose: 10 mg Documented by: Clonidine HCl (Catapres) 0.1 mg PO Q12H PRN PRN Reason: Blood Pressure - High Stop: 12/06/19 16:26 Dextrose (Dextrose 50%) 25 - 50 ml IV UD PRN; Protocol PRN Reason: Hypoglycemia Protocol Stop: 12/05/19 00:14 Dicyclomine HCl (Bentyl) 10 mg PO QID PRN PRN Reason: Abdominal Pain Stop: 12/04/19 23:47 Docusate Sodium (Colace) 100 mg PO BID [facility] Stop: 12/05/19 08:59 Last Admin: 11/09/19 21:43 Dose: 100 mg Documented by: Doxepin HCl (Sinequan) 50 mg PO HS [facility] Stop: 12/05/19 20:59 Last Admin: 11/09/19 21:44 Dose: 50 mg Documented by: Duloxetine HCl (Cymbalta) 20 mg PO QAM [facility] Stop: 12/05/19 08:59 Last Admin: 11/09/19 09:15 Dose: 20 mg Documented by: Fluticasone/Vilanterol (Breo Ellipta 100/25 Mcg Inh) 1 puffs INH DAILY [facility] Stop: 12/05/19 08:59 Last Admin: 11/09/19 09:13 Dose: 1 puffs Documented by: Furosemide (Lasix) 20 mg PO BID PRN PRN Reason: Fluid Retention Stop: 12/04/19 23:47 Gabapentin (Neurontin) 300 mg PO TID [facility] Stop: 12/05/19 08:59 Last Admin: 11/09/19 21:44 Dose: 300 mg Documented by: Glucagon (Glucagen) 1 mg SQ UD PRN; Protocol PRN Reason: Hypoglycemia Protocol Stop: 12/05/19 00:14 Glucose (Glucose 40%) 15 - 30 gm PO UD PRN; Protocol PRN Reason: Hypoglycemia Protocol Stop: 12/05/19 00:14 Glucose (Dex4 Glucose) 4 - 8 tabs PO UD PRN; Protocol PRN Reason: Hypoglycemia Protocol Stop: 12/05/19 00:14 Heparin Sodium (Porcine) (Heparin Sodium (Porcine)) 5,000 units SQ Q8 [facility] Stop: 12/04/19 23:47 Last Admin: 11/09/19 21:46 Dose: 5,000 units Documented by: Hydroxyzine HCl (Vistaril) 25 mg PO TID PRN PRN Reason: Anxiety Stop: 12/04/19 23:47 Last Admin: 11/06/19 16:39 Dose: 25 mg Documented by: Insulin Aspart (Novolog Flexpen) 0 units SC ACHS [facility] Stop: 12/05/19 07:29 Last Admin: 11/09/19 21:47 Dose: 2 units Documented by: Lisinopril (Zestril) 10 mg PO QAM [facility] Stop: 12/06/19 16:29 Last Admin: 11/09/19 09:15 Dose: 10 mg Documented by: Magnesium Oxide (Mag-Ox) 400 mg PO QAM [facility] Stop: 12/05/19 08:59 Last Admin: 11/09/19 09:15 Dose: 400 mg Documented by: Metoprolol Succinate (Toprol Xl) 50 mg PO QAM [facility] Stop: 12/05/19 08:59 Last Admin: 11/09/19 09:15 Dose: 50 mg Documented by: Miconazole Nitrate (Desenex) 1 appln EXT PRN PRN PRN Reason: Affected Skin Folds Stop: 12/05/19 06:21 Last Admin: 11/05/19 13:35 Dose: 1 appln Documented by: Miscellaneous (Carbohydrates For Hypoglycemia) 15 - 30 gm PO UD PRN PRN Reason: Hypoglycemia Treatment Stop: 12/05/19 00:14 Ondansetron HCl (Zofran) 4 mg IV Q6H PRN PRN Reason: Nausea Stop: 12/04/19 23:47 Oxycodone HCl (Roxicodone Immediate Rel) 7.5 mg PO Q4H PRN PRN Reason: Pain Stop: 11/19/19 00:03 Last Admin: 11/09/19 23:26 Dose: 7.5 mg Documented by: Pantoprazole Sodium (Protonix) 40 mg PO BID [facility] Stop: 12/05/19 08:59 Last Admin: 11/09/19 21:45 Dose: 40 mg Documented by: Polyethylene Glycol (Miralax Powder Packet) 17 gm PO DAILY PRN PRN Reason: Constipation Stop: 12/04/19 23:47 Last Admin: 11/07/19 08:48 Dose: 17 gm Documented by: Potassium Chloride (Klor-Con M20) 20 meq PO QAM [facility] Stop: 12/05/19 08:59 Last Admin: 11/09/19 09:15 Dose: 20 meq Documented by: Prazosin HCl (Prazosin Hcl) 2 mg PO HS [facility] Stop: 12/05/19 20:59 Last Admin: 11/09/19 21:44 Dose: 2 mg Documented by: Pregabalin (Lyrica) 25 mg PO BID [facility] Stop: 12/06/19 08:59 Last Admin: 11/09/19 21:45 Dose: 25 mg Documented by: Triamcinolone Acetonide (Kenalog 0.1%) 1 appln TOP BID PRN PRN Reason: ITCHY AREA-TRUNK, LEGS, ARMS Stop: 12/04/19 23:47
[2019-11-10] MEDS: HEPARIN SOD 5,000 UNIT/0.5 ML VIAL SQ SCH ×2 (05:45→13:50)
[2019-11-10] MEDS: ARIPiprazole 15 MG TAB PO SCH (08:54)
[2019-11-10] MEDS: FLUTICASONE/VILANTEROL 100/25MCG 14 PUFFS/INHALER INH SCH (08:54)
[2019-11-10] MEDS: DOCUSATE SODIUM 100 MG CAP PO SCH (08:55)
[2019-11-10] MEDS: INSULIN ASPART 100 UNITS/ML 3 ML PEN SC SCH ×2 (08:58→12:24)
[2019-11-10] MEDS: MAGNESIUM OXIDE 400 MG TAB PO SCH (08:59)
[2019-11-10] MEDS: DULOXETINE HCL 20 MG CAP PO SCH (08:59)
[2019-11-10] MEDS: POTASSIUM CHLORIDE 20 MEQ TABCR PO SCH (08:59)
[2019-11-10] MEDS: METOPROLOL SUCC 50MG EXT REL TAB PO SCH (09:00)
[2019-11-10] MEDS: GABAPENTIN 300 MG CAP PO SCH ×2 (09:00→13:48)
[2019-11-10] MEDS: PANTOprazole 40 MG TAB PO SCH (09:00)
[2019-11-10] MEDS: lisinopriL 10 MG TAB PO SCH (09:01)
[2019-11-10] MEDS: ASCORBIC ACID 500 MG TAB PO SCH (09:01)
[2019-11-10] MEDS: PREGABALIN 25 MG CAP PO SCH (09:05)
--- NOTE | 2019-11-10 09:15 | Communication Note ---
Date of Service: November 10, 2019 Patient currently lying in bed awake and alert. States she can move her leg a little bit better today but still having pain in her right foot. CT scan of her foot and ankle showing moderate degenerative changes in her foot and also degenerative changes in the ankle. Soft tissue edema and osteopenia. No areas of abscess noted. No further imaging at this time. Patient will need MRI, per Dr. Villalobos of the right knee at some point in time to assess menisci and any possibility of ligamentous injury. He may also need an MRI of her right foot to assess any further problems that were ongoing since [address] Hopkins. Plan for [facility] for now with follow-up with Dr. Hopkins and Dr. Villalobos when an MRI can be performed.
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
--- NOTE | 2019-11-10 12:21 | Hospitalist Progress Note ---
Date of Service November 10, 2019 Assessment & Plan (1) Generalized weakness: (2) Acute pain of right foot: (3) Bipolar II disorder with severity, psychotic, or remission specifiers: (4) Gastroesophageal reflux disease: (5) Gastroparesis: (6) Psoriasis: (7) Right leg pain: (8) Psoriatic arthritis: (9) Sleep apnea: (10) Precancerous changes of the cervix: (11) Post traumatic stress disorder: (12) Osteoarthritis: (13) Morbid obesity with BMI of 50.0-59.9, adult: (14) Hyperlipidemia: (15) Depression: (16) Degenerative disc disease: (17) Bipolar disorder: (18) Asthma: (19) Anxiety: (20) Anemia: (21) Hx of migraines: (22) Type II diabetes mellitus, uncontrolled: This is a 39-year-old female who presents with ongoing right lower extremity pain and ambulatory dysfunction. 1. Right lower extremity pain and ambulatory dysfunction: The patient says has right foot pain for last 2 years, and right lower extremity pain for the last 2 months. Outpatient hospital given her Bactrim for possible infection, but x-ray was done and unrevealing. Additional imaging done while inpatient, orthopedics consulted Doppler to rule out deep venous thrombosis - negative The plan for inpatient rehab,and Social Service to help with discharge planning for possible [facility] Right lower extremity pain Lyrica, Oxy to 7.5, amitriptyline at HS started in this admission, patient seems to tolerate well, currently pain is much decreased Patient prescribed Oxy 5 mg at home, can continue as needed as prescribed, on discharge Neurology consulted - recommend EMG study however EMG study cannot be done in house, recommend to do EMG as outpatient Orthopedics consulted - discussed with orthopedics today, that imaging so far unrevealing. Obtained a CT of her right ankle, yesterday, again unrevealing. Orthopedics recommend MRI of her right knee possible right ankle as outpatient. And further follow-up with orthopedics as outpatient. Psych cleared her fo SNF or ARF 2. Questionable urinary retention: Patient has history of urinary incontinence, says question of kidney stones. CT abdomen and pelvis negat. 3. Morbid obesity: Needs counseling. Patient determined to lose weight, inquiring about joint damage with increased weight. Recommended dietitian as outpatient as well. 4. Obstructive sleep apnea. On CPAP at bedtime. 5. Diabetes: Hold metformin, place insulin sliding scale. 6. Hyperlipidemia: On statin. 7. Asthma: Continue home inhalers and nebs p.r.n. 8. Gastroesophageal reflux disease: Omeprazole. 9. Major depression, generalized anxiety disorder: Continue on home medications. Also patient was seen by psychiatry during this hospital stay to clear her for further placement 10. Deep venous thrombosis prophylaxis. Heparin subQ. Admission and Anticipated Discharge Date Admission Date: November 04, 2019 Anticipated date of discharge: 11/11/19 Subjective No acute events overnight. Patient is sitting up in bed, in no acute distress. Seen by orthopedics, and CT of right ankle reviewed, unrevealing. Currently patient denies any pain only slight pain of right foot. No pain on palpation either. She is inquiring about losing weight, and if her weight is worsening her joint damage. Counseled patient on weight loss, and also recommended a dietitian consultation for her as outpatient. Discussed transfer to [facility] the patient and orthopedics, and further studies recommended as outpatient such as MRI and EMG. Patient currently denies any fevers, chills, chest pain, shortness of breath, abdominal pain, nausea or vomiting. She also denies any dizziness or lightheadedness. Review of Systems Review of Systems: All systems reviewed & are unremarkable except as noted in HPI & below Constitutional: no fever and no chills Respiratory: no cough and no dyspnea Cardiovascular: no chest pain and no palpitations Gastrointestinal: no abdominal pain, no nausea and no vomiting Physical Exam Physical Exam: Gen- young morbidly obese female, sitting up in bed, in no acute distress, AAO x 3 Head- NCAT, EOMI, PERRL, Anicteric Sclera Neck- Supple, No JVD,No Masses Lungs- Clear to Auscultation Bilaterally, No Rales, No Rhonchi, No Wheezing Chest- RRR No Murmurs Abdomen- Soft, Bowel Sounds Present, Non Tender, Non Distended, obese, No Rigidity, No Guarding Musculoskeletal- Full Range of Motion Bilaterally, some pain in the right ankle with movement Extremities-extremities not tender to touch, only slight tenderness of right ankle to palpation Neuro- alert and oriented, answers questions appropriately, no facial asymmetry, speech fluent, moves extremities spontaneously Psych- euthymic mood Results & Data Results & Data ([facility]) Vital Signs (Past 12 Hours) Vital Signs Temp Pulse Resp BP BP Pulse Ox 11/10/19 10:53 99 H 11/10/19 08:51 113 H 118/76 11/10/19 07:15 36.4 C L 109 H 17 119/75 95
[2019-11-10] MEDS: OXYCODONE HCL IR 5 MG TAB (IMMEDIATE RELEASE) PO PRN (14:31)
== END 2019-11-10 15:18 | DRG 92 ==
LOC: ED 14:47 → SUATTDRO 21:06 → 3E 21:06 → INTOOBSV 21:06 → 3E 22:22

== ENCOUNTER 2020-09-26 19:46 | Inpatient (IN) ==
[2020-09-26] MEDS ORDERED: ACETAMINOPHEN 1000 MG/100 ML IV IV STA (21:13)
[2020-09-26] MEDS ORDERED: CEFEPIME 2,000 MG/20 ML VIAL IV STA (21:13)
[2020-09-26] MEDS ORDERED: ONDANSETRON INJ 2 MG/ML 2 ML VIAL IV STA (21:13)
[2020-09-26] MEDS ORDERED: SODIUM CHLORIDE 0.9% 1,000 ML IV SCH (21:15)
--- NOTE | 2020-09-26 21:25 | Emergency Department Note ---
Impression & Plan Hypoxia, Fever, Pneumonia, COVID-19 ED Provider Note NAME: DIANELYS ZARAGOZA AGE: 40 SEX: F : 1980 ARRIVES VIA: Ambulance INFORMANT: [Patient][ems] ED PROVIDER(S): [Jose Luis Longoria MD] CHIEF COMPLAINT: Fever HISTORY OF PRESENT ILLNESS: The patient is a 40-year-old female who has felt poorly for 5 days. She states that she had a pneumonia vaccine in the right shoulder the same day she began to feel poorly. The arm is somewhat sore and was red although the redness seems to be fading. She currently is complaining of flulike symptoms. She has been fatigued, has been running a temperature, she has chills. She has had nausea and vomiting and a cough. The patient states that she has not been vaccinated for Covid. The patient states that her taste and smell is still intact. She has not had any known Covid exposures. Because of the higher temperature and how she was feeling, she summoned EMS and was brought for an evaluation. REVIEW OF SYSTEMS: See HPI for pertinent positives and negatives. A total of ten systems were reviewed and were otherwise negative. PMHx/PSHx: See Below SOCIAL HISTORY: See Below. PHYSICAL EXAM: GENERAL: Patient is in no acute distress. HEENT: No acute trauma, normocephalic atraumatic, mucous membranes moist, no nasal congestion, no scleral icterus. NECK: No stridor, no adenopathy, no meningismus, trachea is midline. LUNGS: Dry cough noted, occasional wheezes heard. No respiratory distress, no crackles. HEART: Without murmurs gallops or rubs, mildly tachycardic, regular rhythm. ABDOMEN: Soft, nontender, bowel sounds positive, no hernias, no peritonitis. EXTREMITIES: No cyanosis or edema, full range of motion of all the joints without pain or difficulty, no signs for acute trauma. I see no evidence for erythema to the right shoulder where she had her pneumonia vaccine. NEUROLOGIC: Oriented x 3, no acute motor or sensory deficits, no focal weakness. SKIN: No rash, no jaundice, no diaphoresis. DIFFERENTIAL DIAGNOSIS: Sepsis, UTI, pneumonia, metabolic abnormality, electrolyte abnormalities, COVID- 19, vaccine reaction, cardiac sources, cellulitis, UTI, bacteremia, i ntracerebral event, toxicologic etiology, neurologic event, as well as other pathologies. EMERGENCY DEPARTMENT COURSE/PROCEDURES: ECG: Indication was shortness of breath and possible sepsis. The ECG shows a normal sinus rhythm with a rate of 79. LVH is present. There is no ST elevation, no PVCs. The QTc is 412. Continuous Cardiac Monitoring: An order was placed for continuous cardiac monitoring. The monitor shows a rate of 89 with normal sinus rhythm. Critical Care Note: I have personally spent 42 minutes of critical care time in the direct management of this patient. This includes bedside care, inte rpretation of diagnostic studies, and testing, discussion with consultants, patient, and family members, and other required patient management activities. This 42 minutes is in excess of all separately billable procedures. MEDICAL DECISION MAKING: There is no leukocytosis or concerning anemia. There is a normal platelet count. No coagulopathy. No kidney failure or significant electrolyte abnormality. Lactic acid level was not elevated making sepsis less likely. There was slight elevation to a few of her liver enzymes. testing was negative. ECG shows a sinus rhythm, no acute ischemia. Cardiac enzyme testing x1 is not consistent with acute cardiac injury. Urinalysis shows infection versus contamination. Covid testing returned positive. Chest film shows bilateral infiltrates consistent with a viral pneumonia. Patient did become hypoxic here in the ED with a sat of 86% with any exertion. She was febrile. The patient received IV saline, IV Zofran, IV Decadron, IV cefepime and IV Tylenol. The patient has Covid pneumonia. She is hypoxic. She has a lot of past medical history that makes her at risk for a bad outcome. I do think a hospital stay is warranted. I spoke to the patient and case management. The on-call hospitalist was consulted. Past Med/Surg History Medical History Anemia LOW IRON Anxiety and depression Asthma LAST USED RESCUE INHALER "ITS BEEN A WHILE" Bipolar disorder TYPE 2 (NO SUICIDAL IDEATION) Claustrophobia Degenerative disc disease Fracture of distal fibula per pt did not heal correctly and uses a walker or wheelchair History of kidney stones History of palpitations reason for metoprolol Hyperlipidemia Lumbar radiculopathy Lung nodule BEING MONITORED (RT LUNG) Migraine Morbid obesity with BMI of 50.0-59.9, adult Osteoarthritis Post traumatic stress disorder Psoriatic arthritis Schizo-affective schizophrenia Sleep apnea CURRENTLY HAS NO DEVICE NOW Social anxiety disorder Type II diabetes mellitus, uncontrolled Surgical History History of bilateral tubal ligation History of cholecystectomy History of dilatation and curettage x3 History of endoscopic sinus surgery x2 History of esophagogastroduodenoscopy (EGD) History of surgical removal of ganglion cyst x3 on right hand History of tonsillectomy and adenoidectomy Hx of meniscectomy of right knee Nausea and vomiting after administration of anesthetic agent Status post myringotomy with tube placement of both ears multiple Family History Other Cancer Heart disease Hypertension No family history of adverse response to anesthesia Social History Smoking Status: Former smoker Tobacco Type: Cigarettes Cigarettes Per Day: 2012; Second Hand Exposure: Yes (FAMILY AND FRIENDS SMOKE); Hx Alcohol Use: No Hx Substance Use: Yes Last Used Substance Other:: HAS NOT USED FOR 2 MONTHS (ADVISED) Preferred Language: Guyanese Communication Ability: Effective Tie In Hand Required: No Beliefs That Will Affect Care: None Current Living Situation: Alone Current Living Situation Comment: Hotel room with significant other Feels Safe at Home: Yes Assistive Devices: Glasses, Walker and Wheelchair Allergies Allergies Allergy/AdvReac Type Severity Reaction Status Date / Time aspirin Allergy Intermediate hives Verified 09/26/20 19:55 diazepam Allergy Intermediate PALPITATIONS, Verified 09/26/20 19:55 VOMITING fluconazole Allergy Intermediate HIVES Verified 09/26/20 19:55 Penicillins Allergy Intermediate hives Verified 09/26/20 19:55 sumatriptan Allergy Intermediate "swelling Verified 09/26/20 19:55 up" tramadol Allergy Intermediate HIVES Verified 09/26/20 19:55 Yeast Allergy Intermediate Hives Verified 09/26/20 19:55 clindamycin Allergy Mild RASH Verified 09/26/20 19:55 metoclopramide Allergy Mild suicidal Verified 09/26/20 19:55 thoughts metronidazole Allergy Mild Rash Verified 09/26/20 19:55 nickel Allergy Mild RASH Verified 09/26/20 19:55 wheat Allergy Unknown Unknown Verified 09/26/20 19:55 doxycycline AdvReac Severe VOMITING Verified 09/26/20 19:55 prednisone AdvReac Severe SUICIDAL Verified 09/26/20 19:55 oxybutynin AdvReac Mild Vomiting Verified 09/26/20 19:55 Home Meds Home Medications Medication Instructions Recorded Confirmed albuterol sulfate 2.5 mg INHALATION QID PRN 01/31/18 09/26/20 atorvastatin [Lipitor] 20 mg PO HS 01/31/18 09/26/20 dicyclomine 10 mg PO QID PRN 01/31/18 09/26/20 metformin 1,000 mg PO BIDM 01/31/18 09/26/20 omeprazole 20 mg PO BID 01/31/18 09/26/20 prazosin 2 mg PO HS 01/31/18 09/26/20 albuterol sulfate [ProAir HFA] 2 puff INHALATION Q4H PRN 01/19/19 09/26/20 metoprolol succinate 75 mg PO QAM 01/19/19 09/26/20 triamcinolone acetonide 1 applic TOPICAL BID PRN 01/19/19 09/26/20 fluticasone propion-salmeterol 1 inh INHALATION Q12H 03/04/19 09/26/20 [Advair Diskus] furosemide 20 mg PO BID PRN 11/04/19 09/26/20 buspirone 15 mg PO TID 04/16/20 09/26/20 trazodone 100 mg PO HS PRN 06/01/20 09/26/20 levonorgestrel [Mirena] 20 mcg INTRAUTERINE CONTINOUS 07/10/20 09/26/20 etanercept [Enbrel Mini] 0 mg SUBCUT WK 09/19/20 09/26/20 aripiprazole [Abilify] 30 mg PO DAILY 09/26/20 09/26/20 duloxetine [Cymbalta] 60 mg PO DAILY 09/26/20 09/26/20 Previous Rx's Medication Instructions Recorded ondansetron 4 mg PO Q6H PRN #12 tab 09/19/20 Results & Data (ED) Vital Signs Vital Signs - 24 hr 09/26/20 19:47 09/26/20 19:55 09/26/20 21:57 Temperature 38.8 C H Temperature Source Oral Pulse Rate 89 Pulse Rate [Exercises] Pulse Rate [Recovery] Pulse Rate [Resting] Pulse Rate from SpO2 Sensor 84 Respiratory Rate 18 Respiratory Rate [Exercises] Respiratory Rate [Recovery] Respiratory Rate [Resting] Blood Pressure 130/54 L 130/54 L Blood Pressure Mean 79 79 Pulse Oximetry 95 92 92 Pulse Oximetry [Exercises] Pulse Oximetry [Recovery] Pulse Oximetry [Resting] Oxygen Delivery Method Room Air Room Air Room Air Sepsis Recent Fever Within 48 Hours Yes Sepsis New/Unexplained Change in Mental Status N/A Sepsis Action Taken by Nursing No Action Required 09/26/20 22:47 09/26/20 22:48 09/26/20 23:31 Temperature 37.4 C Temperature Source Oral Pulse Rate 78 68 Pulse Rate [Exercises] Pulse Rate [Recovery] Pulse Rate [Resting] Pulse Rate from SpO2 Sensor 78 69 Respiratory Rate 12 21 Respiratory Rate [Exercises] Respiratory Rate [Recovery] Respiratory Rate [Resting] Blood Pressure 99/69 L 107/65 Blood Pressure Mean 79 79 Pulse Oximetry 91 92 Pulse Oximetry [Exercises] Pulse Oximetry [Recovery] Pulse Oximetry [Resting] Oxygen Delivery Method Room Air Room Air Sepsis Recent Fever Within 48 Hours Sepsis New/Unexplained Change in Mental Status Sepsis Action Taken by Nursing 09/26/20 23:45 Temperature Temperature Source Pulse Rate Pulse Rate [Exercises] 103 H Pulse Rate [Recovery] 105 H Pulse Rate [Resting] 77 Pulse Rate from SpO2 Sensor Respiratory Rate Respiratory Rate [Exercises] 28 H Respiratory Rate [Recovery] 30 H Respiratory Rate [Resting] 22 Blood Pressure Blood Pressure Mean Pulse Oximetry Pulse Oximetry [Exercises] 88 L Pulse Oximetry [Recovery] 86 L Pulse Oximetry [Resting] 94 Oxygen Delivery Method Room Air Sepsis Recent Fever Within 48 Hours Sepsis New/Unexplained Change in Mental Status Sepsis Action Taken by [facility] Medications Current Medication List: was personally reviewed by me Laboratory Data Attestation: I reviewed the patient's lab results. Result diagrams: 09/26/20 21:43 09/26/20 21:43 Lab Results 09/26/20 09/26/20 09/26/20 Range/Units 21:43 21:43 21:43 WBC 5.24 (4.8-10.8) K/uL RBC 4.50 (4.2-5.4) M/uL Hgb 13.3 (12.0-16.0) g/dL Hct 41.2 (37-47) % MCV 91.6 (80-100) fL MCH 29.6 (25-34) pg MCHC 32.3 (32-36) g/dL RDW Std Deviation 45.4 (36.4-46.3) fL RDW Coeff of Juan Carlos 13.6 (11.5-14.5) % Plt Count 156 (130-400) K/uL MPV 10.2 (7.4-10.4) fL Immature Gran % (Auto) 0.2 % Neut % (Auto) 71.5 % Lymph % (Auto) 20.4 % Fergus % (Auto) 7.3 % Eos % (Auto) 0.4 % Baso % (Auto) 0.2 % Neut # (Auto) 3.75 (1.4-6.5) K/uL Lymph # (Auto) 1.07 L (1.2-3.4) K/uL Fergus # (Auto) 0.38 (0.11-0.59) K/uL Eos # (Auto) 0.02 (0-0.5) K/uL Baso # (Auto) 0.01 (0-0.2) K/uL Immature Gran # (Auto) 0.01 (0.00-0.02) K/uL PT 10.3 (9.0-12.0) Seconds INR 1.0 (0.9-1.1) APTT 25.3 (21.0-31.0) Seconds PTT Ratio 1.0 Sodium 138 (136-145) mmol/L Potassium 3.8 (3.5-5.1) mmol/L Chloride 105 (98-107) mmol/L Carbon Dioxide 27 (21-32) mmol/L Anion Gap 6.0 (3-11) BUN 12 (7-18) mg/dl Creatinine 0.56 L (0.6-1.2) mg/dl Est Cr Clr Drug Dosing 186.6 ml/min Est GFR ( Amer) 137.1 ml/min Est GFR (Non-Af Amer) 118.3 ml/min BUN/Creatinine Ratio 21.3 H (10-20) Glucose 93 (70-99) mg/dl Lactate (0.4-2.0) mmol/L Calcium 8.6 (8.5-10.1) mg/dl Magnesium 1.9 (1.8-2.4) mg/dl Total Bilirubin 0.3 (0.2-1) mg/dl AST 78 H (15-37) U/L ALT 90 H (12-78) U/L Alkaline Phosphatase 116 (45-117) U/L Troponin I < 0.015 (0-0.045) ng/ml Total Protein 7.6 (6.4-8.2) gm/dl Albumin 2.9 L (3.4-5.0) gm/dl Globulin 4.7 H (2.5-4.0) gm/dl Albumin/Globulin Ratio 0.6 L (0.9-2) Procalcitonin (0-0.5) ng/ml HCG, Qual (Negative) Urine Color Urine Appearance (Clear) Urine pH (4.5-7.5) Ur Specific Toney (1.000-1.030) Urine Protein (Negative) Urine Glucose (UA) (Negative) Urine Ketones (Negative) Urine Blood (Negative) Urine Nitrite (Negative) Urine Bilirubin (Negative) Urine Urobilinogen (Negative) Ur Leukocyte Esterase (Negative) Urine WBC (Auto) (0-5) /hpf Urine RBC (Auto) (0-4) /hpf U Hyaline Cast (Auto) (0-5) /lpf U Epithel Cells (Auto) (0-5) /lpf Urine Bacteria (Auto) (Negative) Urine Mucus (None Prsent) Urine Yeast COVID-19 Eval Order SARS-CoV-2 (PCR) (Negative) 09/26/20 09/26/20 09/26/20 Range/Units 21:43 21:43 21:43 WBC (4.8-10.8) K/uL RBC (4.2-5.4) M/uL Hgb (12.0-16.0) g/dL Hct (37-47) % MCV (80-100) fL MCH (25-34) pg MCHC (32-36) g/dL RDW Std Deviation (36.4-46.3) fL RDW Coeff of Juan Carlos (11.5-14.5) % Plt Count (130-400) K/uL MPV (7.4-10.4) fL Immature Gran % (Auto) % Neut % (Auto) % Lymph % (Auto) % Fergus % (Auto) % Eos % (Auto) % Baso % (Auto) % Neut # (Auto) (1.4-6.5) K/uL Lymph # (Auto) (1.2-3.4) K/uL Fergus # (Auto) (0.11-0.59) K/uL Eos # (Auto) (0-0.5) K/uL Baso # (Auto) (0-0.2) K/uL Immature Gran # (Auto) (0.00-0.02) K/uL PT (9.0-12.0) Seconds INR (0.9-1.1) APTT (21.0-31.0) Seconds PTT Ratio Sodium (136-145) mmol/L Potassium (3.5-5.1) mmol/L Chloride (98-107) mmol/L Carbon Dioxide (21-32) mmol/L Anion Gap (3-11) BUN (7-18) mg/dl Creatinine (0.6-1.2) mg/dl Est Cr Clr Drug Dosing ml/min Est GFR ( Amer) ml/min Est GFR (Non-Af Amer) ml/min BUN/Creatinine Ratio (10-20) Glucose (70-99) mg/dl Lactate 1.3 (0.4-2.0) mmol/L Calcium (8.5-10.1) mg/dl Magnesium (1.8-2.4) mg/dl Total Bilirubin (0.2-1) mg/dl AST (15-37) U/L ALT (12-78) U/L Alkaline Phosphatase (45-117) U/L Troponin I (0-0.045) ng/ml Total Protein (6.4-8.2) gm/dl Albumin (3.4-5.0) gm/dl Globulin (2.5-4.0) gm/dl Albumin/Globulin Ratio (0.9-2) Procalcitonin < 0.05 (0-0.5) ng/ml HCG, Qual Negative (Negative) Urine Color Dark Yellow Urine Appearance Cloudy A (Clear) Urine pH 7.0 (4.5-7.5) Ur Specific Toney 1.025 (1.000-1.030) Urine Protein 1+ H (Negative) Urine Glucose (UA) Negative (Negative) Urine Ketones Negative (Negative) Urine Blood 3+ H (Negative) Urine Nitrite Negative (Negative) Urine Bilirubin Negative (Negative) Urine Urobilinogen Negative (Negative) Ur Leukocyte Esterase 2+ H (Negative) Urine WBC (Auto) >30 H (0-5) /hpf Urine RBC (Auto) >30 H (0-4) /hpf U Hyaline Cast (Auto) 10-30 H (0-5) /lpf U Epithel Cells (Auto) >30 H (0-5) /lpf Urine Bacteria (Auto) 1+ H (Negative) Urine Mucus Present A (None Prsent) Urine Yeast Not Reportable COVID-19 Eval Order SARS-CoV-2 (PCR) (Negative) 09/26/20 09/26/20 Range/Units 21:52 21:52 WBC (4.8-10.8) K/uL RBC (4.2-5.4) M/uL Hgb (12.0-16.0) g/dL Hct (37-47) % MCV (80-100) fL MCH (25-34) pg MCHC (32-36) g/dL RDW Std Deviation (36.4-46.3) fL RDW Coeff of Juan Carlos (11.5-14.5) % Plt Count (130-400) K/uL MPV (7.4-10.4) fL Immature Gran % (Auto) % Neut % (Auto) % Lymph % (Auto) % Fergus % (Auto) % Eos % (Auto) % Baso % (Auto) % Neut # (Auto) (1.4-6.5) K/uL Lymph # (Auto) (1.2-3.4) K/uL Fergus # (Auto) (0.11-0.59) K/uL Eos # (Auto) (0-0.5) K/uL Baso # (Auto) (0-0.2) K/uL Immature Gran # (Auto) (0.00-0.02) K/uL PT (9.0-12.0) Seconds INR (0.9-1.1) APTT (21.0-31.0) Seconds PTT Ratio Sodium (136-145) mmol/L Potassium (3.5-5.1) mmol/L Chloride (98-107) mmol/L Carbon Dioxide (21-32) mmol/L Anion Gap (3-11) BUN (7-18) mg/dl Creatinine (0.6-1.2) mg/dl Est Cr Clr Drug Dosing ml/min Est GFR ( Amer) ml/min Est GFR (Non-Af Amer) ml/min BUN/Creatinine Ratio (10-20) Glucose (70-99) mg/dl Lactate (0.4-2.0) mmol/L Calcium (8.5-10.1) mg/dl Magnesium (1.8-2.4) mg/dl Total Bilirubin (0.2-1) mg/dl AST (15-37) U/L ALT (12-78) U/L Alkaline Phosphatase (45-117) U/L Troponin I (0-0.045) ng/ml Total Protein (6.4-8.2) gm/dl Albumin (3.4-5.0) gm/dl Globulin (2.5-4.0) gm/dl Albumin/Globulin Ratio (0.9-2) Procalcitonin (0-0.5) ng/ml HCG, Qual (Negative) Urine Color Urine Appearance (Clear) Urine pH (4.5-7.5) Ur Specific Toney (1.000-1.030) Urine Protein (Negative) Urine Glucose (UA) (Negative) Urine Ketones (Negative) Urine Blood (Negative) Urine Nitrite (Negative) Urine Bilirubin (Negative) Urine Urobilinogen (Negative) Ur Leukocyte Esterase (Negative) Urine WBC (Auto) (0-5) /hpf Urine RBC (Auto) (0-4) /hpf U Hyaline Cast (Auto) (0-5) /lpf U Epithel Cells (Auto) (0-5) /lpf Urine Bacteria (Auto) (Negative) Urine Mucus (None Prsent) Urine Yeast COVID-19 Eval Order Covid19 at [facility] SARS-CoV-2 (PCR) POSITIVE A* (Negative) Administered Medications Discontinued Medications Acetaminophen (Acetaminophen 1000 Mg/100 Ml Iv) 1,000 mg IV NOW STA Stop: 09/26/20 21:14 Last Admin: 09/26/20 21:54 Dose: 1,000 mg Documented by: [id number] Dexamethasone Sodium Phosphate (DexamethasonePf 10 Mg/Ml Vial) 6 mg IV NOW ONE Stop: 09/26/20 23:56 Last Admin: 09/27/20 00:05 Dose: 6 mg Documented by: [id number] Sodium Chloride (Nss 1000ml) 1,000 mls @ 999 mls/hr IV .Q1H1M ARRON Stop: 09/26/20 22:15 Last Infusion: 09/26/20 22:54 Dose: 0 mls/hr Documented by: [id number] Admin: 09/26/20 21:53 Dose: 999 mls/hr Documented by: [id number] Cefepime HCl (Maxipime) 2,000 mg in 20 mls @ 5 mls/min IV NOW STA; Protocol Stop: 09/26/20 21:16 Last Admin: 09/26/20 21:54 Dose: 5 mls/min Documented by: [id number] Ondansetron HCl (Ondansetron Inj 2 Mg/Ml 2 Ml Vial) 4 mg IV NOW STA Stop: 09/26/20 21:14 Last Admin: 09/26/20 21:54 Dose: 4 mg Documented by: [id number] Imaging Data Attestation: I personally reviewed and interpreted this imaging study as follows: My Impression: Chest x-ray: There are bilateral infiltrates consistent with a viral pneumonia. No pneumothorax. Discharge Plan Visit Data Chief Complaint: Illness ED Provider: Jose Luis Longoria Discharge Problem: Hypoxia, Fever, Pneumonia, COVID-19 Patient Disposition: Admitted As Inpatient Condition: Fair Forms Stand Alone Forms: My [facility], Virtual Emergency Department, Important Visit Information Prescriptions Prescriptions: No Action fluticasone propion-salmeterol [Advair Diskus] 250-50 mcg/dose Blister With Device 1 inh INHALATION Q12H RF: 0 buspirone 15 mg tablet 15 mg PO TID RF: 0 Mirena 20 mcg/24 hours (6 yrs) 52 mg Intrauterine Device 20 mcg INTRAUTERINE CONTINOUS RF: 0 atorvastatin [Lipitor] 20 mg Tablet 20 mg PO HS RF: 0 albuterol sulfate 2.5 mg /3 mL (0.083 %) Solution For Nebulization 2.5 mg INHALATION QID PRN (Reason: Shortness Of Breath Or Wheezing) RF: 0 metformin 1,000 mg Tablet 1,000 mg PO BIDM RF: 0 dicyclomine 10 mg Capsule 10 mg PO QID PRN (Reason: Abdominal Pain) RF: 0 prazosin 2 mg Capsule 2 mg PO HS RF: 0 omeprazole 20 mg Tablet,Delayed Release (Dr/Ec) 20 mg PO BID RF: 0 metoprolol succinate 50 mg Tablet Extended Release 24 Hr 75 mg PO QAM RF: 0 triamcinolone acetonide 0.1 % Cream 1 applic TOPICAL BID PRN (Reason: ITCHY AREA-TRUNK, LEGS, ARMS) RF: 0 albuterol sulfate [ProAir HFA] 90 mcg/actuation Hfa Aerosol Inhaler 2 puff INHALATION Q4H PRN (Reason: Wheezing) RF: 0 furosemide 20 mg tablet 20 mg PO BID PRN (Reason: Weight Gain) RF: 0 trazodone 100 mg tablet 100 mg PO HS PRN (Reason: Sleep) RF: 0 Enbrel Mini 50 mg/mL (1 mL) Cartridge 0 mg SUBCUT WK RF: 0 ondansetron 4 mg tablet,disintegrating 4 mg PO Q6H PRN (Reason: nausea and vomiting) Qty: 12 RF: 0 aripiprazole [Abilify] 30 mg Tablet 30 mg PO DAILY RF: 0 duloxetine [Cymbalta] 60 mg Capsule,Delayed Release(Dr/Ec) 60 mg PO DAILY RF: 0 Referrals Referrals: Severiano Watkins MD [Primary Care Provider] - Discharge Problem: Fever Qualifiers: Fever type: unspecified Qualified Code(s): R50.9 - Fever, unspecified Pneumonia Qualifiers: Pneumonia type: due to unspecified organism Laterality: bilateral Lung l ocation: unspecified part of lung Qualified Code(s): J18.9 - Pneumonia, unspecified organism
[2020-09-26 21:56] LABS: Basophils # (auto) 0.01 K/uL (0-0.2); Basophils % (auto) 0.2 %; Eosinophils # (auto) 0.02 K/uL (0-0.5); Eosinophils % (auto) 0.4 %; Hematocrit (blood only) 41.2 % (37-47); Hemoglobin 13.3 g/dL (12.0-16.0); Immature Granulocytes # (auto) 0.01 K/uL (0.00-0.02); Immature Granulocytes % (auto) 0.2 %; Lymphocytes # (auto) 1.07 K/uL (1.2-3.4); Lymphocytes % (auto) 20.4 %; Mean Corpuscular Hemoglobin 29.6 pg (25-34); Mean Corpuscular Hgb Conc 32.3 g/dL (32-36); Mean Corpuscular Volume 91.6 fL (80-100); Mean Platelet Volume 10.2 fL (7.4-10.4); Monocytes # (auto) 0.38 K/uL (0.11-0.59); Monocytes % (auto) 7.3 %; Neutrophils # (auto) 3.75 K/uL (1.4-6.5); Neutrophils % (auto) 71.5 %; Platelet Count 156 K/uL (130-400); RDW Coefficient of Variation 13.6 % (11.5-14.5); RDW Standard Deviation 45.4 fL (36.4-46.3); White Blood Count 5.24 K/uL (4.8-10.8)
[2020-09-26 22:03] LABS: Appearance Urine Cloudy (Clear); Bacteria Urine Automated 1+ (Negative); Bilirubin Urine Negative (Negative); Blood Urine 3+ (Negative); Color Urine Dark Yellow; Epithelial Cell Urine Auto >30 /lpf (0-5); Glucose Urine UA Negative (Negative); Ketones Urine Negative (Negative); Leukocyte Esterase Urine 2+ (Negative); Nitrite Urine Negative (Negative); Protein Urine 1+ (Negative); Specific Gravity Urine 1.025 (1.000-1.030); Urobilinogen Urine Negative (Negative); WBC Urine Automated >30 /hpf (0-5)
[2020-09-26 22:06] LABS: Partial Thromboplastin Time 25.3 Seconds (21.0-31.0); Prothrombin Time 10.3 Seconds (9.0-12.0)
[2020-09-26 22:12] LABS: Alanine Aminotransferase 90 U/L (12-78); Albumin Level 2.9 gm/dl (3.4-5.0); Aspartate Aminotransferase 78 U/L (15-37); BUN Creatinine Ratio 21.3 (10-20); Blood Urea Nitrogen 12 mg/dl (7-18); Calcium 8.6 mg/dl (8.5-10.1); Carbon Dioxide 27 mmol/L (21-32); Chloride 105 mmol/L (98-107); Creatinine Clr Calc Pharmacy 186.6 ml/min; Est GFR (African American) 137.1 ml/min; Est GFR (Non-African American) 118.3 ml/min; Glucose 93 mg/dl (70-99); Magnesium 1.9 mg/dl (1.8-2.4); Potassium 3.8 mmol/L (3.5-5.1); Sodium 138 mmol/L (136-145)
[2020-09-26 22:15] LABS: Mucus Urine Present (None Prsent); RBC Urine Automated >30 /hpf (0-4)
[2020-09-26 22:16] LABS: Albumin Globulin Ratio 0.6 (0.9-2); Alkaline Phosphatase 116 U/L (45-117); Bilirubin,Total 0.3 mg/dl (0.2-1); Globulin 4.7 gm/dl (2.5-4.0); Pregnancy Test, Serum Negative (Negative); Total Protein 7.6 gm/dl (6.4-8.2); Troponin I < 0.015 ng/ml (0-0.045)
[2020-09-26 22:33] LABS: Procalcitonin < 0.05 ng/ml (0-0.5)
[2020-09-26] MEDS ORDERED: dexAMETHasone**PF** 10 MG/ML VIAL IV ONE (23:55)
[2020-09-27] MEDS ORDERED: LEVALBUTEROL TARTRATE 15 GM HFA.AER.AD INH STA (00:06)
[2020-09-27] MEDS ORDERED: PROMETHAZINE 12.5 MG/50.5 ML BAG IV STA (00:44)
--- NOTE | 2020-09-27 00:45 | History & Physical Report ---
Date of Service September 27, 2020 Assessment & Plan (1) Acute hypoxemic respiratory failure: Secondary to severe COVID-19 pneumonia Rule out pulmonary embolism given pleuritic chest pain complaints Sepsis secondary to complicated UTI HTN, BP on the lower side Abnormal LFTs, likely NAFLD secondary to hepatomegaly on initial CT read FABRICIO, currently without CPAP, needs updated sleep study as per outpatient documentation DM2 on oral medications, well-controlled as of recent hemoglobin A1c of 6.09 Sep 2020 mood disorder, at baseline hx psoriatic arthritis past tobacco abuse Medical telemetry Supplemental O2 Decadron Remdesivir first dose for now. Follow LFTs before subsequent dose administration (Patient was counseled regarding potential adverse effects from Remdesivir therapy and provided with patient education sheet. Patient also agreeable to convalescent plasma if warranted. Verbal consent obtained for blood product administration.) MDI RTC VQ scan (if permissible by current department policy), LE venous Dopplers for PE work-up (CT angio precluded by IV dye allergy) IV Heparin until PE ruled out Urine CS, Cefepime for now Basal insulin, ISS BG goal 1 10-1 40, carb count coverage DVT prophylaxis. IV Heparin Full code Text document was generated using [employer] voice recognition software. It may contain grammatical or spelling errors. Kindly contact undersigned for clarification of any documentation item in question. History of Present Illness Chief Complaint: Cough, shortness of breath, chest pain Primary Care Provider: Severiano Watkins MD History obtained from patient and records. Medical history significant for HTN, bronchial asthma, FABRICIO (currently without CPAP), DM2 on oral medications, GERD, mood disorder, psoriatic arthritis as per records, past tobacco abuse. Last confinement November 2019 for RLE pain, ambulatory dysfunction. Patient discharged to rehab facility. Patient seen at the ER last week for abdominal pain symptoms. COVID-19 test was negative. Pneumococcal vaccine administered at PCP's office on follow-up last week. Shortly after pneumococcal vaccine given, patient noted nausea, vomiting, dry cough symptoms. Patient evaluated at PCPs office 3 days ago. Patient later noted pleuritic chest pain with shortness of breath, achy abdominal pain with nausea emesis symptoms. Leg somewhat swollen from trauma from a few weeks ago. Patient with chronic dysuria symptoms (noted since IUD insertion sometime back). At the ER, O2 sats noted to be 80s at 1 point. Decadron given at the ER for Covid pneumonia. Cefepime given for UTI. Medical History as above Surgical History : D&C, IUD, cholecystectomy, BTL, right knee surgery, tonsillectomy/adenoidectomy Family History : Breast cancer, heart disease, bipolar disorder, asthma Personal/Social history : Past tobacco abuse, no EtOH intake, disabled Allergies Allergy/AdvReac Type Severity Reaction Status Date / Time aspirin Allergy Intermediate hives Verified 09/26/20 19:55 diazepam Allergy Intermediate PALPITATIONS, Verified 09/26/20 19:55 VOMITING fluconazole Allergy Intermediate HIVES Verified 09/26/20 19:55 Penicillins Allergy Intermediate hives Verified 09/26/20 19:55 sumatriptan Allergy Intermediate "swelling Verified 09/26/20 19:55 up" tramadol Allergy Intermediate HIVES Verified 09/26/20 19:55 Yeast Allergy Intermediate Hives Verified 09/26/20 19:55 clindamycin Allergy Mild RASH Verified 09/26/20 19:55 metoclopramide Allergy Mild suicidal Verified 09/26/20 19:55 thoughts metronidazole Allergy Mild Rash Verified 09/26/20 19:55 nickel Allergy Mild RASH Verified 09/26/20 19:55 wheat Allergy Unknown Unknown Verified 09/26/20 19:55 doxycycline AdvReac Severe VOMITING Verified 09/26/20 19:55 Iodinated Contrast Media AdvReac Severe sob Verified 09/27/20 01:50 prednisone AdvReac Severe SUICIDAL Verified 09/26/20 19:55 oxybutynin AdvReac Mild Vomiting Verified 09/26/20 19:55 Home Medications Medication Instructions Recorded Confirmed Type albuterol sulfate 2.5 mg INHALATION QID PRN 01/31/18 09/26/20 History atorvastatin [Lipitor] 20 mg PO HS 01/31/18 09/26/20 History dicyclomine 10 mg PO QID PRN 01/31/18 09/26/20 History metformin 1,000 mg PO BIDM 01/31/18 09/26/20 History omeprazole 20 mg PO BID 01/31/18 09/26/20 History prazosin 2 mg PO HS 01/31/18 09/26/20 History albuterol sulfate [ProAir HFA] 2 puff INHALATION Q4H PRN 01/19/19 09/26/20 History metoprolol succinate 75 mg PO QAM 01/19/19 09/26/20 History triamcinolone acetonide 1 applic TOPICAL BID PRN 01/19/19 09/26/20 History fluticasone propion-salmeterol 1 inh INHALATION Q12H 03/04/19 09/26/20 History [Advair Diskus] furosemide 20 mg PO BID PRN 11/04/19 09/26/20 History buspirone 15 mg PO TID 04/16/20 09/26/20 History trazodone 100 mg PO HS PRN 06/01/20 09/26/20 History levonorgestrel [Mirena] 20 mcg INTRAUTERINE CONTINOUS 07/10/20 09/26/20 History etanercept [Enbrel Mini] 0 mg SUBCUT WK 09/19/20 09/26/20 History ondansetron 4 mg PO Q6H PRN #12 tab 09/19/20 09/26/20 Rx aripiprazole [Abilify] 30 mg PO DAILY 09/26/20 09/26/20 History duloxetine [Cymbalta] 60 mg PO DAILY 09/26/20 09/26/20 History Past Med/Surg History Medical History Anemia LOW IRON Anxiety and depression Asthma LAST USED RESCUE INHALER "ITS BEEN A WHILE" Bipolar disorder TYPE 2 (NO SUICIDAL IDEATION) Claustrophobia Degenerative disc disease Fracture of distal fibula per pt did not heal correctly and uses a walker or wheelchair History of kidney stones History of palpitations reason for metoprolol Hyperlipidemia Lumbar radiculopathy Lung nodule BEING MONITORED (RT LUNG) Migraine Morbid obesity with BMI of 50.0-59.9, adult Osteoarthritis Post traumatic stress disorder Psoriatic arthritis Schizo-affective schizophrenia Sleep apnea CURRENTLY HAS NO DEVICE NOW Social anxiety disorder Type II diabetes mellitus, uncontrolled Surgical History History of bilateral tubal ligation History of cholecystectomy History of dilatation and curettage x3 History of endoscopic sinus surgery x2 History of esophagogastroduodenoscopy (EGD) History of surgical removal of ganglion cyst x3 on right hand History of tonsillectomy and adenoidectomy Hx of meniscectomy of right knee Nausea and vomiting after administration of anesthetic agent Status post myringotomy with tube placement of both ears multiple Family History Other Cancer Heart disease Hypertension No family history of adverse response to anesthesia Social History Smoking Status: Former smoker Tobacco Type: Cigarettes Cigarettes Per Day: 1 per day; Second Hand Exposure: Yes; Hx Alcohol Use: Yes Hx Substance Use: Yes Last Used Substance Other:: September 11, 2020 Preferred Language: [place]an Communication Ability: Effective Torpedo Man Required: No Beliefs That Will Affect Care: None Current Living Situation: Alone Current Living Situation Comment: Hotel room with significant other Other Information That Helps Us Care for You: No Feels Safe at Home: Yes Safety Concerns: Feels Safe At This Time Assistive Devices: Glasses, Walker and Wheelchair Review of Systems Review of Systems: As per HPI, all 10 systems reviewed, all other ROS negative Physical Exam Physical Exam: GENERAL: Slightly uncomfortable, morbidly obese, minimal respiratory distress SKIN: Normal color, warm HEENT: Bespectacled, [place] palpebral conjunctivae, no ptosis, dry buccal mucosa NECK : Supple, short neck, no tenderness CHEST : Decreased breath sounds, occasional expiratory wheezes, no tenderness HEART : RRR, no obvious murmurs ABDOMEN: Some distention, nontender EXTREMITIES : Minimal LE swelling, no LE tenderness, no other conspicuous deformities noted NEUROLOGIC : Coherent, no facial asymmetry, no other gross focality Results & Data Results & Data ([facility]) Vital Signs (Past 12 Hours) Vital Signs Temp Pulse Pulse Pulse Pulse Resp Resp 09/26/20 23:45 103 H 105 H 77 28 H 09/26/20 23:31 68 21 09/26/20 22:48 37.4 C 09/26/20 22:47 78 12 09/26/20 21:57 09/26/20 19:55 09/26/20 19:47 38.8 C H 89 18 Resp Resp BP Pulse Ox Pulse Ox Pulse Ox Pulse Ox 09/26/20 23:45 30 H 22 88 L 86 L 94 09/26/20 23:31 107/65 92 09/26/20 22:48 09/26/20 22:47 99/69 L 91 09/26/20 21:57 92 09/26/20 19:55 130/54 L 92 09/26/20 19:47 130/54 L 95 Laboratory Results Laboratory Results WBC 5.24 K/uL (4.8-10.8) 09/26/20 21:43 RBC 4.50 M/uL (4.2-5.4) 09/26/20 21:43 Hgb 13.3 g/dL (12.0-16.0) 09/26/20 21:43 Hct 41.2 % (37-47) 09/26/20 21:43 MCV 91.6 fL (80-100) 09/26/20 21:43 MCH 29.6 pg (25-34) 09/26/20 21:43 MCHC 32.3 g/dL (32-36) 09/26/20 21:43 RDW Std Deviation 45.4 fL (36.4-46.3) 09/26/20 21:43 RDW Coeff of Juan Carlos 13.6 % (11.5-14.5) 09/26/20 21:43 Plt Count 156 K/uL (130-400) 09/26/20 21:43 MPV 10.2 fL (7.4-10.4) 09/26/20 21:43 Immature Gran % (Auto) 0.2 % 09/26/20 21:43 Neut % (Auto) 71.5 % 09/26/20 21:43 Lymph % (Auto) 20.4 % 09/26/20 21:43 Pope % (Auto) 7.3 % 09/26/20 21:43 Eos % (Auto) 0.4 % 09/26/20 21:43 Baso % (Auto) 0.2 % 09/26/20 21:43 Neut # (Auto) 3.75 K/uL (1.4-6.5) 09/26/20 21:43 Lymph # (Auto) 1.07 K/uL (1.2-3.4) L 09/26/20 21:43 Pope # (Auto) 0.38 K/uL (0.11-0.59) 09/26/20 21:43 Eos # (Auto) 0.02 K/uL (0-0.5) 09/26/20 21:43 Baso # (Auto) 0.01 K/uL (0-0.2) 09/26/20 21:43 Immature Gran # (Auto) 0.01 K/uL (0.00-0.02) 09/26/20 21:43 PT 10.3 Seconds (9.0-12.0) 09/26/20 21:43 INR 1.0 (0.9-1.1) 09/26/20 21:43 APTT 25.3 Seconds (21.0-31.0) 09/26/20 21:43 PTT Ratio 1.0 09/26/20 21:43 Sodium 138 mmol/L (136-145) 09/26/20 21:43 Potassium 3.8 mmol/L (3.5-5.1) 09/26/20 21:43 Chloride 105 mmol/L (98-107) 09/26/20 21:43 Carbon Dioxide 27 mmol/L (21-32) 09/26/20 21:43 Anion Gap 6.0 (3-11) 09/26/20 21:43 BUN 12 mg/dl (7-18) 09/26/20 21:43 Creatinine 0.56 mg/dl (0.6-1.2) L 09/26/20 21:43 Est Cr Clr Drug Dosing 186.6 ml/min 09/26/20 21:43 Est GFR ( Amer) 137.1 ml/min 09/26/20 21:43 Est GFR (Non-Af Amer) 118.3 ml/min 09/26/20 21:43 BUN/Creatinine Ratio 21.3 (10-20) H 09/26/20 21:43 Glucose 93 mg/dl (70-99) 09/26/20 21:43 Lactate 1.3 mmol/L (0.4-2.0) 09/26/20 21:43 Calcium 8.6 mg/dl (8.5-10.1) 09/26/20 21:43 Magnesium 1.9 mg/dl (1.8-2.4) 09/26/20 21:43 Total Bilirubin 0.3 mg/dl (0.2-1) 09/26/20 21:43 AST 78 U/L (15-37) H 09/26/20 21:43 ALT 90 U/L (12-78) H 09/26/20 21:43 Alkaline Phosphatase 116 U/L (45-117) 09/26/20 21:43 Troponin I < 0.015 ng/ml (0-0.045) 09/26/20 21:43 Total Protein 7.6 gm/dl (6.4-8.2) 09/26/20 21:43 Albumin 2.9 gm/dl (3.4-5.0) L 09/26/20 21:43 Globulin 4.7 gm/dl (2.5-4.0) H 09/26/20 21:43 Albumin/Globulin Ratio 0.6 (0.9-2) L 09/26/20 21:43 Procalcitonin < 0.05 ng/ml (0-0.5) 09/26/20 21:43 HCG, Qual Negative (Negative) 09/26/20 21:43 Urine Color Dark Yellow 09/26/20 21:43 Urine Appearance Cloudy (Clear) A 09/26/20 21:43 Urine pH 7.0 (4.5-7.5) 09/26/20 21:43 Ur Specific [place] 1.025 (1.000-1.030) 09/26/20 21:43 Urine Protein 1+ (Negative) H 09/26/20 21:43 Urine Glucose (UA) Negative (Negative) 09/26/20 21:43 Urine Ketones Negative (Negative) 09/26/20 21:43 Urine Blood 3+ (Negative) H 09/26/20 21:43 Urine Nitrite Negative (Negative) 09/26/20 21:43 Urine Bilirubin Negative (Negative) 09/26/20 21:43 Urine Urobilinogen Negative (Negative) 09/26/20 21:43 Ur Leukocyte Esterase 2+ (Negative) H 09/26/20 21:43 Urine WBC (Auto) >30 /hpf (0-5) H 09/26/20 21:43 Urine RBC (Auto) >30 /hpf (0-4) H 09/26/20 21:43 U Hyaline Cast (Auto) 10-30 /lpf (0-5) H 09/26/20 21:43 U Epithel Cells (Auto) >30 /lpf (0-5) H 09/26/20 21:43 Urine Bacteria (Auto) 1+ (Negative) H 09/26/20 21:43 Urine Mucus Present (None Prsent) A 09/26/20 21:43 Urine Yeast Not Reportable 09/26/20 21:43 COVID-19 Eval Order Covid19 at [facility] 09/26/20 21:52 SARS-CoV-2 (PCR) POSITIVE (Negative) A* 09/26/20 21:52 Diagnostic Findings Chest x-ray as per my interpretation: Bilateral pneumonia CT abdomen pelvis initial read: Bibasilar pulmonary opacities suggestive of coronavirus pneumonia. Cholecystectomy. Mild hepatomegaly. No GI or urinary tract obstruction. Unremarkable appendix. Small umbilical and hiatal hernia. IUD. EKG could not be located at time of dictation
[2020-09-27] MEDS ORDERED: Heparin IV Adult Wt-Based Low-Dose *NO* Bolus Protocol IV SCH (01:32)
[2020-09-27] MEDS ORDERED: HEPARIN SODIUM/DEXTROSE 25,000 UNITS/500 ML BAG IV SCH (01:45)
[2020-09-27 02:05] LABS: Lipase 165 U/L (73-393); NT Pro B Type Natriuretic Pept 140 pg/ml (0-450)
[2020-09-27] MEDS ORDERED: PROMETHAZINE HCL 12.5 MG in SODIUM CHLORIDE 0.9% 50 ML IV PRN (02:06)
[2020-09-27] MEDS ORDERED: CEFEPIME CONSULT ACTIVE PRN (02:06)
[2020-09-27] MEDS ORDERED: CARBOHYDRATES FOR HYPOGLYCEMIA PO PRN (02:06)
[2020-09-27] MEDS ORDERED: GLUCOSE 10 TAB/TUBE PO PRN (02:06)
[2020-09-27] MEDS ORDERED: DEXTROSE 50% 50 ML SYRINGE IV PRN (02:06)
[2020-09-27] MEDS ORDERED: GLUCAGON FOR INJ 1 MG VIAL SQ PRN (02:06)
[2020-09-27] MEDS ORDERED: GLUCOSE 40% GEL 15 GM TUBE PO PRN (02:06)
[2020-09-27] MEDS ORDERED: FLUTICASONE/SALMETEROL 250/50 (ADVAIR) 14 PUFF/1 INHALER INH SCH (02:06)
[2020-09-27] MEDS ORDERED: oxyCODONE HCL IR 5 MG TAB (IMMEDIATE RELEASE) PO PRN (02:06)
[2020-09-27] MEDS: MAGNESIUM SULFATE / D5W 1 GM/100 ML BAG IV SCH ×2 (02:09→04:09)
[2020-09-27] MEDS ORDERED: REMDESIVIR 200 MG in SODIUM CHLORIDE 0.9% 210 ML IV STA (02:16)
[2020-09-27] MEDS ORDERED: NSS + 20MEQ KCL 20 MEQ/1,000 ML BAG IV ONE (02:30)
[2020-09-27] MEDS ORDERED: SODIUM CHLORIDE 0.9% 10ML FLUSH IV SCH ×2 (04:15→12:00)
[2020-09-27] MEDS: guaiFENesin 600 MG TABCR PO SCH ×3 (04:25→20:09)
[2020-09-27] MEDS: INSULIN ASPART 100 UNITS/ML 3 ML PEN SC SCH ×5 (04:30→20:31)
[2020-09-27 06:09] LABS: Basophils # (auto) 0.01 K/uL (0-0.2); Basophils % (auto) 0.2 %; Hematocrit (blood only) 37.7 % (37-47); Hemoglobin 12.1 g/dL (12.0-16.0); Immature Granulocytes # (auto) 0.01 K/uL (0.00-0.02); Immature Granulocytes % (auto) 0.2 %; Lymphocytes % (auto) 14.8 %; Mean Corpuscular Hemoglobin 28.8 pg (25-34); Mean Corpuscular Hgb Conc 32.1 g/dL (32-36); Mean Corpuscular Volume 89.8 fL (80-100); Mean Platelet Volume 10.1 fL (7.4-10.4); Monocytes % (auto) 2.5 %; Neutrophils # (auto) 3.34 K/uL (1.4-6.5); Neutrophils % (auto) 82.3 %; Platelet Count 140 K/uL (130-400); RDW Coefficient of Variation 13.5 % (11.5-14.5); RDW Standard Deviation 44.4 fL (36.4-46.3); White Blood Count 4.06 K/uL (4.8-10.8)
[2020-09-27 06:30] LABS: Partial Thromboplastin Ratio 1.2; Partial Thromboplastin Time 30.8 Seconds (21.0-31.0)
[2020-09-27 06:47] LABS: Alanine Aminotransferase 77 U/L (12-78); Albumin Level 2.8 gm/dl (3.4-5.0); Aspartate Aminotransferase 62 U/L (15-37); BUN Creatinine Ratio 22.8 (10-20); Blood Urea Nitrogen 11 mg/dl (7-18); Calcium 8.3 mg/dl (8.5-10.1); Carbon Dioxide 25 mmol/L (21-32); Chloride 110 mmol/L (98-107); Creatinine Clr Calc Pharmacy 206.1 ml/min; Est GFR (African American) 142.3 ml/min; Est GFR (Non-African American) 122.8 ml/min; Glucose 187 mg/dl (70-99); Potassium 4.3 mmol/L (3.5-5.1); Sodium 140 mmol/L (136-145)
[2020-09-27 06:52] LABS: Albumin Globulin Ratio 0.7 (0.9-2); Alkaline Phosphatase 108 U/L (45-117); Bilirubin,Total 0.4 mg/dl (0.2-1); Globulin 4.3 gm/dl (2.5-4.0); Total Protein 7.1 gm/dl (6.4-8.2); Troponin I < 0.015 ng/ml (0-0.045)
[2020-09-27] MEDS ORDERED: LEVALBUTEROL TARTRATE 15 GM HFA.AER.AD INH SCH (07:00)
--- NOTE | 2020-09-27 07:03 | Ultrasound Report ---
ULTRASOUND BILATERAL LOWER EXTREMITY VENOUS CLINICAL HISTORY: Lower extremity edema. Covid. COMPARISON STUDY: Right lower extremity venous ultrasound dated 11/05/2019. TECHNIQUE: Real-time, grayscale, and color Doppler sonography of the deep veins of the right and left lower extremity was performed from the inguinal crease to the calf. Compression and augmentation wer e utilized. FINDINGS: There is no sonographic evidence of deep venous thrombosis identified in the right or left lower extremity. The common femoral, superficial femoral, and popliteal veins are patent and normally compressible bilaterally. The greater saphenous vein and the profunda femoris vein at the junction w ith the common femoral vein are clear in both legs. The visualized calf veins are patent bilaterally. IMPRESSION: There is no sonographic evidence of deep venous thrombosis identified in the right or lef t lower extremity. ACT 112: Negative or not required by law. Electronically signed by: Jose Luis Rollins M.D. 09/27/2020 7:02 AM
--- NOTE | 2020-09-27 07:36 | CT Scan Report ---
ABDOMEN AND PELVIS CT WITHOUT CONTRAST CT DOSE: 1935.93 mGy.cm HISTORY: Lower abdominal pain. TECHNIQUE: Multiaxial CT images of the abdomen and pelvis were performed without contrast. A dose lo wering technique was utilized adhering to the principles of ALARA. COMPARISON STUDY: Abdomen and pelvis CT 09/11/2020. FINDINGS: Interval development patchy multifocal groundglass airspace opacities within the lung bases . This concerning for a viral pneumonia. No pneumoperitoneum. No pneumatosis. No fractures within the visualized osseous structures. Cholecystectomy. The unenhanced liver, pancreas, spleen, adrenal glan ds, and kidneys are unremarkable. There is a left retroaortic renal vein. No retroperitoneal lymphade nopathy. Normal caliber abdominal aorta. The bladder is unremarkable. An intrauterine device appears to be in good position. The bilateral adnexa are within normal limits. No pelvic free fluid. Suboptim al evaluation for bowel pathology due to the lack of intravenous and oral contrast. However, there is no definite bowel wall thickening or obstruction. Normal appendix. IMPRESSION: 1. Interval development of patchy multifocal groundglass airspace opacities within the lung bases. Th is is concerning for a viral pneumonia. 2. No definite bowel wall thickening or obstruction. 3. Normal appendix. 4. An intrauterine device appears in good position. ACT 112: Negative or not required by law. Electronically signed by: Terry Gibson M.D. 09/27/2020 7:35 AM
--- NOTE | 2020-09-27 08:01 | XRay Report ---
XR chest 1V portable HISTORY: SEPSIS COMPARISON: Chest 09/11/2020. FINDINGS: Multifocal patchy hazy airspace opacities seen within the lungs. This favors a viral pneumo jeanette. This has developed in the interval. No pneumothorax. No pleural effusions. The heart is normal i n size. IMPRESSION: Interval development of multifocal bilateral airspace opacities consistent with a pneumonia. ACT 112: Negative or not required by law. Electronically signed by: Terry Gibson M.D. 09/27/2020 8:00 AM
[2020-09-27] MEDS: METOPROLOL SUCC 25MG EXT REL TAB PO SCH (08:32)
[2020-09-27] MEDS: PANTOprazole 40 MG TAB PO SCH ×2 (08:32→20:09)
[2020-09-27] MEDS: busPIRone 15 MG TAB PO SCH ×3 (08:32→20:09)
[2020-09-27] MEDS: ARIPiprazole 15 MG TAB PO SCH (08:33)
[2020-09-27] MEDS: DULoxetine HCL 60 MG CAP PO SCH (08:34)
[2020-09-27] MEDS: INSULIN GLARGINE SOLOSTAR 100 UNITS/ML 3 ML PEN SC SCH (09:04)
[2020-09-27 10:59] LABS: Partial Thromboplastin Ratio 1.2; Partial Thromboplastin Time 32.7 Seconds (21.0-31.0)
[2020-09-27 11:03] LABS: D Dimer 1490 ug/L FEU (0-500)
[2020-09-27] MEDS: CEFEPIME 2,000 MG in SYRINGE 0 ML IV SCH ×2 (11:23→21:13)
[2020-09-27] MEDS ORDERED: HEPARIN SOD (PORCINE) 1000 UNIT/ML IV ONE ×2 (12:15→19:46)
[2020-09-27] MEDS ORDERED: methylPREDNISolone 40 MG in SYRINGE 0 ML IV SCH ×2 (13:00→18:00)
[2020-09-27] MEDS: ACETAMINOPHEN 325 MG TAB PO PRN (13:18)
[2020-09-27] MEDS ORDERED: FAMOTIDINE 20 MG in SYRINGE 3 ML IV SCH (18:00)
[2020-09-27] MEDS ORDERED: diphenhydrAMINE 50 MG/ML VIAL IV SCH (18:00)
--- NOTE | 2020-09-27 18:18 | Hospitalist Progress Note ---
Date of Service September 27, 2020 Assessment & Plan (1) Acute hypoxemic respiratory failure: Multifocal pneumonia Secondary to COVID-19 CXR:Interval development of multifocal bilateral airspace opacities consistent with a pneumonia. Continue dexamethasone, remdesivir Supplemental oxygen as needed Encourage to prone Monitor LFTs, renal function Lasix as needed Elevated D-dimer Likely secondary to above Venous Doppler:There is no sonographic evidence of deep venous thrombosis identified in the right or left lower extremity. CTA pending Particularly on IV heparin pending CTA Sepsis secondary to complicated UTI Blood, urine culture pending Continue empiric Cefepime DM II Last HbA1C: 6.2 Hold Metformin Continue insulin therapy while hospitalized Monitor blood glucose levels Abnormal LFTs likely NAFLD Hepatomegaly on initial CT read Monitor LFTs FABRICIO sleep study as outpatient Mood disorder At baseline Continue home meds H/O Psoriatic arthritis Past tobacco abuse DVT Px: IV Heparin Code Status Full code Admission and Anticipated Discharge Date Admission Date: September 27, 2020 Subjective Patient is seen and examined at bedside Nausea, abdominal discomfort much improved Continues to have nonexpectorant cough Also states having chest congestion Reports lower back pain States having dysuria as well Review of Systems Review of Systems: All systems reviewed & are unremarkable except as noted in HPI & below Physical Exam Physical Exam: Physical Exam: Vitals signs as noted above General Appearance:Morbidly Obese, no apparent distress Head: normocephalic, Atraumatic Eyes: normal inspection, EOMI Neck: supple, Trachea midline Respiratory/Chest: Decreased breath sounds, CTA, No accessory muscle use Cardiovascular: S1, S2, No murmur Abdomen/GI:Soft, Non tender, Bowel sounds present Extremities/Musculoskeletal:normal inspection, no edema Neurologic/Psych:AAOX3, grossly no focal neurological deficits Skin: normal color, warm Results & Data Results & Data ([facility]) Vital Signs (Past 12 Hours) Vital Signs Temp Pulse Pulse Resp BP Pulse Ox 09/27/20 15:21 36.4 C L 51 L 20 119/75 94 09/27/20 15:05 51 L 09/27/20 11:22 36.4 C L 53 L 18 121/82 93 09/27/20 08:00 47 L 09/27/20 07:48 36.4 C 55 L 18 113/70 90 09/27/20 07:08 52 L 16 96 Laboratory Results Short CBC 09/26/20 09/27/20 Range/Units 21:43 05:56 WBC 5.24 4.06 L (4.8-10.8) K/uL Hgb 13.3 12.1 (12.0-16.0) g/dL Hct 41.2 37.7 (37-47) % Plt Count 156 140 (130-400) K/uL BMP 09/26/20 09/27/20 21:43 05:56 Sodium 138 140 Potassium 3.8 4.3 Chloride 105 110 H Carbon Dioxide 27 25 BUN 12 11 Creatinine 0.56 L 0.50 L Glucose 93 187 H Calcium 8.6 8.3 L Cardiac Enzymes 09/26/20 09/27/20 Range/Units 21:43 05:56 Troponin I < 0.015 < 0.015 (0-0.045) ng/ml Liver Function 09/26/20 09/27/20 Range/Units 21:43 05:56 Total Bilirubin 0.3 0.4 (0.2-1) mg/dl AST 78 H 62 H (15-37) U/L ALT 90 H 77 (12-78) U/L Alkaline Phosphatase 116 108 (45-117) U/L Albumin 2.9 L 2.8 L (3.4-5.0) gm/dl Urine 09/26/20 Range/Units 21:43 Urine Color Dark Yellow Urine Appearance Cloudy A (Clear) Urine pH 7.0 (4.5-7.5) Ur Specific [place] 1.025 (1.000-1.030) Urine Protein 1+ H (Negative) Urine Glucose (UA) Negative (Negative)
--- NOTE | 2020-09-27 18:35 | Electrocardiogram Report ---
Test Reason : Blood Pressure : / mmHG Vent. Rate : 079 BPM Atrial Rate : 079 BPM P-R Int : 148 ms QRS Dur : 076 ms QT Int : 360 ms P-R-T Axes : 023 -22 011 degrees QTc Int : 412 ms Normal sinus rhythm Minimal voltage criteria for LVH, may be normal variant Borderline ECG When compared with ECG of 01-JUN-2020 11:22, T wave inversion less evident in Anterior leads Confirmed by Rajendra Dunbar ([id number]) on 09/27/2020 6:35:39 PM Referred By: REFERRED SELF Confirmed By:Pancho Dunbar
[2020-09-27 19:40] LABS: Partial Thromboplastin Ratio 1.4; Partial Thromboplastin Time 36.7 Seconds (21.0-31.0)
[2020-09-27] MEDS ORDERED: OPTIRAY 350 500ml IV ONE (19:45)
[2020-09-27] MEDS: PRAZOSIN HCL 1 MG CAP PO SCH (20:09)
[2020-09-27] MEDS: traZODone HCL 100 MG TAB PO PRN (20:22)
--- NOTE | 2020-09-27 20:59 | CT Scan Report ---
CT angio chest PE protocol CT DOSE: 797.17 mGy.cm HISTORY: 40 years-old Female with PE. Acute shortness of breath TECHNIQUE: Multiple CTA images of the chest were obtained after the intravenous administration of 120 ml Optiray. Coronal and sagittal MIPS were obtained from the axial data set and were submitted for review. All measurements were obtained according to NASCET criteria. A dose lowering technique was u tilized adhering to the principles of ALARA. COMPARISON: Duplex venous Doppler study of same day, chest radiograph 09/26/2020, CT abdomen pelvis , CTA chest 06/30/2016 FINDINGS: CTA: Heart is upper limits of normal in size. No pericardial effusion. No thoracic aortic aneurysm or diss ection. Patency of the imaged great vessels. The pulmonary artery is opacified to the level of the se gmental branches and demonstrates no filling defects to suggest thromboembolic disease. CT CHEST: Unremarkable thyroid. There are several prominent mediastinal and hilar lymph nodes measuring up to 8 mm which are likely reactive. Trace right pleural effusion. No pneumothorax. Patchy multifocal groun dglass opacities are noted within all lobes bilaterally. There is no overt pulmonary edema. No suspic ious pulmonary nodules identified. The central airways are patent. No pneumoperitoneum. Small hiatal hernia. Hepatosplenomegaly with possible hepatic steatosis. Unremar kable soft tissues. There is no acute fracture. Left shoulder rotator cuff calcific tendinosis. IMPRESSION: 1. No pulmonary emboli. 2. Patchy multilobar groundglass opacities compatible with multifocal pneumonia. 3. Prominent mediastinal and hilar lymph nodes, likely reactive. 4. Small hiatal hernia. 5. Hepatosplenomegaly. ACT 112: Negative or not required by law. The above report was generated using voice recognition software. It may contain grammatical, syntax o r spelling errors. Electronically signed by: Francisco Garcia M.D. 09/27/2020 8:58 PM
[2020-09-27] MEDS ORDERED: ATORVASTATIN 20 MG TAB PO SCH (21:00)
[2020-09-28] MEDS ORDERED: BENZONATATE 100 MG CAPSULE PO PRN (04:20)
[2020-09-28 07:07] LABS: Hematocrit (blood only) 37.1 % (37-47); Mean Corpuscular Hemoglobin 28.8 pg (25-34); Mean Corpuscular Hgb Conc 32.3 g/dL (32-36); Mean Corpuscular Volume 89.2 fL (80-100); Mean Platelet Volume 10.8 fL (7.4-10.4); Platelet Count 177 K/uL (130-400); RDW Coefficient of Variation 13.6 % (11.5-14.5); RDW Standard Deviation 44.4 fL (36.4-46.3); Red Blood Count 4.16 M/uL (4.2-5.4); White Blood Count 4.91 K/uL (4.8-10.8)
[2020-09-28 07:19] LABS: Partial Thromboplastin Ratio 0.9; Partial Thromboplastin Time 24.2 Seconds (21.0-31.0)
[2020-09-28 07:42] LABS: Albumin Level 2.6 gm/dl (3.4-5.0); BUN Creatinine Ratio 29.3 (10-20); Calcium 8.8 mg/dl (8.5-10.1); Creatinine Clr Calc Pharmacy 205.9 ml/min; Est GFR (African American) 142.3 ml/min; Est GFR (Non-African American) 122.8 ml/min; Potassium 4.3 mmol/L (3.5-5.1)
[2020-09-28 07:45] LABS: Albumin Globulin Ratio 0.6 (0.9-2); Bilirubin,Total 0.3 mg/dl (0.2-1); Globulin 4.4 gm/dl (2.5-4.0)
[2020-09-28] MEDS: ACETAMINOPHEN 325 MG TAB PO PRN ×2 (07:55→21:25)
[2020-09-28] MEDS: PANTOprazole 40 MG TAB PO SCH ×2 (07:57→22:37)
[2020-09-28] MEDS: ARIPiprazole 15 MG TAB PO SCH (07:57)
[2020-09-28] MEDS: DULoxetine HCL 60 MG CAP PO SCH (07:57)
[2020-09-28] MEDS: METOPROLOL SUCC 25MG EXT REL TAB PO SCH (08:00)
[2020-09-28] MEDS: busPIRone 15 MG TAB PO SCH ×3 (08:02→21:23)
[2020-09-28] MEDS: guaiFENesin 600 MG TABCR PO SCH ×2 (08:02→22:37)
[2020-09-28] MEDS: LEVALBUTEROL TARTRATE 15 GM HFA.AER.AD INH PRN ×3 (08:13→22:20)
[2020-09-28] MEDS: INSULIN ASPART 100 UNITS/ML 3 ML PEN SC SCH ×4 (08:26→21:44)
[2020-09-28] MEDS: dexAMETHasone 6 MG in SYRINGE 0 ML IV SCH (08:36)
[2020-09-28] MEDS: ENOXAPARIN INJ 40 MG/0.4 ML SYR SQ SCH (08:36)
[2020-09-28] MEDS: guaiFENesin SUGAR FREE 200 MG/10 ML UDC PO PRN ×2 (08:37→22:37)
[2020-09-28] MEDS: INSULIN GLARGINE SOLOSTAR 100 UNITS/ML 3 ML PEN SC SCH (08:51)
[2020-09-28] MEDS: CEFEPIME 2,000 MG in SYRINGE 0 ML IV SCH ×2 (10:10→21:23)
[2020-09-28] MEDS ORDERED: POLYETHYLENE (MIRALAX) 17 GM PACK PO PRN (11:25)
[2020-09-28] MEDS: REMDESIVIR 100 MG in SODIUM CHLORIDE 0.9% 230 ML IV SCH (11:50)
[2020-09-28] MEDS: SODIUM CHLORIDE 0.9% 10ML FLUSH IV SCH (12:52)
[2020-09-28] MEDS: DOCUSATE SODIUM 100 MG CAP PO SCH ×2 (12:58→21:23)
--- NOTE | 2020-09-28 16:21 | Hospitalist Progress Note ---
Date of Service September 28, 2020 Assessment & Plan (1) Acute hypoxemic respiratory failure: Multifocal pneumonia Secondary to COVID-19 CXR:Interval development of multifocal bilateral airspace opacities consistent with a pneumonia. Continue dexamethasone, remdesivir Day #2 Supplemental oxygen as needed Encourage to prone Monitor LFTs, renal function Lasix as needed Antitussives as needed Will consider 2 step prior to discharge Elevated D-dimer Secondary to above Venous Doppler:There is no sonographic evidence of deep venous thrombosis identified in the right or left lower extremity. CTA:No pulmonary emboli. Patchy multilobar groundglass opacities compatible with multifocal pneumonia. Prominent mediastinal and hilar lymph nodes, likely reactive. IV Heparin discontinued Sepsis Due to COVID UTI Ruled out Blood culture: Negative to date Urine Cx:Mixed Cece Will empirically complete 3 day course of Cefepime DM II Last HbA1C: 6.2 Hold Metformin Continue insulin therapy while hospitalized Monitor blood glucose levels Abnormal LFTs likely NAFLD Hepatomegaly on initial CT read Monitor LFTs FABRICIO sleep study as outpatient Mood disorder At baseline Continue home meds H/O Psoriatic arthritis Past tobacco abuse DVT Px: SQ Lovenox Code Status Full code Admission and Anticipated Discharge Date Admission Date: September 27, 2020 Subjective Patient is seen and examined at bedside Less cough today States having minimal dyspnea on exertion Also states having some chest discomfort associated with cough Denies nausea, vomiting, diarrhea, dizziness, abdominal pain Had headaches earlier today which improved with Tylenol Review of Systems Review of Systems: All systems reviewed & are unremarkable except as noted in HPI & below Physical Exam Physical Exam: Physical Exam: Vitals signs as noted above General Appearance:Morbidly Obese, no apparent distress Head: normocephalic, Atraumatic Eyes: normal inspection, EOMI Neck: supple, Trachea midline Respiratory/Chest: Decreased breath sounds, CTA, No accessory muscle use Cardiovascular: S1, S2, No murmur Abdomen/GI:Soft, Non tender, Bowel sounds present Extremities/Musculoskeletal:normal inspection, no edema Neurologic/Psych:AAOX3, grossly no focal neurological deficits Skin: normal color, warm Results & Data Results & Data ([facility]) Vital Signs (Past 12 Hours) Vital Signs Temp Pulse Pulse Resp BP Pulse Ox 09/28/20 15:15 56 L 18 92 09/28/20 15:06 36.3 C L 53 L 19 123/70 91 09/28/20 14:46 50 L 09/28/20 11:13 36.3 C L 67 20 90/57 L 94 09/28/20 08:13 60 18 91 09/28/20 07:33 36.4 C L 70 20 118/71 93 09/28/20 07:17 49 L Laboratory Results Short CBC 09/28/20 Range/Units 06:25 WBC 4.91 (4.8-10.8) K/uL Hgb 12.0 (12.0-16.0) g/dL Hct 37.1 (37-47) % Plt Count 177 (130-400) K/uL BMP 09/28/20 06:25 Sodium 142 Potassium 4.3 Chloride 112 H Carbon Dioxide 25 BUN 15 Creatinine 0.50 L Glucose 162 H Calcium 8.8 Liver Function 09/28/20 Range/Units 06:25 Total Bilirubin 0.3 (0.2-1) mg/dl AST 28 (15-37) U/L ALT 54 (12-78) U/L Alkaline Phosphatase 91 (45-117) U/L Albumin 2.6 L (3.4-5.0) gm/dl
[2020-09-28] MEDS ORDERED: diphenhydrAMINE Capsule 25 MG CAP PO ONE (19:34)
[2020-09-28] MEDS: PRAZOSIN HCL 1 MG CAP PO SCH (21:23)
[2020-09-28] MEDS: traZODone HCL 100 MG TAB PO PRN (21:23)
[2020-09-29 06:45] LABS: Hematocrit (blood only) 36.5 % (37-47); Hemoglobin 11.8 g/dL (12.0-16.0); Mean Corpuscular Hemoglobin 29.1 pg (25-34); Mean Corpuscular Hgb Conc 32.3 g/dL (32-36); Mean Corpuscular Volume 90.1 fL (80-100); Mean Platelet Volume 10.8 fL (7.4-10.4); Platelet Count 202 K/uL (130-400); RDW Coefficient of Variation 13.7 % (11.5-14.5); RDW Standard Deviation 45.2 fL (36.4-46.3); Red Blood Count 4.05 M/uL (4.2-5.4); White Blood Count 7.66 K/uL (4.8-10.8)
[2020-09-29 06:56] LABS: Partial Thromboplastin Ratio 0.9; Partial Thromboplastin Time 23.5 Seconds (21.0-31.0)
[2020-09-29 07:12] LABS: Albumin Level 2.7 gm/dl (3.4-5.0); BUN Creatinine Ratio 27.6 (10-20); Calcium 8.5 mg/dl (8.5-10.1); Est GFR (African American) 132.6 ml/min; Est GFR (Non-African American) 114.4 ml/min; Potassium 4.2 mmol/L (3.5-5.1)
[2020-09-29 07:15] LABS: Albumin Globulin Ratio 0.7 (0.9-2); Bilirubin,Total 0.3 mg/dl (0.2-1); Total Protein 6.7 gm/dl (6.4-8.2)
--- NOTE | 2020-09-29 08:49 | XRay Report ---
XR chest 1V portable HISTORY: 40 years-old Female COVID acute shortness of breath. COVID Positive. COMPARISON: CTA chest 09/27/2020, chest radiograph 09/26/2020 TECHNIQUE: Portable AP view of the chest FINDINGS: Cardiomediastinal and hilar silhouettes are within normal limits. No pneumothorax, pleural effusion, or overt pulmonary edema. There is improved aeration of the lungs with mild persistent ill-defined bi lateral pulmonary opacities. The bones appear grossly intact. IMPRESSION: Mildly improved aeration of the lungs with decreased bilateral pulmonary opacities sugges tive of viral pneumonia. ACT 112: Negative or not required by law. The above report was generated using voice recognition software. It may contain grammatical, syntax o r spelling errors. Electronically signed by: Francisco Garcia M.D. 09/29/2020 8:48 AM
[2020-09-29] MEDS: ARIPiprazole 15 MG TAB PO SCH (09:23)
[2020-09-29] MEDS: DULoxetine HCL 60 MG CAP PO SCH (09:23)
[2020-09-29] MEDS: PANTOprazole 40 MG TAB PO SCH ×2 (09:24→21:34)
[2020-09-29] MEDS: CEFEPIME 2,000 MG in SYRINGE 0 ML IV SCH ×2 (09:24→21:37)
[2020-09-29] MEDS: guaiFENesin 600 MG TABCR PO SCH ×2 (09:24→21:35)
[2020-09-29] MEDS: INSULIN GLARGINE SOLOSTAR 100 UNITS/ML 3 ML PEN SC SCH (09:40)
[2020-09-29] MEDS: INSULIN ASPART 100 UNITS/ML 3 ML PEN SC SCH ×4 (09:40→21:59)
[2020-09-29] MEDS: dexAMETHasone 6 MG in SYRINGE 0 ML IV SCH (11:39)
[2020-09-29] MEDS: busPIRone 15 MG TAB PO SCH ×3 (11:39→21:34)
[2020-09-29] MEDS: ENOXAPARIN INJ 40 MG/0.4 ML SYR SQ SCH (11:40)
[2020-09-29] MEDS: DOCUSATE SODIUM 100 MG CAP PO SCH ×2 (11:40→21:34)
[2020-09-29] MEDS: REMDESIVIR 100 MG in SODIUM CHLORIDE 0.9% 230 ML IV SCH (11:41)
--- NOTE | 2020-09-29 13:28 | Cardiology Consultation ---
Date of Consultation September 29, 2020 Assessment & Plan (1) Sinus bradycardia: (2) Pleuritic chest pain: (3) Pneumonia: (4) COVID-19: Patient is on chronic beta-giseslle for control of resting elevated heart rates. Historically, it sounds as if she has felt much better with her heart rates in the 50s. Sinus bradycardia in the range of 38 to 40 bpm noted this morning while sleeping. I think this is likely related to her underlying sleep apnea. She is hemodynamically stable. She notes no current lightheadedness or dizziness, no evidence of high-grade AV block. EKG performed on presentation 09/26/2020 revealed normal sinus rhythm at 79 bpm with nonspecific repolarization changes, stable compared to previous. Troponin I was negative x2 on 09/1920, and 09/27/2020. Echocardiogram performed today revealed no evidence of pericardial effusion, normal left ventricular wall motion and LVEF. The right ventricle was well visualized, but appears mildly dilated, with noted prior study performed as an outpatient 2017 describing that the right ventricle was not well visualized at that time. She has been on appropriate DVT prophylaxis, and a CT angiogram and lower extremity venous duplex performed earlier this hospital stay was negative for pulmonary embolism and DVT. I recommend that her metoprolol which was held this morning is reinitiated, at a lower dose of 50 mg daily as compared to 75 mg daily. She is certainly at risk for tachyarrhythmias in the setting of SARS-CoV-2 pneumonia, and she has tolerated beta-gisselle therapy on a chronic basis in the past. Would recommend that she makes sure that she keeps her outpatient follow-ups for reassessment of sleep apnea, as she would likely benefit from positive pressure ventilation. In terms of her chest discomfort, I think this is a pleuritic chest discomfort related to her pneumonia and I do not think additional cardiac testing is necessary for her chest discomfort at present. Agree with Lovenox for DVT prophylaxis. History of Present Illness Attending Physician: Ruben Monte MD History of Present Illness Venessa Anderson is a 40-year-old female assessed in cardiology consultation per the request of Dr. Monte for the evaluation of sinus bradycardia. Consultation was performed by review of her records, interview with the patient by phone, and by review of her telemetry and echocardiogram findings. She is currently on isolation for SARS-CoV-2 pneumonia. The patient's past medical history is notable for morbid obesity with BMI of 55 kg/m, bipolar disorder, and obstructive sleep apnea. She is currently not on positive pressure ventilation as an outpatient pending a repeat sleep study per her description. She notes that she had been feeling well until she received a pneumococcal vaccine as an outpatient last week. Shortly thereafter she felt sore "all over "and subsequently developed difficulty breathing on Thursday. She has tested positive for SARS-CoV-2 via PCR on 09/26/2020. Of note, she had previously tested negative as an outpatient on 09/05/2020. CT of the chest was negative for pulmonary embolism overnight, multifocal pneumonia however was noted. Subjectively, she states that she feels much improved having received IV antibiotic therapy, IV dexamethasone, and remdesivir. At present, her oxygen saturation is stable, 94% on room air. This morning at 7 AM she was noted to have sinus bradycardia in the range of 38 to 40 bpm on telemetry. This occurred while she was sleeping soundly. There was no evidence of AV block. While awake, her predominant heart rate has been sinus rhythm in the range of 45 to 55 bpm. She does however have sinus tachycardia noted on telemetry with heart rate up to 140 bpm at 842 this morning while walking to use the bathroom. Subjectively, she feels chest discomfort with deep inspiration, only. She has been on metoprolol tartrate 75 mg daily since 2014 which was initially started due to subjective sensation of elevated heart rate, with past Holter monitor performed with the [facility] cardiology group revealing predominant rhythm of sinus rhythm in the 90s. She has not had any subjective lightheadedness or diz ziness with exception of last Thursday. Allergies Allergy/AdvReac Type Severity Reaction Status Date / Time aspirin Allergy Intermediate hives Verified 09/26/20 19:55 diazepam Allergy Intermediate PALPITATIONS, Verified 09/26/20 19:55 VOMITING fluconazole Allergy Intermediate HIVES Verified 09/26/20 19:55 Penicillins Allergy Intermediate hives Verified 09/26/20 19:55 sumatriptan Allergy Intermediate "swelling Verified 09/26/20 19:55 up" tramadol Allergy Intermediate HIVES Verified 09/26/20 19:55 Yeast Allergy Intermediate Hives Verified 09/26/20 19:55 clindamycin Allergy Mild RASH Verified 09/26/20 19:55 metoclopramide Allergy Mild suicidal Verified 09/26/20 19:55 thoughts metronidazole Allergy Mild Rash Verified 09/26/20 19:55 nickel Allergy Mild RASH Verified 09/26/20 19:55 wheat Allergy Unknown Unknown Verified 09/26/20 19:55 doxycycline AdvReac Severe VOMITING Verified 09/26/20 19:55 prednisone AdvReac Severe SUICIDAL Verified 09/26/20 19:55 Iodinated Contrast Media AdvReac Mild sob Verified 09/27/20 21:29 oxybutynin AdvReac Mild Vomiting Verified 09/26/20 19:55 Home Medications Medication Instructions Recorded Confirmed Type albuterol sulfate 2.5 mg INHALATION QID PRN 01/31/18 09/26/20 History atorvastatin [Lipitor] 20 mg PO HS 01/31/18 09/26/20 History dicyclomine 10 mg PO QID PRN 01/31/18 09/26/20 History metformin 1,000 mg PO BIDM 01/31/18 09/26/20 History omeprazole 20 mg PO BID 01/31/18 09/26/20 History prazosin 2 mg PO HS 01/31/18 09/26/20 History albuterol sulfate [ProAir HFA] 2 puff INHALATION Q4H PRN 01/19/19 09/26/20 History metoprolol succinate 75 mg PO QAM 01/19/19 09/26/20 History triamcinolone acetonide 1 applic TOPICAL BID PRN 01/19/19 09/26/20 History fluticasone propion-salmeterol 1 inh INHALATION Q12H 03/04/19 09/26/20 History [Advair Diskus] furosemide 20 mg PO BID PRN 11/04/19 09/26/20 History buspirone 15 mg PO TID 04/16/20 09/26/20 History trazodone 100 mg PO HS PRN 06/01/20 09/26/20 History levonorgestrel [Mirena] 20 mcg INTRAUTERINE CONTINOUS 07/10/20 09/26/20 History etanercept [Enbrel Mini] 0 mg SUBCUT WK 09/19/20 09/26/20 History ondansetron 4 mg PO Q6H PRN #12 tab 09/19/20 09/26/20 Rx aripiprazole [Abilify] 30 mg PO DAILY 09/26/20 09/26/20 History duloxetine [Cymbalta] 60 mg PO DAILY 09/26/20 09/26/20 History Patient History Medical History Anemia LOW IRON Anxiety and depression Asthma LAST USED RESCUE INHALER "ITS BEEN A WHILE" Bipolar disorder TYPE 2 (NO SUICIDAL IDEATION) Claustrophobia Degenerative disc disease Fracture of distal fibula per pt did not heal correctly and uses a walker or wheelchair History of kidney stones History of palpitations reason for metoprolol Hyperlipidemia Lumbar radiculopathy Lung nodule BEING MONITORED (RT LUNG) Migraine Morbid obesity with BMI of 50.0-59.9, adult Osteoarthritis Post traumatic stress disorder Psoriatic arthritis Schizo-affective schizophrenia Sleep apnea CURRENTLY HAS NO DEVICE NOW Social anxiety disorder Type II diabetes mellitus, uncontrolled Surgical History History of bilateral tubal ligation History of cholecystectomy History of dilatation and curettage x3 History of endoscopic sinus surgery x2 History of esophagogastroduodenoscopy (EGD) History of surgical removal of ganglion cyst x3 on right hand History of tonsillectomy and adenoidectomy Hx of meniscectomy of right knee Nausea and vomiting after administration of anesthetic agent Status post myringotomy with tube placement of both ears multiple Family History Other Cancer Heart disease Hypertension No family history of adverse response to anesthesia Social History Smoking Status: Former smoker Tobacco Type: Cigarettes Cigarettes Per Day: 1 per day; Second Hand Exposure: Yes; Hx Alcohol Use: Yes Hx Substance Use: Yes Last Used Substance Other:: September 11, 2020 Preferred Language: Kiswahili Communication Ability: Effective Inside Meter Tester Required: No Beliefs That Will Affect Care: None Current Living Situation: Alone Current Living Situation Comment: Hotel room with significant other Other Information That Helps Us Care for You: No Feels Safe at Home: Yes Safety Concerns: Feels Safe At This Time Assistive Devices: Glasses Review of Systems Review of Systems: All systems reviewed & are unremarkable except as noted in HPI & below Physical Exam Physical Exam: Temp Pulse Resp BP Pulse Ox 36.6 C 46 L 19 130/77 94 09/29/20 07:33 05/22/21 07:33 09/29/20 07:33 09/29/20 07:33 09/29/20 07:33 A full physical exam was not performed as this was a consult performed via telephone interview. No conversational dyspnea noted. Results & Data ([facility]) Vital Signs (Past 12 Hours) Vital Signs Temp Pulse Resp BP Pulse Ox 09/29/20 07:33 36.6 C 46 L 19 130/77 94 09/29/20 03:07 36.5 C 46 L 16 122/72 93 Laboratory Results Cardiac Enzymes 09/29/20 Range/Units 06:15 AST 18 (15-37) U/L Coagulation 09/29/20 Range/Units 06:15 APTT 23.5 (21.0-31.0) Seconds CBC 09/29/20 Range/Units 06:15 WBC 7.66 (4.8-10.8) K/uL RBC 4.05 L (4.2-5.4) M/uL Hgb 11.8 L (12.0-16.0) g/dL Hct 36.5 L (37-47) % Plt Count 202 (130-400) K/uL Comprehensive Metabolic Panel 09/29/20 Range/Units 06:15 Sodium 142 (136-145) mmol/L Potassium 4.2 (3.5-5.1) mmol/L Chloride 112 H (98-107) mmol/L Carbon Dioxide 27 (21-32) mmol/L BUN 17 (7-18) mg/dl Creatinine 0.62 (0.6-1.2) mg/dl Glucose 148 H (70-99) mg/dl Calcium 8.5 (8.5-10.1) mg/dl AST 18 (15-37) U/L ALT 44 (12-78) U/L Alkaline Phosphatase 82 (45-117) U/L Total Protein 6.7 (6.4-8.2) gm/dl Albumin 2.7 L (3.4-5.0) gm/dl Intake and Output 09/28/20 09/29/20 09/29/20 22:59 06:59 14:59 Intake Total 550 / 1565 250 / 1565 Output Total 1850 / 3750 600 / 3750 500 / 500 Balance -1300 / -2185 -350 / -2185 -500 / -500 Intake: Oral 550 / 1315 250 / 1315 Output: Urine 1850 / 3750 600 / 3750 500 / 500 Other: # Unmeasured Voids 1 Weight 136.4 kg Weight Measurement Method Built in [facility] (1) Pneumonia Laterality: bilateral Lung location: unspecified part of lung Pneumonia type: due to unspecified organism Qualified Code(s): J18.9 - Pneumonia, unspecified organism
--- NOTE | 2020-09-29 13:30 | Communication Note ---
Date of Service: September 29, 2020 Per patient's request, I called and discussed updates with her sister, Luis Alberto Sanchez, .
[2020-09-29] MEDS: SODIUM CHLORIDE 0.9% 10ML FLUSH IV SCH (14:24)
[2020-09-29] MEDS: ACETAMINOPHEN 325 MG TAB PO PRN (14:53)
[2020-09-29] MEDS: LEVALBUTEROL TARTRATE 15 GM HFA.AER.AD INH PRN (14:54)
--- NOTE | 2020-09-29 15:41 | Hospitalist Progress Note ---
Date of Service September 29, 2020 Assessment & Plan (1) Acute hypoxemic respiratory failure: Multifocal pneumonia Secondary to COVID-19 CXR:Interval development of multifocal bilateral airspace opacities consistent with a pneumonia. Continue dexamethasone, remdesivir Day #3 Supplemental oxygen as needed Encourage to prone Monitor LFTs, renal function Lasix as needed Antitussives as needed Will consider 2 step prior to discharge Continue current management Sinus bradycardia No AV blocks noted Echo reviewed High risk for tacky arrhythmias Decrease metoprolol to 50 mg daily Elevated D-dimer Secondary to above Venous Doppler:There is no sonographic evidence of deep venous thrombosis identified in the right or left lower extremity. CTA:No pulmonary emboli. Patchy multilobar groundglass opacities compatible with multifocal pneumonia. Prominent mediastinal and hilar lymph nodes, likely reactive. IV Heparin discontinued Sepsis Due to COVID UTI Ruled out Blood culture: Negative to date Urine Cx:Mixed Cece Will empirically complete 3 day course of Cefepime DM II Last HbA1C: 6.2 Hold Metformin Continue insulin therapy while hospitalized Monitor blood glucose levels Abnormal LFTs likely NAFLD Hepatomegaly on initial CT read Monitor LFTs FABRICIO sleep study as outpatient Mood disorder At baseline Continue home meds H/O Psoriatic arthritis Past tobacco abuse DVT Px: SQ Lovenox Code Status Full code Admission and Anticipated Discharge Date Admission Date: September 27, 2020 Subjective Patient is seen and examined at bedside Bradycardia noted on telemetry No pauses Discussed with cardiology today Less cough trending Chest pain/soreness resolved States having dyspnea on exertion only Offers no other complaints Denies nausea, vomiting, diarrhea, dizziness, abdominal pain Review of Systems Review of Systems: All systems reviewed & are unremarkable except as noted in HPI & below As per HPI, all 10 systems reviewed, all other ROS negative Physical Exam Physical Exam: Physical Exam: Vitals signs as noted above General Appearance:Morbidly Obese, no apparent distress Head: normocephalic, Atraumatic Eyes: normal inspection, EOMI Neck: supple, Trachea midline Respiratory/Chest: Decreased breath sounds, CTA, No accessory muscle use Cardiovascular: S1, S2, No murmur, bradycardia Abdomen/GI:Soft, Non tender, Bowel sounds present Extremities/Musculoskeletal:normal inspection, no edema Neurologic/Psych:AAOX3, grossly no focal neurological deficits Skin: normal color, warm Results & Data Results & Data ([facility]) Vital Signs (Past 12 Hours) Vital Signs Temp Pulse Resp BP Pulse Ox 09/29/20 11:47 36.5 C 46 L 19 130/78 94 09/29/20 07:33 36.6 C 46 L 19 130/77 94 Laboratory Results Short CBC 09/29/20 Range/Units 06:15 WBC 7.66 (4.8-10.8) K/uL Hgb 11.8 L (12.0-16.0) g/dL Hct 36.5 L (37-47) % Plt Count 202 (130-400) K/uL BMP 09/29/20 06:15 Sodium 142 Potassium 4.2 Chloride 112 H Carbon Dioxide 27 BUN 17 Creatinine 0.62 Glucose 148 H Calcium 8.5 Liver Function 09/29/20 Range/Units 06:15 Total Bilirubin 0.3 (0.2-1) mg/dl AST 18 (15-37) U/L ALT 44 (12-78) U/L Alkaline Phosphatase 82 (45-117) U/L Albumin 2.7 L (3.4-5.0) gm/dl
[2020-09-29] MEDS: METOPROLOL SUCC 50MG EXT REL TAB PO SCH (17:03)
[2020-09-29] MEDS: PRAZOSIN HCL 1 MG CAP PO SCH (21:33)
[2020-09-29] MEDS: traZODone HCL 100 MG TAB PO PRN (21:34)
[2020-09-30 06:08] LABS: Hemoglobin 11.8 g/dL (12.0-16.0); Mean Corpuscular Hemoglobin 28.9 pg (25-34); Mean Corpuscular Hgb Conc 32.8 g/dL (32-36); Mean Platelet Volume 10.2 fL (7.4-10.4); Platelet Count 206 K/uL (130-400); RDW Coefficient of Variation 13.4 % (11.5-14.5); RDW Standard Deviation 43.2 fL (36.4-46.3); Red Blood Count 4.09 M/uL (4.2-5.4); White Blood Count 7.52 K/uL (4.8-10.8)
[2020-09-30 06:38] LABS: Albumin Level 2.7 gm/dl (3.4-5.0); BUN Creatinine Ratio 28.4 (10-20); Calcium 8.6 mg/dl (8.5-10.1); Creatinine Clr Calc Pharmacy 166.3 ml/min; Est GFR (African American) 132.6 ml/min; Est GFR (Non-African American) 114.4 ml/min; Magnesium 2.1 mg/dl (1.8-2.4); Potassium 3.8 mmol/L (3.5-5.1)
[2020-09-30 06:41] LABS: Albumin Globulin Ratio 0.6 (0.9-2); Bilirubin,Total 0.3 mg/dl (0.2-1); Globulin 4.2 gm/dl (2.5-4.0); Total Protein 6.9 gm/dl (6.4-8.2)
[2020-09-30] MEDS: ARIPiprazole 15 MG TAB PO SCH (08:36)
[2020-09-30] MEDS: busPIRone 15 MG TAB PO SCH ×2 (08:37→14:29)
[2020-09-30] MEDS: DOCUSATE SODIUM 100 MG CAP PO SCH (08:38)
[2020-09-30] MEDS: DULoxetine HCL 60 MG CAP PO SCH (08:38)
[2020-09-30] MEDS: dexAMETHasone 6 MG in SYRINGE 0 ML IV SCH (08:38)
[2020-09-30] MEDS: ENOXAPARIN INJ 40 MG/0.4 ML SYR SQ SCH (08:38)
[2020-09-30] MEDS: guaiFENesin 600 MG TABCR PO SCH (08:39)
[2020-09-30] MEDS: PANTOprazole 40 MG TAB PO SCH (08:40)
[2020-09-30] MEDS: METOPROLOL SUCC 50MG EXT REL TAB PO SCH (08:40)
[2020-09-30] MEDS: INSULIN ASPART 100 UNITS/ML 3 ML PEN SC SCH ×3 (08:46→17:03)
[2020-09-30] MEDS: INSULIN GLARGINE SOLOSTAR 100 UNITS/ML 3 ML PEN SC SCH (08:47)
[2020-09-30] MEDS: REMDESIVIR 100 MG in SODIUM CHLORIDE 0.9% 230 ML IV SCH (11:51)
--- NOTE | 2020-09-30 12:38 | Hospitalist Progress Note ---
Date of Service September 30, 2020 Assessment & Plan (1) Acute hypoxemic respiratory failure: Multifocal pneumonia Secondary to COVID-19 CXR:Interval development of multifocal bilateral airspace opacities consistent with a pneumonia. Continue dexamethasone, remdesivir Day #4 Supplemental oxygen as needed Encourage to prone Monitor LFTs, renal function Lasix as needed Antitussives as needed 2 step: Did not qualify for oxygen Sinus bradycardia No AV blocks noted Echo reviewed High risk for tacky arrhythmias Decrease metoprolol to 50 mg daily Appreciate Cardiology Input Sleep Study as outpatient Elevated D-dimer Secondary to above Venous Doppler:There is no sonographic evidence of deep venous thrombosis identified in the right or left lower extremity. CTA:No pulmonary emboli. Patchy multilobar groundglass opacities compatible with multifocal pneumonia. Prominent mediastinal and hilar lymph nodes, likely reactive. IV Heparin discontinued Sepsis Due to COVID UTI Ruled out Blood culture: Negative to date Urine Cx:Mixed Cece Completed 3 day course of Cefepime DM II Last HbA1C: 6.2 Hold Metformin Continue insulin therapy while hospitalized Monitor blood glucose levels Abnormal LFTs likely NAFLD Hepatomegaly on initial CT read Monitor LFTs FABRICIO sleep study as outpatient Mood disorder At baseline Continue home meds H/O Psoriatic arthritis Past tobacco abuse DVT Px: SQ Lovenox Code Status Full code Admission and Anticipated Discharge Date Admission Date: September 27, 2020 Subjective Patient is seen and examined at bedside Less cough today Denies any shortness of breath at rest 2 step: Did not qualify for oxygen No new complaints Denies chest pain, nausea, vomiting, diarrhea, dizziness, abdominal pain Review of Systems Review of Systems: As per HPI, all 10 systems reviewed, all other ROS negative Physical Exam Physical Exam: Physical Exam: Vitals signs as noted above General Appearance:Morbidly Obese, no apparent distress Head: normocephalic, Atraumatic Eyes: normal inspection, EOMI Neck: supple, Trachea midline Respiratory/Chest: Decreased breath sounds, CTA, No accessory muscle use Cardiovascular: S1, S2, No murmur, bradycardia Abdomen/GI:Soft, Non tender, Bowel sounds present Extremities/Musculoskeletal:normal inspection, no edema Neurologic/Psych:AAOX3, grossly no focal neurological deficits Skin: normal color, warm Results & Data Results & Data ([facility]) Vital Signs (Past 12 Hours) Vital Signs Temp Pulse Pulse Pulse Pulse Resp Resp 09/30/20 11:48 36.3 C L 48 L 18 09/30/20 11:33 81 76 50 L 20 09/30/20 07:54 36.6 C 48 L 18 09/30/20 03:32 36.9 C 46 L 17 Resp Resp BP Pulse Ox Pulse Ox Pulse Ox Pulse Ox 09/30/20 11:48 121/81 95 09/30/20 11:33 20 16 94 95 95 09/30/20 07:54 123/77 95 09/30/20 03:32 133/80 92 Laboratory Results Short CBC 09/30/20 Range/Units 06:00 WBC 7.52 (4.8-10.8) K/uL Hgb 11.8 L (12.0-16.0) g/dL Hct 36.0 L (37-47) % Plt Count 206 (130-400) K/uL BMP 09/30/20 06:00 Sodium 140 Potassium 3.8 Chloride 108 H Carbon Dioxide 26 BUN 18 Creatinine 0.62 Glucose 155 H Calcium 8.6 Liver Function 09/30/20 Range/Units 06:00 Total Bilirubin 0.3 (0.2-1) mg/dl AST 43 H (15-37) U/L ALT 57 (12-78) U/L Alkaline Phosphatase 79 (45-117) U/L Albumin 2.7 L (3.4-5.0) gm/dl
[2020-09-30] MEDS: SODIUM CHLORIDE 0.9% 10ML FLUSH IV SCH (13:15)
--- NOTE | 2020-09-30 14:13 | Discharge Summary ---
Date of Service September 30, 2020 Admission HPI Per Admitting Provider History obtained from patient and records. Medical history significant for HTN, bronchial asthma, FABRICIO (currently without CPAP), DM2 on oral medications, GERD, mood disorder, psoriatic arthritis as per records, past tobacco abuse. Last confinement November 2019 for RLE pain, ambulatory dysfunction. Patient discharged to rehab facility. Patient seen at the ER last week for abdominal pain symptoms. COVID-19 test was negative. Pneumococcal vaccine administered at PCP's office on follow-up last week. Shortly after pneumococcal vaccine given, patient noted nausea, vomiting, dry cough symptoms. Patient evaluated at PCPs office 3 days ago. Patient later noted pleuritic chest pain with shortness of breath, achy abdominal pain with nausea emesis symptoms. Leg somewhat swollen from trauma from a few weeks ago. Patient with chronic dysuria symptoms (noted since IUD insertion sometime back). At the ER, O2 sats noted to be 80s at 1 point. Decadron given at the ER for Covid pneumonia. Cefepime given for UTI. Medical History as above Surgical History : D&C, IUD, cholecystectomy, BTL, right knee surgery, tonsillectomy/adenoidectomy Family History : Breast cancer, heart disease, bipolar disorder, asthma Personal/Social history : Past tobacco abuse, no EtOH intake, disabled Principal Diagnosis Multifocal pneumonia COVID-19 infection Sinus bradycardia Discharge Data Allergies Allergy/AdvReac Type Severity Reaction Status Date / Time aspirin Allergy Intermediate hives Verified 09/26/20 19:55 diazepam Allergy Intermediate PALPITATIONS, Verified 09/26/20 19:55 VOMITING fluconazole Allergy Intermediate HIVES Verified 09/26/20 19:55 Penicillins Allergy Intermediate hives Verified 09/26/20 19:55 sumatriptan Allergy Intermediate "swelling Verified 09/26/20 19:55 up" tramadol Allergy Intermediate HIVES Verified 09/26/20 19:55 Yeast Allergy Intermediate Hives Verified 09/26/20 19:55 clindamycin Allergy Mild RASH Verified 09/26/20 19:55 metoclopramide Allergy Mild suicidal Verified 09/26/20 19:55 thoughts metronidazole Allergy Mild Rash Verified 09/26/20 19:55 nickel Allergy Mild RASH Verified 09/26/20 19:55 wheat Allergy Unknown Unknown Verified 09/26/20 19:55 doxycycline AdvReac Severe VOMITING Verified 09/26/20 19:55 prednisone AdvReac Severe SUICIDAL Verified 09/26/20 19:55 Iodinated Contrast Media AdvReac Mild sob Verified 09/27/20 21:29 oxybutynin AdvReac Mild Vomiting Verified 09/26/20 19:55 Consultations 09/26/20 23:57 ED Decision to Admit Stat 09/29/20 07:45 Consult Cardiology Routine Procedures Performed CXR:Interval development of multifocal bilateral airspace opacities consistent with a pneumonia. Ordered Studies 09/27/20 00:44 CT abd pelvis wo con Stat 09/27/20 01:31 US venous doppler LE BI Urgent 09/27/20 12:22 CT angio chest PE protocol Urgent Hospital Course (1) Acute hypoxemic respiratory failure: Multifocal pneumonia Secondary to COVID-19 CXR:Interval development of multifocal bilateral airspace opacities consistent with a pneumonia. Continue dexamethasone, remdesivir Day #4 Supplemental oxygen as needed Encourage to prone Monitor LFTs, renal function Lasix as needed Antitussives as needed 2 step: Did not qualify for oxygen Sinus bradycardia No AV blocks noted Echo reviewed High risk for tacky arrhythmias Decrease metoprolol to 50 mg daily Appreciate Cardiology Input Sleep Study as outpatient Elevated D-dimer Secondary to above Venous Doppler:There is no sonographic evidence of deep venous thrombosis identified in the right or left lower extremity. CTA:No pulmonary emboli. Patchy multilobar groundglass opacities compatible with multifocal pneumonia. Prominent mediastinal and hilar lymph nodes, likely reactive. IV Heparin discontinued Sepsis Due to COVID UTI Ruled out Blood culture: Negative to date Urine Cx:Mixed Cece Completed 3 day course of Cefepime DM II Last HbA1C: 6.2 Hold Metformin Continue insulin therapy while hospitalized Monitor blood glucose levels Abnormal LFTs likely NAFLD Hepatomegaly on initial CT read Monitor LFTs FABRICIO sleep study as outpatient Mood disorder At baseline Continue home meds H/O Psoriatic arthritis Past tobacco abuse DVT Px: SQ Lovenox Code Status Full code Total Time Total Time Spent Total Time Spent (In Minutes): 44 minutes Total Time Includes: Examination of the Patient, Discharge Planning, Medication Reconciliation, Communication With Other Providers and Other Discharge Plan Discharge Items Patient Disposition: Home - Self-Care Reason For Visit: RESP FAILURE, COVID Discharge Diagnosis: Multifocal pneumonia COVID-19 infection Sinus bradycardia Condition on Discharge: Fair Activity: Per Instructions section Exercise/Sports: Gradually increase as tolerated Non-emergency contact: Primary Care Provider Call non-emergency contact if: you have any medication questions, your symptoms worsen, your pain is not controlled, your pain is concerning for you and you have a fever Follow-up/Referrals: Severiano Watkins MD [Primary Care Provider] - Diet: Carb Consistent or DM2 and Heart Healthy Addtl Attending Provider Instructions: Follow-up with your primary care physician in 1 week Follow-up with your seismic observer as needed. Get sleep study as outpatient assessment of sleep apnea. Seek immediate medical attention if your symptoms reoccur or worsen Please take all medications as instructed on discharge list below. Please call if you have any questions or problems. You can reach a [facility] hospitalist on duty at [facility] 24 hours a day by calling [phone] Home Isolation COVID-19 Instructions The following information about Home Isolation is from the CDC Website: https://www.cdc.gov/coronavirus/2019-ncov/hcp/pvveeyya-mnipnop-kcnewo.html Stay home except to get medical care People who are mildly ill with COVID-19 are able to isolate at home during their illness. You should restrict activities outside your home, except for getting medical care. Do not go to work, school, or public areas. Avoid using public transportation, ride-sharing, or taxis. Separate yourself from other people and animals in your home People: As much as possible, you should stay in a specific room and away from other people in your home. Also, you should use a separate bathroom, if available. Animals: You should restrict contact with pets and other animals while you are sick with COVID-19, just like you would around other people. Although there have not been reports of pets or other animals becoming sick with COVID-19, it is still recommended that people sick with COVID-19 limit contact with animals until more information is known about the virus. When possible, have another member of your household care for your animals while you are sick. If you are sick with COVID-19, avoid contact with your pet, including petting, snuggling, being kissed or licked, and sharing food. If you must care for your pet or be around animals while you are sick, wash your hands before and after you interact with pets and wear a face mask. Call ahead before visiting your doctor If you have a medical appointment, call the healthcare provider and tell them that you have or may have COVID-19. This will help the healthcare providers office take steps to keep other people from getting infected or exposed. Wear a face mask You should wear a face mask when you are around other people (e.g., sharing a room or vehicle) or pets and before you enter a healthcare providers office. If you are not able to wear a face mask (for example, because it causes trouble breathing), then people who live with you should not stay in the same room with you, or they should wear a face mask if they enter your room. Cover your coughs and sneezes Cover your mouth and nose with a tissue when you cough or sneeze. Throw used tissues in a lined trash can. Immediately wash your hands with soap and water for at least 20 seconds or, if soap and water are not available, clean your hands with an alcohol-based hand top edge beveler that contains at least 60% alcohol. Clean your hands often Wash your hands often with soap and water for at least 20 seconds, especially after blowing your nose, coughing, or sneezing; going to the bathroom; and before eating or preparing food. If soap and water are not readily available, use an alcohol-based hand top edge beveler with at least 60% alcohol, covering all surfaces of your hands and rubbing them together until they feel dry. Soap and water are the best option if hands are visibly dirty. Avoid touching your eyes, nose, and mouth with unwashed hands. Avoid sharing personal household items You should not share dishes, drinking glasses, cups, eating utensils, towels, or bedding with other people or pets in your home. After using these items, they should be washed thoroughly with soap and water. Clean all high-touch surfaces everyday High touch surfaces include counters, tabletops, doorknobs, bathroom fixtures, toilets, phones, keyboards, tablets, and bedside tables. Also, clean any surfaces that may have blood, stool, or body fluids on them. Use a household cleaning spray or wipe, according to the label instructions. Labels contain instructions for safe and effective use of the cleaning product including precautions you should take when applying the product, such as wearing gloves and making sure you have good ventilation during use of the product. Monitor your symptoms Seek prompt medical attention if your illness is worsening (e.g., difficulty breathing).Beforeseeking care, call your healthcare provider and tell them that you have, or are being evaluated for, COVID-19. Put on a face mask before you enter the facility. These steps will help the healthcare providers office to keep other people in the office or waiting room from getting infected or exposed. Ask your healthcare provider to call the local or state health department. Persons who are placed under active monitoring or facilitated self- monitoring should follow instructions provided by their local health department or occupational health professionals, as appropriate. When working with your local health department check their available hours. If you have a medical emergency and need to call 911, notify the dispatch personnel that you have, or are being evaluated for COVID-19. If possible, put on a face mask before emergency medical services arrive. Discontinuing home isolation Patients with confirmed COVID-19 should remain under home isolation precautions until the risk of secondary transmission to others is thought to be low. The decision to discontinue home isolation precautions should be made on a case-by- case basis, in consultation with healthcare providers and [facility] health departments. Coronavirus disease 2019 (COVID-19) is a virus that causes a respiratory ill ness. It is caused by a coronavirus called 2019 novel coronavirus (2019-nCoV). There are many types of coronavirus. Coronaviruses are a very common cause of bronchitis. They may sometimes cause lung infection(pneumonia). Symptoms can range from mild to severe respiratory illness. These viruses are also foundin some animals. COVID-19 was first found in people in [facility], in late 2019. In 2020, several cases of COVID-19 have been confirmed in the [place] Public health officials are working to find the source. How the virus spreads is not yet fully known. It may be spread through droplets of fluid that a person coughs or sneezes into the air. It may be spread if you touch a surface with virus on it, such as a handle or object, and then touch your mouth. What are the symptoms of COVID-19? Some people have no symptoms or mild symptoms. Symptoms may appear 2 to 14 days after contact with the virus. Symptoms can include: Fever Coughing Trouble breathing What are possible complications from COVID-19? In many cases, this virus can cause infection (pneumonia) in both lungs. In some cases, this can cause . How is COVID-19 diagnosed? Your healthcare provider will ask about your symptoms. He or she will also ask about your recent travel and contact with sick people. Testing for the virus is only done through the CDC. If yourhealthcare provider thinks you may have COVID- 19, he or she will work with your local health department and the CDC on testing. Follow all instructions from your healthcare provider. COVID-19 is diagnosed by: Nasal and throat swab. A cotton-tipped swab is wiped inside your nose or throat. This is done to check for viruses in your nasal mucus. Sputum culture. A small sample of mucus coughed from your lungs (sputum) is collected if you have a cough. It is checked for the virus. How is COVID-19 treated? There is currently no medicine to treat the virus. Treatment is done to help your body while it fights the virus. This is known as supportive care. Supportive care may include: Pain medicine. These include acetaminophen and ibuprofen. They are used to help ease pain and reduce fever. Bed rest. This helps your body fight the illness. For severe illness, you may need to stay in the hospital. Care during severe ill ness may include: IV (intravenous) fluids.These are given through a vein to help keep your body hydrated. Oxygen. Supplemental oxygen or ventilation with a breathing machine (ventilator) may be given. This is done to keep enough oxygen in your body. Are you at risk for COVID-19? If youve been to a place where people have been sick with this virus, you are at risk for infection. You are at risk if you: Recently traveled to an affected area Had contact with a sick person who recently traveled to this area Had contact with a person who was diagnosed with COVID-19 How can COVID-19 be prevented? There is no vaccine yet. The best prevention is to not have contact with the virus. The CDC advises that people should not travel to areas where there are COVID-19 outbreaks right now for any reason that is not urgent. To help prevent spreading the infection, wash your hands often, or use an alcohol-basedhand top edge beveler. If you are in an area with COVID-19: Wash your hands often. Or use an alcohol-based hand top edge beveler often. Only touch your eyes, nose, or mouth with clean hands. Dont have contact with people who are sick. Follow local instructions about being in public. For example, you may be told to not use public transport for a period of time. Stay away from markets that have live or animals. Wash your hands after touching any animals. Don't touch animals that may be sick. Dont share eating or drinking tools with sick people. Dont kiss someone who is sick. Clean surfaces often with disinfectant. If you were in an area with COVID-19 in the last 14 days: Call your healthcare provider. He or she can talk with local health staff to see what action may be needed. Follow all instructions from your provider. Take your temperature every morning and evening for at least 14 days. This is to check for fever. Keep a record of the readings. Keep watch for symptoms of the virus. Tell your provider right away if you have symptoms. If you were in an area with COVID-19 and have a fever or other symptoms: Dont panic. Keep in mind that other illnesses can cause similar symptoms. Stay away from work, school, and public places. Limit physical contact with family members. Don't kiss anyone or share eating or drinking utensils. Clean surfaces you touch with disinfectant. This is to help prevent the virus from spreading. Call your healthcare provider. Explain that you have been exposed to COVID-19 and have symptoms. Do this before going to any hospital. Wait for instructions. Keep in mind that healthcare staff may wear protective equipment such as masks, gowns, gloves, and eye protection. You may be put in a separate room. This is to prevent the possible virus from spreading. Tell the healthcare staff about recent travel. This includes local travel on public transport. Staff may need to find other people you have been in contact with. Follow all instructions the healthcare staff give you. If you have been diagnosed with COVID-19 Follow all instructions from your healthcare provider. Dont leave your home, except to get medical care. Call your healthcare providers office before going. They can prepare and give you instructions. This will help prevent the virus from spreading. Dont go to work, school, or public areas. Dont use public transport or taxis. Stay away from other people in your home. Have them wear face masks around you. Dont share household items or food. Wear a face mask if you can. This includes at home or in a medical facility. Cover your face with a tissue when you cough or sneeze. Throw the tissue away. Wash your hands. Wash your hands often. Caregivers should: Follow all instructions from healthcare staff. Wear a face mask and protective clothing as advised. Wash hands often. Keep track of the sick persons symptoms. Clean surfaces, fabrics, and laundry thoroughly. Keep other people away from the sick person. When to call your healthcare provider Call your healthcare provider: If youve recently traveled and have symptoms If you have been diagnosed with COVID-19 and your symptoms are worse To learn more To find out more about COVID-19, visit the CDC website at ww w.cdc.gov/coronavirus/2019-ncov/index.html. 6280-[address] [employer]. [address] [place] [address]. All rights reserved. This information is not intended as a substitute for professional medical care. Always follow your healthcare professional's instructions. This information has been adapted from [employer] Pending Studies at Discharge: Yes Stand-Alone Forms: My [facility] [employer], Smoking Cessation Medications and DC Order Prescriptions: New benzonatate [Tessalon Perles] 100 mg Capsule 100 mg PO TID PRN (Reason: cough) Qty: 30 RF: 0 guaifenesin [Mucinex] 600 mg Tablet Extended Release 12hr 600 mg PO Q12 Qty: 10 RF: 0 Continued fluticasone propion-salmeterol [Advair Diskus] 250-50 mcg/dose Blister With Device 1 inh INHALATION Q12H RF: 0 buspirone 15 mg tablet 15 mg PO TID RF: 0 Mirena 20 mcg/24 hours (6 yrs) 52 mg Intrauterine Device 20 mcg INTRAUTERINE CONTINOUS RF: 0 atorvastatin [Lipitor] 20 mg Tablet 20 mg PO HS RF: 0 albuterol sulfate 2.5 mg /3 mL (0.083 %) Solution For Nebulization 2.5 mg INHALATION QID PRN (Reason: Shortness Of Breath Or Wheezing) RF: 0 metformin 1,000 mg Tablet 1,000 mg PO BIDM RF: 0 dicyclomine 10 mg Capsule 10 mg PO QID PRN (Reason: Abdominal Pain) RF: 0 prazosin 2 mg Capsule 2 mg PO HS RF: 0 omeprazole 20 mg Tablet,Delayed Release (Dr/Ec) 20 mg PO BID RF: 0 triamcinolone acetonide 0.1 % Cream 1 applic TOPICAL BID PRN (Reason: ITCHY AREA-TRUNK, LEGS, ARMS) RF: 0 albuterol sulfate [ProAir HFA] 90 mcg/actuation Hfa Aerosol Inhaler 2 puff INHALATION Q4H PRN (Reason: Wheezing) RF: 0 furosemide 20 mg tablet 20 mg PO BID PRN (Reason: Weight Gain) RF: 0 trazodone 100 mg tablet 100 mg PO HS PRN (Reason: Sleep) RF: 0 Enbrel Mini 50 mg/mL (1 mL) Cartridge 0 mg SUBCUT WK RF: 0 ondansetron 4 mg tablet,disintegrating 4 mg PO Q6H PRN (Reason: nausea and vomiting) Qty: 12 RF: 0 aripiprazole [Abilify] 30 mg Tablet 30 mg PO DAILY RF: 0 duloxetine [Cymbalta] 60 mg Capsule,Delayed Release(Dr/Ec) 60 mg PO DAILY RF: 0 Changed metoprolol succinate 50 mg Tablet Extended Release 24 Hr 50 mg PO QAM Qty: 0 RF: 0 Discharge Orders: Discharge Order (Routine); Ordered 09/30/20 Ordered By: Ruben Monte Admission Data Admit Date/Time: 09/27/20 00:47 Attending Provider: Ruben Monte Admit Provider: Elfego Resendez Primary Care Provider: Severiano Watkins Other Providers: Elfego Resendez ; Harpreet Quiñones Other Interventions: Discharge Summary Assessment (RN) Last Done: 09/30/20 13:42
--- NOTE | 2020-09-30 17:14 | Electrocardiogram Report ---
Test Reason : Blood Pressure : / mmHG Vent. Rate : 046 BPM Atrial Rate : 046 BPM P-R Int : 142 ms QRS Dur : 088 ms QT Int : 478 ms P-R-T Axes : 029 -08 015 degrees QTc Int : 418 ms Sinus bradycardia Minimal voltage criteria for LVH, may be normal variant Borderline ECG When compared with ECG of 26-SEP-2020 21:49, Vent. rate has decreased BY 33 BPM Confirmed by Kenrick Gómez ([id number]) on 09/30/2020 5:14:38 PM Referred By: REFERRED SELF Confirmed By:Kenrick Gómez
--- NOTE | 2020-09-30 23:22 | Electrocardiogram Report ---
Test Reason : Blood Pressure : / mmHG Vent. Rate : 046 BPM Atrial Rate : 046 BPM P-R Int : 152 ms QRS Dur : 080 ms QT Int : 470 ms P-R-T Axes : 035 -08 006 degrees QTc Int : 411 ms Sinus bradycardia Otherwise normal ECG When compared with ECG of 29-SEP-2020 16:56, No significant change was found Confirmed by Kenrick Gómez ([id number]) on 09/30/2020 11:22:02 PM Referred By: REFERRED SELF Confirmed By:Kenrick Gómez
== END 2020-09-30 18:06 | disposition home or self-care (01) ==
LOC: ED 19:46 → 2S 09-27 00:47

== ENCOUNTER 2020-10-03 21:11 | Observation (INO) ==
[2020-10-03] MEDS ORDERED: ALBUT/IPRATROP 3MG/0.5MG NEB 3 ML VIAL NEB STA (21:54)
[2020-10-03] MEDS ORDERED: dexAMETHasone**PF** 10 MG/ML VIAL IV ONE (21:54)
[2020-10-03 21:59] LABS: Basophils # (auto) 0.01 K/uL (0-0.2); Basophils % (auto) 0.1 %; Eosinophils % (auto) 1.7 %; Hematocrit (blood only) 40.7 % (37-47); Hemoglobin 13.3 g/dL (12.0-16.0); Immature Granulocytes # (auto) 0.08 K/uL (0.00-0.02); Immature Granulocytes % (auto) 0.7 %; Lymphocytes # (auto) 3.54 K/uL (1.2-3.4); Lymphocytes % (auto) 30.8 %; Mean Corpuscular Hgb Conc 32.7 g/dL (32-36); Mean Corpuscular Volume 88.9 fL (80-100); Mean Platelet Volume 9.9 fL (7.4-10.4); Monocytes # (auto) 0.94 K/uL (0.11-0.59); Monocytes % (auto) 8.2 %; Neutrophils # (auto) 6.73 K/uL (1.4-6.5); Neutrophils % (auto) 58.5 %; Platelet Count 349 K/uL (130-400); RDW Coefficient of Variation 13.9 % (11.5-14.5); RDW Standard Deviation 44.6 fL (36.4-46.3); Red Blood Count 4.58 M/uL (4.2-5.4)
[2020-10-03] MEDS ORDERED: ACETAMINOPHEN 1,000 MG/100 ML VIAL IV STA (21:59)
[2020-10-03 22:07] LABS: Alanine Aminotransferase 42 U/L (12-78); Albumin Level 2.9 gm/dl (3.4-5.0); Aspartate Aminotransferase 21 U/L (15-37); BUN Creatinine Ratio 24.3 (10-20); Blood Urea Nitrogen 17 mg/dl (7-18); Carbon Dioxide 30 mmol/L (21-32); Chloride 107 mmol/L (98-107); Est GFR (African American) 127.4 ml/min; Est GFR (Non-African American) 109.9 ml/min; Glucose 127 mg/dl (70-99); Potassium 3.6 mmol/L (3.5-5.1); Sodium 142 mmol/L (136-145)
[2020-10-03 22:10] LABS: Albumin Globulin Ratio 0.7 (0.9-2); Alkaline Phosphatase 100 U/L (45-117); Bilirubin,Total 0.5 mg/dl (0.2-1); Globulin 4.2 gm/dl (2.5-4.0); Total Protein 7.1 gm/dl (6.4-8.2)
[2020-10-03 23:11] LABS: Partial Thromboplastin Ratio 0.8; Partial Thromboplastin Time 21.5 Seconds (21.0-31.0); Prothrombin Time 9.9 Seconds (9.0-12.0)
--- NOTE | 2020-10-04 00:56 | Emergency Department Note ---
History of Present Illness General Chief complaint: Syncope (Near Syncope) Stated complaint: NEAR SYNCOPE, CHEST PRESSURE, COVID + Time Seen by Provider: 10/03/20 21:48 History of Present Illness Maximum Pain Intensity: 4 This is a 40-year-old female presenting to the emergency department for evaluation of ongoing body aches, intermittent fever, chest discomfort, and shortness of breath. The patient was diagnosed with COVID-19 about 1 week ago and was admitted to this facility as she had episodic hypoxia with an O2 saturation of 86%. The patient did well after a few days and was discharged home. She evidently has Advair and ProAir inhalers that she has been using without significant improvement of symptoms. She feels like she is not getting any better and is concerned that she may be getting worse. She has decreased appetite but is able to eat and drink. She rates her overall discomfort a 4/10. She had an episode of coughing tonight and felt like she was going to "pass out". Home Medications Medication Instructions Recorded Confirmed Type albuterol sulfate 2.5 mg INHALATION QID PRN 01/31/18 10/03/20 History atorvastatin [Lipitor] 20 mg PO HS 01/31/18 10/03/20 History dicyclomine 10 mg PO QID PRN 01/31/18 10/03/20 History metformin 1,000 mg PO BIDM 01/31/18 10/03/20 History omeprazole 20 mg PO BID 01/31/18 10/03/20 History prazosin 2 mg PO HS 01/31/18 10/03/20 History albuterol sulfate [ProAir HFA] 2 puff INHALATION Q4H PRN 01/19/19 10/03/20 History triamcinolone acetonide 1 applic TOPICAL BID PRN 01/19/19 10/03/20 History fluticasone propion-salmeterol 1 inh INHALATION Q12H 03/04/19 10/03/20 History [Advair Diskus] furosemide 20 mg PO BID PRN 11/04/19 10/03/20 History buspirone 15 mg PO TID 04/16/20 10/03/20 History trazodone 100 mg PO HS PRN 06/01/20 10/03/20 History Mirena 20 mcg INTRAUTERINE CONTINOUS 07/10/20 10/03/20 History Enbrel Mini 0 mg SUBCUT WK 09/19/20 10/03/20 History ondansetron 4 mg PO Q6H PRN #12 tab 09/19/20 10/03/20 Rx aripiprazole [Abilify] 30 mg PO DAILY 09/26/20 10/03/20 History duloxetine [Cymbalta] 60 mg PO DAILY 09/26/20 10/03/20 History benzonatate [Tessalon Perles] 100 mg PO TID PRN #30 cap 09/30/20 10/03/20 Rx guaifenesin [Mucinex] 600 mg PO Q12 #10 tab 09/30/20 10/03/20 Rx metoprolol succinate 50 mg PO QAM #0 tab 09/30/20 10/03/20 Rx prednisone 40 mg PO DAILY 3 Days #6 tab 10/04/20 Rx Allergies Allergy/AdvReac Type Severity Reaction Status Date / Time aspirin Allergy Intermediate hives Verified 10/03/20 22:04 diazepam Allergy Intermediate PALPITATIONS, Verified 10/03/20 22:04 VOMITING fluconazole Allergy Intermediate HIVES Verified 10/03/20 22:04 Penicillins Allergy Intermediate hives Verified 10/03/20 22:04 sumatriptan Allergy Intermediate "swelling Verified 10/03/20 22:04 up" tramadol Allergy Intermediate HIVES Verified 10/03/20 22:04 Yeast Allergy Intermediate Hives Verified 10/03/20 22:04 clindamycin Allergy Mild RASH Verified 10/03/20 22:04 metoclopramide Allergy Mild suicidal Verified 10/03/20 22:04 thoughts metronidazole Allergy Mild Rash Verified 10/03/20 22:04 nickel Allergy Mild RASH Verified 10/03/20 22:04 wheat Allergy Unknown Unknown Verified 10/03/20 22:04 doxycycline AdvReac Severe VOMITING Verified 10/03/20 22:04 prednisone AdvReac Severe SUICIDAL Verified 10/03/20 22:04 Iodinated Contrast Media AdvReac Mild sob Verified 10/03/20 22:04 oxybutynin AdvReac Mild Vomiting Verified 10/03/20 22:04 Past Med/Surg History Medical History Anemia LOW IRON Anxiety and depression Asthma LAST USED RESCUE INHALER "ITS BEEN A WHILE" Bipolar disorder TYPE 2 (NO SUICIDAL IDEATION) Claustrophobia Degenerative disc disease Fracture of distal fibula per pt did not heal correctly and uses a walker or wheelchair History of kidney stones History of palpitations reason for metoprolol Hyperlipidemia Lumbar radiculopathy Lung nodule BEING MONITORED (RT LUNG) Migraine Morbid obesity with BMI of 50.0-59.9, adult Osteoarthritis Post traumatic stress disorder Psoriatic arthritis Schizo-affective schizophrenia Sleep apnea CURRENTLY HAS NO DEVICE NOW Social anxiety disorder Type II diabetes mellitus, uncontrolled Surgical History History of bilateral tubal ligation History of cholecystectomy History of dilatation and curettage x3 History of endoscopic sinus surgery x2 History of esophagogastroduodenoscopy (EGD) History of surgical removal of ganglion cyst x3 on right hand History of tonsillectomy and adenoidectomy Hx of meniscectomy of right knee Nausea and vomiting after administration of anesthetic agent Status post myringotomy with tube placement of both ears multiple Family History Other Cancer Heart disease Hypertension No family history of adverse response to anesthesia Social History Smoking Status: Never smoker Tobacco Type: Cigarettes Cigarettes Per Day: 1 per day; Second Hand Exposure: Yes; Hx Alcohol Use: Yes Hx Substance Use: Yes Last Used Substance: Days (ago) Last Used Substance Other:: September 11, 2020 Preferred Language: Pashto Communication Ability: Effective Kitchen Chef Required: No Beliefs That Will Affect Care: None Current Living Situation: Alone Current Living Situation Comment: Hotel room with significant other Feels Safe at Home: Yes Assistive Devices: Glasses Review of Systems A total of 10 systems reviewed and were otherwise negative Physical Exam Vital Signs Vital Signs - 24 hr 10/03/20 21:16 10/03/20 21:30 10/03/20 22:31 Temperature 37.7 C H Temperature Source Oral Pulse Rate 127 H 124 H 110 H Pulse Rate [Right Finger] Pulse Rate from SpO2 Sensor 128 H Pulse Rhythm Regular Regular Pulse Strength Normal Respiratory Rate 19 20 20 Respiratory Effort / Characteristics Non-Labored Spontaneous Respiratory Depth Normal Respiratory Pattern Regular Blood Pressure 173/98 H 173/98 H Blood Pressure [Right Arm] Blood Pressure Mean 123 123 Blood Pressure Mean [Right Arm] Blood Pressure Position Lying Blood Pressure Position [Right Arm] Pulse Oximetry 97 97 97 Oxygen Delivery Method Room Air Room Air Sepsis Recent Fever Within 48 Hours Yes Sepsis New/Unexplained Change in Mental Status No Sepsis Action Taken by Nursing No Action Required 10/03/20 22:37 10/03/20 23:00 10/03/20 23:30 Temperature Temperature Source Pulse Rate 115 H 115 H Pulse Rate [Right Finger] 118 H Pulse Rate from SpO2 Sensor 115 H 116 H Pulse Rhythm Pulse Strength Respiratory Rate 18 23 17 Respiratory Effort / Characteristics Non-Labored Spontaneous Respiratory Depth Respiratory Pattern Blood Pressure Blood Pressure [Right Arm] Blood Pressure Mean Blood Pressure Mean [Right Arm] Blood Pressure Position Blood Pressure Position [Right Arm] Pulse Oximetry 97 94 95 Oxygen Delivery Method Room Air Sepsis Recent Fever Within 48 Hours Sepsis New/Unexplained Change in Mental Status Sepsis Action Taken by Nursing 10/04/20 00:00 10/04/20 00:25 10/04/20 00:30 Temperature Temperature Source Pulse Rate 102 H 103 H 98 H Pulse Rate [Right Finger] Pulse Rate from SpO2 Sensor 101 H 101 H 101 H Pulse Rhythm Pulse Strength Respiratory Rate 18 16 20 Respiratory Effort / Characteristics Respiratory Depth Respiratory Pattern Blood Pressure 155/92 H 136/84 Blood Pressure [Right Arm] 155/92 H Blood Pressure Mean 113 101 Blood Pressure Mean [Right Arm] 113 Blood Pressure Position Blood Pressure Position [Right Arm] Lying Pulse Oximetry 95 95 92 Oxygen Delivery Method Room Air Room Air Sepsis Recent Fever Within 48 Hours Sepsis New/Unexplained Change in Mental Status Sepsis Action Taken by Nursing 10/04/20 01:30 10/04/20 02:00 10/04/20 02:30 Temperature Temperature Source Pulse Rate 87 88 89 Pulse Rate [Right Finger] Pulse Rate from SpO2 Sensor 92 H 93 H 88 Pulse Rhythm Pulse Strength Respiratory Rate 19 20 23 Respiratory Effort / Characteristics Respiratory Depth Respiratory Pattern Blood Pressure 169/104 H 154/93 H 147/87 H Blood Pressure [Right Arm] Blood Pressure Mean 125 113 107 Blood Pressure Mean [Right Arm] Blood Pressure Position Blood Pressure Position [Right Arm] Pulse Oximetry 92 92 93 Oxygen Delivery Method Room Air Room Air Room Air Sepsis Recent Fever Within 48 Hours Sepsis New/Unexplained Change in Mental Status Sepsis Action Taken by Nursing 10/04/20 03:00 10/04/20 03:30 10/04/20 04:00 Temperature Temperature Source Pulse Rate 85 85 77 Pulse Rate [Right Finger] Pulse Rate from SpO2 Sensor 85 89 78 Pulse Rhythm Pulse Strength Respiratory Rate 20 22 23 Respiratory Effort / Characteristics Respiratory Depth Respiratory Pattern Blood Pressure 150/82 H 155/92 H 149/107 H Blood Pressure [Right Arm] Blood Pressure Mean 104 113 121 Blood Pressure Mean [Right Arm] Blood Pressure Position Blood Pressure Position [Right Arm] Pulse Oximetry 94 94 96 Oxygen Delivery Method Room Air Sepsis Recent Fever Within 48 Hours Sepsis New/Unexplained Change in Mental Status Sepsis Action Taken by Nursing 10/04/20 04:30 10/04/20 05:00 10/04/20 05:30 Temperature Temperature Source Pulse Rate 93 H 75 95 H Pulse Rate [Right Finger] Pulse Rate from SpO2 Sensor 89 76 94 H Pulse Rhythm Pulse Strength Respiratory Rate 20 23 19 Respiratory Effort / Characteristics Respiratory Depth Respiratory Pattern Blood Pressure 170/99 H 122/77 142/98 H Blood Pressure [Right Arm] Blood Pressure Mean 122 92 112 Blood Pressure Mean [Right Arm] Blood Pressure Position Blood Pressure Position [Right Arm] Pulse Oximetry 94 90 96 Oxygen Delivery Method Room Air Room Air Sepsis Recent Fever Within 48 Hours Sepsis New/Unexplained Change in Mental Status Sepsis Action Taken by Nursing 10/04/20 06:00 Temperature Temperature Source Pulse Rate 83 Pulse Rate [Right Finger] Pulse Rate from SpO2 Sensor 83 Pulse Rhythm Pulse Strength Respiratory Rate 18 Respiratory Effort / Characteristics Respiratory Depth Respiratory Pattern Blood Pressure 143/82 H Blood Pressure [Right Arm] Blood Pressure Mean 102 Blood Pressure Mean [Right Arm] Blood Pressure Position Blood Pressure Position [Right Arm] Pulse Oximetry 92 Oxygen Delivery Method Room Air Sepsis Recent Fever Within 48 Hours Sepsis New/Unexplained Change in Mental Status Sepsis Action Taken by Nursing VITALS: Vitals are noted on the nurse's note and reviewed by myself. Vital signs stable. GENERAL: Well-developed, well-nourished, white female, who is in no acute distress and resting comfortably. Patient is cooperative with the examination. HEAD: Normocephalic atraumatic. EARS: External ear normal. External auditory canals clear, tympanic membranes pearly [place] without erythema or effusion bilaterally. EYES: Pupils equal round and reactive to light and accommodation. Conjunctivae without injection, sclerae without icterus. Extraocular movements intact. NOSE: Patent, turbinates without inflammation or discharge. MOUTH: Mucous membranes moist. Tonsils are not enlarged. Pharynx without erythema, blood, or exudate. Uvula midline. Airway patent. NECK: Supple without nuchal rigidity. No lymphadenopathy. No thyromegaly. Cervical spine is nontender. HEART: Regular rate and rhythm without murmurs gallops or rubs. LUNGS: Clear to auscultation bilaterally without wheezes, rales or rhonchi. No retractions or accessory muscle use. ABDOMEN: Positive normal bowel sounds x 4. Soft, nontender, without masses or organomegaly. No guarding or rebound tenderness. MUSCULOSKELETAL: No muscle atrophy, erythema, or edema noted. Full range of motion in all extremities. Course Administered Medications Discontinued Medications Albuterol (Albut/Ipratrop 3mg/0.5mg Neb 3 Ml Vial) 3 ml NEB NOW STA Stop: 10/03/20 21:55 Last Admin: 10/03/20 22:34 Dose: 3 ml Documented by: [id number] Dexamethasone Sodium Phosphate (DexamethasonePf 10 Mg/Ml Vial) 10 mg IV NOW ONE Stop: 10/03/20 21:55 Last Admin: 10/03/20 22:33 Dose: 10 mg Documented by: [id number] Acetaminophen (Ofirmev) 1,000 mg in 100 mls @ 400 mls/hr IV NOW STA Stop: 10/03/20 22:13 Last Infusion: 10/04/20 00:16 Dose: 0 mls/hr Documented by: [id number] Admin: 10/03/20 22:35 Dose: 400 mls/hr Documented by: [id number] Medical Decision Making Differential Diagnosis Differential diagnosis: Etiologies such as viral syndrome, otitis, pharyngitis, pneumonia, influenza, meningitis, urinary tract infection, septic arthritis, soft tissue infectious process, intra-abdominal process, sepsis, bacteremia, as well as others were entertained. Laboratory Data Result diagrams: 10/03/20 21:30 10/03/20 21:30 Lab Results 10/03/20 10/03/20 10/03/20 Range/Units 21:30 21:30 21:30 WBC 11.50 H (4.8-10.8) K/uL RBC 4.58 (4.2-5.4) M/uL Hgb 13.3 (12.0-16.0) g/dL Hct 40.7 (37-47) % MCV 88.9 (80-100) fL MCH 29.0 (25-34) pg MCHC 32.7 (32-36) g/dL RDW Std Deviation 44.6 (36.4-46.3) fL RDW Coeff of [place] 13.9 (11.5-14.5) % Plt Count 349 (130-400) K/uL MPV 9.9 (7.4-10.4) fL Immature Gran % (Auto) 0.7 % Neut % (Auto) 58.5 % Lymph % (Auto) 30.8 % [place] % (Auto) 8.2 % Eos % (Auto) 1.7 % Baso % (Auto) 0.1 % Neut # (Auto) 6.73 H (1.4-6.5) K/uL Lymph # (Auto) 3.54 H (1.2-3.4) K/uL [place] # (Auto) 0.94 H (0.11-0.59) K/uL Eos # (Auto) 0.20 (0-0.5) K/uL Baso # (Auto) 0.01 (0-0.2) K/uL Immature Gran # (Auto) 0.08 H (0.00-0.02) K/uL PT 9.9 (9.0-12.0) Seconds INR 1.0 (0.9-1.1) APTT 21.5 (21.0-31.0) Seconds PTT Ratio 0.8 Sodium 142 (136-145) mmol/L Potassium 3.6 (3.5-5.1) mmol/L Chloride 107 (98-107) mmol/L Carbon Dioxide 30 (21-32) mmol/L Anion Gap 4.0 (3-11) BUN 17 (7-18) mg/dl Creatinine 0.70 (0.6-1.2) mg/dl Est Cr Clr Drug Dosing Not Reportable Est GFR ( Amer) 127.4 ml/min Est GFR (Non-Af Amer) 109.9 ml/min BUN/Creatinine Ratio 24.3 H (10-20) Glucose 127 H (70-99) mg/dl Lactate (0.4-2.0) mmol/L Calcium 9.0 (8.5-10.1) mg/dl Magnesium 2.0 (1.8-2.4) mg/dl Total Bilirubin 0.5 (0.2-1) mg/dl AST 21 (15-37) U/L ALT 42 (12-78) U/L Alkaline Phosphatase 100 (45-117) U/L Troponin I (0-0.045) ng/ml Total Protein 7.1 (6.4-8.2) gm/dl Albumin 2.9 L (3.4-5.0) gm/dl Globulin 4.2 H (2.5-4.0) gm/dl Albumin/Globulin Ratio 0.7 L (0.9-2) TSH (0.300-4.500) uIu/ml Urine Color Urine Appearance (Clear) Urine pH (4.5-7.5) Ur Specific [place] (1.000-1.030) Urine Protein (Negative) Urine Glucose (UA) (Negative) Urine Ketones (Negative) Urine Blood (Negative) Urine Nitrite (Negative) Urine Bilirubin (Negative) Urine Urobilinogen (Negative) Ur Leukocyte Esterase (Negative) Urine WBC (Auto) (0-5) /hpf Urine RBC (Auto) (0-4) /hpf U Hyaline Cast (Auto) (0-5) /lpf U Epithel Cells (Auto) (0-5) /lpf Urine Bacteria (Auto) (Negative) Salicylates (2.8-20) mg/dl Urine Opiates Screen (Neg) Ur Methadone, Qual (Neg) Acetaminophen (10-30) ug/ml Urine Barbiturates (Neg) Ur Phencyclidine (PCP) (Neg) U Amphetamin/Meth Scrn (Neg) MDMA (Ecstasy) Screen (Neg) U Benzodiazepines Scrn (Neg) Ur Cocaine Metabolite (Neg) U Marijuana (THC) Screen (Neg) Ethyl Alcohol mg/dL (0-3) mg/dl 10/03/20 10/04/20 10/04/20 Range/Units 21:30 04:30 04:30 WBC (4.8-10.8) K/uL RBC (4.2-5.4) M/uL Hgb (12.0-16.0) g/dL Hct (37-47) % MCV (80-100) fL MCH (25-34) pg MCHC (32-36) g/dL RDW Std Deviation (36.4-46.3) fL RDW Coeff of [place] (11.5-14.5) % Plt Count (130-400) K/uL MPV (7.4-10.4) fL Immature Gran % (Auto) % Neut % (Auto) % Lymph % (Auto) % [place] % (Auto) % Eos % (Auto) % Baso % (Auto) % Neut # (Auto) (1.4-6.5) K/uL Lymph # (Auto) (1.2-3.4) K/uL [place] # (Auto) (0.11-0.59) K/uL Eos # (Auto) (0-0.5) K/uL Baso # (Auto) (0-0.2) K/uL Immature Gran # (Auto) (0.00-0.02) K/uL PT (9.0-12.0) Seconds INR (0.9-1.1) APTT (21.0-31.0) Seconds PTT Ratio Sodium (136-145) mmol/L Potassium (3.5-5.1) mmol/L Chloride (98-107) mmol/L Carbon Dioxide (21-32) mmol/L Anion Gap (3-11) BUN (7-18) mg/dl Creatinine (0.6-1.2) mg/dl Est Cr Clr Drug Dosing Est GFR ( Amer) ml/min Est GFR (Non-Af Amer) ml/min BUN/Creatinine Ratio (10-20) Glucose (70-99) mg/dl Lactate 1.4 (0.4-2.0) mmol/L Calcium (8.5-10.1) mg/dl Magnesium (1.8-2.4) mg/dl Total Bilirubin (0.2-1) mg/dl AST (15-37) U/L ALT (12-78) U/L Alkaline Phosphatase (45-117) U/L Troponin I (0-0.045) ng/ml Total Protein (6.4-8.2) gm/dl Albumin (3.4-5.0) gm/dl Globulin (2.5-4.0) gm/dl Albumin/Globulin Ratio (0.9-2) TSH (0.300-4.500) uIu/ml Urine Color Dark Yellow Urine Appearance Cloudy A (Clear) Urine pH 6.0 (4.5-7.5) Ur Specific [place] 1.027 (1.000-1.030) Urine Protein Negative (Negative) Urine Glucose (UA) Negative (Negative) Urine Ketones Negative (Negative) Urine Blood 1+ H (Negative) Urine Nitrite Negative (Negative) Urine Bilirubin Negative (Negative) Urine Urobilinogen Negative (Negative) Ur Leukocyte Esterase 1+ H (Negative) Urine WBC (Auto) >30 H (0-5) /hpf Urine RBC (Auto) 5-10 H (0-4) /hpf U Hyaline Cast (Auto) 10-30 H (0-5) /lpf U Epithel Cells (Auto) >30 H (0-5) /lpf Urine Bacteria (Auto) 1+ H (Negative) Salicylates (2.8-20) mg/dl Urine Opiates Screen Neg (Neg) Ur Methadone, Qual Neg (Neg) Acetaminophen (10-30) ug/ml Urine Barbiturates Neg (Neg) Ur Phencyclidine (PCP) Neg (Neg) U Amphetamin/Meth Scrn Neg (Neg) MDMA (Ecstasy) Screen Neg (Neg) U Benzodiazepines Scrn Neg (Neg) Ur Cocaine Metabolite Neg (Neg) U Marijuana (THC) Screen Neg (Neg) Ethyl Alcohol mg/dL (0-3) mg/dl 10/04/20 10/04/20 10/04/20 Range/Units 04:39 04:39 04:39 WBC (4.8-10.8) K/uL RBC (4.2-5.4) M/uL Hgb (12.0-16.0) g/dL Hct (37-47) % MCV (80-100) fL MCH (25-34) pg MCHC (32-36) g/dL RDW Std Deviation (36.4-46.3) fL RDW Coeff of [place] (11.5-14.5) % Plt Count (130-400) K/uL MPV (7.4-10.4) fL Immature Gran % (Auto) % Neut % (Auto) % Lymph % (Auto) % [place] % (Auto) % Eos % (Auto) % Baso % (Auto) % Neut # (Auto) (1.4-6.5) K/uL Lymph # (Auto) (1.2-3.4) K/uL [place] # (Auto) (0.11-0.59) K/uL Eos # (Auto) (0-0.5) K/uL Baso # (Auto) (0-0.2) K/uL Immature Gran # (Auto) (0.00-0.02) K/uL PT (9.0-12.0) Seconds INR (0.9-1.1) APTT (21.0-31.0) Seconds PTT Ratio Sodium (136-145) mmol/L Potassium (3.5-5.1) mmol/L Chloride (98-107) mmol/L Carbon Dioxide (21-32) mmol/L Anion Gap (3-11) BUN (7-18) mg/dl Creatinine (0.6-1.2) mg/dl Est Cr Clr Drug Dosing Est GFR ( Amer) ml/min Est GFR (Non-Af Amer) ml/min BUN/Creatinine Ratio (10-20) Glucose (70-99) mg/dl Lactate (0.4-2.0) mmol/L Calcium (8.5-10.1) mg/dl Magnesium (1.8-2.4) mg/dl Total Bilirubin (0.2-1) mg/dl AST (15-37) U/L ALT (12-78) U/L Alkaline Phosphatase (45-117) U/L Troponin I < 0.015 (0-0.045) ng/ml Total Protein (6.4-8.2) gm/dl Albumin (3.4-5.0) gm/dl Globulin (2.5-4.0) gm/dl Albumin/Globulin Ratio (0.9-2) TSH 1.360 (0.300-4.500) uIu/ml Urine Color Urine Appearance (Clear) Urine pH (4.5-7.5) Ur Specific [place] (1.000-1.030) Urine Protein (Negative) Urine Glucose (UA) (Negative) Urine Ketones (Negative) Urine Blood (Negative) Urine Nitrite (Negative) Urine Bilirubin (Negative) Urine Urobilinogen (Negative) Ur Leukocyte Esterase (Negative) Urine WBC (Auto) (0-5) /hpf Urine RBC (Auto) (0-4) /hpf U Hyaline Cast (Auto) (0-5) /lpf U Epithel Cells (Auto) (0-5) /lpf Urine Bacteria (Auto) (Negative) Salicylates < 1.7 L (2.8-20) mg/dl Urine Opiates Screen (Neg) Ur Methadone, Qual (Neg) Acetaminophen < 2 L (10-30) ug/ml Urine Barbiturates (Neg) Ur Phencyclidine (PCP) (Neg) U Amphetamin/Meth Scrn (Neg) MDMA (Ecstasy) Screen (Neg) U Benzodiazepines Scrn (Neg) Ur Cocaine Metabolite (Neg) U Marijuana (THC) Screen (Neg) Ethyl Alcohol mg/dL < 3.0 (0-3) mg/dl MDM Narrative Physical exam and history were performed. Nursing notes, EMR, and Medication List were personally reviewed. Patient appears to have recent history of COVID-19 with associated pneumonia and admission with discharge home. On examination the patient does not appear toxic or significantly short of breath. She does have a dry cough. IV access was established and labs were obtained. The patient was hydrated with normal saline and given IV Decadron and a DuoNeb. She was also given IV Tylenol. An order was placed for continuous cardiac monitoring. The monitor shows a rate of 98 with normal sinus rhythm. The patient's blood work is as above and was reviewed. She does not have a sign ificantly elevated white blood cell count, gross anemia, bandemia, or significant electrolyte imbalance. Transaminases are not diagnostic. Chest x- ray was performed and appears with an improving viral pneumonia. The patient was monitored for some time here in the ER. She did feel much improved after the steroids and a DuoNeb. Much of her chest discomfort appears pleuritic in nature, and does worsen with her cough. This all seems consistent with her recent COVID-19 history. She did not have any episodic hypoxia today, and she is felt to be well for discharge home. I discussed additional options of care, and we will put her on a 3-day course of prednisone. She has had some mental health issues on this medication in the past, but is willing to try it to help feel better at home. Overall the patient needs to follow with her PCP and continue quarantine. I did explain that she will likely be sick for several more weeks before improving. Discharge instructions were provided to the patient, and she began to work on transportation home. The patient remained in the emergency department for nearly 7 hours, not able to get a ride home. The patient is Covid positive and it is unreasonable to discharge her to the waiting room until morning. She did remain in her room during this time. After several hours of not getting a ride, the patient asked to speak with a crisis steam station supervisor. The mental health top case assembler did evaluate the patient, and at this time the patient states that she is now suicidal with a plan to go home and overdose on her medication. The patient requests to be admitted for her suicidality, and states that she has attempted suicide by overdose in the [facility] and knows that she is capable of doing this. Additional labs were added to the patient's evaluation to further a psychiatric evaluation. Unfortunately the patient is Covid positive and will not be accepted at any mental health facilities with this diagnosis. The patient will need to be a medical admission with psychiatric consult. The case was discussed with the on-call hospitalist. Please see their dictation for further patient course, plan, and disposition. The chart was completed utilizing [employer] Speech Voice Recognition Software. Grammatical errors, random word insertions, pronoun errors, and incomplete sentences are an occasional consequence of this system due to software limi tations, ambient noise, and hardware issues. Any formal questions or concerns about the content, text, or information contained within the body of this dictation should be directly addressed to the provider for clarification. . Impression & Plan Feeling like committing suicide, COVID-19, Atypical chest pain Discharge Plan Visit Data Chief Complaint: Syncope (Near Syncope) Stated Complaint: NEAR SYNCOPE, CHEST PRESSURE, COVID + ED Provider: Jeaneth Mortensen ED Midlevel Provider: Harpreet Reese Discharge Problem: Feeling like committing suicide, COVID-19, Atypical chest pain Patient Disposition: Home - Self-Care Condition: Good Discharge Instructions Activity Restrictions/Additional Instructions: You were seen and evaluated today on an emergency basis only. This is not a substitute for, or an effort to provide, complete comprehensive medical care. It is not possible to recognize and treat all injuries or illnesses in a single emergency department visit. For this reason it is recommended that you followup with your Primary Care Physician in the next week for a recheck of your symptoms. Take prednisone 40 mg daily for the next 3 days. For baseline pain relief you may alternate ibuprofen and acetaminophen every 4 hours for pain control. Take 600 mg ibuprofen (Advil) and then 4 hours later take 1000 mg acetaminophen (Tylenol). Do not take more than 3000 mg acetaminophen in a single day. Continue your inhalers at home. Imaging studies such as CT scans, MRI, Xrays, and Ultrasounds performed at [facility] are initially reviewed by multiple providers. Studies will be formally read by Hospital Radiologists in the morning. If any changes in care are needed we will contact you. Home Isolation COVID-19 Instructions The following information about Home Isolation is from the CDC Website: https://www.cdc.gov/coronavirus/2019-ncov/hcp/bjtuqzbo-cnspwtq-wvdaiu.html Stay home except to get medical care People who are mildly ill with COVID-19 are able to isolate at home during their illness. You should restrict activities outside your home, except for getting medical care. Do not go to work, school, or public areas. Avoid using public transportation, ride-sharing, or taxis. Separate yourself from other people and animals in your home People: As much as possible, you should stay in a specific room and away from o ther people in your home. Also, you should use a separate bathroom, if available. Animals: You should restrict contact with pets and other animals while you are sick with COVID-19, just like you would around other people. Although there have not been reports of pets or other animals becoming sick with COVID-19, it is still recommended that people sick with COVID-19 limit contact with animals until more information is known about the virus. When possible, have another me mber of your household care for your animals while you are sick. If you are sick with COVID-19, avoid contact with your pet, including petting, snuggling, being kissed or licked, and sharing food. If you must care for your pet or be around animals while you are sick, wash your hands before and after you interact with pets and wear a face mask. Call ahead before visiting your doctor If you have a medical appointment, call the healthcare provider and tell them that you have or may have COVID-19. This will help the healthcare providers office take steps to keep other people from getting infected or exposed. Wear a face mask You should wear a face mask when you are around other people (e.g., sharing a room or vehicle) or pets and before you enter a healthcare providers office. If you are not able to wear a face mask (for example, because it causes trouble breathing), then people who live with you should not stay in the same room with you, or they should wear a face mask if they enter your room. Cover your coughs and sneezes Cover your mouth and nose with a tissue when you cough or sneeze. Throw used tissues in a lined trash can. Immediately wash your hands with soap and water for at least 20 seconds or, if soap and water are not available, clean your hands with an alcohol-based [facility] that contains at least 60% alcohol. Clean your hands often Wash your hands often with soap and water for at least 20 seconds, especially after blowing your nose, coughing, or sneezing; going to the bathroom; and before eating or preparing food. If soap and water are not readily available, use an alcohol-based hand [facility] pharmacy with at least 60% alcohol, covering all surfaces of your hands and rubbing them together until they feel dry. Soap and water are the best option if hands are visibly dirty. Avoid touching your eyes, nose, and mouth with unwashed hands. Avoid sharing personal household items You should not share dishes, drinking glasses, cups, eating utensils, towels, or bedding with other people or pets in your home. After using these items, they should be washed thoroughly with soap and water. Clean all high-touch surfaces everyday High touch surfaces include counters, tabletops, doorknobs, bathroom fixtures, toilets, phones, keyboards, tablets, and bedside tables. Also, clean any surfaces that may have blood, stool, or body fluids on them. Use a household cleaning spray or wipe, according to the label instructions. Labels contain instructions for safe and effective use of the cleaning product including pr ecautions you should take when applying the product, such as wearing gloves and making sure you have good ventilation during use of the product. Monitor your symptoms Seek prompt medical attention if your illness is worsening (e.g., difficulty breathing).Beforeseeking care, call your healthcare provider and tell them that you have, or are being evaluated for, COVID-19. Put on a face mask before you enter the facility. These steps will help the healthcare providers office to keep other people in the office or waiting room from getting infected or exposed. Ask your healthcare provider to call the local or state health department. Persons who are placed under active monitoring or facilitated self- monitoring should follow instructions provided by their local health department or occupational health professionals, as appropriate. When working with your local health department check their available hours. If you have a medical emergency and need to call 911, notify the dispatch personnel that you have, or are being evaluated for COVID-19. If possible, put on a face mask before emergency medical services arrive. Discontinuing home isolation Patients with confirmed COVID-19 should remain under home isolation precautions until the risk of secondary transmission to others is thought to be low. The decision to discontinue home isolation precautions should be made on a [id number] basis, in consultation with healthcare providers and [facility] and local health departments. You are welcome to return to the emergency department anytime with new, worsening, or concerning symptoms. Forms Stand Alone Forms: [facility], [facility] Emergency Department, Important Visit Information Prescriptions Prescriptions: New prednisone 20 mg tablet 40 mg PO DAILY 3 Days Qty: 6 RF: 0 No Action fluticasone propion-salmeterol [Advair Diskus] 250-50 mcg/dose Blister With Device 1 inh INHALATION Q12H RF: 0 buspirone 15 mg tablet 15 mg PO TID RF: 0 Mirena 20 mcg/24 hours (6 yrs) 52 mg Intrauterine Device 20 mcg INTRAUTERINE CONTINOUS RF: 0 atorvastatin [Lipitor] 20 mg Tablet 20 mg PO HS RF: 0 albuterol sulfate 2.5 mg /3 mL (0.083 %) Solution For Nebulization 2.5 mg INHALATION QID PRN (Reason: Shortness Of Breath Or Wheezing) RF: 0 metformin 1,000 mg Tablet 1,000 mg PO BIDM RF: 0 dicyclomine 10 mg Capsule 10 mg PO QID PRN (Reason: Abdominal Pain) RF: 0 prazosin 2 mg Capsule 2 mg PO HS RF: 0 omeprazole 20 mg Tablet,Delayed Release (Dr/Ec) 20 mg PO BID RF: 0 triamcinolone acetonide 0.1 % Cream 1 applic TOPICAL BID PRN (Reason: ITCHY AREA-TRUNK, LEGS, ARMS) RF: 0 albuterol sulfate [ProAir HFA] 90 mcg/actuation Hfa Aerosol Inhaler 2 puff INHALATION Q4H PRN (Reason: Wheezing) RF: 0 furosemide 20 mg tablet 20 mg PO BID PRN (Reason: Weight Gain) RF: 0 trazodone 100 mg tablet 100 mg PO HS PRN (Reason: Sleep) RF: 0 Enbrel Mini 50 mg/mL (1 mL) Cartridge 0 mg SUBCUT WK RF: 0 ondansetron 4 mg tablet,disintegrating 4 mg PO Q6H PRN (Reason: nausea and vomiting) Qty: 12 RF: 0 aripiprazole [Abilify] 30 mg Tablet 30 mg PO DAILY RF: 0 duloxetine [Cymbalta] 60 mg Capsule,Delayed Release(Dr/Ec) 60 mg PO DAILY RF: 0 benzonatate [Tessalon Perles] 100 mg Capsule 100 mg PO TID PRN (Reason: cough) Qty: 30 RF: 0 guaifenesin [Mucinex] 600 mg Tablet Extended Release 12hr 600 mg PO Q12 Qty: 10 RF: 0 metoprolol succinate 50 mg Tablet Extended Release 24 Hr 50 mg PO QAM Qty: 0 RF: 0 Referrals Referrals: Severiano Watkins MD [Primary Care Provider] -
[2020-10-04 05:05] LABS: Appearance Urine Cloudy (Clear); Bacteria Urine Automated 1+ (Negative); Bilirubin Urine Negative (Negative); Blood Urine 1+ (Negative); Color Urine Dark Yellow; Epithelial Cell Urine Auto >30 /lpf (0-5); Glucose Urine UA Negative (Negative); Ketones Urine Negative (Negative); Leukocyte Esterase Urine 1+ (Negative); Nitrite Urine Negative (Negative); Protein Urine Negative (Negative); Specific Gravity Urine 1.027 (1.000-1.030); Urobilinogen Urine Negative (Negative); WBC Urine Automated >30 /hpf (0-5)
[2020-10-04 05:20] LABS: Troponin I < 0.015 ng/ml (0-0.045)
[2020-10-04 05:22] LABS: Amphetamines+Metham, Urine Neg (Neg); Barbiturates, Urine Neg (Neg); Benzodiazepine, Urine Neg (Neg); Cocaine, Urine Neg (Neg); MDMA (Ecstacy), Urine Neg (Neg); Methadone, Urine Neg (Neg); Opiate, Urine Neg (Neg); Phencyclidine, Urine Neg (Neg)
[2020-10-04 05:24] LABS: Acetaminophen < 2 ug/ml (10-30); Salicylate < 1.7 mg/dl (2.8-20)
--- NOTE | 2020-10-04 07:43 | XRay Report ---
SINGLE VIEW CHEST CLINICAL HISTORY: Sepsis. FINDINGS: 2 AP, portable, upright chest radiographs are compared to study dated 09/29/2020 and correla leonidas with chest CT dated 09/27/2020. The examination is degraded by portable technique and large body h abitus. The cardiomediastinal silhouette is unremarkable. There are persistent patchy interstitial ai rspace opacities at the lung bases. No large pleural effusion or pneumothorax is seen. The bony thora x is grossly intact. IMPRESSION: There are persistent patchy interstitial airspace opacities at the lung bases, consistent with the known history of a viral pneumonia. This is similar to 09/29/2020. ACT 112: Negative or not required by law. Electronically signed by: Jose Luis Rollins M.D. 10/04/2020 7:42 AM
[2020-10-04] MEDS ORDERED: BENZONATATE 100 MG CAPSULE PO PRN (07:55)
[2020-10-04] MEDS ORDERED: ALBUTEROL 0.083% NEBU SOLN 3 ML VIAL INH PRN (07:55)
[2020-10-04] MEDS ORDERED: traZODone HCL 100 MG TAB PO PRN (07:55)
[2020-10-04] MEDS ORDERED: FUROSEMIDE 20 MG TAB PO PRN (07:55)
[2020-10-04] MEDS ORDERED: NITROGLYCERIN SL 0.4 MG/TAB TAB SL PRN (07:55)
[2020-10-04] MEDS ORDERED: DICYCLOMINE HCL 10 MG CAP PO PRN (07:55)
[2020-10-04] MEDS ORDERED: ACETAMINOPHEN 325 MG TAB PO PRN (07:55)
[2020-10-04] MEDS ORDERED: TRIAMCINOLONE ACET 0.1% CR 15 GM TUBE TOP PRN (07:55)
[2020-10-04] MEDS ORDERED: ALBUTEROL HFA 8 GM INHALER INH PRN (08:08)
[2020-10-04] MEDS ORDERED: SODIUM CHLORIDE 0.9% 1000ML 1,000 ML IV SCH (08:15)
[2020-10-04] MEDS ORDERED: FLUTICASONE/VILANTEROL 200/25MCG 14 PUFFS/INHALER INH SCH (09:00)
[2020-10-04] MEDS ORDERED: DULoxetine HCL 60 MG CAP PO SCH (09:00)
[2020-10-04] MEDS ORDERED: METOPROLOL SUCC 50MG EXT REL TAB PO SCH (09:00)
[2020-10-04] MEDS ORDERED: cefTRIAXone SODIUM 2,000 MG in DEXTROSE 5% 50 ML IV SCH (09:00)
[2020-10-04] MEDS ORDERED: ARIPiprazole 15 MG TAB PO SCH (09:00)
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
[2020-10-04] MEDS: CIPRO 0.2%/HYDROCORTISONE 1% OTIC SUSP 10 ML BTL OTR SCH ×2 (09:39→21:13)
[2020-10-04] MEDS: PANTOprazole 40 MG TAB PO SCH ×2 (09:39→21:12)
[2020-10-04] MEDS: busPIRone 15 MG TAB PO SCH ×3 (09:40→21:11)
[2020-10-04] MEDS: guaiFENesin 600 MG TABCR PO SCH ×2 (09:40→21:12)
[2020-10-04] MEDS: ENOXAPARIN INJ 40 MG/0.4 ML SYR SQ SCH ×2 (09:40→21:12)
[2020-10-04] MEDS: CLOTRIMAZOLE VAGINAL CR 7 APPLN/45 GM TUBE PV SCH ×2 (09:42→21:04)
[2020-10-04] MEDS: INSULIN ASPART 100 UNITS/ML 3 ML PEN SC SCH ×4 (10:00→22:19)
--- NOTE | 2020-10-04 11:42 | Cardiology Consultation ---
Date of Consultation October 04, 2020 Assessment & Plan (1) Atypical chest pain: (2) Pleuritic chest pain: (3) Sinus bradycardia: (4) Acute hypoxemic respiratory failure: (5) COVID-19: (6) Bipolar II disorder with severity, psychotic, or remission specifiers: (7) Post traumatic stress disorder: (8) Morbid obesity with BMI of 50.0-59.9, adult: (9) Feeling like committing suicide: I agree with Dr. Quiñones's assessment as per his cardiac consultation on most recent visit. I do not see any cardiac component to her complaints. No further cardiac testing or intervention is necessary at this time. History of Present Illness Reason for Consultation: Chest discomfort Requesting Physician: Dr. Hinds Attending Physician: Den Hinds MD History of Present Illness Ms. Anderson is a 40-year-old woman who was just discharged from [facility] on 09/30/2020 after being admitted for COVID-19 pneumonia and noncardiac chest pain. She presented back to [facility] emergency department on 10/03/2020 with complaints of not feeling better. She was expecting to be feeling better by now but she states that she is still feverish, along with myalgias and pleuritic chest discomfort. She was admitted to telemetry and COVID-19 precautions. Allergies Allergy/AdvReac Type Severity Reaction Status Date / Time aspirin Allergy Intermediate hives Verified 10/03/20 22:04 diazepam Allergy Intermediate PALPITATIONS, Verified 10/03/20 22:04 VOMITING fluconazole Allergy Intermediate HIVES Verified 10/03/20 22:04 Penicillins Allergy Intermediate hives Verified 10/03/20 22:04 sumatriptan Allergy Intermediate "swelling Verified 10/03/20 22:04 up" tramadol Allergy Intermediate HIVES Verified 10/03/20 22:04 Yeast Allergy Intermediate Hives Verified 10/03/20 22:04 clindamycin Allergy Mild RASH Verified 10/03/20 22:04 metoclopramide Allergy Mild suicidal Verified 10/03/20 22:04 thoughts metronidazole Allergy Mild Rash Verified 10/03/20 22:04 nickel Allergy Mild RASH Verified 10/03/20 22:04 wheat Allergy Unknown Unknown Verified 10/03/20 22:04 doxycycline AdvReac Severe VOMITING Verified 10/03/20 22:04 prednisone AdvReac Severe SUICIDAL Verified 10/03/20 22:04 Iodinated Contrast Media AdvReac Mild sob Verified 10/03/20 22:04 oxybutynin AdvReac Mild Vomiting Verified 10/03/20 22:04 Home Medications Medication Instructions Recorded Confirmed Type albuterol sulfate 2.5 mg INHALATION QID PRN 01/31/18 10/03/20 History atorvastatin [Lipitor] 20 mg PO HS 01/31/18 10/03/20 History dicyclomine 10 mg PO QID PRN 01/31/18 10/03/20 History metformin 1,000 mg PO BIDM 01/31/18 10/03/20 History omeprazole 20 mg PO BID 01/31/18 10/03/20 History prazosin 2 mg PO HS 01/31/18 10/03/20 History albuterol sulfate [ProAir HFA] 2 puff INHALATION Q4H PRN 01/19/19 10/03/20 History triamcinolone acetonide 1 applic TOPICAL BID PRN 01/19/19 10/03/20 History fluticasone propion-salmeterol 1 inh INHALATION Q12H 03/04/19 10/03/20 History [Advair Diskus] furosemide 20 mg PO BID PRN 11/04/19 10/03/20 History buspirone 15 mg PO TID 04/16/20 10/03/20 History trazodone 100 mg PO HS PRN 06/01/20 10/03/20 History Mirena 20 mcg INTRAUTERINE CONTINOUS 07/10/20 10/03/20 History Enbrel Mini 0 mg SUBCUT WK 09/19/20 10/03/20 History ondansetron 4 mg PO Q6H PRN #12 tab 09/19/20 10/03/20 Rx aripiprazole [Abilify] 30 mg PO DAILY 09/26/20 10/03/20 History duloxetine [Cymbalta] 60 mg PO DAILY 09/26/20 10/03/20 History benzonatate [Tessalon Perles] 100 mg PO TID PRN #30 cap 09/30/20 10/03/20 Rx guaifenesin [Mucinex] 600 mg PO Q12 #10 tab 09/30/20 10/03/20 Rx metoprolol succinate 50 mg PO QAM #0 tab 09/30/20 10/03/20 Rx prednisone 40 mg PO DAILY 3 Days #6 tab 10/04/20 Rx Patient History Medical History Anemia LOW IRON Anxiety and depression Asthma LAST USED RESCUE INHALER "ITS BEEN A WHILE" Bipolar disorder TYPE 2 (NO SUICIDAL IDEATION) Claustrophobia Degenerative disc disease Fracture of distal fibula per pt did not heal correctly and uses a walker or wheelchair History of kidney stones History of palpitations reason for metoprolol Hyperlipidemia Lumbar radiculopathy Lung nodule BEING MONITORED (RT LUNG) Migraine Morbid obesity with BMI of 50.0-59.9, adult Osteoarthritis Post traumatic stress disorder Psoriatic arthritis Schizo-affective schizophrenia Sleep apnea CURRENTLY HAS NO DEVICE NOW Social anxiety disorder Type II diabetes mellitus, uncontrolled Surgical History History of bilateral tubal ligation History of cholecystectomy History of dilatation and curettage x3 History of endoscopic sinus surgery x2 History of esophagogastroduodenoscopy (EGD) History of surgical removal of ganglion cyst x3 on right hand History of tonsillectomy and adenoidectomy Hx of meniscectomy of right knee Nausea and vomiting after administration of anesthetic agent Status post myringotomy with tube placement of both ears multiple Family History Other Cancer Heart disease Hypertension No family history of adverse response to anesthesia Social History Smoking Status: Never smoker Tobacco Type: Cigarettes Cigarettes Per Day: 1 per day; Second Hand Exposure: Yes; Hx Alcohol Use: Yes Hx Substance Use: Yes Last Used Substance: Days (ago) Last Used Substance Other:: September 11, 2020 Preferred Language: Wolof Communication Ability: Effective Seismic Observer Required: No Beliefs That Will Affect Care: None Current Living Situation: Alone Current Living Situation Comment: Hotel room with significant other Feels Safe at Home: Yes Assistive Devices: Glasses Review of Systems Review of Systems: All systems reviewed & are unremarkable except as noted in HPI & below Physical Exam Physical Exam: Physical Exam: General: Awake, alert and oriented x 3. No acute distress. Flattened affect HEENT: Normocephalic, atraumatic. Pupils equal, round and reactive to light and accommodation. Extraocular muscles are intact. Anicteric sclera. Moist mucous membranes. Neck: No JVD. No bruit. Cardiovascular: Regular. No S-4. Normal S-1 and S-2. No S-3. No murmurs, rubs or gallops. Pulmonary: Clear to auscultation bilaterally. No rales, rhonchi, or wheezing. Abdomen: Bowel sounds x 4, soft. No rebound, guarding or tenderness. No organomegaly. Extremities: No clubbing, cyanosis or edema. +2 pedal pulses bilaterally. Skin: Warm and dry. Results & Data ([facility]) Vital Signs (Past 12 Hours) Vital Signs Temp Pulse Pulse Resp BP BP Pulse Ox 10/04/20 11:21 36.6 C 67 16 116/77 95 10/04/20 09:34 71 112/71 10/04/20 08:06 81 10/04/20 07:56 36.8 C 102 H 22 137/90 97 10/04/20 06:00 83 18 143/82 H 92 10/04/20 05:30 95 H 19 142/98 H 96 10/04/20 05:00 75 23 122/77 90 10/04/20 04:30 93 H 20 170/99 H 94 10/04/20 04:00 77 23 149/107 H 96 10/04/20 03:30 85 22 155/92 H 94 10/04/20 03:00 85 20 150/82 H 94 10/04/20 02:30 89 23 147/87 H 93 10/04/20 02:00 88 20 154/93 H 92 10/04/20 01:30 87 19 169/104 H 92 10/04/20 00:30 98 H 20 136/84 92 10/04/20 00:25 103 H 16 155/92 H 155/92 H 95 10/04/20 00:00 102 H 18 95
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
--- NOTE | 2020-10-04 14:51 | Hospitalist Progress Note ---
Date of Service October 04, 2020 Assessment & Plan (1) COVID-19: Did not receive any vaccine for Covid Has had symptoms and diagnosed with COVID-19 last Thursday Does not have any significant symptoms of Covid pneumonia except cough Chest x-ray is is showing patchy opacity consistent with a viral pneumonia Has not been requiring any oxygen to maintain such a Will be discharged home this afternoon with isolation precaution at home (2) Pneumonia: Due to COVID-19 No treatment needed due to asymptomatic status (3) Atypical chest pain: Appreciate cardiology input and recommendation Noncardiac chest pain No further cardiac work-up (4) Feeling like committing suicide: Has history of anxiety/depression Mention to have suicidal ideation in the emergency room Appreciate psychiatric evaluation Denies any more suicidal ideation and cleared by the psychiatrist to be discharged She will keep her appointment with outpatient psychiatrist/psychologist (5) Dysuria: UA is suggestive of possible infection Culture has been pending We will give Keflex on discharge (6) Asthma: Stable She wants to be discharged Remains free of symptoms No more suicidal ideation and psychiatrist cleared her to go home She will be discharged home this afternoon Admission and Anticipated Discharge Date Admission Date: October 04, 2020 Subjective 10/04/2020 The patient was seen and examined in medical telemetry unit She does not have any more suicidal ideation and she was seen by the psychiatrist She has minimal cough but denies any other symptoms associated with it Denies any shortness of breath and has not been requiring any oxygen since admission She definitely wants to go home Review of Systems Review of Systems: All systems reviewed and are unremarkable except as noted below Physical Exam Physical Exam: Lying in bed comfortably Constitutional: well developed, well nourished and + obese; not ill appearing Eyes: PERRL, conjunctivae normal, anicteric sclerae ENMT: external ear and nose normal, oropharynx normal Neck: trachea midline, no thyromegaly Respiratory: no respiratory distress Auscultation: lungs clear to auscultation bilaterally and + diminished lung sounds; no crackles and no wh eezes Cardiovascular: Rate/Rhythm: regular rate and regular rhythm Heart Sounds: no murmur Extremities: + edema (Trace edema bilaterally) Gastrointestinal (Abdomen): Inspection/Auscultation: normal bowel sounds; abdomen not distended Percussion/Palpation: abdomen soft; abdomen nontender Musculoskeletal: No apparent distress at rest Neurologic: Alert, awake and oriented x3. No focal sensory and motor deficit appreciated Psychiatric: A+Ox3, euthymic affect Lymphatic: no cervical or axillary lymphadenopathy Results & Data Results & Data ([facility]) Vital Signs (Past 12 Hours) Vital Signs Temp Pulse Pulse Resp BP BP Pulse Ox 10/04/20 11:21 36.6 C 67 16 116/77 95 10/04/20 09:34 71 112/71 10/04/20 08:06 81 10/04/20 07:56 36.8 C 102 H 22 137/90 97 10/04/20 06:00 83 18 143/82 H 92 10/04/20 05:30 95 H 19 142/98 H 96 10/04/20 05:00 75 23 122/77 90 10/04/20 04:30 93 H 20 170/99 H 94 10/04/20 04:00 77 23 149/107 H 96 10/04/20 03:30 85 22 155/92 H 94 10/04/20 03:00 85 20 150/82 H 94 Laboratory Results Short CBC 10/03/20 Range/Units 21:30 WBC 11.50 H (4.8-10.8) K/uL Hgb 13.3 (12.0-16.0) g/dL Hct 40.7 (37-47) % Plt Count 349 (130-400) K/uL BMP 10/03/20 21:30 Sodium 142 Potassium 3.6 Chloride 107 Carbon Dioxide 30 BUN 17 Creatinine 0.70 Glucose 127 H Calcium 9.0 Cardiac Enzymes 10/04/20 10/04/20 Range/Units 04:39 09:43 Troponin I < 0.015 < 0.015 (0-0.045) ng/ml Liver Function 10/03/20 Range/Units 21:30 Total Bilirubin 0.5 (0.2-1) mg/dl AST 21 (15-37) U/L ALT 42 (12-78) U/L Alkaline Phosphatase 100 (45-117) U/L Albumin 2.9 L (3.4-5.0) gm/dl Urine 10/04/20 Range/Units 04:30 Urine Color Dark Yellow Urine Appearance Cloudy A (Clear) Urine pH 6.0 (4.5-7.5) Ur Specific [place] 1.027 (1.000-1.030) Urine Protein Negative (Negative) Urine Glucose (UA) Negative (Negative) Medications Administered Current Inpatient Medications Acetaminophen (Acetaminophen 325 Mg Tab) 650 mg PO Q4H PRN PRN Reason: Pain or Fever Stop: 11/03/20 07:54 Last Admin: 10/04/20 09:39 Dose: 650 mg Documented by: Albuterol (Albuterol 0.083% Nebu Soln 3 Ml Vial) 2.5 mg INH QIDR PRN PRN Reason: Shortness Of Breath Or Wheezing Stop: 11/03/20 07:54 Albuterol (Albuterol Hfa 8 Gm Inhaler) 2 puffs INH Q4R PRN PRN Reason: Wheezing Stop: 11/03/20 08:07 Aripiprazole (Aripiprazole 15 Mg Tab) 30 mg PO DAILY [facility] Stop: 11/03/20 08:59 Last Admin: 10/04/20 09:39 Dose: 30 mg Documented by: Atorvastatin Calcium (Atorvastatin 20 Mg Tab) 20 mg PO HS [facility] Stop: 11/03/20 20:59 Benzonatate (Benzonatate 100 Mg Capsule) 100 mg PO TID PRN PRN Reason: cough Stop: 11/03/20 07:54 Buspirone HCl (Buspirone 15 Mg Tab) 15 mg PO TID [facility] Stop: 11/03/20 08:59 Last Admin: 10/04/20 13:57 Dose: 15 mg Documented by: Ciprofloxacin/Hydrocortisone (Cipro 0.2%/Hydrocortisone 1% Otic Susp 10 Ml Btl) 3 drops OTR BID [facility] Stop: 11/03/20 08:59 Last Admin: 10/04/20 09:39 Dose: 3 drops Documented by: Clotrimazole (Clotrimazole Vaginal Cr 7 Appln/45 Gm Tube) 1 appln PV BID [facility] Stop: 10/11/20 08:59 Last Admin: 10/04/20 09:42 Dose: 1 appln Documented by: Dicyclomine HCl (Dicyclomine Hcl 10 Mg Cap) 10 mg PO QID PRN PRN Reason: Abdominal Pain Stop: 11/03/20 07:54 Duloxetine HCl (Duloxetine Hcl 60 Mg Cap) 60 mg PO DAILY [facility] Stop: 11/03/20 08:59 Last Admin: 10/04/20 09:39 Dose: 60 mg Documented by: Enoxaparin Sodium (Enoxaparin Inj 40 Mg/0.4 Ml Syr) 40 mg SQ Q12H [facility] Stop: 11/03/20 08:59 Last Admin: 10/04/20 09:40 Dose: 40 mg Documented by: Fluticasone/Vilanterol (Fluticasone/Vilanterol 200/25mcg 14 Puffs/Inhaler) 1 puffs INH DAILY [facility]; Protocol Stop: 11/03/20 08:59 Last Admin: 10/04/20 09:41 Dose: 1 puffs Documented by: Furosemide (Furosemide 20 Mg Tab) 20 mg PO BID PRN PRN Reason: Weight Gain Stop: 11/03/20 07:54 Guaifenesin (Guaifenesin 600 Mg Tabcr) 600 mg PO Q12 [facility] Stop: 11/03/20 08:59 Last Admin: 10/04/20 09:40 Dose: 600 mg Documented by: Sodium Chloride (Nss 1000ml) 1,000 mls @ 80 mls/hr IV .[id number] [facility] Stop: 10/04/20 20:44 Last Admin: 10/04/20 09:42 Dose: 80 mls/hr Documented by: Ceftriaxone Sodium 2,000 mg/ (Dextrose) 70 mls @ 140 mls/hr IV Q24H [facility]; Protocol Stop: 10/14/20 08:59 Last Infusion: 10/04/20 11:24 Dose: Infused Documented by: Insulin Aspart (Insulin Aspart 100 Units/Ml 3 Ml Pen) 0 units SC ACHS [facility] Stop: 11/03/20 08:29 Last Admin: 10/04/20 12:28 Dose: 9 units Documented by: Metoprolol Succinate (Metoprolol Succ 50mg Ext Rel Tab) 50 mg PO QAM [facility] Stop: 11/03/20 08:59 Last Admin: 10/04/20 09:40 Dose: 50 mg Documented by: Nitroglycerin (Nitroglycerin Sl 0.4 Mg/Tab Tab) 0.4 mg SL UD PRN PRN Reason: Chest Pain Stop: 11/03/20 07:54 Pantoprazole Sodium (Pantoprazole 40 Mg Tab) 40 mg PO BID [facility]; Protocol Stop: 11/03/20 08:59 Last Admin: 10/04/20 09:39 Dose: 40 mg Documented by: Prazosin HCl (Prazosin Hcl 1 Mg Cap) 2 mg PO HS [facility] Stop: 11/03/20 20:59 Trazodone HCl (Trazodone Hcl 100 Mg Tab) 100 mg PO HS PRN PRN Reason: Sleep Stop: 11/03/20 07:54 Triamcinolone Acetonide (Triamcinolone Acet 0.1% Cr 15 Gm Tube) 1 appln TOP BID PRN PRN Reason: ITCHY AREA-TRUNK, LEGS, ARMS Stop: 11/03/20 07:54 (1) Pneumonia Laterality: bilateral Lung location: unspecified part of lung Pneumonia type: due to unspecified organism Qualified Code(s): J18.9 - Pneumonia, unspecified organism
--- NOTE | 2020-10-04 15:23 | Electrocardiogram Report ---
Test Reason : Blood Pressure : / mmHG Vent. Rate : 124 BPM Atrial Rate : 124 BPM P-R Int : 158 ms QRS Dur : 074 ms QT Int : 314 ms P-R-T Axes : 048 -16 027 degrees QTc Int : 451 ms Sinus tachycardia T wave abnormality, consider anterior ischemia Abnormal ECG When compared with ECG of 29-SEP-2020 22:29, Vent. rate has increased BY 78 BPM Non-specific change in ST segment in Anterior leads T wave inversion now evident in Anterior leads Confirmed by Piyush Watts ([id number]) on 10/04/2020 3:23:09 PM Referred By: REFERRED SELF Confirmed By:Piyush Watts
--- NOTE | 2020-10-04 15:27 | Electrocardiogram Report ---
Test Reason : Blood Pressure : / mmHG Vent. Rate : 086 BPM Atrial Rate : 086 BPM P-R Int : 164 ms QRS Dur : 078 ms QT Int : 364 ms P-R-T Axes : 042 -18 -02 degrees QTc Int : 435 ms Normal sinus rhythm Minimal voltage criteria for LVH, may be normal variant Poor R wave progression, consider anterior DC vs. lead placement vs. LVH Nonspecific T wave abnormality Abnormal ECG When compared with ECG of 03-OCT-2020 21:19, (unconfirmed) No significant change was found Confirmed by Piyush Watts ([id number]) on 10/04/2020 3:27:36 PM Referred By: REFERRED SELF Confirmed By:Piyush Watts
[2020-10-04] MEDS ORDERED: PRAZOSIN HCL 1 MG CAP PO SCH (21:00)
[2020-10-04] MEDS ORDERED: ATORVASTATIN 20 MG TAB PO SCH (21:00)
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
== END 2020-10-05 00:06 | disposition home or self-care (01) ==
LOC: ED 21:11 → 2W 10-04 05:54 → INTOOBSV 10-04 05:54 → 2W 10-04 06:50